=== PATIENT | female | born 1945 | race Hispanic/Latino ===

== ENCOUNTER 2017-06-04 13:49 | Emergency (ER) | payer MEDICARE, BC ==
[2017-06-04 13:49] VITALS: BMI 38.9
[2017-06-04 14:00] VITALS: BP 121/75; PULSE 81; RESP 16; TEMP 98.3; O2SAT 97
--- NOTE | 2017-06-04 14:38 | ED PDOC ---
Arrival/HPI - General Chief Complaint: Weakness/Neurological Deficit Time Seen by Provider: 06/04/17 14:20 Historian: Patient - History of Present Illness Narrative History of Present Illness (Text): 06/04/17 14:33 A 71 year old female, whose past medical history includes, mitral valve replacement, HTN, HLD, and CAD, presents to the emergency department with a complaint of several week duration weakness. She states that she has been experiencing "shakes and not feeling herself". The patient states that she takes Zanax twice a day, but states that her symptoms are not associated with her anxiety. The patient also notes that she has been feeling lightheaded. She denies fevers, chills, headache, chest pain, shortness of breath, dyspnea on exertion, cough, abdominal pain, nausea, vomiting, diarrhea, back pain, neck pain, urinary/bowel changes, or any other complaint. PMD: Dr. Lopez Time/Duration: Other (Several Weeks) Symptom Onset: Sudden Symptom Course: Unchanged Activities at Onset: Rest Context: Home Past Medical History - Provider Review Nursing Documentation Reviewed: Yes - Infectious Disease Hx of Infectious Diseases: None - Tetanus Immunization Tetanus Immunization: Unknown - Cardiac Hx Hypertension: Yes - Pulmonary Hx Respiratory Disorders: No (DENIES) - Neurological Hx Neurological Disorder: No - HEENT Hx HEENT Disorder: No - Renal Hx Renal Disorder: No - Endocrine/Metabolic Hx Endocrine Disorders: No - Hematological/Oncological Hx Anemia: Yes Hx Blood Transfusions: Yes - Integumentary Hx Dermatological Disorder: No - Musculoskeletal/Rheumatological Hx Arthritis: Yes (knee replacement) - Gastrointestinal Hx Gastrointestinal Disorders: Yes (reflux) Hx Gastroesophageal Reflux: Yes - Genitourinary/Gynecological Hx Reproductive Disorders: Yes (hx hyst/l oopherectomy) - Psychiatric Hx Anxiety: Yes Hx Depression: Yes Hx Substance Use: No - Surgical History Hx Cholecystectomy: Yes Hx Hysterectomy: Yes Hx Orthopedic Surgery: Yes (L KNEE, R KNEE) Hx Valve Replacement: Yes - Anesthesia Hx Anesthesia: Yes - Suicidal Assessment Feels Threatened In Home Enviroment: No Family/Social History - Physician Review Nursing Documentation Reviewed: Yes Family/Social History: No Known Family HX Smoking Status: Never Smoked Hx Alcohol Use: No Hx Substance Use: No Hx Substance Use Treatment: No Allergies/Home Meds Allergies/Adverse Reactions: Allergies furosemide Allergy (Mild, Verified 06/04/17 13:50) ITCHING morphine Allergy (Verified 06/04/17 13:50) DIARRHEA ciprofloxacin [From Cipro] Adverse Reaction (Mild, Verified 06/04/17 13:50) ITCHING ciprofloxacin HCl [From Cipro] Adverse Reaction (Mild, Verified 06/04/17 13:50) ITCHING Home Medications: Home Meds Medication Instructions Recorded Confirmed Alprazolam [Xanax] 1 mg PO BID 10/29/12 06/04/17 Fludrocortisone [Florinef] 0.1 mg PO DAILY 10/29/12 06/04/17 Metoprolol Succinate [Toprol XL] 50 mg PO DAILY 10/29/12 06/04/17 Escitalopram [Lexapro] 10 mg PO DAILY 06/13/16 06/04/17 Rosuvastatin Calcium [Crestor] 10 mg PO HS 06/13/16 06/04/17 Vitamin B Complex 1 tab PO DAILY 06/13/16 06/04/17 Vitamin C 500 mg PO DAILY 06/13/16 06/04/17 Cholecalciferol [Vitamin D 1000 IU] 1,000 unit PO BID 06/16/16 06/04/17 Pantoprazole [Protonix EC Tab] 40 mg PO DAILY 06/04/17 06/04/17 Warfarin [Coumadin] 3 mg PO 1800 06/04/17 06/04/17 Review of Systems - Physician Review All systems were reviewed & negative as marked: Yes - Review of Systems Constitutional: absent: Fevers, Night Sweats Respiratory: absent: SOB Cardiovascular: absent: Chest Pain, MEDINA Gastrointestinal: absent: Abdominal Pain, Stool Changes, Vomiting Genitourinary Female: absent: Urine Output Changes Musculoskeletal: absent: Back Pain, Neck Pain Neurological: absent: Headache Physical Exam Vital Signs Reviewed: Yes Vital Signs Temp Pulse Resp BP Pulse Ox 06/04/17 13:54 98.3 F 81 16 121/75 97 Temperature: Afebrile Blood Pressure: Normal Pulse: Regular Respiratory Rate: Normal Appearance: Positive for: Well-Appearing, Non-Toxic, Comfortable Pain Distress: None Mental Status: Positive for: Alert and Oriented X 3 Finger Stick Blood Glucose: 114 - Systems Exam Head: Present: Atraumatic, Normocephalic Pupils: Present: PERRL Extroacular Muscles: Present: EOMI Conjunctiva: Present: Normal Mouth: Present: Moist Mucous Membranes Neck: Present: Normal Range of Motion Respiratory/Chest: Present: Clear to Auscultation, Good Air Exchange. No: Respiratory Distress, Accessory Muscle Use Cardiovascular: Present: Regular Rate and Rhythm, Normal S1, S2. No: Murmurs Abdomen: Present: Normal Bowel Sounds. No: Tenderness, Distention, Peritoneal Signs Back: Present: Normal Inspection Upper Extremity: Present: Normal Inspection. No: Cyanosis, Edema Lower Extremity: Present: Normal Inspection. No: Edema (No peripheral edema.) Neurological: Present: GCS=15, CN II-XII Intact, Speech Normal Skin: Present: Warm, Dry, Normal Color. No: Rashes Psychiatric: Present: Alert, Oriented x 3, Normal Insight, Normal Concentration. No: Normal Affect (Flat Affect) Medical Decision Making ED Course and Treatment: 06/04/17 14:44 Impression: A 71 year old female presents to the emergency department for several week duration weakness and shakes. The patient states that she has not been feeling herself. Plan: -- EKG -- Labs -- Urinalysis -- Reassess and disposition Prior Visits: Notes and results from previous visits were reviewed. Patient was last seen in the emergency department on 06/17/16. The patient was seen in the emergency department with a complaint of left hand pain, forehead injury, and left knee pain. The patient was hospitalized. Progress Notes: EKG: Ordered, reviewed, and independently interpreted the EKG. Rate : 68 BPM Rhythm : Atrial- Fibrillation Interpretation : No acute ischemic changes. - Lab Interpretations Lab Results: 06/04/17 14:19 06/04/17 14:19 Lab Results 06/04/17 14:45: Urine Color Yellow, Urine Appearance Slight-cloudy, Urine pH 6.0 , Ur Specific [place] 1.020, Urine Protein Negative, Urine Glucose (UA) Negative , Urine Ketones Trace H, Urine Blood Trace-intact H, Urine Nitrate Positive H, Urine Bilirubin Negative, Urine Urobilinogen 0.2, Ur Leukocyte Esterase Trace H , Urine RBC 1 - 3, Urine WBC 10 - 15, Ur Epithelial Cells 1 - 3, Urine Bacteria Many 06/04/17 14:19: TSH 3rd Generation 1.92 06/04/17 14:19: Sodium 139, Potassium 4.1, Chloride 104, Carbon Dioxide 30, Anion Gap 9 L, BUN 15, Creatinine 0.9, Est GFR ( Amer) > 60, Est GFR (Non -Af Amer) > 60, Random Glucose 107, Calcium 10.3, Total Bilirubin 0.7, AST 39 H , ALT 47, Alkaline Phosphatase 52, Total Protein 7.2, Albumin 4.1, Globulin 3.1 , Albumin/Globulin Ratio 1.3 06/04/17 14:19: PT 31.4 H, INR 2.82 H 06/04/17 14:19: WBC 10.0 D, RBC 5.05, Hgb 14.2, Hct 42.9, MCV 85.0, MCH 28.1, MCHC 33.1, RDW 14.4, Plt Count 194, MPV 10.2, Gran % 80.3 H, Lymph % (Auto) 12.1 L, Kin[place] % (Auto) 7.0 H, Eos % (Auto) 0.3 L, Baso % (Auto) 0.3, Gran # 8.04 H, Lymph # 1.2, Kinney # 0.7 H, Eos # 0.0, Baso # 0.03 I have reviewed the lab results: Yes - EKG Interpretation Interpreted by ED Physician: Yes Type: 12 lead EKG - Medication Orders Current Medication Orders: Nitrofurantoin Macrocrystals (Macrobid) 100 mg PO Q12 KATIE Last Admin: 06/04/17 16:05 Dose: Discontinued Medications Nitrofurantoin Macrocrystals (Macrobid) 100 mg PO STAT STA Stop: 06/04/17 15:55 Last Admin: 06/04/17 16:05 Dose: 100 mg - Scribe Statement The provider has reviewed the documentation as recorded by the Shea Zamudio Provider Justiceibe Attestation: All medical record entries made by the Shea were at my direction and personally dictated by me. I have reviewed the chart and agree that the record accurately reflects my personal performance of the history, physical exam, medical decision making, and the department course for this patient. I have also personally directed, reviewed, and agree with the discharge instructions and disposition. Disposition/Present on Arrival - Present on Arrival Any Indicators Present on Arrival: No History of DVT/PE: No History of Uncontrolled Diabetes: No Urinary Catheter: No History of Decub. Ulcer: No History Surgical Site Infection Following: None - Disposition Have Diagnosis and Disposition been Completed?: Yes Diagnosis: UTI (urinary tract infection) Disposition: HOME/ ROUTINE Disposition Time: 16:05 Patient Problems: Current Active Problems Problem Status Onset UTI (urinary tract infection) Acute Condition: STABLE Discharge Instructions (ExitCare): Urinary Tract Infection in Women (ED) Additional Instructions: Plenty of fluids [Arin Carlisle], thank you for letting us take care of you today. Your provider was [Dr Brown]. You were treated for [uti]. The emergency medical care you received today was directed at your acute symptoms. If you were prescribed any medication, please fill it and take as directed. It may take several days for your symptoms to resolve. Return to the Emergency Department if your symptoms worsen, do not improve, or if you have any other problems. Please contact your doctor or call one of the physicians/clinics you have been referred to that are listed on the Patient Visit Information form that is included in your discharge packet. Bring any paperwork you were given at discharge with you along with any medications you are taking to your follow up visit. Our treatment cannot replace ongoing medical care by a primary care provider (PCP) outside of the emergency department. Thank you for allowing the [facility] team to be part of your care today. If you had an X-Ray or CT scan: A Radiologist will review the ED reading if any change in treatment is needed we will contact you. If you had a blood, urine, or wound culture: It will take several days for the results, if any change in treatment is needed we will contact you. If you had an STI test: It will take 48 hours for the results. Please call after 1 week if you have not heard back. Prescriptions: Nitrofurantoin Macrocrystals [Macrobid] 100 mg PO BID #14 cap Referrals: Mike Lopez MD [Primary Care Provider] - Follow up with primary Forms: [employer] (Dominican)
[2017-06-04 14:45] LABS: BASO # 0.03 K/mm3 (0.0-2.0); BASO % 0.3 % (0.0-3.0); EOS % 0.3 % (1.5-5.0); GRAN # 8.04 (1.4-6.5); GRAN % 80.3 % (50.0-68.0); HEMATOCRIT 42.9 % (36.0-48.0); LYMPH # 1.2 (1.2-3.4); LYMPH % 12.1 % (22.0-35.0); MEAN CORPUSCULAR HEMOGLOBIN 28.1 pg (25.0-35.0); MEAN CORPUSCULAR HGB CONC 33.1 g/dl (31.0-37.0); MEAN PLATELET VOLUME 10.2 fl (7.0-11.0); MONO # 0.7 (0.1-0.6); RED CELL DISTRIBUTION WIDTH 14.4 % (11.5-14.5)
[2017-06-04 14:50] LABS: INR 2.82 (0.93-1.08)
[2017-06-04 14:51] LABS: ALB/GLOB RATIO 1.3 (1.1-1.8); ALKALINE PHOSPHATASE 52 U/L (38-126); ALT/SGPT 47 U/L (7-56); AST/SGOT 39 U/L (14-36); BILIRUBIN,TOTAL 0.7 mg/dL (0.2-1.3); BLOOD UREA NITROGEN 15 mg/dL (7-21); CALCIUM 10.3 mg/dL (8.4-10.5); CARBON DIOXIDE 30 mmol/L (21-33); CHLORIDE 104 mmol/L (98-107); GFR AFRICAN-AMERICAN > 60; GLUCOSE,RANDOM 107 mg/dL (70-110); POTASSIUM 4.1 mmol/L (3.6-5.0); SODIUM 139 mmol/L (132-148); TOTAL PROTEIN 7.2 g/dL (5.8-8.3)
[2017-06-04 14:53] LABS: URINE BILIRUBIN NEGATIVE (NEGATIVE); URINE BLOOD TRACE-INTACT (NEGATIVE); URINE GLUCOSE (UA) NEGATIVE (NEGATIVE); URINE KETONE TRACE mg/dL (NEGATIVE); URINE LEUKOCYTE ESTERASE TRACE Leu/uL (NEGATIVE); URINE PROTEIN NEGATIVE mg/dL (<30 mg/dL); URINE UROBILINOGEN 0.2 E.U./dL (<1 E.U./dL)
[2017-06-04 14:54] LABS: URINE APPEARANCE SLIGHT-CLOUDY (CLEAR); URINE COLOR YELLOW (YELLOW)
[2017-06-04 14:59] LABS: URINE BACTERIA MANY (NEG)
--- NOTE | 2017-06-06 09:32 | CARD ---
APPROVED REPORT EKG Measurement Heart [id number] P98 [id number] <Conclusion> RSR Small inferior Q waves NSSTW changes Baseline artifact Probably no change
== END 2017-06-04 16:10 | disposition home or self-care (01) ==
LOC: ED 13:49
DX: N39.0 Urinary tract infection, site not specified (principal); I10 Essential (primary) hypertension; I25.10 Atherosclerotic heart disease of native coronary artery without angina pectoris; E78.5 Hyperlipidemia, unspecified

== ENCOUNTER 2017-06-29 14:22 | Inpatient (IN) | payer MEDICARE, BC ==
[2017-06-29] MEDS ORDERED: Sodium Chloride 0.9% 500 ML IV STA (15:05)
[2017-06-29] MEDS ORDERED: Vancomycin 1gm in NS 250ml 1 GM/250 ML BAG IVPB STA (15:15)
[2017-06-29 15:24] LABS: VENOUS BLOOD GAS BASE EXCESS 4.3 mmol/L (0.0-2.0); VENOUS BLOOD PH 7.35 (7.32-7.43)
--- NOTE | 2017-06-29 15:26 | ED PDOC ---
Arrival/HPI - General Chief Complaint: Weakness/Neurological Deficit Time Seen by Provider: 06/29/17 14:24 Historian: Patient - History of Present Illness Narrative History of Present Illness (Text): 06/29/17 15:23 71 year old female, whose history includes mitral valve replacement, presents to the Emergency department complaining of generalized fatigue and myalgias. Patient was evaluated at PMD's office today; PMD found patient febrile and advised her to seek Emergency department evaluation for concern of endocarditis. Patient reports she is compliant with her medications. Patient denies any chest pain, shortness of breath, nausea, vomiting, diarrhea, urinary symptoms, back pain, neck pain, headache, dizziness, or any other complaints. PMD: Dr. Gandhi Time/Duration: 24 hours Symptom Onset: Gradual Symptom Course: Unchanged Context: Home Past Medical History - Provider Review Nursing Documentation Reviewed: Yes - Infectious Disease Hx of Infectious Diseases: None - Tetanus Immunization Tetanus Immunization: Unknown - Reproductive Menopause: Yes - Cardiac Hx Hypertension: Yes - Pulmonary Hx Respiratory Disorders: No (DENIES) - Neurological Hx Neurological Disorder: No - HEENT Hx HEENT Disorder: No - Renal Hx Renal Disorder: No - Endocrine/Metabolic Hx Endocrine Disorders: No - Hematological/Oncological Hx Anemia: Yes Hx Blood Transfusions: Yes - Integumentary Hx Dermatological Disorder: No - Musculoskeletal/Rheumatological Hx Arthritis: Yes (knee replacement) - Gastrointestinal Hx Gastrointestinal Disorders: Yes (reflux) Hx Gastroesophageal Reflux: Yes - Genitourinary/Gynecological Hx Reproductive Disorders: Yes (hx hyst/l oopherectomy) - Psychiatric Hx Anxiety: Yes Hx Depression: Yes Hx Substance Use: No - Surgical History Hx Cholecystectomy: Yes Hx Hysterectomy: Yes Hx Orthopedic Surgery: Yes (L KNEE, R KNEE) Hx Valve Replacement: Yes - Anesthesia Hx Anesthesia: Yes - Suicidal Assessment Feels Threatened In Home Enviroment: No Family/Social History - Physician Review Nursing Documentation Reviewed: Yes Family/Social History: Unknown Family HX Smoking Status: Never Smoked Hx Alcohol Use: No Hx Substance Use: No Hx Substance Use Treatment: No Allergies/Home Meds Allergies/Adverse Reactions: Allergies furosemide Allergy (Mild, Verified 06/29/17 14:37) ITCHING morphine Allergy (Verified 06/29/17 14:37) DIARRHEA ciprofloxacin [From Cipro] Adverse Reaction (Mild, Verified 06/29/17 14:37) ITCHING ciprofloxacin HCl [From Cipro] Adverse Reaction (Mild, Verified 06/29/17 14:37) ITCHING Home Medications: Home Meds Medication Instructions Recorded Confirmed Alprazolam [Xanax] 1 mg PO BID 10/29/12 06/29/17 Fludrocortisone [Florinef] 0.1 mg PO DAILY 10/29/12 06/29/17 Metoprolol Succinate [Toprol XL] 50 mg PO DAILY 10/29/12 06/29/17 Escitalopram [Lexapro] 10 mg PO DAILY 06/13/16 06/29/17 Rosuvastatin Calcium [Crestor] 10 mg PO HS 06/13/16 06/29/17 Vitamin B Complex 1 tab PO DAILY 06/13/16 06/29/17 Cholecalciferol [Vitamin D 1000 IU] 1,000 unit PO BID 06/16/16 06/29/17 Pantoprazole [Protonix EC Tab] 40 mg PO DAILY 06/04/17 06/29/17 Warfarin [Coumadin] 3 mg PO 1800 06/04/17 06/29/17 Ibandronate Sodium [Boniva] 150 mg PO 06/29/17 Warfarin [Coumadin] 2 mg PO 06/29/17 Review of Systems - Physician Review All systems were reviewed & negative as marked: Yes - Review of Systems Constitutional: Fatigue Respiratory: absent: SOB Cardiovascular: absent: Chest Pain Gastrointestinal: absent: Diarrhea, Nausea, Vomiting Genitourinary Female: absent: Dysuria, Frequency, Hematuria Musculoskeletal: Myalgias. absent: Back Pain, Neck Pain Neurological: absent: Headache, Dizziness Physical Exam Vital Signs Reviewed: Yes Vital Signs Temp Pulse Resp BP Pulse Ox 06/29/17 17:30 98.5 F 80 18 144/97 H 95 06/29/17 14:54 97.6 F 70 12 161/89 H 98 06/29/17 14:30 98 F 72 16 128/79 98 Temperature: Afebrile Blood Pressure: Normal Pulse: Regular Respiratory Rate: Normal Appearance: Positive for: Well-Appearing, Non-Toxic, Comfortable Pain Distress: None Mental Status: Positive for: Alert and Oriented X 3 - Systems Exam Head: Present: Atraumatic, Normocephalic Pupils: Present: PERRL Extroacular Muscles: Present: EOMI Conjunctiva: Present: Normal Mouth: Present: Moist Mucous Membranes Neck: Present: Normal Range of Motion Respiratory/Chest: Present: Clear to Auscultation, Good Air Exchange. No: Respiratory Distress, Accessory Muscle Use Cardiovascular: Present: Normal S1, S2, Other (Midsystolic click). No: Murmurs Abdomen: Present: Normal Bowel Sounds. No: Tenderness, Distention, Peritoneal Signs Back: Present: Normal Inspection Upper Extremity: Present: Normal Inspection. No: Cyanosis, Edema Lower Extremity: Present: Normal Inspection, Normal ROM. No: Edema, CALF TENDERNESS Neurological: Present: GCS=15, CN II-XII Intact, Speech Normal Skin: Present: Warm, Dry, Normal Color. No: Rashes Psychiatric: Present: Alert, Oriented x 3, Normal Insight, Normal Concentration Medical Decision Making ED Course and Treatment: 06/29/17 15:29 Impression: 71 year old female with a history of mitral valve replacement presents to the Emergency department complaining of generalized fatigue and myalgias. Plan: -- EKG -- Chest xray -- Labs -- Blood and urine cultures -- Urinalysis -- Influenza A B test -- Vancomycin -- IV Fluids -- Reassess and disposition Prior Visits: Notes and results from previous visits were reviewed. Patient was last seen in the emergency department on 06/04/17 for generalized weakness for weeks. Patient was diagnosed with UTI and discharged home. Progress Notes: 06/29/17 15:57 EKG shows NSR at 73bpm with no ST changes from prior on 06/13/2016 Procedure: Chest xray Report Date : 06/29/2017 15:59:55 Dictator : Xenia Crews MD IMPRESSION: Median sternotomy wires. Cardiomegaly. 06/29/17 18:07 Labs reviewed. Blood cx sent. UA positive. Ucx sent. Dr. Gandhi to admit with cardiac evaluation. - Lab Interpretations I have reviewed the lab results: Yes - RAD Interpretation Radiology Orders: 06/29/17 14:49 CHEST PORTABLE [RAD] Stat - Medication Orders Current Medication Orders: Discontinued Medications Sodium Chloride (Sodium Chloride 0.9%) 500 mls @ 999 mls/hr IV .Q31M STA Stop: 06/29/17 15:35 Last Admin: 06/29/17 15:34 Dose: 999 mls/hr eMAR Start Stop Document 06/29/17 15:34 RG (Rec: 06/29/17 15:34 RG [id number]) Intravenous Solution Start Date 06/29/17 Start Time 15:34 Vancomycin HCl (Vancomycin 1gm) 1 gm in 250 mls @ 167 mls/hr IVPB STAT STA PRN Reason: Protocol Stop: 06/29/17 16:44 Last Admin: 06/29/17 15:34 Dose: 167 mls/hr eMAR Start Stop Document 06/29/17 15:34 RG (Rec: 06/29/17 15:35 RG [id number]) Intravenous Solution Start Date 06/29/17 Start Time 15:35 End Date 06/29/17 - Scribe Statement The provider has reviewed the documentation as recorded by the Justiceibburak Agosto All medical record entries made by the Justiceibburak were at my direction and personally dictated by me. I have reviewed the chart and agree that the record accurately reflects my personal performance of the history, physical exam, medical decision making, and the department course for this patient. I have also personally directed, reviewed, and agree with the discharge instructions and disposition. Disposition/Present on Arrival - Present on Arrival Any Indicators Present on Arrival: No History of DVT/PE: No History of Uncontrolled Diabetes: No Urinary Catheter: No History of Decub. Ulcer: No History Surgical Site Infection Following: None - Disposition Have Diagnosis and Disposition been Completed?: Yes Diagnosis: Fever, Mitral valve replaced, UTI (urinary tract infection) Disposition: HOSPITALIZED Disposition Time: 15:48 Patient Plan: Admission Patient Problems: Current Active Problems Problem Status Onset Fever Acute Mitral valve replaced Acute UTI (urinary tract infection) Acute Condition: FAIR
[2017-06-29 15:33] LABS: BASO # 0.02 K/mm3 (0.0-2.0); BASO % 0.2 % (0.0-3.0); EOS % 0.4 % (1.5-5.0); GRAN # 7.66 (1.4-6.5); GRAN % 81.1 % (50.0-68.0); HEMATOCRIT 42.6 % (36.0-48.0); LYMPH # 1.1 (1.2-3.4); LYMPH % 11.9 % (22.0-35.0); MEAN CELL VOLUME 84.9 fl (80.0-105.0); MEAN CORPUSCULAR HEMOGLOBIN 27.9 pg (25.0-35.0); MEAN CORPUSCULAR HGB CONC 32.9 g/dl (31.0-37.0); MEAN PLATELET VOLUME 9.7 fl (7.0-11.0); MONO # 0.6 (0.1-0.6); MONO % 6.4 % (1.0-6.0); RED CELL DISTRIBUTION WIDTH 14.2 % (11.5-14.5); WHITE BLOOD COUNT 9.4 10^3/ul (4.5-11.0)
[2017-06-29 15:52] LABS: TROPONIN I < 0.01 ng/mL
[2017-06-29 15:58] LABS: PARTIAL THROMBOPLASTIN TIME 40.5 Seconds (25.1-36.5)
[2017-06-29 16:01] LABS: ALB/GLOB RATIO 1.3 (1.1-1.8); ALKALINE PHOSPHATASE 58 U/L (38-126); ALT/SGPT 37 U/L (7-56); AST/SGOT 35 U/L (14-36); BILIRUBIN,TOTAL 0.5 mg/dL (0.2-1.3); BLOOD UREA NITROGEN 16 mg/dL (7-21); CALCIUM 10.4 mg/dL (8.4-10.5); CARBON DIOXIDE 31 mmol/L (21-33); CHLORIDE 105 mmol/L (98-107); GFR AFRICAN-AMERICAN > 60; GLUCOSE,RANDOM 106 mg/dL (70-110); MAGNESIUM 1.8 mg/dL (1.7-2.2); PHOSPHOROUS 3.2 mg/dL (2.5-4.5); POTASSIUM 4.3 mmol/L (3.6-5.0); SODIUM 142 mmol/L (132-148); TOTAL PROTEIN 7.2 g/dL (5.8-8.3)
--- NOTE | 2017-06-29 16:02 | RAD ---
HISTORY: fever, cough COMPARISON: Chest x-ray performed 06/12/16 TECHNIQUE: Chest, one view. FINDINGS: Examination limited by habitus. LUNGS: No focal consolidation. Please note that chest x-ray has limited sensitivity for the detection of pulmonary masses. PLEURA: No significant pleural effusion identified. No definite pneumothorax . CARDIOVASCULAR: Median sternotomy wires. Cardiomegaly. Atherosclerotic calcifications. OSSEOUS STRUCTURES: No acute osseous abnormality identified. VISUALIZED UPPER ABDOMEN: Unremarkable. OTHER FINDINGS: None. IMPRESSION: Median sternotomy wires. Cardiomegaly.
[2017-06-29 17:12] LABS: URINE BILIRUBIN NEGATIVE (NEGATIVE); URINE BLOOD TRACE-LYSED (NEGATIVE); URINE GLUCOSE (UA) NEGATIVE (NEGATIVE); URINE KETONE NEGATIVE (NEGATIVE); URINE LEUKOCYTE ESTERASE SMALL Leu/uL (NEGATIVE); URINE PROTEIN NEGATIVE mg/dL (<30 mg/dL); URINE UROBILINOGEN 0.2 E.U./dL (<1 E.U./dL)
[2017-06-29 17:19] LABS: URINE APPEARANCE SL CLOUDY (CLEAR); URINE COLOR YELLOW (YELLOW)
[2017-06-29 17:22] LABS: URINE RBC 0 - 2 /hpf (0-2)
[2017-06-29 17:23] LABS: URINE BACTERIA MANY (NEG)
[2017-06-29 19:52] VITALS: O2SAT 97
--- NOTE | 2017-06-29 22:17 | CP.PCM.HP ---
History of Present Illness - History of Present Illness History of Present Illness: Renettagokul Ivonne TERRELL PGY1 - Internal Medicine H&P CC: Fatigue HPI: Patient is a 70Y F with PMH of mitral valve replacement (on coumadin) (for severe MVP 2/2 rheumatic heart disease), HTN, HLD, and CAD who presents from her PMD's office complaining of fatigue. At the office, she was reportedly noted to be febrile, and was sent to the ER to rule out endocarditis. She reports that she has been fatigued for 4-5 weeks, without any specific focal weakness or numbness. She denies chest pain, SOB, cough, fever, nausea, vomiting , diarrhea, constipation, abdominal pain, dysuria, hematuria, urgency, frequency , recent weight gain, increased appetite. She does report sleeping more than usual, and a 10 lbs weight loss over the past 2 months. She also reports occasional "shakes" when prompted about chills. She was recently seen in the ER approximately weeks ago for the same complaints, and was noted to have a UTI, and was treated with macrobid, which she completed. Remainder of 12 point ROS was negative. PMH: As above PSH: bilateral knee replacement, open heart surgery for mitral valve replacement , cholecystectomy, hysterectomy (endometrosis), oopherectomy (ovarian cyst) All: Furosemide, Ciprofloxacin, Morphine SHx: Denies tobacco, alcohol, or illicits; lives with PMD: Dr. Gandhi Present on Admission - Present on Admission Any Indicators Present on Admission: No Past Patient History - Infectious Disease Hx of Infectious Diseases: None - Tetanus Immunizations Tetanus Immunization: Unknown - Past Social History Smoking Status: Never Smoked - CARDIAC Hx Hypertension: Yes - PULMONARY Hx Respiratory Disorders: No (DENIES) - NEUROLOGICAL Hx Neurological Disorder: No - HEENT Hx HEENT Problems: No - RENAL Hx Chronic Kidney Disease: No - ENDOCRINE/METABOLIC Hx Endocrine Disorders: No - HEMATOLOGICAL/ONCOLOGICAL Hx Anemia: Yes Hx Blood Transfusions: Yes - INTEGUMENTARY Hx Dermatological Problems: No - MUSCULOSKELETAL/RHEUMATOLOGICAL Hx Arthritis: Yes (knee replacement) - GASTROINTESTINAL Hx Gastrointestinal Disorders: Yes (reflux) Hx Gastroesophageal Reflux: Yes - GENITOURINARY/GYNECOLOGICAL Hx Reproductive Disorders: Yes (hx hyst/l oopherectomy) - PSYCHIATRIC Hx Anxiety: Yes Hx Depression: Yes Hx Substance Use: No - SURGICAL HISTORY Hx Cholecystectomy: Yes Hx Hysterectomy: Yes Hx Orthopedic Surgery: Yes (L KNEE, R KNEE) Hx Valve Replacement: Yes - ANESTHESIA Hx Anesthesia: Yes Meds Allergies/Adverse Reactions: Allergies Allergy/AdvReac Type Severity Reaction Status Date / Time furosemide Allergy Mild ITCHING Verified 06/29/17 14:37 morphine Allergy DIARRHEA Verified 06/29/17 14:37 ciprofloxacin [From Cipro] AdvReac Mild ITCHING Verified 06/29/17 14:37 ciprofloxacin HCl AdvReac Mild ITCHING Verified 06/29/17 14:37 [From Cipro] Physical Exam - Constitutional Appears: Non-toxic, No Acute Distress - Head Exam Head Exam: ATRAUMATIC, NORMOCEPHALIC - Eye Exam Eye Exam: EOMI, Normal appearance, PERRL - ENT Exam ENT Exam: Mucous Membranes Moist - Neck Exam Neck exam: Positive for: Normal Inspection - Respiratory Exam Respiratory Exam: Clear to Auscultation Bilateral, NORMAL BREATHING PATTERN - Cardiovascular Exam Cardiovascular Exam: REGULAR RHYTHM, +S1, +S2 Additional comments: Click of prosthetic mitral valve audible from approximately 2 feet away without stethescope; synchronous with pulse Normal capillary refill. No splinter hemorrhages, osler nodes, or Janeway lesions - GI/Abdominal Exam GI & Abdominal Exam: Normal Bowel Sounds, Soft. absent: Tenderness - Extremities Exam Extremities exam: Positive for: normal inspection. Negative for: calf tenderness, pedal edema - Neurological Exam Neurological exam: Alert, CN II-XII Intact, Oriented x3 - Psychiatric Exam Psychiatric exam: Normal Affect, Normal Mood - Skin Skin Exam: Dry, Intact, Normal Color Results - Vital Signs Recent Vital Signs: Last Vital Signs Temp 98.5 F 06/29/17 17:30 Pulse 80 06/29/17 19:00 Resp 12 06/29/17 19:00 BP 162/75 H 06/29/17 19:00 Pulse Ox 97 06/29/17 19:00 - Labs Result Diagrams: 06/29/17 15:10 06/29/17 15:10 Labs: Laboratory Results - last 24 hr 06/29/17 06/29/17 06/29/17 15:10 15:10 15:10 WBC 9.4 RBC 5.02 Hgb 14.0 Hct 42.6 MCV 84.9 MCH 27.9 MCHC 32.9 RDW 14.2 Plt Count 182 MPV 9.7 Gran % 81.1 H Lymph % (Auto) 11.9 L [place] % (Auto) 6.4 H Eos % (Auto) 0.4 L Baso % (Auto) 0.2 Gran # 7.66 H Lymph # 1.1 L [place] # 0.6 Eos # 0.0 Baso # 0.02 PT 33.4 H INR 3.00 H APTT 40.5 H pO2 VBG pH VBG pCO2 VBG HCO3 VBG Total CO2 VBG O2 Sat (Calc) VBG Base Excess VBG Potassium Sodium 142 Chloride 105 Glucose Lactate FiO2 Potassium 4.3 Carbon Dioxide 31 Anion Gap 10 BUN 16 Creatinine 0.9 Est GFR ( Amer) > 60 Est GFR (Non-Af Amer) > 60 Random Glucose 106 Calcium 10.4 Phosphorus 3.2 Magnesium 1.8 Total Bilirubin 0.5 AST 35 ALT 37 Alkaline Phosphatase 58 Total Creatine Kinase 88 Troponin I < 0.01 NT-Pro-B Natriuret Pep 282 Total Protein 7.2 Albumin 4.1 Globulin 3.1 Albumin/Globulin Ratio 1.3 Venous Blood Potassium Urine Color Urine Appearance Urine pH Ur Specific [place] Urine Protein Urine Glucose (UA) Urine Ketones Urine Blood Urine Nitrate Urine Bilirubin Urine Urobilinogen Ur Leukocyte Esterase Urine RBC Urine WBC Ur Epithelial Cells Urine Bacteria Influenza Typ A,B (EIA) 06/29/17 06/29/17 06/29/17 15:10 16:53 16:53 WBC RBC Hgb Hct MCV MCH MCHC RDW Plt Count MPV Gran % Lymph % (Auto) [place] % (Auto) Eos % (Auto) Baso % (Auto) Gran # Lymph # [place] # Eos # Baso # PT INR APTT pO2 34 VBG pH 7.35 VBG pCO2 57.0 VBG HCO3 31.5 H VBG Total CO2 33.2 H VBG O2 Sat (Calc) 74.6 H VBG Base Excess 4.3 H VBG Potassium 4.2 Sodium 140.0 Chloride 105.0 Glucose 110 H Lactate 1.0 FiO2 21.0 Potassium Carbon Dioxide Anion Gap BUN Creatinine Est GFR ( Amer) Est GFR (Non-Af Amer) Random Glucose Calcium Phosphorus Magnesium Total Bilirubin AST ALT Alkaline Phosphatase Total Creatine Kinase Troponin I NT-Pro-B Natriuret Pep Total Protein Albumin Globulin Albumin/Globulin Ratio Venous Blood Potassium 4.2 Urine Color Yellow Urine Appearance Sl cloudy Urine pH 6.0 Ur Specific [place] 1.015 Urine Protein Negative Urine Glucose (UA) Negative Urine Ketones Negative Urine Blood Trace-lysed H Urine Nitrate Positive H Urine Bilirubin Negative Urine Urobilinogen 0.2 Ur Leukocyte Esterase Small H Urine RBC 0 - 2 Urine WBC 10 - 15 Ur Epithelial Cells 1 - 3 Urine Bacteria Many Influenza Typ A,B (EIA) Negative for flu a/b Assessment & Plan - Assessment and Plan (Free Text) Assessment: 71 yo F with PMH of HTN, HLD, CAD, MVP 2/2 rheumatic heart disease s/p prosthetic mitral valve placement presents from PMD's office complaining of several weeks of fatigue and fever noted on exam in the office. Plan Fatigue and fever - Patient has history of MV replacement, must rule out endocarditis - Afebrile since admission; no leukocytosis - Blood cultures drawn; pending - UA significant for nitrites, small LE, bacteriuria, and 10-15 WBC; denies any symptoms besides fatigue, though did recently complete a course of macrobid - Urine culture ordered; pending - Received vancomycin in ER; continue Vancomycin - Start Rocephin - TSH normal on 06/04/17; CMP unremarkable; Flu screen negative - Ordered procal, heterophile antibody screen - Ordered echo to r/o vegetations - PT/OT eval and treatment requested - Cardiac consult requested; appreciate recs - Infectious disease consult requested; appreciate recs h/o Mitral Valve Replacement - Patient on coumadin with INR target 2.5-3.5; currently therapeutic at INR 3.0 - Continue coumadin 2mg daily; check INR daily and adjust as needed - Echo and blood cultures ordered, as above h/o Anxiety - Continue home lexapro and xanax h/o CAD, HTN - Continue home Toprol XL, Statin h/o Orthostatic hypotension - Patient mildly hypertensive on admission - Continue home fludricortisone GI/DVT Ppx - Protonix and Coumadin + SCDs Patient discussed and reviewed with Dr. Gandhi
[2017-06-29 22:49] VITALS: BMI 37.9
[2017-06-29] MEDS ORDERED: Pneumococcal 23-Valent Vaccine IM ONE (22:49)
[2017-06-29] MEDS ORDERED: Influenza Vaccine 60 mcg/0.5 mL SYR (4YR UP) IM ONE (22:49)
[2017-06-30] MEDS: Vancomycin 1gm in NS 250ml 1 GM/250 ML BAG IVPB SCH ×2 (05:51→18:31)
[2017-06-30] MEDS: Pantoprazole 40 mg EC Tab PO SCH (05:51)
[2017-06-30 06:16] LABS: BASO # 0.02 K/mm3 (0.0-2.0); BASO % 0.3 % (0.0-3.0); EOS # 0.1 (0.0-0.7); EOS % 1.6 % (1.5-5.0); GRAN # 4.44 (1.4-6.5); GRAN % 65.1 % (50.0-68.0); HEMATOCRIT 41.1 % (36.0-48.0); LYMPH # 1.6 (1.2-3.4); LYMPH % 23.8 % (22.0-35.0); MEAN CELL VOLUME 84.7 fl (80.0-105.0); MEAN CORPUSCULAR HEMOGLOBIN 27.2 pg (25.0-35.0); MEAN CORPUSCULAR HGB CONC 32.1 g/dl (31.0-37.0); MONO # 0.6 (0.1-0.6); MONO % 9.2 % (1.0-6.0); RED CELL DISTRIBUTION WIDTH 14.3 % (11.5-14.5); WHITE BLOOD COUNT 6.8 10^3/ul (4.5-11.0)
[2017-06-30 06:34] LABS: INR 2.59 (0.93-1.08)
[2017-06-30 06:55] LABS: ALB/GLOB RATIO 1.2 (1.1-1.8); ALKALINE PHOSPHATASE 48 U/L (38-126); ALT/SGPT 28 U/L (7-56); AST/SGOT 33 U/L (14-36); BILIRUBIN,TOTAL 0.5 mg/dL (0.2-1.3); BLOOD UREA NITROGEN 11 mg/dL (7-21); CALCIUM 9.7 mg/dL (8.4-10.5); CARBON DIOXIDE 27 mmol/L (21-33); CHLORIDE 107 mmol/L (98-107); GFR AFRICAN-AMERICAN > 60; GLUCOSE,RANDOM 85 mg/dL (70-110); MAGNESIUM 1.8 mg/dL (1.7-2.2); PHOSPHOROUS 3.4 mg/dL (2.5-4.5); POTASSIUM 3.8 mmol/L (3.6-5.0); SODIUM 142 mmol/L (132-148); TOTAL PROTEIN 6.3 g/dL (5.8-8.3)
[2017-06-30] MEDS ORDERED: cefTRIAXone 1 gm 1 GM/100 ML BAG IVPB SCH (10:00)
[2017-06-30] MEDS: cefTRIAXone 1 gm 1 GM/100 ML BAG IVPB SCH (10:14)
[2017-06-30] MEDS: Cholecalciferol 1,000 INTLU TAB PO SCH ×2 (10:18→18:21)
[2017-06-30] MEDS: Metoprolol Succinate 50 mg XL Tab PO SCH (10:18)
[2017-06-30] MEDS: Multivitamin With Minerals Tab PO SCH (10:18)
[2017-06-30] MEDS: Magnesium Oxide 400 mg Tab UD PO SCH (10:18)
--- NOTE | 2017-06-30 10:25 | CP.PCM.PN ---
Subjective - Date & Time of Evaluation Date of Evaluation: 06/30/17 Time of Evaluation: 09:00 - Subjective Subjective: Patient was seen and examined at bedside. She states that she has been feeling fatigued for about a month, and has not felt better since being told she has a bladder infection in May. She stated that she completed her prescribed course of antibiotics. She denies burning on urination, frequency, blood in urine/stools, fevers, cough, chest pain, shortness of breath, abdominal pain, changes in bowel habits, muscle aches, or headaches. She does complain of some chills at home, however, they have resolved since time of admission. She does state that she has had pneumonias in the past, however, denies any respiratory symptoms, sick contacts, or recent travel. The patient is anxious given her hx of rheumatic heart disease and MVR. Regarding her Coumadin, the patient states that she takes 2mg daily and 3mg on if her INR is subtherapeutic, with her goal of 2.5-3.5. Objective - Vital Signs/Intake and Output Vital Signs (last 24 hours): Temp Pulse Resp BP Pulse Ox 97.5 F L 57 L 18 150/66 97 06/30/17 06:00 06/30/17 06:00 06/30/17 06:00 06/30/17 06:00 06/30/17 06:00 Intake and Output: 06/30/17 06/30/17 06:59 18:59 Intake Total 240 Output Total 0 Balance 240 - Medications Medications: Current Medications Acetaminophen (Tylenol 325mg Tab) 650 mg PO Q6H PRN PRN Reason: Fever >100.4 F Alprazolam (Xanax) 1 mg PO AMHS KATIE PRN Reason: Protocol Stop: 07/06/17 22:01 Last Admin: 06/29/17 23:02 Dose: 1 mg Atorvastatin Calcium (Lipitor) 40 mg PO HS KATIE Cholecalciferol (Vitamin D) 1,000 intlu PO BID KATIE Escitalopram Oxalate (Lexapro) 10 mg PO DAILY KATIE Fludrocortisone Acetate (Florinef) 0.1 mg PO DAILY KATIE Vancomycin HCl (Vancomycin 1gm) 1 gm in 250 mls @ 167 mls/hr IVPB Q12H KATIE PRN Reason: Protocol Last Admin: 06/30/17 05:51 Dose: 167 mls/hr Ceftriaxone Sodium (Rocephin 1 Gram Ivpb (D5w)) 1 gm in 100 mls @ 100 mls/hr IVPB DAILY [facility] PRN Reason: Protocol Magnesium Oxide (Mag-Ox) 400 mg PO DAILY [facility] Metoprolol Succinate (Toprol Xl) 50 mg PO DAILY [facility] Multivitamins/Minerals (Therapeutic-M Tab) 1 tab PO DAILY [facility] Pantoprazole Sodium (Protonix Ec Tab) 40 mg PO 0600 [facility] Last Admin: 06/30/17 05:51 Dose: 40 mg Warfarin Sodium (Coumadin) 2 mg PO 1800 [facility] PRN Reason: Protocol - Labs Labs: 06/30/17 05:00 06/30/17 05:55 PT 29.1 SECONDS (9.4-12.5) H 06/30/17 05:55 INR 2.59 (0.93-1.08) H 06/30/17 05:55 APTT 40.5 Seconds (25.1-36.5) H 06/29/17 15:10 - Constitutional Appears: Well, Non-toxic, No Acute Distress - Head Exam Head Exam: ATRAUMATIC, NORMAL INSPECTION, NORMOCEPHALIC - Eye Exam Eye Exam: EOMI, Normal appearance, PERRL - ENT Exam ENT Exam: Mucous Membranes Moist, Normal Exam - Neck Exam Neck Exam: Normal Inspection - Respiratory Exam Respiratory Exam: Rales (mild R lower lobe), NORMAL BREATHING PATTERN. absent: Rhonchi, Wheezes - Cardiovascular Exam Cardiovascular Exam: RRR, +S1, +S2. absent: JVD Additional comments: heart sound consistent with prosthetic valve noted left-sternal border - GI/Abdominal Exam GI & Abdominal Exam: Soft, Normal Bowel Sounds. absent: Distended, Tenderness - Extremities Exam Extremities Exam: Full ROM, Pedal Edema (2+). absent: Calf Tenderness, Tenderness - Back Exam Back Exam: NORMAL INSPECTION. 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 Patient is found to have a UTI and is being treated empirically. Echo will be done to r/o endocarditis, which is unlikely but must be ruled out given hx of prosthetic valve. Chest CT is also being done to r/o pneumonia as a source of possible infection given physical exam findings. Patient remains afebrile and with no leukocytosis. Patient negative for flu, and symptomatic anemia is unlikely cause given stable H/H. Patient's other medical problems are also being managed. Plan: 1. Fatigue likely 2/2 UTI vs pneumonia vs endocarditis - Cont Vancomycin and Rocephin d2 - Tylenol PRN - Chest CT showed no evidence of pneumonia. Present are cardiomegaly and mild pulmonary vascular congestion, trace right pleural effusion, mildly-to- moderately enlarged main pulmonary artery suggestive of pulmonary hypertension and a small hiatus hernia. - Echo done, pending official read - HIV ordered - procal ordered - Blood and urine cultures ordered - UA +nitrates, small LE, with many bacteria and few epithelial cells - Urine culture from 06/04/17 showed multiple species, likely 2/2 contamination and was inconclusive - ID consulted, recs appreciated 2. MVP s/p MVR with prosthetic valve 2/2 rhuematic heart disease - Cont Coumadin 2mg daily - Daily INR checks; currently therapeutic - f/u Echo to r/o vegetations or new valvular abnormalities 3. CAD - Cont. Metoprolol 4. HTN - Cont. Metoprolol - will monitor vitals 5. HLD - Cont. Lipitor 6. Depression/Anxiety - Cont. Xanax and Lexapro 7. GI/DVT ppx - Cont. PTX/Coumadin Patient was seen, examined and discussed with attending, Dr. John Rausch PGY1 Pager # [phone]
--- NOTE | 2017-06-30 11:36 | CARD ---
APPROVED REPORT EKG Measurement Heart [id number] <Conclusion> Normal sinus rhythm Cannot rule out Inferior infarct, old ST & T wave abnormality, consider anterolateral ischemia Probably no change
--- NOTE | 2017-06-30 12:44 | CT ---
PROCEDURE: CT Chest without contrast HISTORY: r/o pneumonia COMPARISON: None. TECHNIQUE: Contiguous axial images were obtained through the chest without intravenous contrast enhancement. Sagittal and coronal reconstructions were performed. Radiation dose (DLP): 442.68 mGy-cm. This CT exam was performed using one or more of the following dose reduction techniques: Automated exposure control, adjustment of the mA and/or kV according to patient size, and/or use of iterative reconstruction technique. FINDINGS: LUNGS: No evidence of focal infiltrate or consolidation in the lungs to suggest pneumonia. MEDIASTINUM: Unremarkable thoracic aorta. No aneurysm. The heart is moderately enlarged. The patient is likely status post prior mitral valve repair the main pulmonary artery is mildly enlarged suggestive of underlying pulmonary hypertension. Diffuse coronary artery calcification are noted. . No lymphadenopathy. PLEURA: Trace right-sided pleural effusion is noted. BONES: No fracture. No destructive lesion. UPPER ABDOMEN: There are low-attenuation nodules at both adrenal glands which have not significantly change comparing to the previous CT of the abdomen dated 09/19/2014 and likely represent benign adenoma. The largest nodule is seen at the right adrenal gland measures 1.7 centimeter in the transverse diameter. There is a small hiatus hernia noted. OTHER FINDINGS: None. IMPRESSION: No CT evidence of pneumonia. Cardiomegaly and mild pulmonary vascular congestion. Trace right pleural effusion. [id number] enlarged main pulmonary artery suggestive of pulmonary hypertension. Small hiatus hernia.
--- NOTE | 2017-06-30 22:03 | CON ---
DATE: 06/30/2017 The patient seen in room 275, bed 2. CHIEF COMPLAINT: Weakness from several days. HISTORY OF PRESENT ILLNESS: This is a 71-year-old female with history of mitral valve replacement who was admitted through emergency room with diagnoses of generalized fatigue, mitral valve replacement. The patient had rheumatic heart disease, hypertension, hyperlipidemia, coronary artery disease, was admitted to have fatigue and weakness. She is complaining of chills. She described as shaking chills, low grade fevers and she denies any dysuria although she does have frequency. PAST MEDICAL HISTORY: Significant for rheumatic heart disease and hypertension and hyperlipidemia, coronary artery disease, osteoarthritis, anxiety, depression, anemia. PAST SURGICAL HISTORY: Significant for bilateral knee surgery and mitral valve replacement, cholecystectomy, hysterectomy, oophorectomy. ALLERGIES: THE PATIENT IS ALLERGIC TO LASIX, MORPHINE AND CIPRO, TYPE OF ALLERGY IS NOT ENTIRELY CLEAR. MEDICATIONS AT HOME: Reveals the patient to be on Coumadin, rosuvastatin, Protonix, metoprolol, magnesium, Xanax. PHYSICAL EXAMINATION: VITAL SIGNS: The patient's temperature is 98, blood pressure is 150/60, respiratory rate of 18, pulse of 70. HEENT: Unremarkable. NECK: Supple. LUNGS: Decreased breath sounds. HEART: Normal S1, S2. ABDOMEN: Soft, nontender, no rebound or guarding. No masses. LABORATORY EXAMINATION: Reveals a white count of 9.4, hemoglobin of 14, platelets of 182. Coagulation is noted and chemistries reveals a BUN of 16, creatinine of 0.9. Urinalysis is noted to have 10-15 WBCs, many bacteria. Microbiology is pending. Review of microbiology in the past multiple species in the urine. The patient also had a chest x-ray, which showed no focal consolidation. History and physical exam with Dr. Naeem Wiley is appreciated. ASSESSMENT AND PLAN: A 71-year-old female with a history of rheumatic heart disease, hypertension, hyperlipidemia, coronary artery disease, osteoarthritis, anxiety, depression, anemia, history of mitral valve replacement, presenting with chills, weakness, fatigue, and frequency with a positive urinalysis and one is urinary tract infection, must rule out bacteremia from the mitral valve. Currently, the patient started on ceftriaxone and vancomycin by Dr. Wiley who will continue the present vancomycin and ceftriaxone chosen by Dr. Wiley for possible bacteremia from the valve and possible urinary tract infection from urine as a source. Pending blood cultures and urine cultures, procalcitonin as ordered by Dr. Wiley. We will follow closely with you. Kyle Martinez MD
--- NOTE | 2017-06-30 22:55 | CON ---
DATE: 06/30/2017 HISTORY OF PRESENT ILLNESS: The patient is a 71-year-old woman, who presents with fatigue. PAST MEDICAL HISTORY: Notable for mitral valve replacement secondary to rheumatic mitral valve disease. She has been treated with Coumadin. Recent workup in 12/2016 revealed a stress test that is unremarkable. An echocardiogram that was unremarkable. She denies chest pain. She denies shortness of breath. SOCIAL HISTORY: The patient does not smoke. REVIEW OF SYSTEMS: A 14 point review of systems was reviewed in detail. There are no cardiac symptomatology is noted. No fever, no shaking chills. PHYSICAL EXAMINATION VITAL SIGNS: Blood pressure is 150/68, heart rate in the 70s, normal sinus rhythm, the patient is afebrile. NECK: Negative JVD. LUNGS: Without rales. HEART: S1, S2. EXTREMITIES: Without edema. LABORATORY DATA: White count is 6.8, hemoglobin is 13.2. TSH was unremarkable. Troponins are negative x1. BUN and creatinine unremarkable. The INR is 2.59. IMPRESSION: 1. Marked fatigue. 2. History of mitral valve replacement. 3. Hypertension. 4. Abnormal EKG. 5. History of urinary tract infection. Given these findings, there is no cardiac cause of her fatigue that can be identified. Repeat echocardiogram was done today to rule out valvular involvement in her fatigue. Currently the patient is comfortable. Blayne Bocangera MD
[2017-07-01 05:55] LABS: BASO # 0.03 K/mm3 (0.0-2.0); BASO % 0.4 % (0.0-3.0); EOS # 0.1 (0.0-0.7); EOS % 1.4 % (1.5-5.0); GRAN # 4.96 (1.4-6.5); HEMATOCRIT 40.5 % (36.0-48.0); LYMPH # 1.5 (1.2-3.4); LYMPH % 20.3 % (22.0-35.0); MEAN CELL VOLUME 84.4 fl (80.0-105.0); MEAN CORPUSCULAR HEMOGLOBIN 27.3 pg (25.0-35.0); MEAN CORPUSCULAR HGB CONC 32.3 g/dl (31.0-37.0); MEAN PLATELET VOLUME 9.8 fl (7.0-11.0); MONO # 0.6 (0.1-0.6); MONO % 8.9 % (1.0-6.0); RED CELL DISTRIBUTION WIDTH 14.4 % (11.5-14.5); WHITE BLOOD COUNT 7.2 10^3/ul (4.5-11.0)
[2017-07-01 06:12] LABS: INR 2.07 (0.93-1.08)
[2017-07-01] MEDS: Pantoprazole 40 mg EC Tab PO SCH (06:22)
[2017-07-01] MEDS: Vancomycin 1gm in NS 250ml 1 GM/250 ML BAG IVPB SCH (06:23)
[2017-07-01 06:56] LABS: ALB/GLOB RATIO 1.2 (1.1-1.8); ALKALINE PHOSPHATASE 45 U/L (38-126); ALT/SGPT 37 U/L (7-56); AST/SGOT 36 U/L (14-36); BILIRUBIN,TOTAL 0.5 mg/dL (0.2-1.3); BLOOD UREA NITROGEN 11 mg/dL (7-21); CALCIUM 9.7 mg/dL (8.4-10.5); CARBON DIOXIDE 27 mmol/L (21-33); CHLORIDE 107 mmol/L (98-107); GFR AFRICAN-AMERICAN > 60; GLUCOSE,RANDOM 89 mg/dL (70-110); POTASSIUM 3.8 mmol/L (3.6-5.0); SODIUM 141 mmol/L (132-148); TOTAL PROTEIN 6.3 g/dL (5.8-8.3)
--- NOTE | 2017-07-01 08:00 | CON ---
PULMONARY CONSULTATION DATE: 07/01/2017 REASON FOR CONSULTATION: Pulmonary hypertension. REFERRING PHYSICIAN: Dr. Mike Lopez HISTORY OF PRESENT ILLNESS: The patient is a 71-year-old female, with past medical history significant for mitral valve replacement (secondary to rheumatic heart disease), hypertension, hyperlipidemia, coronary artery disease, who presents to [facility] with main complaint of worsening fatigue for the past few weeks. In addition, while at her private medical doctor's office, she was found to be febrile. She was then sent to the Emergency Room for additional evaluation. In the Emergency Room, the patient was diagnosed with urosepsis and subsequently admitted. The patient denies shortness of breath at rest, dyspnea on exertion, cough, and/or sputum production. The patient also denies chest pain, coughing up of blood, or chest pain - made worse with deep respirations. The patient did present with a history of fevers. No history of chills or infectious exposure. No history of night sweats, weight loss or appetite change prior to the above events. No history of leg or calf pains. No history of syncope or diaphoresis. No history of recent travel or trauma. REVIEW OF SYSTEMS: The patient does state to urinary frequency at home. She denies dysuria. There is no history of nausea, vomiting or diarrhea. No new musculoskeletal complaints. Rest of the review of systems is negative. ALLERGIES: LASIX, MORPHINE, AND CIPROFLOXACIN. SOCIAL HISTORY: Negative for tobacco and negative for alcohol. FAMILY HISTORY: No inheritable diseases. HOME MEDICATIONS: Include Coumadin, Crestor, Protonix, Toprol, Boniva, Florinef, Lexapro, and Xanax. PHYSICAL EXAMINATION GENERAL: The patient appears comfortable at rest. She is not short of breath. VITAL SIGNS: Temperature is 97.7, pulse 66, respirations 18/20, blood pressure 151/76. Oxygen saturation on room air is 97%. HEENT: Normocephalic, atraumatic. No JVD. CARDIOVASCULAR: Systolic ejection murmur at the lower left sternal border. No S3 gallop. LUNGS: Clear bilaterally. EXTREMITIES: Mild edema. No cyanosis, no clubbing. Calves are nontender to palpation. GI: Abdomen is soft, nontender and nondistended. Bowel sounds are positive. SKIN: No acute rash. NEUROLOGIC: Limited at the present time. PERTINENT LABORATORY DATA: CAT scan of the chest was done on 06/30/2017 and reviewed. There is no evidence of focal infiltrate or consolidation. There is no lymphadenopathy. There is a mild to moderately enlarged main pulmonary artery - possibly suggestive of pulmonary hypertension. There is also very mild pulmonary vascular congestion. CBC: White count 7.2, hemoglobin 13.1, hematocrit 40.5, platelets of 169 thousand. INR 2.07. Complete metabolic profile is completely within normal limits. Urine culture did grow gram-negative rods. IMPRESSION: 1. Urosepsis. 2. Worsening fatigue. 3. Rule out pulmonary hypertension. 4. Coronary artery disease. 5. Status post mitral valve surgery. PLAN: The patient presents to [facility] with main complaint of worsening fatigue over the past few weeks. In addition, as above, the patient also complains of urinary frequency. While at her private medical doctor's office, the patient was noted to be febrile. She was then sent to the Emergency Room for additional evaluation and treatment. I did review the CAT scan of the chest. The CAT scan shows no acute consolidation. There is also no lymphadenopathy. However, there is a suggestion of pulmonary hypertension. Echocardiogram has been done. We are awaiting those results. I will discuss the results with Dr. Bocanegra (Cardiology). At this point in time, the patient offers no significant pulmonary symptoms. Her lungs are clear on physical exam. Oxygen saturation on room air is 97%. I would continue with the antibiotic coverage as per Infectious Disease. Input by Dr. Martinez is noted. The patient does feel better and is clinically improved. Additional pulmonary intervention will be based on the above results, as well as the clinical status of the patient. I will discuss the above with Dr. Lopez later today. Thank you very much for this pulmonary consultation. Jose Salinas MD [facility]
--- NOTE | 2017-07-01 09:18 | CP.PCM.PN ---
Subjective - Date & Time of Evaluation Date of Evaluation: 07/01/17 Time of Evaluation: 07:10 - Subjective Subjective: Patient was seen and examined at bedside. She offers no complaints and no acute events overnight. She is feeling well and is wanting to walk around more. The patient is told that PT will evaluate her and assist as needed. The patient's condition was explained to her regarding her CT Chest findings and that we are waiting for echo results. It's also relayed to the patient that her INR is subtherapeutic today and that she will be given her 3mg Coumadin today rather than when she normally checks it. The patient understands and is agreeable. She does state that her legs have been swollen for a while but that it's not new. she denies chest pain, sob, fevers/chills, cough, headaches, abdominal pain, n/v/d, constipation and any urinary/bowel changes. Objective - Vital Signs/Intake and Output Vital Signs (last 24 hours): Temp Pulse Resp BP Pulse Ox 97.7 F 66 20 151/76 H 97 07/01/17 06:00 07/01/17 06:00 07/01/17 06:00 07/01/17 06:00 06/30/17 06:00 Intake and Output: 07/01/17 07/01/17 06:59 18:59 Intake Total 660 Output Total 0 Balance 660 - Medications Medications: Current Medications Acetaminophen (Tylenol 325mg Tab) 650 mg PO Q6H PRN PRN Reason: Fever >100.4 F Alprazolam (Xanax) 1 mg PO [facility] PRN Reason: Protocol Stop: 07/06/17 22:01 Last Admin: 06/30/17 22:12 Dose: 1 mg Atorvastatin Calcium (Lipitor) 40 mg PO HS [facility] Last Admin: 06/30/17 22:12 Dose: 40 mg Cholecalciferol (Vitamin D) 1,000 intlu PO BID [facility] Last Admin: 06/30/17 18:21 Dose: 1,000 intlu Escitalopram Oxalate (Lexapro) 10 mg PO DAILY [facility] Last Admin: 06/30/17 10:18 Dose: 10 mg Fludrocortisone Acetate (Florinef) 0.1 mg PO DAILY [facility] Last Admin: 06/30/17 10:18 Dose: 0.1 mg Vancomycin HCl (Vancomycin 1gm) 1 gm in 250 mls @ 167 mls/hr IVPB Q12H [facility] PRN Reason: Protocol Last Admin: 07/01/17 06:23 Dose: 167 mls/hr Ceftriaxone Sodium (Rocephin 1 Gram Ivpb (D5w)) 1 gm in 100 mls @ 100 mls/hr IVPB DAILY [facility] PRN Reason: Protocol Last Admin: 06/30/17 10:14 Dose: 100 mls/hr Magnesium Oxide (Mag-Ox) 400 mg PO DAILY [facility] Last Admin: 06/30/17 10:18 Dose: 400 mg Metoprolol Succinate (Toprol Xl) 50 mg PO DAILY [facility] Last Admin: 06/30/17 10:18 Dose: 50 mg Multivitamins/Minerals (Therapeutic-M Tab) 1 tab PO DAILY [facility] Last Admin: 06/30/17 10:18 Dose: 1 tab Pantoprazole Sodium (Protonix Ec Tab) 40 mg PO 0600 [facility] Last Admin: 07/01/17 06:22 Dose: 40 mg Warfarin Sodium (Coumadin) 3 mg PO 1800 [facility] PRN Reason: Protocol - Labs Labs: 07/01/17 05:45 07/01/17 05:45 PT 23.1 SECONDS (9.4-12.5) H 07/01/17 05:45 INR 2.07 (0.93-1.08) H 07/01/17 05:45 APTT 40.5 Seconds (25.1-36.5) H 06/29/17 15:10 - Additional Findings Additional findings: - Constitutional Appears: Well, Non-toxic, No Acute Distress - Head Exam Head Exam: ATRAUMATIC, NORMAL INSPECTION, NORMOCEPHALIC - Eye Exam Eye Exam: EOMI, Normal appearance, PERRL - ENT Exam ENT Exam: Mucous Membranes Moist, Normal Exam - Neck Exam Neck Exam: Normal Inspection - Respiratory Exam Respiratory Exam: Rales (mild, R lower lobe), NORMAL BREATHING PATTERN. absent : Rhonchi, Wheezes - Cardiovascular Exam Cardiovascular Exam: RRR, +S1, +S2. absent: JVD Additional comments: heart sound consistent with prosthetic valve noted left-sternal border - GI/Abdominal Exam GI & Abdominal Exam: Soft, Normal Bowel Sounds. absent: Distended, Tenderness - Extremities Exam Extremities Exam: Full ROM, Pedal Edema (2+). absent: Calf Tenderness, Tenderness - Back Exam Back Exam: NORMAL INSPECTION. 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 Patient is found to have a UTI and is being treated empirically. Echo will be done to r/o endocarditis, which is unlikely but must be ruled out given hx of prosthetic valve. Chest CT is also being done to r/o pneumonia as a source of possible infection given physical exam findings. Patient remains afebrile and with no leukocytosis. Patient negative for flu, and symptomatic anemia is unlikely cause given stable H/H. Patient's other medical problems are also being managed. Plan: 1. Fatigue likely 2/2 UTI vs endocarditis - Blood cultures are negative x24hrs - Urine cultures growing E.coli sensitive to Rocephin - awaiting ID recs regarding cont Vancomycin and Rocephin, will likely await echo results before d/c abx to r/o endocarditis - Chest CT showed no evidence of pneumonia. Present are cardiomegaly and mild pulmonary vascular congestion, trace right pleural effusion, mildly-to- moderately enlarged main pulmonary artery suggestive of pulmonary hypertension and a small hiatus hernia. - Pulm consulted regarding the pulm htn, recs appreciated - Echo done, pending official read - Tylenol PRN - HIV ordered - procal low - ID consulted, recs appreciated 2. MVP s/p MVR with prosthetic valve 2/2 rhuematic heart disease - INR subtherapeutic today - will give Coumadin 3mg today and measure INR tomorrow - f/u Echo to r/o vegetations or new valvular abnormalities 3. CAD - Cont. Metoprolol 4. HTN - Cont. Metoprolol - will monitor vitals 5. HLD - Cont. Lipitor 6. Depression/Anxiety - Cont. Xanax and Lexapro 7. GI/DVT ppx - Cont. PTX/Coumadin Patient was seen, examined and discussed with attending, Dr. Hiram Rausch PGY1 Pager # [phone]
[2017-07-01] MEDS: Metoprolol Succinate 50 mg XL Tab PO SCH (10:07)
[2017-07-01] MEDS: Magnesium Oxide 400 mg Tab UD PO SCH (10:09)
[2017-07-01] MEDS: Cholecalciferol 1,000 INTLU TAB PO SCH (10:10)
[2017-07-01] MEDS: Multivitamin With Minerals Tab PO SCH (10:10)
[2017-07-01] MEDS: cefTRIAXone 1 gm 1 GM/100 ML BAG IVPB SCH (10:55)
[2017-07-01 11:29] VITALS: BP 171/85; PULSE 77; RESP 18; TEMP 97.8
--- NOTE | 2017-07-01 12:08 | PN ---
DATE: 07/01/2017 CARDIOLOGY FOLLOWUP SUBJECTIVE: The patient is comfortable in bed. OBJECTIVE: VITAL SIGNS: Blood pressure is 151/72. The patient is afebrile. NECK: Negative JVD. LUNGS: Without rales. HEART: S1, S2. Extremities: Without edema. LABORATORIES: White count is 7.2. Chemistries, BUN and creatinine unremarkable. The procalcitonin is 0.05. Preliminary echocardiogram shows a prosthetic mitral valve, no vegetations noted. IMPRESSION 1. Urinary tract infection. 2. History of mitral valve replacement. 3. Fatigue. 4. Abnormal echocardiogram. 5. Hypertension. Given these findings, we will discontinue telemetry today. No further cardiac workup is indicated at this time. Blayne Bocanegra MD
--- NOTE | 2017-07-01 12:12 | CARD ---
APPROVED REPORT EXAM: Two-dimensional and M-mode echocardiogram with Doppler and color Doppler. INDICATION Infection:Rule out subacute bacterial endocarditis 2D DIMENSIONS Left Atrium (2D)4.5 (1.6-4.0cm)IVSd1.2 (0.7-1.1cm) LVDd4.9 (3.9-5.9cm)PWd1.3 (0.7-1.1cm) LVDs3.7 (2.5-4.0cm)FS (%) 25.6 % LVEF (%)50.4 (>50%) M-Mode DIMENSIONS Aortic Root3.10 (2.2-3.7cm)Aortic Cusp Exc.1.70 (1.5-2.0cm) Aortic Valve AoV Peak Cwiaavct036.0cm/Corazon Peak GR.11mmHg Mitral Valve E/A ratio0.0 TDI E/Lateral E'0.0E/Medial E'0.0 Tricuspid Valve TR Peak [id number] Peak Gr.8mmHg [id number] LEFT VENTRICLE The left ventricle is normal size. There is mild concentric left ventricular hypertrophy. The left ventricular function is normal. The left ventricular ejection fraction is within the normal range. There is normal LV segmental wall motion. RIGHT VENTRICLE The right ventricle is normal size. The right ventricular systolic function is normal. ATRIA The left atrium is moderately dilated. The right atrium size is normal. The interatrial septum is intact with no evidence for an atrial septal defect. AORTIC VALVE The aortic valve is normal in structure. There is trace aortic regurgitation. There is no aortic valvular stenosis. There is no aortic valvular vegetation seen. MITRAL VALVE Mitral prosthetic leaflets not well visualized, cannot exclude a vegetation. Prosthetic mitral valve appears to open well. There are normal prosthetic mitral valve gradients. TRICUSPID VALVE The tricuspid valve is normal in structure. There is mild tricuspid regurgitation. PULMONIC VALVE The pulmonary valve is normal in structure. GREAT VESSELS The aortic root is normal in size. The IVC is normal in size and collapses >50% with inspiration. PERICARDIAL EFFUSION There is no pleural effusion. There is no pericardial effusion. <Conclusion> Dilated LA. Normal LV size and systolic function. Mild concentric LVH. Mitral bioprothesis present. Cannot exclude vegetation. Mild TR. Suggest MARIAN imaging to better assess prosthetic valve leaflets if endocarditis is suspected.
--- NOTE | 2017-07-01 16:00 | CP.PCM.DIS ---
Provider - Provider Date of Admission: 06/29/17 15:05 Attending physician: Mike Lopez MD Primary care physician: Cesar Gandhi MD Time Spent in preparation of Discharge (in minutes): 45 Hospital Course - Lab Results Lab Results: Micro Results 06/29/17 15:10 Blood Blood Culture - Preliminary NO GROWTH AFTER 48 HOURS 06/29/17 16:53 Urine Urine Culture - Final Escherichia Coli 06/29/17 16:40 Blood Blood Culture - Preliminary NO GROWTH AFTER 24 HOURS Most Recent Lab Values WBC 7.2 10^3/ul (4.5-11.0) 07/01/17 05:45 RBC 4.80 10^6/uL (3.5-6.1) 07/01/17 05:45 Hgb 13.1 g/dL (12.0-16.0) 07/01/17 05:45 Hct 40.5 % (36.0-48.0) 07/01/17 05:45 MCV 84.4 fl (80.0-105.0) 07/01/17 05:45 MCH 27.3 pg (25.0-35.0) 07/01/17 05:45 MCHC 32.3 g/dl (31.0-37.0) 07/01/17 05:45 RDW 14.4 % (11.5-14.5) 07/01/17 05:45 Plt Count 169 10^3/uL (120.0-450.0) 07/01/17 05:45 MPV 9.8 fl (7.0-11.0) 07/01/17 05:45 Gran % 69.0 % (50.0-68.0) H 07/01/17 05:45 Lymph % (Auto) 20.3 % (22.0-35.0) L 07/01/17 05:45 [place] % (Auto) 8.9 % (1.0-6.0) H 07/01/17 05:45 Eos % (Auto) 1.4 % (1.5-5.0) L 07/01/17 05:45 Baso % (Auto) 0.4 % (0.0-3.0) 07/01/17 05:45 Gran # 4.96 (1.4-6.5) 07/01/17 05:45 Lymph # 1.5 (1.2-3.4) 07/01/17 05:45 [place] # 0.6 (0.1-0.6) 07/01/17 05:45 Eos # 0.1 (0.0-0.7) 07/01/17 05:45 Baso # 0.03 K/mm3 (0.0-2.0) 07/01/17 05:45 PT 23.1 SECONDS (9.4-12.5) H 07/01/17 05:45 INR 2.07 (0.93-1.08) H 07/01/17 05:45 APTT 40.5 Seconds (25.1-36.5) H 06/29/17 15:10 pO2 34 mm/Hg (30-55) 06/29/17 15:10 VBG pH 7.35 (7.32-7.43) 06/29/17 15:10 VBG pCO2 57.0 (40-60) 06/29/17 15:10 VBG HCO3 31.5 mmol/l (21-28) H 06/29/17 15:10 VBG Total CO2 33.2 mmol.L (22-28) H 06/29/17 15:10 VBG O2 Sat (Calc) 74.6 % (40-65) H 06/29/17 15:10 VBG Base Excess 4.3 mmol/L (0.0-2.0) H 06/29/17 15:10 VBG Potassium 4.2 mmol/L (3.6-5.2) 06/29/17 15:10 Sodium 140.0 mmol/L (132-148) 06/29/17 15:10 Chloride 105.0 mmol/L (98-107) 06/29/17 15:10 Glucose 110 mg/dl (65-105) H 06/29/17 15:10 Lactate 1.0 mmol/L (0.7-2.1) 06/29/17 15:10 FiO2 21.0 % 06/29/17 15:10 Sodium 141 mmol/L (132-148) 07/01/17 05:45 Potassium 3.8 mmol/L (3.6-5.0) 07/01/17 05:45 Chloride 107 mmol/L (98-107) 07/01/17 05:45 Carbon Dioxide 27 mmol/L (21-33) 07/01/17 05:45 Anion Gap 10 (10-20) 07/01/17 05:45 BUN 11 mg/dL (7-21) 07/01/17 05:45 Creatinine 0.7 mg/dl (0.7-1.2) 07/01/17 05:45 Est GFR ( Amer) > 60 07/01/17 05:45 Est GFR (Non-Af Amer) > 60 07/01/17 05:45 Random Glucose 89 mg/dL (70-110) 07/01/17 05:45 Calcium 9.7 mg/dL (8.4-10.5) 07/01/17 05:45 Phosphorus 3.4 mg/dL (2.5-4.5) 06/30/17 05:55 Magnesium 1.8 mg/dL (1.7-2.2) 06/30/17 05:55 Total Bilirubin 0.5 mg/dL (0.2-1.3) 07/01/17 05:45 AST 36 U/L (14-36) 07/01/17 05:45 ALT 37 U/L (7-56) 07/01/17 05:45 Alkaline Phosphatase 45 U/L (38-126) 07/01/17 05:45 Total Creatine Kinase 88 U/L (35-230) 06/29/17 15:10 Troponin I < 0.01 ng/mL 06/29/17 15:10 NT-Pro-B Natriuret Pep 282 pg/mL (0-450) 06/29/17 15:10 Total Protein 6.3 g/dL (5.8-8.3) 07/01/17 05:45 Albumin 3.5 g/dL (3.0-4.8) 07/01/17 05:45 Globulin 2.8 gm/dL 07/01/17 05:45 Albumin/Globulin Ratio 1.2 (1.1-1.8) 07/01/17 05:45 Procalcitonin < 0.05 NG/ML (0.19-0.49) L 06/30/17 05:55 Venous Blood Potassium 4.2 mmol/L (3.6-5.2) 06/29/17 15:10 Urine Color Yellow (YELLOW) 06/29/17 16:53 Urine Appearance Sl cloudy (CLEAR) 06/29/17 16:53 Urine pH 6.0 (4.7-8.0) 06/29/17 16:53 Ur Specific [place] 1.015 (1.005-1.035) 06/29/17 16:53 Urine Protein Negative mg/dL (<30 mg/dL) 06/29/17 16:53 Urine Glucose (UA) Negative mg/dL (NEGATIVE) 06/29/17 16:53 Urine Ketones Negative mg/dL (NEGATIVE) 06/29/17 16:53 Urine Blood Trace-lysed (NEGATIVE) H 06/29/17 16:53 Urine Nitrate Positive (NEGATIVE) H 06/29/17 16:53 Urine Bilirubin Negative (NEGATIVE) 06/29/17 16:53 Urine Urobilinogen 0.2 E.U./dL (<1 E.U./dL) 06/29/17 16:53 Ur Leukocyte Esterase [place]/uL (NEGATIVE) H 06/29/17 16:53 Urine RBC 0 - 2 /hpf (0-2) 06/29/17 16:53 Urine WBC 10 - 15 /hpf (0-6) 06/29/17 16:53 Ur Epithelial Cells 1 - 3 /hpf (0-5) 06/29/17 16:53 Urine Bacteria Many (NEG) 06/29/17 16:53 Monoscreen Negative (Negative) 06/30/17 05:55 Influenza Typ A,B (EIA) Negative for flu a/b (NEGATIVE) 06/29/17 16:53 - Hospital Course Hospital Course: Ms. Orestes Duarte is a 70 yo F with PMH of severe MVP 2/2 rheumatic heart disease (as a child) s/p prosthetic mitral valve replacement in 1993 (on Coumadin), CAD, HTN, and HLD. Pt has been feeling fatigued for about a month, and has not felt better even after she completed her prescribed course of macrobid for a UTI in 05/2017. She denied burning on urination, frequency, blood in urine/stools, fevers, cough, chest pain, shortness of breath, abdominal pain, changes in bowel habits, muscle aches, or headaches. She did complain of some chills at home, however, they have resolved since time of admission. In ED, EKG was NSR with no changes, CXR revealed only sternotomy wires and cardiomegaly. Patient was afebrile and with no leukocytosis. Patient was transferred to telemetry for monitoring. Cardiology and ID were consulted. Patient was started on Vancomycin and Rocephin to empirically treat UTI. All other medical conditions were managed. Chest CT showed no pneumonia, but was positive for mild pulm vascular congestion, mild pleural effusion and mild-mod enlarged pulm artery suggestive of pulmonary HTN. Pulmonology was consulted. Echo was done and showed EF 50%, mild concentric LVH, mitral biopresthesis and mild TR. Cardiology cleared patient for discharge. Blood cultures had no growth, however, urine culture grew E.coli. Patient is being discharged on Bactrim ds BID x5 days. Meds were sent to her preferred pharmacy. Pt's INR was subtherapeutic, and plan is to give her 3mg Coumadin on day of discharge prior to discharge and to continue her normal regimen of 2mg daily. PT evaluated patient and she is cleared for discharge with a walker. Pt will follow up with Dr. Gandhi within one week. Information was all explained in depth to patient and she displayed understanding and agreed to plan. Patient cleared for discharge. - Date & Time of H&P Date of H&P: 06/29/17 Time of H&P: 21:53 Discharge Exam - Additional Findings Additional findings: - Constitutional Appears: Well, Non-toxic, No Acute Distress - Head Exam Head Exam: ATRAUMATIC, NORMAL INSPECTION, NORMOCEPHALIC - Eye Exam Eye Exam: EOMI, Normal appearance, PERRL - ENT Exam ENT Exam: Mucous Membranes Moist, Normal Exam - Neck Exam Neck Exam: Normal Inspection - Respiratory Exam Respiratory Exam: NORMAL BREATHING PATTERN. absent: Rhonchi, Wheezes, Rales - Cardiovascular Exam Cardiovascular Exam: RRR, +S1, +S2. absent: JVD Additional comments: heart sound consistent with prosthetic valve noted left-sternal border - GI/Abdominal Exam GI & Abdominal Exam: Soft, Normal Bowel Sounds. absent: Distended, Tenderness - Extremities Exam Extremities Exam: Full ROM, Pedal Edema (1+). absent: Calf Tenderness, Tenderness - Back Exam Back Exam: NORMAL INSPECTION. absent: CVA tenderness (L), CVA tenderness (R) - Neurological Exam Neurological Exam: Alert, Awake, Oriented x3 - Psychiatric Exam Psychiatric exam: Anxious - Skin Skin Exam: Normal Color, Warm Discharge Plan - Discharge Medications Prescriptions: Sulfamethoxazole/Trimethoprim [Bactrim DS 800 mg-160 mg] 1 tab PO BID #10 tab - Follow Up Plan Condition: FAIR Disposition: HOME/ ROUTINE Instructions: Urinary Tract Infection in Women (DC), Syncope (DC) Additional Instructions: - Please take the prescribed antibiotic Bactrim TWICE DAILY for FIVE (5) days - You will take 3mg Coumadin today (Thursday). Tomorrow, please continue taking your 2mg Coumadin and go back on your regular regimen - Please continue your home medications - Please follow up with Dr. Gandhi within 1 week - If you experience any worsening of your fatigue, fevers/chills, changes in urinary habits, please return to ER for evaluation Referrals: Cesar Gandhi MD [Primary Care Provider] -
--- NOTE | 2017-07-01 23:05 | PN ---
DATE: 07/01/2017 SUBJECTIVE: The patient is in bed, in no acute distress, was seen early this morning. Ms. Carlisle is in room number 275, bed 2, doing well. No nausea. PHYSICAL EXAMINATION: VITAL SIGNS: Temperature is 98, blood pressure is 170/80, respiratory rate is 18, and heart rate of 74. HEENT: Unremarkable. NECK: Supple. LUNGS: Have decreased breath sounds. HEART: Normal S1 and S2. ABDOMEN: Soft and nontender. LABORATORY DATA: Reveals white count of 9.4, hemoglobin of 14, and platelets of 182, 81% granulocytosis and chemistries are noted. Procalcitonin is less than 0.05. Urinalysis is noted, many bacteria, 10 to 15 WBC's. [place] screen is negative. HIV is negative. Influenza is negative. Microbiology reveals E. coli in the urine. Blood cultures are negative. The E. coli in the urine is lucas-sensitive. ASSESSMENT AND PLAN: A 71-year-old female seen early today in 275, bed 2 with history of rheumatic heart disease, hypertension, hyperlipidemia, coronary artery disease, osteoarthritis, anxiety, depression, anemia, and history of mitral valve replacement, presented with chills, weakness, fatigue, frequency, nausea, urinalysis, and E. coli urinary tract infection. Blood cultures are negative. We are going to switch to p.o. antibiotics upon discharge. Of note, the patient's procalcitonin is less than 0.05. Kyle Martinez MD
== END 2017-07-01 17:38 | disposition home health service (06) | DRG 690 ==
LOC: ED 14:22 → ERH 15:05 → 2RSO 20:09
PROVIDERS: ADMIT Internal Medicine; ATTEND Internal Medicine
DX: N39.0 Urinary tract infection, site not specified (principal); I27.20 Pulmonary hypertension, unspecified; B96.20 Unspecified Escherichia coli [E. coli] as the cause of diseases classified elsewhere; E78.5 Hyperlipidemia, unspecified; I05.9 Rheumatic mitral valve disease, unspecified; I09.9 Rheumatic heart disease, unspecified; I10 Essential (primary) hypertension; I25.10 Atherosclerotic heart disease of native coronary artery without angina pectoris; K21.9 Gastro-esophageal reflux disease without esophagitis; Z79.01 Long term (current) use of anticoagulants; Z79.899 Other long term (current) drug therapy; Z87.440 Personal history of urinary (tract) infections; Z90.49 Acquired absence of other specified parts of digestive tract; Z90.710 Acquired absence of both cervix and uterus; Z95.2 Presence of prosthetic heart valve; Z96.653 Presence of artificial knee joint, bilateral; D64.9 Anemia, unspecified; M19.90 Unspecified osteoarthritis, unspecified site; Z88.1 Allergy status to other antibiotic agents; Z88.5 Allergy status to narcotic agent; Z88.8 Allergy status to other drugs, medicaments and biological substances; R40.2412 Glasgow coma scale score 13-15, at arrival to emergency department

== ENCOUNTER 2017-07-03 12:27 | Inpatient (IN) | payer MEDICARE, BC ==
[2017-07-03 12:34] VITALS: BMI 37.4
[2017-07-03] MEDS ORDERED: cefTRIAXone 1 gm 1 GM/100 ML BAG IVPB STA (13:15)
--- NOTE | 2017-07-03 13:39 | ED PDOC ---
Arrival/HPI - General Chief Complaint: Weakness/Neurological Deficit Time Seen by Provider: 07/03/17 12:35 Historian: Patient, Family - History of Present Illness Narrative History of Present Illness (Text): 07/03/17 13:33 Patient is a 71 yo female with past medical history of recent admission for weakness and UTI, presents to the Emergency Department stating that she began feeling ill again yesterday and has had "shakes" similar to when she was feeling during hospitalization. She states that she has "been feeling weak since Thanksgi". Denies headache, denies visual symptoms, denies cough or chest pain or sob. Denies hematuria or dysuria or frequency. Denies numbness or weakness. Past Medical History - Infectious Disease Hx of Infectious Diseases: None - Tetanus Immunization Tetanus Immunization: Unknown - Cardiac Hx Cardiac Disorders: Yes - Pulmonary Hx Respiratory Disorders: No (DENIES) - Neurological Hx Neurological Disorder: No - HEENT Hx HEENT Disorder: No - Renal Hx Renal Disorder: No - Endocrine/Metabolic Hx Endocrine Disorders: No - Hematological/Oncological Hx Anemia: Yes Hx Blood Transfusions: Yes - Integumentary Hx Dermatological Disorder: No - Musculoskeletal/Rheumatological Hx Arthritis: Yes (knee replacement) - Gastrointestinal Hx Gastrointestinal Disorders: Yes (reflux) Hx Gastroesophageal Reflux: Yes - Genitourinary/Gynecological Hx Reproductive Disorders: Yes (hx hyst/l oopherectomy) - Psychiatric Hx Anxiety: Yes Hx Depression: Yes Hx Substance Use: No - Surgical History Hx Cholecystectomy: Yes Hx Hysterectomy: Yes Hx Orthopedic Surgery: Yes (L KNEE, R KNEE) Hx Valve Replacement: Yes - Anesthesia Hx Anesthesia: Yes Hx Anesthesia Reactions: No - Suicidal Assessment Feels Threatened In Home Enviroment: No Family/Social History Family/Social History: Unknown Family HX Smoking Status: Never Smoked Hx Alcohol Use: No Hx Substance Use: No Hx Substance Use Treatment: No Allergies/Home Meds Allergies/Adverse Reactions: Allergies furosemide Allergy (Mild, Verified 07/03/17 12:46) ITCHING morphine Allergy (Verified 07/03/17 12:46) DIARRHEA ciprofloxacin [From Cipro] Adverse Reaction (Mild, Verified 07/03/17 12:46) ITCHING ciprofloxacin HCl [From Cipro] Adverse Reaction (Mild, Verified 07/03/17 12:46) ITCHING Home Medications: Home Meds Medication Instructions Recorded Confirmed Alprazolam [Xanax] 1 mg PO BID 04/19/13 12/22/17 Fludrocortisone [Florinef] 0.1 mg PO DAILY 10/29/12 07/03/17 Metoprolol Succinate [Toprol XL] 50 mg PO DAILY 10/29/12 07/03/17 Escitalopram [Lexapro] 10 mg PO DAILY 06/13/16 07/03/17 Rosuvastatin Calcium [Crestor] 10 mg PO HS 06/13/16 07/03/17 Vitamin B Complex 1 tab PO DAILY 06/13/16 07/03/17 Cholecalciferol [Vitamin D 1000 IU] 1,000 unit PO BID 06/16/16 07/03/17 Pantoprazole [Protonix EC Tab] 40 mg PO DAILY 06/04/17 07/03/17 Ibandronate Sodium [Boniva] 150 mg PO Q30D 06/29/17 07/03/17 Warfarin [Coumadin] 2 mg PO DAILY 06/29/17 07/03/17 Cholecalciferol [Vitamin D 1000 IU] 1 tab PO BID 07/03/17 07/03/17 Sulfamethoxazole/Trimethoprim 1 tab PO BID 07/03/17 07/03/17 [Bactrim Ds Tablet] Review of Systems - Review of Systems Constitutional: absent: Fevers Respiratory: absent: SOB, Cough Cardiovascular: absent: Chest Pain, Palpitations Gastrointestinal: absent: Abdominal Pain, Nausea Genitourinary Female: absent: Dysuria, Frequency Musculoskeletal: absent: Back Pain Skin: absent: Rash Neurological: Dizziness, Other (tremors). absent: Headache, Focal Weakness Hemo/Lymphatic: absent: Easy Bleeding Physical Exam Vital Signs Reviewed: Yes Vital Signs Temp Pulse Resp BP Pulse Ox 07/03/17 14:00 64 18 145/58 L 98 07/03/17 12:40 97.6 F 68 18 148/48 L 98 Temperature: Afebrile Appearance: Positive for: Non-Toxic Pain Distress: Mild Mental Status: Positive for: Alert and Oriented X 3 Finger Stick Blood Glucose: 96 - Systems Exam Head: Present: Atraumatic Pupils: Present: PERRL Extroacular Muscles: Present: EOMI Mouth: Present: Moist Mucous Membranes Pharnyx: No: ERYTHEMA Nose (Internal): Present: Normal Inspection Neck: Present: Normal Range of Motion. No: Meningeal Signs Respiratory/Chest: Present: Clear to Auscultation. No: Respiratory Distress Cardiovascular: Present: Regular Rate and Rhythm, Murmurs Abdomen: No: Tenderness, Distention Back: No: CVA Tenderness, Midline Tenderness Upper Extremity: No: Cyanosis, Edema Lower Extremity: Present: NORMAL PULSES Skin: Present: Warm Psychiatric: Present: Alert, Normal Insight, Normal Concentration Medical Decision Making ED Course and Treatment: 07/03/17 13:30 Patient's prior visits and history reviewed. She states that when she was discharged she felt better until she developed tremulousness again. On exam, she is not febrile, not tachycardic or hypotensive. Initial lactate unremarkable. Current exam not consistent with sepsis. Patient however does have history of positive urine culture on outpatient antibiotics. Patient has no neurologic findings at this point. Denies acute chest apin or sob. Given persistent symptoms despite outpatient treatment, patient will be admitted for ID evaluation, monitoring. Chest X-ray reviewed by radiologist, shows: Findings: Lungs: No active pulmonary disease. Pleura: No significant pleural effusion identified, no pneumothorax apparent. Cardiovascular: Prior sternotomy with sternal wires and surgical clips redemonstrated. Atherosclerotic aortic calcifications. Cardiomedistinal silhouette stably enlarged. Osseous Structures: Unchanged. Visualized upper abdomen: Right upper quadrant surgical clips redemonstrated. Other Findings: none. Case d/w Dr. Gandhi and resident for admission. - Lab Interpretations Lab Results: 07/03/17 13:25 07/03/17 13:25 Lab Results 07/03/17 13:58: Urine Color Yellow, Urine Appearance Clear, Urine pH 6.5, Ur Specific [place] <= 1.005, Urine Protein Negative, Urine Glucose (UA) Negative, Urine Ketones Negative, Urine Blood Trace-lysed H, Urine Nitrate Negative, Urine Bilirubin Negative, Urine Urobilinogen 0.2, Ur Leukocyte Esterase Negative , Urine RBC 0 - 2, Urine WBC 1 - 3, Ur Epithelial Cells 4 - 5, Urine Bacteria Few 07/03/17 13:25: Sodium 141, Chloride 105, Potassium 4.0, Carbon Dioxide 26, Anion Gap 13, BUN 14, Creatinine 1.0, Est GFR ( Amer) > 60, Est GFR (Non- Af Amer) 55, Random Glucose 95, Calcium 10.1, Total Bilirubin 0.4, AST 37 H, ALT 37, Alkaline Phosphatase 49, Lactate Dehydrogenase 670, Total Creatine Kinase 90, Troponin I 0.01, Total Protein 7.1, Albumin 3.9, Globulin 3.2, Albumin/Globulin Ratio 1.2 07/03/17 13:25: PT 25.0 H, INR 2.24 H, APTT 35.2 07/03/17 13:25: Influenza Typ A,B (EIA) Negative for flu a/b 07/03/17 13:25: WBC 8.3, RBC 4.90, Hgb 13.7, Hct 41.2, MCV 84.1, MCH 28.0, MCHC 33.3, RDW 14.3, Plt Count 185, MPV 10.2, Gran % 77.3 H, Lymph % (Auto) 14.2 L, [place] % (Auto) 6.8 H, Eos % (Auto) 1.5, Baso % (Auto) 0.2, Gran # 6.39, Lymph # 1.2, [place] # 0.6, Eos # 0.1, Baso # 0.02 07/03/17 13:25: pO2 44, VBG pH 7.36, VBG pCO2 52.0, VBG HCO3 29.4 H, VBG Total CO2 31.0 H, VBG O2 Sat (Calc) 81.5 H, VBG Base Excess 2.8 H, VBG Potassium 3.9, Sodium 140.0, Chloride 106.0, Glucose 97, Lactate 1.0, FiO2 21.0, Venous Blood Potassium 3.9 - RAD Interpretation Radiology Orders: 07/03/17 13:14 CHEST PORTABLE [RAD] Stat Events Associate: Radiologist - EKG Interpretation EKG Interpretation (Text): EKG at 13:[address] and t wave abnormality in anterolateral leads, noted on prior EKG. Interpreted by ED Physician: Yes Type: 12 lead EKG - Medication Orders Current Medication Orders: Discontinued Medications Ceftriaxone Sodium (Rocephin 1 Gram Ivpb) 1 gm in 100 mls @ 200 mls/hr IVPB ONCE STA PRN Reason: Protocol Stop: 07/03/17 13:44 Last Admin: 07/03/17 14:18 Dose: 200 mls/hr eMAR Start Stop Document 07/03/17 14:18 SS (Rec: 07/03/17 14:19 SS [facility] [id number]) Intravenous Solution Start Date 07/03/17 Start Time 14:19 End Date 07/03/17 End time 14:49 Total Infusion Time 30 Disposition/Present on Arrival - Present on Arrival Any Indicators Present on Arrival: No History of DVT/PE: No History of Uncontrolled Diabetes: No Urinary Catheter: No History of Decub. Ulcer: No History Surgical Site Infection Following: None - Disposition Have Diagnosis and Disposition been Completed?: Yes Diagnosis: UTI (urinary tract infection), Chills Disposition: HOSPITALIZED Disposition Time: 14:00 Patient Plan: Admission Patient Problems: Current Active Problems Problem Status Onset Chills Acute UTI (urinary tract infection) Acute Condition: FAIR Referrals: Mike Lopez MD [Primary Care Provider] - Follow up with primary Forms: [employer] (Yoruba)
[2017-07-03 13:42] LABS: VENOUS BLOOD GAS BASE EXCESS 2.8 mmol/L (0.0-2.0); VENOUS BLOOD GAS PO2 44 mm/Hg (30-55); VENOUS BLOOD PH 7.36 (7.32-7.43)
[2017-07-03 13:45] LABS: BASO # 0.02 K/mm3 (0.0-2.0); BASO % 0.2 % (0.0-3.0); EOS # 0.1 (0.0-0.7); EOS % 1.5 % (1.5-5.0); GRAN # 6.39 (1.4-6.5); GRAN % 77.3 % (50.0-68.0); HEMOGLOBIN 13.7 g/dL (12.0-16.0); LYMPH # 1.2 (1.2-3.4); LYMPH % 14.2 % (22.0-35.0); MEAN CELL VOLUME 84.1 fl (80.0-105.0); MEAN CORPUSCULAR HGB CONC 33.3 g/dl (31.0-37.0); MEAN PLATELET VOLUME 10.2 fl (7.0-11.0); MONO # 0.6 (0.1-0.6); MONO % 6.8 % (1.0-6.0); RBC 4.9 10^6/uL (3.5-6.1); RED CELL DISTRIBUTION WIDTH 14.3 % (11.5-14.5); WHITE BLOOD COUNT 8.3 10^3/ul (4.5-11.0)
--- NOTE | 2017-07-03 13:45 | RAD ---
HISTORY: shaking chills COMPARISON: Chest radiograph dated 06/29/2017 FINDINGS: LUNGS: No active pulmonary disease. PLEURA: No significant pleural effusion identified, no pneumothorax apparent. CARDIOVASCULAR: Prior sternotomy with sternal wires and surgical clips redemonstrated. Atherosclerotic aortic calcifications. Cardiomediastinal silhouette stably enlarged. OSSEOUS STRUCTURES: Unchanged. VISUALIZED UPPER ABDOMEN: Right upper quadrant surgical clips redemonstrated. OTHER FINDINGS: None. IMPRESSION: No active disease.
[2017-07-03 13:53] LABS: INR 2.24 (0.93-1.08); PARTIAL THROMBOPLASTIN TIME 35.2 Seconds (25.1-36.5)
[2017-07-03 13:57] LABS: ALB/GLOB RATIO 1.2 (1.1-1.8); ALBUMIN 3.9 g/dL (3.0-4.8); ALT/SGPT 37 U/L (7-56); AST/SGOT 37 U/L (14-36); BLOOD UREA NITROGEN 14 mg/dL (7-21); CALCIUM 10.1 mg/dL (8.4-10.5); GFR AFRICAN-AMERICAN > 60; GFR NON-AFRICAN AMERICAN 55
[2017-07-03 14:03] LABS: TROPONIN I 0.01 ng/mL
[2017-07-03 14:18] LABS: PH,URINE 6.5 (4.7-8.0); URINE BILIRUBIN NEGATIVE (NEGATIVE); URINE BLOOD TRACE-LYSED (NEGATIVE); URINE GLUCOSE (UA) NEGATIVE (NEGATIVE); URINE LEUKOCYTE ESTERASE NEGATIVE Leu/uL (NEGATIVE); URINE NITRATE NEGATIVE (NEGATIVE); URINE PROTEIN NEGATIVE mg/dL (<30 mg/dL); URINE UROBILINOGEN 0.2 E.U./dL (<1 E.U./dL)
[2017-07-03 14:27] LABS: URINE APPEARANCE CLEAR (CLEAR); URINE COLOR YELLOW (YELLOW)
[2017-07-03 14:30] LABS: URINE BACTERIA FEW (NEG); URINE RBC 0 - 2 /hpf (0-2)
--- NOTE | 2017-07-03 18:58 | CP.PCM.HP ---
<Tho Rausch - Last Filed: 07/04/17 04:29> History of Present Illness - History of Present Illness History of Present Illness: Tho Rausch PGY1 IM H&P Note for Dr. Lopez/Dr. Gandhi CC: "I keep getting shakes" Ms. 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 The patient was recently discharged from the hospital and was treated for a UTI. She had complained of "shakes" at that presentation as well, however, they were attributed to chills 2/2 UTI and the patient improved on IV antibiotics in the hospital and did not experience any chills. The patient states that she was taking her prescribed antibiotics, however, she still experiences these shakes, mainly UE b/l, which occurs throughout the day. The patient cannot explicitly answer if it occurs while completely at rest or just when she reaches for something to do with her hands. She denies any fevers and chills (she is aware of chills, and denies that it is chills), chest pain, sob, changes in vision/ hearing, weakness, urinary frequency, dysuria, abdominal pain, n/v/d. 12-pt ROS was reviewed and is otherwise unremarkable. PMH: as above PSH: bilateral knee replacement, open heart surgery for mitral valve replacement , cholecystectomy, hysterectomy (endometrosis), oopherectomy (ovarian cyst) All: Furosemide, Ciprofloxacin, Morphine SHx: Denies tobacco, alcohol, or substance use; lives with PMD: Dr. Gandhi Present on Admission - Present on Admission Any Indicators Present on Admission: No History of DVT/PE: No Review of Systems - Review of Systems All systems: reviewed and no additional remarkable complaints except (as per HPI ) Past Patient History - Infectious Disease Hx of Infectious Diseases: None - Tetanus Immunizations Tetanus Immunization: Unknown - Past Medical History & Family History Past Medical History?: Yes - Past Social History Smoking Status: Never Smoked Alcohol: None Drugs: Denies Home Situation {Lives}: With Family - CARDIAC Hx Cardiac Disorders: Yes Hx Angina: Yes Hx Hypercholesterolemia: Yes Hx Hypertension: Yes Hx Mitral Valve Prolapse: Yes (2/2 RHD; s/p MVR) - PULMONARY Hx Respiratory Disorders: No (DENIES) - NEUROLOGICAL Hx Neurological Disorder: No - HEENT Hx HEENT Problems: No - RENAL Hx Chronic Kidney Disease: No - ENDOCRINE/METABOLIC Hx Endocrine Disorders: No - HEMATOLOGICAL/ONCOLOGICAL Hx Anemia: Yes Hx Blood Transfusions: Yes - INTEGUMENTARY Hx Dermatological Problems: No - MUSCULOSKELETAL/RHEUMATOLOGICAL Hx Arthritis: Yes (knee replacement) - GASTROINTESTINAL Hx Gastrointestinal Disorders: Yes (reflux) Hx Gastroesophageal Reflux: Yes - GENITOURINARY/GYNECOLOGICAL Hx Reproductive Disorders: Yes (hx hyst/l oopherectomy) - PSYCHIATRIC Hx Anxiety: Yes Hx Depression: Yes Hx Substance Use: No - SURGICAL HISTORY Hx Cholecystectomy: Yes Hx Hysterectomy: Yes Hx Orthopedic Surgery: Yes (L KNEE, R KNEE) Hx Valve Replacement: Yes - ANESTHESIA Hx Anesthesia: Yes Hx Anesthesia Reactions: No Meds Allergies/Adverse Reactions: Allergies Allergy/AdvReac Type Severity Reaction Status Date / Time furosemide Allergy Mild ITCHING Verified 07/07/17 14:43 morphine Allergy DIARRHEA Verified 07/07/17 14:43 ciprofloxacin [From Cipro] AdvReac Mild ITCHING Verified 07/07/17 14:43 ciprofloxacin HCl AdvReac Mild ITCHING Verified 07/07/17 14:43 [From Cipro] Physical Exam - Constitutional Appears: Well, Non-toxic, No Acute Distress - Head Exam Head Exam: ATRAUMATIC, NORMAL INSPECTION, NORMOCEPHALIC - Eye Exam Eye Exam: EOMI, Normal appearance, PERRL - ENT Exam ENT Exam: Mucous Membranes Moist, Normal Exam - Neck Exam Neck exam: Positive for: Normal Inspection - Respiratory Exam Respiratory Exam: NORMAL BREATHING PATTERN. absent: Rhonchi, Wheezes - Cardiovascular Exam Cardiovascular Exam: RRR, +S1, +S2. absent: JVD Additional comments: valve audible - GI/Abdominal Exam GI & Abdominal Exam: Normal Bowel Sounds, Soft. absent: Distended, Tenderness - Extremities Exam Extremities exam: Positive for: normal inspection. Negative for: joint swelling , tenderness - Back Exam Back exam: NORMAL INSPECTION - Neurological Exam Neurological exam: Alert, CN II-XII Intact, Oriented x3 - Expanded Neurological Exam Expanded Neurological exam: Tremor (b/l UE; at rest with outstretched hands, decreases with intention) Cranial nerves: EOM's Intact: Normal, Facial [place] w/Forehead Movement: Normal , Facial [place] w/o Forehead Movement: Normal, Facial Sensation: Normal, Gag Reflex: Normal Cerebellar Function: Finger to Nose: Normal, Heel to Combs: Normal Sensory exam: Lower Extremity Light Touch: Normal, Upper Extremity Light Touch: Normal Neuro motor strength exam: Left Upper Extremity: 5, Right Upper Extremity: 5, Left Lower Extremity: 5, Right Lower Extremity: 5 - Psychiatric Exam Psychiatric exam: Normal Affect, Normal Mood - Skin Skin Exam: Normal Color, Warm Results - Vital Signs Recent Vital Signs: Last Vital Signs Temp 97.6 F 07/03/17 12:40 Pulse 62 07/03/17 16:54 Resp 18 07/03/17 16:54 BP 143/59 L 07/03/17 16:54 Pulse Ox 98 07/03/17 16:54 - Labs Result Diagrams: 07/03/17 13:25 07/03/17 13:25 Assessment & Plan - Assessment and Plan (Free Text) Assessment: 71 yo F with PMH of 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 Patient was recently admitted for UTI and UA today shows few bacteria. Patient remains afebrile, with no WBC elevation or any electrolyte abnormalities and thyroid studies were normal from last admission. INR is subtherapeutic. Other medical conditions will be managed. Plan: 1. shaking likely due to postural tremor vs chills 2/2 infection - blood and urine cultures ordered - Rocephin was given in ED - CXR was unremarkable - PT/OT eval 2. MVR with subtherapeutic INR - will give coumadin 3mg today (pt states if INR is below 2.5, she usually takes 3mg then back to 2mg) - Cont Coumadin 2mg daily after - Daily INR checks - will consider MARIAN to r/o endocarditis, however, unlikely given presentation and lack of signs or symptoms 3. CAD - Cont. Metoprolol 4. HTN - Cont. Metoprolol - will monitor vitals 5. HLD - Cont. Lipitor 6. Depression/Anxiety - Cont. Xanax and Lexapro 7. GI/DVT ppx - Cont. PTX/Coumadin Tho Rausch PGY1 Pager # [phone] - Date & Time Date: 07/03/17 Time: 18:00 <José Miguel Alexander - Last Filed: 07/07/17 09:55> Results - Vital Signs Recent Vital Signs: Last Vital Signs Temp 98.0 F 07/07/17 07:30 Pulse 64 07/07/17 07:30 Resp 18 07/07/17 07:30 BP 164/69 H 07/07/17 07:30 Pulse Ox 98 07/07/17 07:30 - Labs Result Diagrams: 07/07/17 06:40 07/07/17 06:40 Labs: Laboratory Results - last 24 hr 07/06/17 07/06/17 07/07/17 11:47 15:05 06:40 WBC 6.2 RBC 4.84 Hgb 13.2 Hct 41.2 MCV 85.1 MCH 27.3 MCHC 32.0 RDW 14.4 Plt Count 171 MPV 10.1 PT INR Sodium Potassium Chloride Carbon Dioxide Anion Gap BUN Creatinine Est GFR ( Amer) Est GFR (Non-Af Amer) Random Glucose Calcium Total Bilirubin AST ALT Alkaline Phosphatase Total Protein Albumin Globulin Albumin/Globulin Ratio TSH 3rd Generation 2.53 Urine Color Yellow Urine Appearance Clear Urine pH 6.0 Ur Specific [place] 1.015 Urine Protein Negative Urine Glucose (UA) Negative Urine Ketones Negative Urine Blood Trace-intact H Urine Nitrate Negative Urine Bilirubin Negative Urine Urobilinogen 0.2 Ur Leukocyte Esterase Negative Urine RBC 1 - 3 Urine WBC 2 - 5 Ur Epithelial Cells 3 - 4 Urine Bacteria Few 07/07/17 07/07/17 06:40 06:40 WBC RBC Hgb Hct MCV MCH MCHC RDW Plt Count MPV PT 24.7 H INR 2.17 H Sodium 139 Potassium 3.9 Chloride 106 Carbon Dioxide 28 Anion Gap 9 L BUN 16 Creatinine 0.8 Est GFR ( Amer) > 60 Est GFR (Non-Af Amer) > 60 Random Glucose 99 Calcium 9.7 Total Bilirubin 0.5 AST 44 H D ALT 46 Alkaline Phosphatase 54 Total Protein 6.6 Albumin 3.8 Globulin 2.9 Albumin/Globulin Ratio 1.3 TSH 3rd Generation Urine Color Urine Appearance Urine pH Ur Specific [place] Urine Protein Urine Glucose (UA) Urine Ketones Urine Blood Urine Nitrate Urine Bilirubin Urine Urobilinogen Ur Leukocyte Esterase Urine RBC Urine WBC Ur Epithelial Cells Urine Bacteria Assessment & Plan - Assessment and Plan (Free Text) Assessment: discussed w/ resident at length went over meds orders labs xrays tests plans consults reviewed <HiramCesar - Last Filed: 07/10/17 17:22> Results - Vital Signs Recent Vital Signs: Last Vital Signs Temp 98.0 F 07/07/17 07:30 Pulse 64 07/07/17 07:30 Resp 18 07/07/17 07:30 BP 164/69 H 07/07/17 07:30 Pulse Ox 98 07/07/17 07:30 - Labs Result Diagrams: 07/07/17 06:40 07/07/17 06:40 Attending/Attestation - Attestation I have personally seen and examined this patient.: Yes I have fully participated in the care of the patient.: Yes I have reviewed all pertinent clinical information: Yes Notes (Text): 07/10/17 17:22 Medical record note made by the resident after discussion with my direction and input after the patient was personally seen and examined by me. I have reviewed the chart and agree that the record accurately reflects by personal performance of the history, physical exam, data review, and medical decision-making, in the course for the patient. I have also personally directed the plan of care.
[2017-07-03] MEDS: Cholecalciferol 1,000 INTLU TAB PO SCH (19:04)
[2017-07-03] MEDS ORDERED: Influenza Vaccine 60 mcg/0.5 mL SYR (4YR UP) IM ONE (19:59)
[2017-07-04 07:24] LABS: HEMOGLOBIN 12.9 g/dL (12.0-16.0); MEAN CELL VOLUME 84.6 fl (80.0-105.0); MEAN CORPUSCULAR HEMOGLOBIN 27.2 pg (25.0-35.0); MEAN CORPUSCULAR HGB CONC 32.1 g/dl (31.0-37.0); MEAN PLATELET VOLUME 9.7 fl (7.0-11.0); RBC 4.75 10^6/uL (3.5-6.1); RED CELL DISTRIBUTION WIDTH 14.5 % (11.5-14.5); WHITE BLOOD COUNT 6.5 10^3/ul (4.5-11.0)
[2017-07-04 07:32] LABS: INR 2.07 (0.93-1.08); PROTHROMBIN TIME 23.1 SECONDS (9.4-12.5)
[2017-07-04 08:31] LABS: ALB/GLOB RATIO 1.3 (1.1-1.8); ALBUMIN 3.6 g/dL (3.0-4.8); ALT/SGPT 39 U/L (7-56); AST/SGOT 31 U/L (14-36); BLOOD UREA NITROGEN 15 mg/dL (7-21); CALCIUM 9.8 mg/dL (8.4-10.5); GFR AFRICAN-AMERICAN > 60; GFR NON-AFRICAN AMERICAN > 60
--- NOTE | 2017-07-04 09:20 | CARD ---
APPROVED REPORT EKG Measurement Heart [id number] <Conclusion> Normal sinus rhythm Possible Inferior infarct, age undetermined ST & T wave abnormality, consider anterolateral ischemia No change
--- NOTE | 2017-07-04 09:35 | CP.PCM.PN ---
<[place] - Last Filed: 07/04/17 13:07> Subjective - Date & Time of Evaluation Date of Evaluation: 07/04/17 Time of Evaluation: 09:32 - Subjective Subjective: PGY-[address] Devries service Patient seen and examined at bedside, no acute distress. Patient states that she had difficult sleeping at night due to the noise but has no other complaints. She states that her tremor has improved this morning. She denies any headache, dizziness, chest pain, sob, n/v, fever, chills. Objective - Vital Signs/Intake and Output Vital Signs (last 24 hours): Temp Pulse Resp BP Pulse Ox 97.6 F 56 L 18 124/62 99 07/04/17 07:30 07/04/17 07:30 07/04/17 07:30 07/04/17 07:30 07/04/17 07:30 Intake and Output: 07/04/17 07/04/17 06:59 18:59 Intake Total 0 Output Total 0 Balance 0 - Medications Medications: Current Medications Acetaminophen (Tylenol 325mg Tab) 650 mg PO Q4 PRN PRN Reason: Fever >100.4 F Last Admin: 07/04/17 00:50 Dose: 650 mg Alprazolam (Xanax) 1 mg PO BID [facility] PRN Reason: Protocol Stop: 07/10/17 18:01 Last Admin: 07/03/17 19:03 Dose: 1 mg Atorvastatin Calcium (Lipitor) 40 mg PO DIN [facility] Last Admin: 07/03/17 19:04 Dose: 40 mg Cholecalciferol (Vitamin D) 1,000 intlu PO BID [facility] Last Admin: 07/03/17 19:04 Dose: 1,000 intlu Escitalopram Oxalate (Lexapro) 10 mg PO DAILY [facility] Fludrocortisone Acetate (Florinef) 0.1 mg PO DAILY [facility] Magnesium Oxide (Mag-Ox) 400 mg PO DAILY [facility] Metoprolol Succinate (Toprol Xl) 50 mg PO DAILY [facility] Non-Formulary Medication (Ibandronate Sodium [Boniva]) 150 mg PO Q30D [facility] Pantoprazole Sodium (Protonix Ec Tab) 40 mg PO DAILY [facility] Vitamin B Complex/Vit C/Folic Acid (Nephro-Naif) 1 tab PO DAILY [facility] Warfarin Sodium (Coumadin) 3 mg PO 1800 [facility] PRN Reason: Protocol Stop: 07/04/17 18:01 Warfarin Sodium (Coumadin) 2 mg PO 1800 [facility] PRN Reason: Protocol - Labs Labs: 07/04/17 06:45 07/04/17 07:45 PT 23.1 SECONDS (9.4-12.5) H 07/04/17 06:45 INR 2.07 (0.93-1.08) H 07/04/17 06:45 APTT 35.2 Seconds (25.1-36.5) 07/03/17 13:25 - Constitutional Appears: Well, No Acute Distress - Head Exam Head Exam: ATRAUMATIC, NORMAL INSPECTION, NORMOCEPHALIC - Eye Exam Eye Exam: EOMI, Normal appearance - ENT Exam ENT Exam: Mucous Membranes Moist - Respiratory Exam Respiratory Exam: Clear to Ausculation Bilateral, NORMAL BREATHING PATTERN. absent: Rhonchi, Wheezes, Respiratory Distress, Stridor - Cardiovascular Exam Cardiovascular Exam: REGULAR RHYTHM, +S1, +S2. absent: Tachycardia, Murmur - GI/Abdominal Exam GI & Abdominal Exam: Soft, Normal Bowel Sounds. absent: Distended, Firm, Guarding, Tenderness - Extremities Exam Extremities Exam: Normal Inspection. 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 Patient was recently admitted for UTI and UA today shows few bacteria. Patient remains afebrile, with no WBC elevation or any electrolyte abnormalities and thyroid studies were normal from last admission. Plan: 1. shaking - likely due to postural tremor vs chills 2/2 infection - blood cultures pending - urine culture negative - Rocephin was given in ED - CXR was unremarkable - PT/OT eval 2. MVR with subtherapeutic INR - INR 2, pt states if INR is below 2.5, she usually takes 3mg then back to 2mg, will give 3mg today - Cont Coumadin 2mg daily starting tomorrow - Daily INR checks - will consider MARIAN to r/o endocarditis, however, unlikely given presentation and lack of signs or symptoms 3. CAD - Cont. Metoprolol 4. HTN - Cont. Metoprolol - will monitor vitals 5. HLD - Cont. Lipitor 6. Depression/Anxiety - Cont. Xanax and Lexapro 7. GI/DVT ppx - Cont. PTX/Coumadin case reviewed and discussed with Dr. Devries <Cesar Gandhi - Last Filed: 07/10/17 17:23> Objective - Vital Signs/Intake and Output Vital Signs (last 24 hours): Temp Pulse Resp BP Pulse Ox 98.0 F 64 18 164/69 H 98 07/07/17 07:30 07/07/17 07:30 07/07/17 07:30 07/07/17 07:30 07/07/17 07:30 - Labs Labs: 07/07/17 06:40 07/07/17 06:40 PT 24.7 SECONDS (9.4-12.5) H 07/07/17 06:40 INR 2.17 (0.93-1.08) H 07/07/17 06:40 APTT 35.2 Seconds (25.1-36.5) 07/03/17 13:25 Attending/Attestation - Attestation I have personally seen and examined this patient.: Yes I have fully participated in the care of the patient.: Yes I have reviewed all pertinent clinical information, including history, physical exam and plan: Yes Notes (Text): 07/10/17 17:23 Medical record note made by the resident after discussion with my direction and input after the patient was personally seen and examined by me. I have reviewed the chart and agree that the record accurately reflects by personal performance of the history, physical exam, data review, and medical decision-making, in the course for the patient. I have also personally directed the plan of care.
[2017-07-04] MEDS: Multivitamin Vitamin B Complex (Nephro-Vite) Tab PO SCH (11:56)
[2017-07-04] MEDS: Metoprolol Succinate 50 mg XL Tab PO SCH (11:56)
[2017-07-04] MEDS: Pantoprazole 40 mg EC Tab PO SCH (11:57)
[2017-07-04] MEDS: Magnesium Oxide 400 mg Tab UD PO SCH (11:58)
[2017-07-04] MEDS: Cholecalciferol 1,000 INTLU TAB PO SCH ×2 (11:58→18:09)
[2017-07-05 07:16] LABS: HEMOGLOBIN 13.3 g/dL (12.0-16.0); MEAN CELL VOLUME 84.6 fl (80.0-105.0); MEAN CORPUSCULAR HEMOGLOBIN 27.3 pg (25.0-35.0); MEAN CORPUSCULAR HGB CONC 32.3 g/dl (31.0-37.0); MEAN PLATELET VOLUME 9.7 fl (7.0-11.0); RBC 4.87 10^6/uL (3.5-6.1); RED CELL DISTRIBUTION WIDTH 14.6 % (11.5-14.5); WHITE BLOOD COUNT 6.7 10^3/ul (4.5-11.0)
[2017-07-05 07:20] LABS: INR 1.83 (0.93-1.08); PROTHROMBIN TIME 20.4 SECONDS (9.4-12.5)
[2017-07-05 07:48] LABS: ALB/GLOB RATIO 1.2 (1.1-1.8); ALBUMIN 3.7 g/dL (3.0-4.8); ALT/SGPT 40 U/L (7-56); AST/SGOT 31 U/L (14-36); BLOOD UREA NITROGEN 15 mg/dL (7-21); CALCIUM 9.9 mg/dL (8.4-10.5); GFR AFRICAN-AMERICAN > 60; GFR NON-AFRICAN AMERICAN > 60
[2017-07-05] MEDS: Magnesium Oxide 400 mg Tab UD PO SCH (09:04)
[2017-07-05] MEDS: Multivitamin Vitamin B Complex (Nephro-Vite) Tab PO SCH (09:04)
[2017-07-05] MEDS: Pantoprazole 40 mg EC Tab PO SCH (09:04)
[2017-07-05] MEDS: Metoprolol Succinate 50 mg XL Tab PO SCH (09:04)
[2017-07-05] MEDS: Cholecalciferol 1,000 INTLU TAB PO SCH ×2 (09:04→17:02)
--- NOTE | 2017-07-05 10:41 | CP.PCM.PN ---
<[place] - Last Filed: 07/05/17 10:45> Subjective - Date & Time of Evaluation Date of Evaluation: 07/05/17 Time of Evaluation: 10:00 - Subjective Subjective: PGY-2 Medicine Progress note Patient seen and examined at bedside. No acute distress, no events overnight. Patient is resting comfortably, eating breakfast. She reports general weakness that is improving. She denies and chest pain, sob, dysuria, abd pain, n/v. she is tolerating her diet. She states that her shaking has improved. Objective - Vital Signs/Intake and Output Vital Signs (last 24 hours): Temp Pulse Resp BP Pulse Ox 98.5 F 59 L 18 157/67 H 95 07/05/17 07:30 07/05/17 07:30 07/05/17 07:30 07/05/17 07:30 07/05/17 07:30 Intake and Output: 07/05/17 07/05/17 06:59 18:59 Intake Total 480 Balance 480 - Medications Medications: Current Medications Acetaminophen (Tylenol 325mg Tab) 650 mg PO Q4 PRN PRN Reason: Fever >100.4 F Last Admin: 07/04/17 00:50 Dose: 650 mg Alprazolam (Xanax) 1 mg PO BID [facility] PRN Reason: Protocol Stop: 07/10/17 18:01 Last Admin: 07/05/17 09:03 Dose: 1 mg Atorvastatin Calcium (Lipitor) 40 mg PO DIN [facility] Last Admin: 07/04/17 18:08 Dose: 40 mg Cholecalciferol (Vitamin D) 1,000 intlu PO BID [facility] Last Admin: 07/05/17 09:04 Dose: 1,000 intlu Escitalopram Oxalate (Lexapro) 10 mg PO DAILY [facility] Last Admin: 07/05/17 09:04 Dose: 10 mg Fludrocortisone Acetate (Florinef) 0.1 mg PO DAILY [facility] Last Admin: 07/05/17 09:04 Dose: 0.1 mg Magnesium Oxide (Mag-Ox) 400 mg PO DAILY [facility] Last Admin: 07/05/17 09:04 Dose: 400 mg Metoprolol Succinate (Toprol Xl) 50 mg PO DAILY [facility] Last Admin: 07/05/17 09:04 Dose: 50 mg Non-Formulary Medication (Ibandronate Sodium [Boniva]) 150 mg PO Q30D [facility] Pantoprazole Sodium (Protonix Ec Tab) 40 mg PO DAILY [facility] Last Admin: 07/05/17 09:04 Dose: 40 mg Sodium Chloride ([place] Nasal [place]) 0 ml NS Q6 [facility] Vitamin B Complex/Vit C/Folic Acid (Nephro-Naif) 1 tab PO DAILY [facility] Last Admin: 07/05/17 09:04 Dose: 1 tab Warfarin Sodium (Coumadin) 2 mg PO 1800 [facility] PRN Reason: Protocol Warfarin Sodium (Coumadin) 3 mg PO 1800 [facility] PRN Reason: Protocol Stop: 07/05/17 18:01 - Labs Labs: 07/05/17 06:30 07/05/17 06:30 PT 20.4 SECONDS (9.4-12.5) H 07/05/17 06:30 INR 1.83 (0.93-1.08) H 07/05/17 06:30 APTT 35.2 Seconds (25.1-36.5) 07/03/17 13:25 - Constitutional Appears: Well, No Acute Distress - Head Exam Head Exam: ATRAUMATIC, NORMAL INSPECTION, NORMOCEPHALIC - Eye Exam Eye Exam: EOMI, Normal appearance - ENT Exam ENT Exam: Mucous Membranes Moist - Respiratory Exam Respiratory Exam: Clear to Ausculation Bilateral, NORMAL BREATHING PATTERN. absent: Decreased Breath Sounds, Rales, Rhonchi, Wheezes, Respiratory Distress - Cardiovascular Exam Cardiovascular Exam: REGULAR RHYTHM, +S1, +S2. absent: Tachycardia, Diastolic murmur, Murmur - GI/Abdominal Exam GI & Abdominal Exam: Soft, Normal Bowel Sounds. absent: Distended, Firm, Guarding, Tenderness - Extremities Exam Extremities Exam: Normal Inspection. absent: Pedal Edema Additional comments: mild tremor - Neurological Exam Neurological Exam: Alert, Awake, Oriented x3 - Skin Skin Exam: Dry, Intact, Normal Color, Warm Assessment and Plan - Assessment and Plan (Free Text) Assessment: 71 yo F with PMH of 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 Patient was recently admitted for UTI and UA today shows few bacteria. Patient remains afebrile, with no WBC elevation or any electrolyte abnormalities and thyroid studies were normal from last admission. Blood and urine cultures negative Patient continues to have unsteady gait and will need TCU per PT. Plan: 1. shaking - likely due to postural tremor vs chills due to infection vs deconditioning - blood cultures negative - urine culture negative - Rocephin was given in ED - CXR was unremarkable - PT/OT eval, recommend tcu 2. MVR with subtherapeutic INR - INR subtheraptutic - pt states if INR is below 2.5, she usually takes 3mg then back to 2mg - 3mg given yesterday, will give 3mg today as well - Cont Coumadin 2mg daily starting tomorrow - Daily INR checks - will consider MARIAN to r/o endocarditis, however, unlikely given presentation and lack of signs or symptoms 3. CAD - Cont. Metoprolol 4. HTN - controlled - Cont. Metoprolol - will monitor vitals 5. HLD - Cont. Lipitor 6. Depression/Anxiety - Cont. Xanax and Lexapro 7. GI/DVT ppx - Cont. PTX/Coumadin case reviewed and discussed with attending <José Miguel Alexander - Last Filed: 07/07/17 11:14> Objective - Vital Signs/Intake and Output Vital Signs (last 24 hours): Temp Pulse Resp BP Pulse Ox 98.0 F 64 18 164/69 H 98 07/07/17 07:30 07/07/17 07:30 07/07/17 07:30 07/07/17 07:30 07/07/17 07:30 Intake and Output: 07/07/17 07/07/17 06:59 18:59 Intake Total 800 Balance 800 - Medications Medications: Current Medications Acetaminophen (Tylenol 325mg Tab) 650 mg PO Q4 PRN PRN Reason: Fever >100.4 F Last Admin: 07/06/17 16:22 Dose: 650 mg Alprazolam (Xanax) 1 mg PO BID [facility] PRN Reason: Protocol Stop: 07/10/17 18:01 Last Admin: 07/07/17 10:39 Dose: 1 mg Atorvastatin Calcium (Lipitor) 40 mg PO DIN [facility] Last Admin: 07/06/17 17:47 Dose: 40 mg Cholecalciferol (Vitamin D) 1,000 intlu PO BID [facility] Last Admin: 07/07/17 10:38 Dose: 1,000 intlu Escitalopram Oxalate (Lexapro) 10 mg PO DAILY [facility] Last Admin: 07/07/17 10:38 Dose: 10 mg Fludrocortisone Acetate (Florinef) 0.1 mg PO DAILY [facility] Last Admin: 07/07/17 10:38 Dose: 0.1 mg Magnesium Oxide (Mag-Ox) 400 mg PO DAILY [facility] Last Admin: 07/07/17 10:38 Dose: 400 mg Metoprolol Succinate (Toprol Xl) 50 mg PO DAILY [facility] Last Admin: 07/07/17 10:38 Dose: 50 mg Non-Formulary Medication (Ibandronate Sodium [Boniva]) 150 mg PO Q30D [facility] Pantoprazole Sodium (Protonix Ec Tab) 40 mg PO DAILY [facility] Last Admin: 07/07/17 10:38 Dose: 40 mg Sodium Chloride ([place] Nasal [place]) 0 ml NS Q6 [facility] Last Admin: 07/06/17 23:32 Dose: Not Given Vitamin B Complex/Vit C/Folic Acid (Nephro-Naif) 1 tab PO DAILY [facility] Last Admin: 07/07/17 10:38 Dose: 1 tab Warfarin Sodium (Coumadin) 2 mg PO 1800 [facility] PRN Reason: Protocol Last Admin: 07/06/17 17:43 Dose: 2 mg - Labs Labs: 07/07/17 06:40 07/07/17 06:40 PT 24.7 SECONDS (9.4-12.5) H 07/07/17 06:40 INR 2.17 (0.93-1.08) H 07/07/17 06:40 APTT 35.2 Seconds (25.1-36.5) 07/03/17 13:25 Assessment and Plan - Assessment and Plan (Free Text) Assessment: discussed w/ resident at length went over meds labs orders tests xrays consults reviewed
[2017-07-06 07:29] LABS: HEMOGLOBIN 13.3 g/dL (12.0-16.0); MEAN CELL VOLUME 84.9 fl (80.0-105.0); MEAN CORPUSCULAR HEMOGLOBIN 27.6 pg (25.0-35.0); MEAN CORPUSCULAR HGB CONC 32.5 g/dl (31.0-37.0); RBC 4.82 10^6/uL (3.5-6.1); RED CELL DISTRIBUTION WIDTH 14.6 % (11.5-14.5); WHITE BLOOD COUNT 6.9 10^3/ul (4.5-11.0)
[2017-07-06 07:41] LABS: ALB/GLOB RATIO 1.2 (1.1-1.8); ALBUMIN 3.6 g/dL (3.0-4.8); ALT/SGPT 37 U/L (7-56); AST/SGOT 30 U/L (14-36); BLOOD UREA NITROGEN 17 mg/dL (7-21); CALCIUM 9.8 mg/dL (8.4-10.5); GFR AFRICAN-AMERICAN > 60; GFR NON-AFRICAN AMERICAN > 60
[2017-07-06 07:50] LABS: INR 1.98 (0.93-1.08); PROTHROMBIN TIME 22.1 SECONDS (9.4-12.5)
[2017-07-06] MEDS: Multivitamin Vitamin B Complex (Nephro-Vite) Tab PO SCH (09:19)
[2017-07-06] MEDS: Cholecalciferol 1,000 INTLU TAB PO SCH ×2 (09:19→17:44)
[2017-07-06] MEDS: Magnesium Oxide 400 mg Tab UD PO SCH (09:20)
[2017-07-06] MEDS: Pantoprazole 40 mg EC Tab PO SCH (09:21)
[2017-07-06] MEDS: Metoprolol Succinate 50 mg XL Tab PO SCH (09:21)
--- NOTE | 2017-07-06 11:56 | CP.PCM.PN ---
<Edmundo Poole - Last Filed: 07/06/17 11:49> Subjective - Date & Time of Evaluation Date of Evaluation: 07/06/17 Time of Evaluation: 11:50 - Subjective Subjective: Medicine progress note - [place] [facility] PGY2 Patient seen and examined at bedside this morning. No acute overnight events or new complaints reported. Patient frustrated that she continues to have tremors without a definitive diagnosis. However, she admits her tremors have improved since admission. Otherwise, denies chest pain, palpitations, SOB. Feels improved since admission. Complains of urinary frequency, will repeat urinalysis and culture. Objective - Vital Signs/Intake and Output Vital Signs (last 24 hours): Temp Pulse Resp BP Pulse Ox 98.4 F 60 20 142/70 94 L 07/06/17 08:00 07/06/17 09:21 07/06/17 08:00 07/06/17 09:21 07/06/17 08:00 Intake and Output: 07/06/17 07/06/17 06:59 18:59 Intake Total 120 Balance 120 - Medications Medications: Current Medications Acetaminophen (Tylenol 325mg Tab) 650 mg PO Q4 PRN PRN Reason: Fever >100.4 F Last Admin: 07/04/17 00:50 Dose: 650 mg Alprazolam (Xanax) 1 mg PO BID [facility] PRN Reason: Protocol Stop: 07/10/17 18:01 Last Admin: 07/06/17 09:20 Dose: 1 mg Atorvastatin Calcium (Lipitor) 40 mg PO DIN [facility] Last Admin: 07/05/17 17:02 Dose: 40 mg Cholecalciferol (Vitamin D) 1,000 intlu PO BID [facility] Last Admin: 07/06/17 09:19 Dose: 1,000 intlu Escitalopram Oxalate (Lexapro) 10 mg PO DAILY [facility] Last Admin: 07/06/17 09:20 Dose: 10 mg Fludrocortisone Acetate (Florinef) 0.1 mg PO DAILY [facility] Last Admin: 07/06/17 09:19 Dose: 0.1 mg Magnesium Oxide (Mag-Ox) 400 mg PO DAILY [facility] Last Admin: 07/06/17 09:20 Dose: 400 mg Metoprolol Succinate (Toprol Xl) 50 mg PO DAILY [facility] Last Admin: 07/06/17 09:21 Dose: 50 mg Non-Formulary Medication (Ibandronate Sodium [Boniva]) 150 mg PO Q30D [facility] Pantoprazole Sodium (Protonix Ec Tab) 40 mg PO DAILY [facility] Last Admin: 07/06/17 09:21 Dose: 40 mg Sodium Chloride ([place] Nasal [place]) 0 ml NS Q6 [facility] Last Admin: 07/06/17 05:16 Dose: Not Given Vitamin B Complex/Vit C/Folic Acid (Nephro-Naif) 1 tab PO DAILY [facility] Last Admin: 07/06/17 09:19 Dose: 1 tab Warfarin Sodium (Coumadin) 2 mg PO 1800 [facility] PRN Reason: Protocol - Labs Labs: 07/06/17 07:00 07/06/17 07:00 PT 22.1 SECONDS (9.4-12.5) H 07/06/17 07:00 INR 1.98 (0.93-1.08) H 07/06/17 07:00 APTT 35.2 Seconds (25.1-36.5) 07/03/17 13:25 - Constitutional Appears: Non-toxic, No Acute Distress - Head Exam Head Exam: ATRAUMATIC, NORMAL INSPECTION, NORMOCEPHALIC - Eye Exam Eye Exam: EOMI, PERRL - ENT Exam ENT Exam: Mucous Membranes Moist - Neck Exam Neck Exam: Normal Inspection. absent: Lymphadenopathy, Tenderness, Thyromegaly - Respiratory Exam Respiratory Exam: Clear to Ausculation Bilateral. absent: Rales, Rhonchi, Wheezes - Cardiovascular Exam Cardiovascular Exam: RRR, +S1, +S2. absent: Gallop, Rubs - GI/Abdominal Exam GI & Abdominal Exam: Soft. absent: Distended, Firm, Guarding, Rigid, Tenderness , Rebound - Extremities Exam Extremities Exam: Normal Inspection. absent: Pedal Edema - Neurological Exam Neurological Exam: Alert, Awake, CN II-XII Intact, Oriented x3 - Psychiatric Exam Psychiatric exam: Normal Affect, Normal Mood - Skin Skin Exam: Dry, Intact, Normal Color, Warm Assessment and Plan - Assessment and Plan (Free Text) Plan: 71 yo F with PMH of 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 Patient was recently admitted for UTI and UA today shows few bacteria. Patient remains afebrile, with no WBC elevation or any electrolyte abnormalities and thyroid studies were normal from last admission. Blood and urine cultures negative Patient continues to have unsteady gait and will need TCU per PT. 1. Tremors - likely due to postural tremor vs infection vs electrolyte imbalance vs medication induced - Blood and urine culture has been negative however will repeat urine culture due to patient complaint of urinary frequency - Electrolytes within normal limits, will obtain TSH - neurology consulted - Dr. Hall - Rocephin was given in ED - CXR was unremarkable - PT/OT eval, recommend tcu 2. MVR with subtherapeutic INR - pt states if INR is below 2.5, she usually takes 3mg then back to 2mg - INR subtherapeutic today; received 3mg of coumadin over prior 2 days, will give 2mg today and repeat INR tomorrow - Repeat INR tomorrow 3. CAD - Continue Metoprolol 4. HTN - controlled - Cont. Metoprolol 5. HLD - Cont. Lipitor 6. Depression/Anxiety - Cont. Xanax and Lexapro 7. GI/DVT ppx - Cont. PTX/Coumadin Patient seen and case discussed/reviewed with attending, Dr. Alexander <José Miguel Alexander - Last Filed: 07/07/17 07:52> Objective - Vital Signs/Intake and Output Vital Signs (last 24 hours): Temp Pulse Resp BP Pulse Ox 97.8 F 66 20 123/62 97 07/06/17 16:00 07/06/17 16:00 07/06/17 16:00 07/06/17 16:00 07/06/17 16:00 Intake and Output: 07/07/17 07/07/17 06:59 18:59 Intake Total 800 Balance 800 - Medications Medications: Current Medications Acetaminophen (Tylenol 325mg Tab) 650 mg PO Q4 PRN PRN Reason: Fever >100.4 F Last Admin: 07/06/17 16:22 Dose: 650 mg Alprazolam (Xanax) 1 mg PO BID [facility] PRN Reason: Protocol Stop: 07/10/17 18:01 Last Admin: 07/06/17 17:43 Dose: 1 mg Atorvastatin Calcium (Lipitor) 40 mg PO DIN [facility] Last Admin: 07/06/17 17:47 Dose: 40 mg Cholecalciferol (Vitamin D) 1,000 intlu PO BID [facility] Last Admin: 07/06/17 17:44 Dose: 1,000 intlu Escitalopram Oxalate (Lexapro) 10 mg PO DAILY [facility] Last Admin: 07/06/17 09:20 Dose: 10 mg Fludrocortisone Acetate (Florinef) 0.1 mg PO DAILY [facility] Last Admin: 07/06/17 09:19 Dose: 0.1 mg Magnesium Oxide (Mag-Ox) 400 mg PO DAILY [facility] Last Admin: 07/06/17 09:20 Dose: 400 mg Metoprolol Succinate (Toprol Xl) 50 mg PO DAILY [facility] Last Admin: 07/06/17 09:21 Dose: 50 mg Non-Formulary Medication (Ibandronate Sodium [Boniva]) 150 mg PO Q30D [facility] Pantoprazole Sodium (Protonix Ec Tab) 40 mg PO DAILY [facility] Last Admin: 07/06/17 09:21 Dose: 40 mg Sodium Chloride ([place] Nasal [place]) 0 ml NS Q6 [facility] Last Admin: 07/06/17 23:32 Dose: Not Given Vitamin B Complex/Vit C/Folic Acid (Nephro-Naif) 1 tab PO DAILY [facility] Last Admin: 07/06/17 09:19 Dose: 1 tab Warfarin Sodium (Coumadin) 2 mg PO 1800 [facility] PRN Reason: Protocol Last Admin: 07/06/17 17:43 Dose: 2 mg - Labs Labs: 07/07/17 06:40 07/07/17 06:40 PT 24.7 SECONDS (9.4-12.5) H 07/07/17 06:40 INR 2.17 (0.93-1.08) H 07/07/17 06:40 APTT 35.2 Seconds (25.1-36.5) 07/03/17 13:25 Assessment and Plan - Assessment and Plan (Free Text) Plan: discussed w/ resident at length went over meds labs xrays orders plans consults reviewed
[2017-07-06 15:37] LABS: URINE BILIRUBIN NEGATIVE (NEGATIVE); URINE BLOOD TRACE-INTACT (NEGATIVE); URINE GLUCOSE (UA) NEGATIVE (NEGATIVE); URINE LEUKOCYTE ESTERASE NEGATIVE Leu/uL (NEGATIVE); URINE NITRATE NEGATIVE (NEGATIVE); URINE PROTEIN NEGATIVE mg/dL (<30 mg/dL); URINE UROBILINOGEN 0.2 E.U./dL (<1 E.U./dL)
[2017-07-06 15:42] LABS: URINE APPEARANCE CLEAR (CLEAR); URINE COLOR YELLOW (YELLOW)
[2017-07-06 15:52] LABS: URINE BACTERIA FEW (NEG)
[2017-07-07 07:10] LABS: HEMOGLOBIN 13.2 g/dL (12.0-16.0); MEAN CELL VOLUME 85.1 fl (80.0-105.0); MEAN CORPUSCULAR HEMOGLOBIN 27.3 pg (25.0-35.0); MEAN PLATELET VOLUME 10.1 fl (7.0-11.0); RBC 4.84 10^6/uL (3.5-6.1); RED CELL DISTRIBUTION WIDTH 14.4 % (11.5-14.5); WHITE BLOOD COUNT 6.2 10^3/ul (4.5-11.0)
[2017-07-07 07:18] LABS: INR 2.17 (0.93-1.08); PROTHROMBIN TIME 24.7 SECONDS (9.4-12.5)
[2017-07-07 07:30] LABS: ALB/GLOB RATIO 1.3 (1.1-1.8); ALBUMIN 3.8 g/dL (3.0-4.8); ALT/SGPT 46 U/L (7-56); AST/SGOT 44 U/L (14-36); BLOOD UREA NITROGEN 16 mg/dL (7-21); CALCIUM 9.7 mg/dL (8.4-10.5); GFR AFRICAN-AMERICAN > 60; GFR NON-AFRICAN AMERICAN > 60
[2017-07-07 08:10] VITALS: BP 164/69; PULSE 64; RESP 18; TEMP 98; O2SAT 98
--- NOTE | 2017-07-07 10:12 | CP.PCM.PN ---
<Tho Rausch - Last Filed: 07/07/17 11:22> Subjective - Date & Time of Evaluation Date of Evaluation: 07/07/17 Time of Evaluation: 07:21 - Subjective Subjective: Tho Rausch PGY1 IM Progress Note for Dr. Gandhi Patient was seen and examined at bedside. She is anxious about her diagnosis but is reassured that her urine and blood cultures have been negative so far, and that her UTI from prior admissions was appropriately treated. The patient requests to see Dr. Lowe to evaluate any urinary issues that she may have, and she states that she has been urinating more often despite not getting a large amount of IV fluids or drinking a lot of water. The patient denies dysuria, fevers/chills, chest pain, sob, n/v/d, numbness/tingling. It is explained to her that she may have a tremor, and that it could be signs of early parkinson's disease. the patient states that it is something that she has been worried about , and that her tremor sometimes not only affects her hands but also her head. regarding her xanax, she states that she has only been taking 3mg daily which she cut down to 2mg daily, and doesn't correlate it with any psychomotor agitation. Objective - Vital Signs/Intake and Output Vital Signs (last 24 hours): Temp Pulse Resp BP Pulse Ox 98.0 F 64 18 164/69 H 98 07/07/17 07:30 07/07/17 07:30 07/07/17 07:30 07/07/17 07:30 07/07/17 07:30 Intake and Output: 07/07/17 07/07/17 06:59 18:59 Intake Total 800 Balance 800 - Medications Medications: Current Medications Acetaminophen (Tylenol 325mg Tab) 650 mg PO Q4 PRN PRN Reason: Fever >100.4 F Last Admin: 07/06/17 16:22 Dose: 650 mg Alprazolam (Xanax) 1 mg PO BID [facility] PRN Reason: Protocol Stop: 07/10/17 18:01 Last Admin: 07/06/17 17:43 Dose: 1 mg Atorvastatin Calcium (Lipitor) 40 mg PO DIN [facility] Last Admin: 07/06/17 17:47 Dose: 40 mg Cholecalciferol (Vitamin D) 1,000 intlu PO BID [facility] Last Admin: 12/25/17 17:44 Dose: 1,000 intlu Escitalopram Oxalate (Lexapro) 10 mg PO DAILY [facility] Last Admin: 07/06/17 09:20 Dose: 10 mg Fludrocortisone Acetate (Florinef) 0.1 mg PO DAILY [facility] Last Admin: 07/06/17 09:19 Dose: 0.1 mg Magnesium Oxide (Mag-Ox) 400 mg PO DAILY [facility] Last Admin: 07/06/17 09:20 Dose: 400 mg Metoprolol Succinate (Toprol Xl) 50 mg PO DAILY [facility] Last Admin: 07/06/17 09:21 Dose: 50 mg Non-Formulary Medication (Ibandronate Sodium [Boniva]) 150 mg PO Q30D [facility] Pantoprazole Sodium (Protonix Ec Tab) 40 mg PO DAILY [facility] Last Admin: 07/06/17 09:21 Dose: 40 mg Sodium Chloride ([place] Nasal [place]) 0 ml NS Q6 [facility] Last Admin: 07/06/17 23:32 Dose: Not Given Vitamin B Complex/Vit C/Folic Acid (Nephro-Naif) 1 tab PO DAILY [facility] Last Admin: 07/06/17 09:19 Dose: 1 tab Warfarin Sodium (Coumadin) 2 mg PO 1800 [facility] PRN Reason: Protocol Last Admin: 07/06/17 17:43 Dose: 2 mg - Labs Labs: 07/07/17 06:40 07/07/17 06:40 PT 24.7 SECONDS (9.4-12.5) H 07/07/17 06:40 INR 2.17 (0.93-1.08) H 07/07/17 06:40 APTT 35.2 Seconds (25.1-36.5) 07/03/17 13:25 - Constitutional Appears: Well, Non-toxic, No Acute Distress - Head Exam Head Exam: ATRAUMATIC, NORMAL INSPECTION, NORMOCEPHALIC - Eye Exam Eye Exam: EOMI, Normal appearance, PERRL Pupil Exam: NORMAL ACCOMODATION - ENT Exam ENT Exam: Mucous Membranes Moist, Normal Exam - Neck Exam Neck Exam: Normal Inspection - Respiratory Exam Respiratory Exam: Clear to Ausculation Bilateral, NORMAL BREATHING PATTERN. absent: Rales, Rhonchi, Wheezes - Cardiovascular Exam Cardiovascular Exam: RRR, +S1, +S2. absent: JVD - GI/Abdominal Exam GI & Abdominal Exam: Soft, Normal Bowel Sounds. absent: Distended, Tenderness - Extremities Exam Extremities Exam: Normal Inspection. 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 Patient was recently treated for UTI, however, blood and urine cultures are negative. Patient remains afebrile, with no WBC elevation or any electrolyte abnormalities and thyroid studies were normal from last admission. Patient continues to have tremor and unsteady gait and will need TCU per PT, likely for early presentation of Parkinson's disease vs essential tremor. Plan: 1. Tremors likely 2/2 essential tremor vs parkinson's disease - Blood and urine culture has been negative however will repeat urine culture due to patient complaint of urinary frequency - Electrolytes and TSH within normal limits - will switch metoprolol to propranolol 40mg BID for essential tremor - urology consulted (at request of patient), recs appreciated - neurology consulted, recs appreciated - PT/OT eval, recommend TCU, pt is medically cleared and TCU eval in place 2. MVR with subtherapeutic INR - pt states if INR is below 2.5, she usually takes 3mg then back to 2mg the next day - INR subtherapeutic today, will give 3mg today - will continue to monior INR 3. CAD - Continue BB 4. HTN - controlled - cont BB 5. HLD - Cont. Lipitor 6. Depression/Anxiety - Cont. Xanax and Lexapro 7. GI/DVT ppx - Cont. PTX/Coumadin Patient was seen, examined and discussed with attending, Dr. Hiram Rausch PGY1 Pager # [phone] <Cesar Gandhi - Last Filed: 07/10/17 17:25> Objective - Vital Signs/Intake and Output Vital Signs (last 24 hours): Temp Pulse Resp BP Pulse Ox 98.0 F 64 18 164/69 H 98 07/07/17 07:30 07/07/17 07:30 07/07/17 07:30 07/07/17 07:30 07/07/17 07:30 - Labs Labs: 07/07/17 06:40 07/07/17 06:40 PT 24.7 SECONDS (9.4-12.5) H 07/07/17 06:40 INR 2.17 (0.93-1.08) H 07/07/17 06:40 APTT 35.2 Seconds (25.1-36.5) 07/03/17 13:25 Attending/Attestation - Attestation I have personally seen and examined this patient.: Yes I have fully participated in the care of the patient.: Yes I have reviewed all pertinent clinical information, including history, physical exam and plan: Yes Notes (Text): 07/10/17 17:25 Medical record note made by the resident after discussion with my direction and input after the patient was personally seen and examined by me. I have reviewed the chart and agree that the record accurately reflects by personal performance of the history, physical exam, data review, and medical decision-making, in the course for the patient. I have also personally directed the plan of care.
[2017-07-07] MEDS: Pantoprazole 40 mg EC Tab PO SCH (10:38)
[2017-07-07] MEDS: Metoprolol Succinate 50 mg XL Tab PO SCH (10:38)
[2017-07-07] MEDS: Cholecalciferol 1,000 INTLU TAB PO SCH (10:38)
[2017-07-07] MEDS: Multivitamin Vitamin B Complex (Nephro-Vite) Tab PO SCH (10:38)
[2017-07-07] MEDS: Magnesium Oxide 400 mg Tab UD PO SCH (10:38)
--- NOTE | 2017-07-07 11:28 | CT ---
PROCEDURE: CT Abdomen and Pelvis without intravenous contrast HISTORY: Urinary tract infection, chills. Stone/calculus disease suspected. COMPARISON: None. TECHNIQUE: Unenhanced study. Neither oral nor intravenous contrast administered. Radiation dose: Total exam DLP = 1045.07 mGy-cm. This CT exam was performed using one or more of the following dose reduction techniques: Automated exposure control, adjustment of the mA and/or kV according to patient size, and/or use of iterative reconstruction technique. FINDINGS: LOWER THORAX: Unremarkable. LIVER: Unremarkable. No gross lesion or ductal dilatation. GALLBLADDER AND BILE DUCTS: Status post cholecystectomy. No abnormality is seen in the gallbladder fossa. PANCREAS: Unremarkable. No gross lesion or ductal dilatation. SPLEEN: Unremarkable. Incidental finding(s): Calcified splenic artery aneurysm, and incidental finding ADRENALS: Enlarged right adrenal gland well-circumscribed likely adrenal adenoma measuring 1.8 x 2.3 cm. Smaller similar finding identified in the left adrenal gland KIDNEYS AND URETERS: Unremarkable. No hydronephrosis. No solid mass. VASCULATURE: Unremarkable. No aortic aneurysm. BOWEL: Fecal impaction, constipation APPENDIX: Unremarkable. Normal appendix. PERITONEUM: 10 x 15 mm. Unremarkable. No free fluid. No free air. LYMPH NODES: Unremarkable. No enlarged lymph nodes. BLADDER: Unremarkable. REPRODUCTIVE: Prior hysterectomy. BONES: Digitally acute rotator caps send OTHER FINDINGS: None. IMPRESSION: No significant or acute findings to account for/ related to the clinical presentation. Additional benign and/or incidental findings described above.
--- NOTE | 2017-07-07 11:44 | CON ---
DATE: 07/07/2017 CHIEF COMPLAINT: Urinary frequency. HISTORY OF PRESENT ILLNESS: The patient is a 71-year-old female who has been in the hospital since the . She has frequency. She says, voiding every 15 minutes. She said, she has been treated in the past for urinary tract infections. She previously prior to this admission complained of chills, was treated with IV antibiotics. A urine culture that was done on 07/03/2017 was no growth. She currently has no dysuria. No flank pain. No fever or chills. Normal white count. She does, however, complain of voiding every 15 minutes. PAST MEDICAL HISTORY: Significant for bilateral knee replacement. She has had mitral valve replacement. She is on Coumadin. She has had a cholecystectomy, hysterectomy, and oophorectomy. ALLERGIES: SHE IS ALLERGIC TO LASIX, QUINOLONES, AND MORPHINE. SOCIAL HISTORY: She does not smoke or drink. FAMILY HISTORY: Noncontributory. REVIEW OF SYMPTOMS: No symptoms referable to the head, eyes, ears, nose, and throat: No current cardiac or respiratory symptoms. No GI symptoms. No dermatologic or a musculoskeletal symptoms. PHYSICAL EXAMINATION: VITAL SIGNS: Shows her to be afebrile. Blood pressure 164/69, respirations 18, pulse 64, normocephalic. HEENT: Sclerae clear. Conjunctivae non-injected. ABDOMEN: She has no CVA pain. No hepatosplenomegaly, rebound, or guarding. Questionable suprapubic fullness. No edema or purpura. NEUROLOGIC: Well oriented x3. LABORATORY DATA: Her white count is 6200 with a hemoglobin of 13.2. Her BUN and creatinine are normal with a creatinine of 0.8 and BUN of 16. Her urine shows 1-3 red cells, 2-5 white cells, nitrite negative. A urine culture from the was no growth. IMPRESSION: Doubt urinary tract infection. I want to order a noncontrast CT scan and also I told the nurses to do a bladder ultrasound on her to see whatever residual is. If it is more than 300 mL, they will place a Woods catheter indwelling. She was also told to follow up in the office in 1-2 weeks after discharge for further evaluation. Arcadio Hutchinson MD [facility] # [id number]
--- NOTE | 2017-07-07 13:38 | CT ---
PROCEDURE: CT HEAD WITHOUT CONTRAST. HISTORY: Tremors chills, urinary tract infection. COMPARISON: 06/12/2016. TECHNIQUE: Axial computed tomography images were obtained through the head/brain without intravenous contrast. Coronal and sagittal reconstructed images. Radiation dose: Total exam DLP = 832.33 mGy-cm. This CT exam was performed using one or more of the following dose reduction techniques: Automated exposure control, adjustment of the mA and/or kV according to patient size, and/or use of iterative reconstruction technique. FINDINGS: HEMORRHAGE: No intracranial hemorrhage. BRAIN: No mass effect or edema. No atrophy or chronic microvascular ischemic changes. VENTRICLES: Unremarkable. No hydrocephalus. CALVARIUM: Unremarkable. PARANASAL SINUSES: Unremarkable as visualized. No significant inflammatory changes. MASTOID AIR CELLS: Unremarkable as visualized. No inflammatory changes. OTHER FINDINGS: None. IMPRESSION: No acute intracranial abnormalities. No significant findings to account for the clinical presentation. No significant interval change compared to the prior examination(s).
--- NOTE | 2017-07-07 14:44 | CP.PCM.DIS ---
<Tho Rausch - Last Filed: 07/07/17 14:44> Provider - Provider Date of Admission: 07/03/17 15:45 Attending physician: Mike Lopez MD Primary care physician: Mike Lopez MD Time Spent in preparation of Discharge (in minutes): 45 Diagnosis - Discharge Diagnosis (1) Tremor Status: Acute (2) Mitral valve replaced Status: Chronic (3) CAD (coronary artery disease) Status: Chronic (4) HTN (hypertension) Status: Chronic (5) HLD (hyperlipidemia) Status: Chronic Hospital Course - Lab Results Lab Results: Micro Results 07/03/17 17:13 Blood Blood Culture - Preliminary NO GROWTH AFTER 3 DAYS Most Recent Lab Values WBC 6.2 10^3/ul (4.5-11.0) 07/07/17 06:40 RBC 4.84 10^6/uL (3.5-6.1) 07/07/17 06:40 Hgb 13.2 g/dL (12.0-16.0) 07/07/17 06:40 Hct 41.2 % (36.0-48.0) 07/07/17 06:40 MCV 85.1 fl (80.0-105.0) 07/07/17 06:40 MCH 27.3 pg (25.0-35.0) 07/07/17 06:40 MCHC 32.0 g/dl (31.0-37.0) 07/07/17 06:40 RDW 14.4 % (11.5-14.5) 07/07/17 06:40 Plt Count 171 10^3/uL (120.0-450.0) 07/07/17 06:40 MPV 10.1 fl (7.0-11.0) 07/07/17 06:40 Gran % 77.3 % (50.0-68.0) H 07/03/17 13:25 Lymph % (Auto) 14.2 % (22.0-35.0) L 07/03/17 13:25 Hunt % (Auto) 6.8 % (1.0-6.0) H 07/03/17 13:25 Eos % (Auto) 1.5 % (1.5-5.0) 07/03/17 13:25 Baso % (Auto) 0.2 % (0.0-3.0) 07/03/17 13:25 Gran # 6.39 (1.4-6.5) 07/03/17 13:25 Lymph # 1.2 (1.2-3.4) 07/03/17 13:25 Hunt # 0.6 (0.1-0.6) 07/03/17 13:25 Eos # 0.1 (0.0-0.7) 07/03/17 13:25 Baso # 0.02 K/mm3 (0.0-2.0) 07/03/17 13:25 PT 24.7 SECONDS (9.4-12.5) H 07/07/17 06:40 INR 2.17 (0.93-1.08) H 07/07/17 06:40 APTT 35.2 Seconds (25.1-36.5) 07/03/17 13:25 pO2 44 mm/Hg (30-55) 07/03/17 13:25 VBG pH 7.36 (7.32-7.43) 07/03/17 13:25 VBG pCO2 52.0 (40-60) 07/03/17 13:25 VBG HCO3 29.4 mmol/l (21-28) H 07/03/17 13:25 VBG Total CO2 31.0 mmol.L (22-28) H 07/03/17 13:25 VBG O2 Sat (Calc) 81.5 % (40-65) H 07/03/17 13:25 VBG Base Excess 2.8 mmol/L (0.0-2.0) H 07/03/17 13:25 VBG Potassium 3.9 mmol/L (3.6-5.2) 07/03/17 13:25 Sodium 140.0 mmol/L (132-148) 07/03/17 13:25 Chloride 106.0 mmol/L (98-107) 07/03/17 13:25 Glucose 97 mg/dl (65-105) 07/03/17 13:25 Lactate 1.0 mmol/L (0.7-2.1) 07/03/17 13:25 FiO2 21.0 % 07/03/17 13:25 Sodium 139 mmol/L (132-148) 07/07/17 06:40 Potassium 3.9 mmol/L (3.6-5.0) 07/07/17 06:40 Chloride 106 mmol/L (98-107) 07/07/17 06:40 Carbon Dioxide 28 mmol/L (21-33) 07/07/17 06:40 Anion Gap 9 (10-20) L 07/07/17 06:40 BUN 16 mg/dL (7-21) 07/07/17 06:40 Creatinine 0.8 mg/dl (0.7-1.2) 07/07/17 06:40 Est GFR ( Amer) > 60 07/07/17 06:40 Est GFR (Non-Af Amer) > 60 07/07/17 06:40 POC Glucose (mg/dL) 96 mg/dL (65-110) 07/03/17 13:24 Random Glucose 99 mg/dL (70-110) 07/07/17 06:40 Calcium 9.7 mg/dL (8.4-10.5) 07/07/17 06:40 Total Bilirubin 0.5 mg/dL (0.2-1.3) 07/07/17 06:40 AST 44 U/L (14-36) H D 07/07/17 06:40 ALT 46 U/L (7-56) 07/07/17 06:40 Alkaline Phosphatase 54 U/L (38-126) 07/07/17 06:40 Lactate Dehydrogenase 670 U/L (333-699) 07/03/17 13:25 Total Creatine Kinase 90 U/L (35-230) 07/03/17 13:25 Troponin I 0.01 ng/mL 07/03/17 13:25 Total Protein 6.6 g/dL (5.8-8.3) 07/07/17 06:40 Albumin 3.8 g/dL (3.0-4.8) 07/07/17 06:40 Globulin 2.9 gm/dL 07/07/17 06:40 Albumin/Globulin Ratio 1.3 (1.1-1.8) 07/07/17 06:40 TSH 3rd Generation 2.53 mIU/mL (0.46-4.68) 07/06/17 11:47 Venous Blood Potassium 3.9 mmol/L (3.6-5.2) 07/03/17 13:25 Urine Color Yellow (YELLOW) 07/06/17 15:05 Urine Appearance Clear (CLEAR) 07/06/17 15:05 Urine pH 6.0 (4.7-8.0) 07/06/17 15:05 Ur Specific [place] 1.015 (1.005-1.035) 07/06/17 15:05 Urine Protein Negative mg/dL (<30 mg/dL) 07/06/17 15:05 Urine Glucose (UA) Negative mg/dL (NEGATIVE) 07/06/17 15:05 Urine Ketones Negative mg/dL (NEGATIVE) 07/06/17 15:05 Urine Blood Trace-intact (NEGATIVE) H 07/06/17 15:05 Urine Nitrate Negative (NEGATIVE) 07/06/17 15:05 Urine Bilirubin Negative (NEGATIVE) 07/06/17 15:05 Urine Urobilinogen 0.2 E.U./dL (<1 E.U./dL) 07/06/17 15:05 Ur Leukocyte Esterase Negative Karin/uL (NEGATIVE) 07/06/17 15:05 Urine RBC 1 - 3 /hpf (0-2) 07/06/17 15:05 Urine WBC 2 - 5 /hpf (0-6) 07/06/17 15:05 Ur Epithelial Cells 3 - 4 /hpf (0-5) 07/06/17 15:05 Urine Bacteria Few (NEG) 07/06/17 15:05 Influenza Typ A,B (EIA) Negative for flu a/b (NEGATIVE) 07/03/17 13:25 - Hospital Course Hospital Course: Tho Rausch PGY1 Discharge Summary for Dr. Gandhi/Dr. Lopez Ms. 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 The patient was recently discharged from the hospital and was treated for a UTI. Rocpehin was given in ED. Patient was transferred to medicine floors. Urine and blood cultures this visit were negative. The patient remained afebrile with no WBC elevation or electrolyte abnormalities. TSH is within normal limits. When examined, the "shakes" resemble a postural tremor. It was discussed with the patient that this could be an early manifestation of parkinson's disease or an essential tremor. Neurology was requested for workup and treatment. Patient was complaining of urinary frequency, and requested for us to consult urology who stated that UTI is unlikely and CT abd/pelvis was ordered; recommended that if > 300cc post-void residual, then place humphrey, and patient will follow up in office in 1-2 weeks after discharge. Neuro consults have not given their recommendations yet. INR is sub-therapeutic. Patient will be discharged to TCU for continuing rehab and strengthening. Propranolol will be given to evaluate essential tremor and neurology will continue following. CT Head and abd/pelvis were unremarkable for any acute changes. The patient is anxious regarding her diagnosis, however, she is medically stable and requires further rehab for strengthening and conditioning. - Date & Time of H&P Date of H&P: 07/03/17 Time of H&P: 18:58 Discharge Exam - Additional Findings Additional findings: - Constitutional Appears: Well, Non-toxic, No Acute Distress - Head Exam Head Exam: ATRAUMATIC, NORMAL INSPECTION, NORMOCEPHALIC - Eye Exam Eye Exam: EOMI, Normal appearance, PERRL Pupil Exam: NORMAL ACCOMODATION - ENT Exam ENT Exam: Mucous Membranes Moist, Normal Exam - Neck Exam Neck Exam: Normal Inspection - Respiratory Exam Respiratory Exam: Clear to Ausculation Bilateral, NORMAL BREATHING PATTERN. absent: Rales, Rhonchi, Wheezes - Cardiovascular Exam Cardiovascular Exam: RRR, +S1, +S2. absent: JVD - GI/Abdominal Exam GI & Abdominal Exam: Soft, Normal Bowel Sounds. absent: Distended, Tenderness - Extremities Exam Extremities Exam: Normal Inspection. absent: Pedal Edema, Tenderness Additional comments: mild postural tremor improved with intention - Back Exam Back Exam: NORMAL INSPECTION - Neurological Exam Neurological Exam: Alert, Awake, Oriented x3 Neuro motor strength exam: Left Upper Extremity: 5, Right Upper Extremity: 5, Left Lower Extremity: 5, Right Lower Extremity: 5 - Psychiatric Exam Psychiatric exam: Anxious, Normal Affect - Skin Skin Exam: Normal Color, Warm Discharge Plan - Follow Up Plan Condition: FAIR Disposition: TRANSF TO SNF Instructions: Pneumococcal Vaccine for Adults (DC), Urinary Tract Infection in Women (DC), Influenza Vaccine (GEN), Tremors (GEN) Additional Instructions: Patient discharged to TCU. Referrals: Dedousis,Mike, MD [Primary Care Provider] - <Cesar Gandhi - Last Filed: 07/10/17 17:26> Provider - Provider Date of Admission: 07/03/17 15:45 Attending physician: Mike Lopez MD Primary care physician: Mike Lopez MD Hospital Course - Lab Results Lab Results: Micro Results 07/03/17 17:13 Blood Blood Culture - Final NO GROWTH AFTER 5 DAYS 07/03/17 17:13 Blood Gram Stain - Final TEST NOT PERFORMED 07/06/17 15:05 Urine,Clean Catch Urine Culture - Final No Growth (<1,000 CFU/ML) Most Recent Lab Values WBC 6.2 10^3/ul (4.5-11.0) 07/07/17 06:40 RBC 4.84 10^6/uL (3.5-6.1) 07/07/17 06:40 Hgb 13.2 g/dL (12.0-16.0) 07/07/17 06:40 Hct 41.2 % (36.0-48.0) 07/07/17 06:40 MCV 85.1 fl (80.0-105.0) 07/07/17 06:40 MCH 27.3 pg (25.0-35.0) 07/07/17 06:40 MCHC 32.0 g/dl (31.0-37.0) 07/07/17 06:40 RDW 14.4 % (11.5-14.5) 07/07/17 06:40 Plt Count 171 10^3/uL (120.0-450.0) 07/07/17 06:40 MPV 10.1 fl (7.0-11.0) 07/07/17 06:40 Gran % 77.3 % (50.0-68.0) H 07/03/17 13:25 Lymph % (Auto) 14.2 % (22.0-35.0) L 07/03/17 13:25 Hunt % (Auto) 6.8 % (1.0-6.0) H 07/03/17 13:25 Eos % (Auto) 1.5 % (1.5-5.0) 07/03/17 13:25 Baso % (Auto) 0.2 % (0.0-3.0) 07/03/17 13:25 Gran # 6.39 (1.4-6.5) 07/03/17 13:25 Lymph # 1.2 (1.2-3.4) 07/03/17 13:25 Hunt # 0.6 (0.1-0.6) 07/03/17 13:25 Eos # 0.1 (0.0-0.7) 07/03/17 13:25 Baso # 0.02 K/mm3 (0.0-2.0) 07/03/17 13:25 PT 24.7 SECONDS (9.4-12.5) H 07/07/17 06:40 INR 2.17 (0.93-1.08) H 07/07/17 06:40 APTT 35.2 Seconds (25.1-36.5) 07/03/17 13:25 pO2 44 mm/Hg (30-55) 07/03/17 13:25 VBG pH 7.36 (7.32-7.43) 07/03/17 13:25 VBG pCO2 52.0 (40-60) 07/03/17 13:25 VBG HCO3 29.4 mmol/l (21-28) H 07/03/17 13:25 VBG Total CO2 31.0 mmol.L (22-28) H 07/03/17 13:25 VBG O2 Sat (Calc) 81.5 % (40-65) H 07/03/17 13:25 VBG Base Excess 2.8 mmol/L (0.0-2.0) H 07/03/17 13:25 VBG Potassium 3.9 mmol/L (3.6-5.2) 07/03/17 13:25 Sodium 140.0 mmol/L (132-148) 07/03/17 13:25 Chloride 106.0 mmol/L (98-107) 07/03/17 13:25 Glucose 97 mg/dl (65-105) 07/03/17 13:25 Lactate 1.0 mmol/L (0.7-2.1) 07/03/17 13:25 FiO2 21.0 % 07/03/17 13:25 Sodium 139 mmol/L (132-148) 07/07/17 06:40 Potassium 3.9 mmol/L (3.6-5.0) 07/07/17 06:40 Chloride 106 mmol/L (98-107) 07/07/17 06:40 Carbon Dioxide 28 mmol/L (21-33) 07/07/17 06:40 Anion Gap 9 (10-20) L 07/07/17 06:40 BUN 16 mg/dL (7-21) 07/07/17 06:40 Creatinine 0.8 mg/dl (0.7-1.2) 07/07/17 06:40 Est GFR ( Amer) > 60 07/07/17 06:40 Est GFR (Non-Af Amer) > 60 07/07/17 06:40 POC Glucose (mg/dL) 96 mg/dL (65-110) 07/03/17 13:24 Random Glucose 99 mg/dL (70-110) 07/07/17 06:40 Calcium 9.7 mg/dL (8.4-10.5) 07/07/17 06:40 Total Bilirubin 0.5 mg/dL (0.2-1.3) 07/07/17 06:40 AST 44 U/L (14-36) H D 07/07/17 06:40 ALT 46 U/L (7-56) 07/07/17 06:40 Alkaline Phosphatase 54 U/L (38-126) 07/07/17 06:40 Lactate Dehydrogenase 670 U/L (333-699) 07/03/17 13:25 Total Creatine Kinase 90 U/L (35-230) 07/03/17 13:25 Troponin I 0.01 ng/mL 07/03/17 13:25 Total Protein 6.6 g/dL (5.8-8.3) 07/07/17 06:40 Albumin 3.8 g/dL (3.0-4.8) 07/07/17 06:40 Globulin 2.9 gm/dL 07/07/17 06:40 Albumin/Globulin Ratio 1.3 (1.1-1.8) 07/07/17 06:40 TSH 3rd Generation 2.53 mIU/mL (0.46-4.68) 07/06/17 11:47 Venous Blood Potassium 3.9 mmol/L (3.6-5.2) 07/03/17 13:25 Urine Color Yellow (YELLOW) 07/06/17 15:05 Urine Appearance Clear (CLEAR) 07/06/17 15:05 Urine pH 6.0 (4.7-8.0) 07/06/17 15:05 Ur Specific [place] 1.015 (1.005-1.035) 07/06/17 15:05 Urine Protein Negative mg/dL (<30 mg/dL) 07/06/17 15:05 Urine Glucose (UA) Negative mg/dL (NEGATIVE) 07/06/17 15:05 Urine Ketones Negative mg/dL (NEGATIVE) 07/06/17 15:05 Urine Blood Trace-intact (NEGATIVE) H 07/06/17 15:05 Urine Nitrate Negative (NEGATIVE) 07/06/17 15:05 Urine Bilirubin Negative (NEGATIVE) 07/06/17 15:05 Urine Urobilinogen 0.2 E.U./dL (<1 E.U./dL) 07/06/17 15:05 Ur Leukocyte Esterase Negative Karin/uL (NEGATIVE) 07/06/17 15:05 Urine RBC 1 - 3 /hpf (0-2) 07/06/17 15:05 Urine WBC 2 - 5 /hpf (0-6) 07/06/17 15:05 Ur Epithelial Cells 3 - 4 /hpf (0-5) 07/06/17 15:05 Urine Bacteria Few (NEG) 07/06/17 15:05 Influenza Typ A,B (EIA) Negative for flu a/b (NEGATIVE) 07/03/17 13:25 Attending/Attestation - Attestation I have personally seen and examined this patient.: Yes I have fully participated in the care of the patient.: Yes I have reviewed all pertinent clinical information, including history, physical exam and plan: Yes Notes (Text): 07/10/17 17:26 Medical record note made by the resident after discussion with my direction and input after the patient was personally seen and examined by me. I have reviewed the chart and agree that the record accurately reflects by personal performance of the history, physical exam, data review, and medical decision-making, in the course for the patient. I have also personally directed the plan of care.
--- NOTE | 2017-07-08 08:53 | CON ---
DATE: 07/07/2017 HISTORY OF PRESENT ILLNESS: This is a 71-year-old female with past medical history of coronary artery disease and the patient had recent admission for weakness and UTI. Denies any headache. No visual problem. No chest pain. On examination, the patient has a history of anemia, GERD, anxiety, depression, also had cholecystectomy. ALLERGIES: ALLERGIC TO FUROSEMIDE, MORPHINE, AND CIPROFLOXACIN. HOME MEDICATIONS: Xanax, Florinef, Toprol, Lexapro, Crestor, and Coumadin. PHYSICAL EXAMINATION HEENT: Normocephalic and atraumatic. NECK: Supple. NEUROLOGIC: Alert, awake and oriented to self and place. The patient was asked to see for tremors, possibly essential tremor. On examination, cranial nerves II through XII are tested. Pupils reactive. EOM intact. Visual shaw full. No facial asymmetry. Tongue midline. Motor examination: Moves all the extremities equally. Tone normal. Deep tendon reflexes 1+. Both plantars are downgoing. Sensory appears intact. Cerebellar, gait deferred. IMPRESSION: Possible essential tremor. We will give her Mysoline half tablet p.o. daily. We will do a CAT scan of the head. Further management after . Cl Hall MD
[2017-08-02] MEDS ORDERED: IBANDRONATE SODIUM 150 MG PO SCH (10:00)
== END 2017-07-07 13:39 | DRG 93 ==
LOC: ED 12:27 → ERH 15:45 → OBSVTOIN 15:45 → ERH 16:32 → UNDOADMOB 16:32 → ERH 17:18 → 5RNO 18:00
PROVIDERS: ADMIT Internal Medicine; ATTEND Internal Medicine
DX: G25.0 Essential tremor (principal); E78.00 Pure hypercholesterolemia, unspecified; E78.5 Hyperlipidemia, unspecified; I10 Essential (primary) hypertension; I25.10 Atherosclerotic heart disease of native coronary artery without angina pectoris; K21.9 Gastro-esophageal reflux disease without esophagitis; F32.9 Major depressive disorder, single episode, unspecified; F41.9 Anxiety disorder, unspecified; R53.1 Weakness; Z79.01 Long term (current) use of anticoagulants; Z95.2 Presence of prosthetic heart valve; Z96.653 Presence of artificial knee joint, bilateral; Z90.710 Acquired absence of both cervix and uterus; Z90.49 Acquired absence of other specified parts of digestive tract

== ENCOUNTER 2017-07-07 13:48 | Inpatient (IN) | payer OTHER, BC ==
[2017-07-07 14:43] VITALS: BMI 37.0
[2017-07-07] MEDS: Cholecalciferol 1,000 INTLU TAB PO SCH (17:46)
[2017-07-08 06:40] LABS: BASO # 0.02 K/mm3 (0.0-2.0); BASO % 0.3 % (0.0-3.0); EOS # 0.2 (0.0-0.7); EOS % 2.1 % (1.5-5.0); GRAN # 4.89 (1.4-6.5); GRAN % 67.2 % (50.0-68.0); HEMOGLOBIN 12.6 g/dL (12.0-16.0); LYMPH # 1.6 (1.2-3.4); LYMPH % 21.3 % (22.0-35.0); MEAN CELL VOLUME 85.3 fl (80.0-105.0); MEAN CORPUSCULAR HEMOGLOBIN 27.2 pg (25.0-35.0); MEAN CORPUSCULAR HGB CONC 31.8 g/dl (31.0-37.0); MONO # 0.7 (0.1-0.6); MONO % 9.1 % (1.0-6.0); RBC 4.64 10^6/uL (3.5-6.1); RED CELL DISTRIBUTION WIDTH 14.6 % (11.5-14.5); WHITE BLOOD COUNT 7.3 10^3/ul (4.5-11.0)
[2017-07-08 07:14] LABS: INR 2.51 (0.93-1.08); PROTHROMBIN TIME 28.1 SECONDS (9.4-12.5)
[2017-07-08 07:59] LABS: ALB/GLOB RATIO 1.2 (1.1-1.8); ALBUMIN 3.5 g/dL (3.0-4.8); ALT/SGPT 43 U/L (7-56); AST/SGOT 40 U/L (14-36); BLOOD UREA NITROGEN 13 mg/dL (7-21); CALCIUM 9.6 mg/dL (8.4-10.5); GFR AFRICAN-AMERICAN > 60; GFR NON-AFRICAN AMERICAN > 60
--- NOTE | 2017-07-08 08:36 | CP.PCM.HP ---
<Tho Rausch - Last Filed: 07/08/17 10:39> History of Present Illness - History of Present Illness History of Present Illness: Tho Shalom PGY1 IM H&P Note for Dr. Gandhi/Dr. Lopez Ms. 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 The patient was recently discharged from the hospital and was treated for a UTI. Rocephin was given in ED. Patient was transferred to medicine floors. Urine and blood cultures this visit were negative. The patient remained afebrile with no WBC elevation or electrolyte abnormalities. TSH is within normal limits. When examined, the "shakes" resemble a postural tremor. It was discussed with the patient that this could be an early manifestation of parkinson's disease or an essential tremor. Neurology was requested for workup and treatment. Patient was complaining of urinary frequency, and requested for us to consult urology who stated that UTI is unlikely and CT abd/pelvis was ordered; recommended that if > 300cc post-void residual, then place humphrey however it was not, and patient will follow up in office in 1-2 weeks after discharge. Neuro consults have not given their recommendations yet but ordered CT Head which was unremarkable. INR was sub-therapeutic. Patient was discharged to TCU for continuing rehab and strengthening. Propranolol will be given to evaluate essential tremor and neurology will continue following. CT Head and abd/pelvis were unremarkable for any acute changes. The patient is anxious regarding her diagnosis, however, she is medically stable and requires further rehab for strengthening and conditioning. The patient denies any chest pain, sob, fevers/chills, coughs, n/v/d/ constipation, changes in vision/hearing, dizziness, weakness, abdominal pain, changes in urinary/bowel habits. 12-pt ROS was reviewed and is otherwise unremarkable. PMH: as above PSH: bilateral knee replacement, open heart surgery for mitral valve replacement , cholecystectomy, hysterectomy (endometrosis), oopherectomy (ovarian cyst) All: Furosemide, Ciprofloxacin, Morphine SHx: Denies tobacco, alcohol, or substance use; lives with PMD: Dr. Gandhi Present on Admission - Present on Admission Any Indicators Present on Admission: No Review of Systems - Review of Systems All systems: reviewed and no additional remarkable complaints except (as per HPI ) Past Patient History - Infectious Disease Hx of Infectious Diseases: None - Tetanus Immunizations Tetanus Immunization: Unknown - Past Medical History & Family History Past Medical History?: Yes - Past Social History Smoking Status: Never Smoked Alcohol: None Drugs: Denies Home Situation {Lives}: With Family - CARDIAC Hx Cardiac Disorders: Yes (CAD) Hx Angina: Yes Hx Hypercholesterolemia: Yes Hx Hypertension: Yes Hx Mitral Valve Prolapse: Yes (2/2 RHD; s/p MVR) - PULMONARY Hx Respiratory Disorders: No - NEUROLOGICAL Hx Neurological Disorder: No Hx Dizziness: No Hx Seizures: No - HEENT Hx HEENT Problems: No - RENAL Hx Chronic Kidney Disease: No - ENDOCRINE/METABOLIC Hx Endocrine Disorders: No - HEMATOLOGICAL/ONCOLOGICAL Hx Anemia: Yes Hx Blood Transfusions: Yes - INTEGUMENTARY Hx Dermatological Problems: No - MUSCULOSKELETAL/RHEUMATOLOGICAL Hx Falls: Yes - GASTROINTESTINAL Hx Gastrointestinal Disorders: Yes Hx Gastroesophageal Reflux: Yes - GENITOURINARY/GYNECOLOGICAL Hx Genitourinary Disorders: No Hx Reproductive Disorders: No - PSYCHIATRIC Hx Anxiety: Yes Hx Depression: Yes Hx Substance Use: No - SURGICAL HISTORY Hx Cholecystectomy: Yes Hx Hysterectomy: Yes Hx Orthopedic Surgery: Yes (L KNEE, R KNEE) Hx Valve Replacement: Yes (MVR 2/2 MVP 2/2 RHD) - ANESTHESIA Hx Anesthesia: Yes Hx Anesthesia Reactions: No Meds Allergies/Adverse Reactions: Allergies Allergy/AdvReac Type Severity Reaction Status Date / Time furosemide Allergy Mild ITCHING Verified 07/07/17 14:43 morphine Allergy DIARRHEA Verified 07/07/17 14:43 ciprofloxacin [From Cipro] AdvReac Mild ITCHING Verified 07/07/17 14:43 ciprofloxacin HCl AdvReac Mild ITCHING Verified 07/07/17 14:43 [From Cipro] Physical Exam - Additional Findings Additional findings: - Constitutional Appears: Well, Non-toxic, No Acute Distress - Head Exam Head Exam: ATRAUMATIC, NORMAL INSPECTION, NORMOCEPHALIC - Eye Exam Eye Exam: EOMI, Normal appearance, PERRL Pupil Exam: NORMAL ACCOMODATION - ENT Exam ENT Exam: Mucous Membranes Moist, Normal Exam - Neck Exam Neck Exam: Normal Inspection - Respiratory Exam Respiratory Exam: Clear to Ausculation Bilateral, NORMAL BREATHING PATTERN. absent: Rales, Rhonchi, Wheezes - Cardiovascular Exam Cardiovascular Exam: RRR, +S1, +S2. absent: JVD - GI/Abdominal Exam GI & Abdominal Exam: Soft, Normal Bowel Sounds. absent: Distended, Tenderness - Extremities Exam Extremities Exam: Normal Inspection. absent: Pedal Edema, Tenderness Additional comments: mild postural tremor improved with intention - Back Exam Back Exam: NORMAL INSPECTION - Neurological Exam Neurological Exam: Alert, Awake, Oriented x3 Neuro motor strength exam: Left Upper Extremity: 5, Right Upper Extremity: 5, Left Lower Extremity: 5, Right Lower Extremity: 5 - Psychiatric Exam Psychiatric exam: Anxious, Normal Affect - Skin Skin Exam: Normal Color, Warm Results - Vital Signs Recent Vital Signs: Last Vital Signs Temp 97.9 F 07/07/17 16:13 Pulse 64 07/07/17 17:45 Resp 15 07/07/17 16:13 BP 138/66 07/07/17 17:45 Pulse Ox 95 07/07/17 16:13 - Labs Result Diagrams: 07/08/17 06:00 07/08/17 06:00 Labs: Laboratory Results - last 24 hr 07/08/17 07/08/17 07/08/17 06:00 06:00 06:00 WBC 7.3 RBC 4.64 Hgb 12.6 Hct 39.6 MCV 85.3 MCH 27.2 MCHC 31.8 RDW 14.6 H Plt Count 172 MPV 10.0 Gran % 67.2 Lymph % (Auto) 21.3 L [place] % (Auto) 9.1 H Eos % (Auto) 2.1 Baso % (Auto) 0.3 Gran # 4.89 Lymph # 1.6 [place] # 0.7 H Eos # 0.2 Baso # 0.02 PT 28.1 H INR 2.51 H Sodium 139 Potassium 3.9 Chloride 104 Carbon Dioxide 26 Anion Gap 12 BUN 13 Creatinine 0.8 Est GFR ( Amer) > 60 Est GFR (Non-Af Amer) > 60 Random Glucose 84 Calcium 9.6 Total Bilirubin 0.5 AST 40 H ALT 43 Alkaline Phosphatase 48 Total Protein 6.3 Albumin 3.5 Globulin 2.8 Albumin/Globulin Ratio 1.2 Assessment & Plan - Assessment and Plan (Free Text) Assessment: 71 yo F with PMH of 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 Patient was recently treated for UTI and blood/urine cultures are negative. Patient remains afebrile, with no WBC elevation or any electrolyte abnormalities and thyroid studies were normal. Patient continues to have tremor and unsteady gait. Currently in TCU for continued strengthening, conditioning and workup for Parkinson's disease vs essential tremor. Plan: 1. Deconditioning 2/2 Tremors likely 2/2 essential tremor vs parkinson's disease - continued rehab for strengthening and conditioning in TCU - metoprolol switched to propranolol 40mg BID for essential tremor - Blood and urine culture negative - Electrolytes and TSH within normal limits - CT Head unremarkable - neurology consulted, recs appreciated 2. MVR with therapeutic INR - pt states if INR is below 2.5, she usually takes Coumadin 3mg then back to 2mg the next day - INR therapeutic today, will continue 2mg daily Coumadin - will continue to monior INR daily 3. CAD - Continue BB 4. HTN - controlled - cont BB 5. HLD - Cont. Lipitor 6. Depression/Anxiety - Cont. Xanax and Lexapro 7. GI/DVT ppx - Cont. PTX/Coumadin Patient was seen, examined and discussed with attending, Dr. Hiram Rausch PGY1 Pager # [phone] <Cesar Gandhi - Last Filed: 07/10/17 17:27> Results - Vital Signs Recent Vital Signs: Last Vital Signs Temp 97.6 F 07/10/17 16:36 Pulse 62 07/10/17 16:36 Resp 18 07/10/17 16:36 BP 130/53 L 07/10/17 16:36 Pulse Ox 96 07/10/17 16:36 - Labs Result Diagrams: 07/10/17 08:00 07/10/17 08:00 Labs: Laboratory Results - last 24 hr 07/10/17 07/10/17 07/10/17 08:00 08:00 09:10 WBC 7.0 RBC 4.72 Hgb 13.2 Hct 40.3 MCV 85.4 MCH 28.0 MCHC 32.8 RDW 14.3 Plt Count 162 MPV 9.4 PT 28.6 H INR 2.55 H Sodium 141 Potassium 3.9 Chloride 104 Carbon Dioxide 29 Anion Gap 12 BUN 15 Creatinine 0.8 Est GFR ( Amer) > 60 Est GFR (Non-Af Amer) > 60 Random Glucose 100 Calcium 9.8 Total Bilirubin 0.6 AST 34 ALT 50 Alkaline Phosphatase 54 Total Protein 6.8 Albumin 3.8 Globulin 3.0 Albumin/Globulin Ratio 1.3 Attending/Attestation - Attestation I have personally seen and examined this patient.: Yes I have fully participated in the care of the patient.: Yes I have reviewed all pertinent clinical information: Yes Notes (Text): 07/10/17 17:27 Medical record note made by the resident after discussion with my direction and input after the patient was personally seen and examined by me. I have reviewed the chart and agree that the record accurately reflects by personal performance of the history, physical exam, data review, and medical decision-making, in the course for the patient. I have also personally directed the plan of care.
[2017-07-08] MEDS ORDERED: Metoprolol Succinate 50 mg XL Tab PO SCH (10:00)
[2017-07-08] MEDS ORDERED: Pantoprazole 40 mg EC Tab PO SCH (10:00)
[2017-07-08] MEDS: Magnesium Oxide 400 mg Tab UD PO SCH (10:26)
[2017-07-08] MEDS: Cholecalciferol 1,000 INTLU TAB PO SCH ×2 (10:27→17:52)
[2017-07-08 11:18] LABS: HEMOGLOBIN 13.1 g/dL (12.0-16.0); MEAN CELL VOLUME 85.8 fl (80.0-105.0); MEAN CORPUSCULAR HEMOGLOBIN 27.7 pg (25.0-35.0); MEAN CORPUSCULAR HGB CONC 32.3 g/dl (31.0-37.0); MEAN PLATELET VOLUME 9.9 fl (7.0-11.0); RBC 4.73 10^6/uL (3.5-6.1); RED CELL DISTRIBUTION WIDTH 14.7 % (11.5-14.5); WHITE BLOOD COUNT 8.9 10^3/ul (4.5-11.0)
--- NOTE | 2017-07-08 17:46 | CON ---
DATE: 07/08/2017 NEUROLOGY CONSULTATION CHIEF COMPLAINT: Tremor. HISTORY OF PRESENT ILLNESS: This is a 71-year-old woman with history of severe mitral valve prolapse secondary to rheumatic heart disease as a child, status post prosthetic mitral valve replaced in 1993 on Coumadin, coronary artery disease, hypertension, dyslipidemia, who came in with postural tremor exacerbated with activity. The patient was recently treated for UTI and her blood and urine cultures are negative. The patient remains afebrile and is on TCU for deconditioning. Tremors are somewhat better since she has been placed on propranolol 40 mg p.o. b.i.d. No acute events overnight. Her tremors are much better today. PAST MEDICAL HISTORY: History of severe mitral valve prolapse secondary to rheumatic heart disease, status post prosthetic valve replacement in 1993 on Coumadin, coronary artery disease, hypertension, and hyperlipidemia. MEDICATIONS: Reviewed via nurse's reconciliation sheet. ALLERGIES: ALLERGIC TO FUROSEMIDE, MORPHINE, AND CIPROFLOXACIN. FAMILY HISTORY: Noncontributory. SOCIAL HISTORY: No history of illicit drug use, smoking, or EtOH abuse. REVIEW OF SYSTEMS: A 14-point review of systems is negative except as per the HPI. PHYSICAL EXAMINATION: GENERAL: The patient sitting up in bed, in no acute distress. VITAL SIGNS: Temperature 97.3, pulse rate 64, blood pressure 137/74, respiratory rate 18, and oxygen saturation 95% via room air. HEENT: Head is atraumatic and normocephalic. PERRLA. Extraocular muscles are intact. NECK: Supple. No JVD. No adenopathy noted. LUNGS: Clear to auscultation. No adventitious sounds. HEART: S1 and S2. Normal rate and rhythm. No murmurs, rubs, or gallops. ABDOMEN: Soft, nontender, and nondistended. Bowel sounds are present. EXTREMITIES: No clubbing. No cyanosis. Peripheral pulses are 2+ felt bilaterally. NEUROLOGIC: The patient is alert and oriented to time, person, place, month and year. Speech is fluent without any errors. Cranial nerves II through XII are intact. Motor exam: Moves all extremities equally. Toes are downgoing bilaterally. Sensory exam: Light touch, pinprick, proprioception, vibration intact. DTRs are 2+ throughout and 1 at both knees and ankles. Coordination of [id number] intact and with hand outstretched mild tremors upon actions, although improved with [id number]. LABORATORY DATA: Sodium is 139, potassium 3.9, chloride 104, carbon dioxide 26, BUN 13, creatinine 0.9, and random glucose of 84. ASSESSMENT AND PLAN: This is a 71-year-old woman with history of severe mitral valve prolapse secondary to rheumatic heart disease as a child, status post prosthetic mitral valve replacement in 1993 on Coumadin, coronary artery disease, hypertension, hyperlipidemia, presented with tremor exacerbated with activity and is on TCU for deconditioned state. Her tremor is most likely essential type. We would recommend: 1. To be on propranolol 40 mg p.o. b.i.d. for essential tremor. 2. Monitor electrolytes and correct accordingly. 3. Continue on PT and OT for her deconditioned state. 4. Given that she with therapeutic INR continue with underlying Coumadin. 5. Continue to keep her blood pressure between the 120-130 mmHg. 6. Continue with Xanax and Lexapro for her underlying depression and anxiety. 7. Continue with current present medical management. No further neurological workup needed at this time. Sotero Hall MD
[2017-07-08] MEDS: VITAMIN B COMPLEX PO SCH (17:52)
[2017-07-09] MEDS: Pantoprazole 40 mg EC Tab PO SCH (05:21)
[2017-07-09 06:19] LABS: BASO # 0.02 K/mm3 (0.0-2.0); BASO % 0.3 % (0.0-3.0); EOS # 0.1 (0.0-0.7); EOS % 1.9 % (1.5-5.0); GRAN # 4.75 (1.4-6.5); GRAN % 65.4 % (50.0-68.0); HEMOGLOBIN 13.1 g/dL (12.0-16.0); LYMPH # 1.7 (1.2-3.4); LYMPH % 23.3 % (22.0-35.0); MEAN CELL VOLUME 85.5 fl (80.0-105.0); MEAN CORPUSCULAR HEMOGLOBIN 28.9 pg (25.0-35.0); MEAN CORPUSCULAR HGB CONC 33.8 g/dl (31.0-37.0); MONO # 0.7 (0.1-0.6); MONO % 9.1 % (1.0-6.0); RBC 4.54 10^6/uL (3.5-6.1); RED CELL DISTRIBUTION WIDTH 14.7 % (11.5-14.5); WHITE BLOOD COUNT 7.3 10^3/ul (4.5-11.0)
[2017-07-09 06:40] LABS: INR 2.46 (0.93-1.08); PROTHROMBIN TIME 27.6 SECONDS (9.4-12.5)
--- NOTE | 2017-07-09 08:01 | CP.PCM.PN ---
Subjective - Date & Time of Evaluation Date of Evaluation: 07/09/17 Time of Evaluation: 07:15 - Subjective Subjective: Tho Rausch IM Progress Note for Dr. Lopez Patient was seen and examined at bedside in TCU. she states that she has tolerated PT yesterday and that she has been feeling better and that her tremors are decreased. She states she was seen by Dr. Hall yesterday. She is educated about the use of propranolol instead of her metoprolol and that Dr. Hall is on board with the idea. she denies cp, sob, cough, fevers/chills, n/v/ d, abdominal pain, headache, dizziness. she is also advised to get out of bed; she states she ambulates with a walker now in TCU. Objective - Vital Signs/Intake and Output Vital Signs (last 24 hours): Temp Pulse Resp BP Pulse Ox 97.3 F L 57 L 18 116/67 95 07/08/17 10:00 07/08/17 17:51 07/08/17 10:00 07/08/17 17:51 07/08/17 10:00 - Medications Medications: Current Medications Acetaminophen (Tylenol 325mg Tab) 650 mg PO Q4 PRN; Protocol PRN Reason: Fever >100.4 F Alprazolam (Xanax) 1 mg PO BID KATIE PRN Reason: Protocol Stop: 07/14/17 18:01 Last Admin: 07/08/17 10:32 Dose: 1 mg Atorvastatin Calcium (Lipitor) 40 mg PO DIN KATIE PRN Reason: Protocol Last Admin: 07/08/17 17:51 Dose: 40 mg Cholecalciferol (Vitamin D) 1,000 intlu PO BID KATIE Last Admin: 07/08/17 17:52 Dose: 1,000 intlu Escitalopram Oxalate (Lexapro) 10 mg PO DAILY KATIE PRN Reason: Protocol Last Admin: 07/08/17 10:26 Dose: 10 mg Fludrocortisone Acetate (Florinef) 0.1 mg PO DAILY KATIE PRN Reason: Protocol Last Admin: 07/08/17 10:25 Dose: 0.1 mg Magnesium Oxide (Mag-Ox) 400 mg PO DAILY KATIE PRN Reason: Protocol Last Admin: 07/08/17 10:26 Dose: 400 mg Non-Formulary Medication (Ibandronate Sodium [Boniva]) 150 mg PO Q30D [facility] Non-Formulary Medication (Vitamin B Complex [Vitamin B Complex]) 1 tab PO DAILY [facility] Last Admin: 07/08/17 17:52 Dose: Not Given Pantoprazole Sodium (Protonix Ec Tab) 40 mg PO 0600 [facility] PRN Reason: Protocol Last Admin: 07/09/17 05:21 Dose: 40 mg Propranolol HCl (Inderal) 40 mg PO BID [facility] Last Admin: 07/08/17 17:51 Dose: 40 mg Sodium Chloride ([place] Nasal [place]) 0 ml NS Q6H KATIE PRN Reason: Protocol Last Admin: 07/08/17 21:32 Dose: Not Given Warfarin Sodium (Coumadin) 2 mg PO 1800 [facility] PRN Reason: Protocol Last Admin: 07/08/17 17:51 Dose: 2 mg - Labs Labs: 07/09/17 05:30 07/08/17 06:00 PT 27.6 SECONDS (9.4-12.5) H 07/09/17 05:30 INR 2.46 (0.93-1.08) H 07/09/17 05:30 - Additional Findings Additional findings: - Constitutional Appears: Well, Non-toxic, No Acute Distress - Head Exam Head Exam: ATRAUMATIC, NORMAL INSPECTION, NORMOCEPHALIC - Eye Exam Eye Exam: EOMI, Normal appearance, PERRL Pupil Exam: NORMAL ACCOMODATION - ENT Exam ENT Exam: Mucous Membranes Moist, Normal Exam - Neck Exam Neck Exam: Normal Inspection - Respiratory Exam Respiratory Exam: Clear to Ausculation Bilateral, NORMAL BREATHING PATTERN. absent: Rales, Rhonchi, Wheezes - Cardiovascular Exam Cardiovascular Exam: RRR, +S1, +S2. absent: JVD - GI/Abdominal Exam GI & Abdominal Exam: Soft, Normal Bowel Sounds. absent: Distended, Tenderness - Extremities Exam Extremities Exam: Normal Inspection. absent: Pedal Edema, Tenderness Additional comments: mild postural tremor improved with intention vertical incision scars over b/l knees - Back Exam Back Exam: NORMAL INSPECTION - Neurological Exam Neurological Exam: Alert, Awake, Oriented x3 Neuro motor strength exam: Left Upper Extremity: 5, Right Upper Extremity: 5, Left Lower Extremity: 5, Right Lower Extremity: 5 - Psychiatric Exam Psychiatric exam: Anxious, Normal Affect - Skin Skin Exam: Normal Color, Warm Assessment and Plan - Assessment and Plan (Free Text) Assessment: 71 yo F with PMH of 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 Patient was recently treated for UTI and blood/urine cultures are negative. Patient remains afebrile, with no WBC elevation or any electrolyte abnormalities and thyroid studies were normal. Patient continues to have tremor and unsteady gait. Currently in TCU for continued strengthening, conditioning and workup for Parkinson's disease vs essential tremor. Plan: 1. Deconditioning 2/2 Tremors likely 2/2 essential tremor - continued rehab for strengthening and conditioning in TCU - metoprolol switched to propranolol 40mg BID for essential tremor - Blood and urine culture negative - Electrolytes and TSH within normal limits - CT Head unremarkable - neurology consulted, recs appreciated 2. MVR with therapeutic INR - pt states if INR is below 2.5, she usually takes Coumadin 3mg then back to 2mg the next day - INR subtherapeutic today, will continue 2mg daily Coumadin - will continue to monior INR daily 3. CAD - Continue BB 4. HTN - controlled - cont BB 5. HLD - Cont. Lipitor 6. Depression/Anxiety - Cont. Xanax and Lexapro 7. GI/DVT ppx - Cont. PTX/Coumadin Patient was seen, examined and discussed with attending, Dr. John Rausch PGY1 Pager # [phone]
[2017-07-09] MEDS: Magnesium Oxide 400 mg Tab UD PO SCH (10:28)
[2017-07-09] MEDS: Cholecalciferol 1,000 INTLU TAB PO SCH ×2 (10:29→17:34)
[2017-07-09] MEDS: VITAMIN B COMPLEX PO SCH (17:30)
[2017-07-10] MEDS: Pantoprazole 40 mg EC Tab PO SCH (05:35)
[2017-07-10 08:08] LABS: HEMOGLOBIN 13.2 g/dL (12.0-16.0); MEAN CELL VOLUME 85.4 fl (80.0-105.0); MEAN CORPUSCULAR HGB CONC 32.8 g/dl (31.0-37.0); MEAN PLATELET VOLUME 9.4 fl (7.0-11.0); RBC 4.72 10^6/uL (3.5-6.1); RED CELL DISTRIBUTION WIDTH 14.3 % (11.5-14.5)
[2017-07-10 08:19] LABS: ALB/GLOB RATIO 1.3 (1.1-1.8); ALBUMIN 3.8 g/dL (3.0-4.8); ALT/SGPT 50 U/L (7-56); AST/SGOT 34 U/L (14-36); BLOOD UREA NITROGEN 15 mg/dL (7-21); CALCIUM 9.8 mg/dL (8.4-10.5); GFR AFRICAN-AMERICAN > 60; GFR NON-AFRICAN AMERICAN > 60
[2017-07-10 09:31] LABS: INR 2.55 (0.93-1.08); PROTHROMBIN TIME 28.6 SECONDS (9.4-12.5)
[2017-07-10] MEDS: Cholecalciferol 1,000 INTLU TAB PO SCH ×2 (10:48→18:04)
[2017-07-10] MEDS: Magnesium Oxide 400 mg Tab UD PO SCH (10:49)
[2017-07-10] MEDS: VITAMIN B COMPLEX PO SCH (10:50)
--- NOTE | 2017-07-10 12:19 | CP.PCM.CON ---
History of Present Illness - History of Present Illness History of Present Illness: Podiatry Consult Note- Dr. Blayne Quintana 71 y.o female with PMH of mitral valve replacement, HTN, HLD, and CAD seen at bedside for elongated, bothersome toenails x10. Patient reports that she is known to Dr. Quintana and sees him every 3 months in the office for routine care. Patient reports that she is admitted for UTI, finished her abx, and is now in TCU with physical therapy. She is seen resting comfortably out of bed in a chair , AA0x3, and in NAD. She reports that is still feels weak, but is getting stronger. She denies n/v/sob/cp/chills or f. She has no other pedal complaints at this time. Past Patient History - Infectious Disease Hx of Infectious Diseases: None - Tetanus Immunizations Tetanus Immunization: Unknown - Past Medical History & Family History Past Medical History?: Yes - Past Social History Smoking Status: Never Smoked Alcohol: None Drugs: Denies Home Situation {Lives}: With Family - CARDIAC Hx Cardiac Disorders: Yes Hx Hypercholesterolemia: Yes Hx Hypertension: Yes - PULMONARY Hx Respiratory Disorders: No - NEUROLOGICAL Hx Neurological Disorder: No Hx Dizziness: No Hx Seizures: No - HEENT Hx HEENT Problems: No - RENAL Hx Chronic Kidney Disease: No - ENDOCRINE/METABOLIC Hx Endocrine Disorders: No - HEMATOLOGICAL/ONCOLOGICAL Hx Anemia: Yes Hx Blood Transfusions: Yes - INTEGUMENTARY Hx Dermatological Problems: No - MUSCULOSKELETAL/RHEUMATOLOGICAL Hx Falls: Yes - GASTROINTESTINAL Hx Gastrointestinal Disorders: Yes Hx Gastroesophageal Reflux: Yes - GENITOURINARY/GYNECOLOGICAL Hx Genitourinary Disorders: No Hx Reproductive Disorders: No - PSYCHIATRIC Hx Anxiety: Yes Hx Depression: Yes Hx Substance Use: No - SURGICAL HISTORY Hx Cholecystectomy: Yes Hx Hysterectomy: Yes Hx Orthopedic Surgery: Yes (L KNEE, R KNEE) Hx Valve Replacement: Yes (MVR 2/2 MVP 2/2 RHD) - ANESTHESIA Hx Anesthesia: Yes Hx Anesthesia Reactions: No Meds Allergies/Adverse Reactions: Allergies Allergy/AdvReac Type Severity Reaction Status Date / Time furosemide Allergy Mild ITCHING Verified 07/07/17 14:43 morphine Allergy DIARRHEA Verified 07/07/17 14:43 ciprofloxacin [From Cipro] AdvReac Mild ITCHING Verified 07/07/17 14:43 ciprofloxacin HCl AdvReac Mild ITCHING Verified 07/07/17 14:43 [From Cipro] - Medications Medications: Current Medications Acetaminophen (Tylenol 325mg Tab) 650 mg PO Q4 PRN; Protocol PRN Reason: Fever >100.4 F Alprazolam (Xanax) 1 mg PO BID KATIE PRN Reason: Protocol Stop: 07/14/17 18:01 Last Admin: 07/10/17 10:53 Dose: 1 mg Atorvastatin Calcium (Lipitor) 40 mg PO DIN KATIE PRN Reason: Protocol Last Admin: 07/09/17 17:33 Dose: 40 mg Cholecalciferol (Vitamin D) 1,000 intlu PO BID [facility] Last Admin: 07/10/17 10:48 Dose: 1,000 intlu Escitalopram Oxalate (Lexapro) 10 mg PO DAILY [facility] PRN Reason: Protocol Last Admin: 07/10/17 10:49 Dose: 10 mg Fludrocortisone Acetate (Florinef) 0.1 mg PO DAILY [facility] PRN Reason: Protocol Last Admin: 07/10/17 10:48 Dose: 0.1 mg Magnesium Oxide (Mag-Ox) 400 mg PO DAILY [facility] PRN Reason: Protocol Last Admin: 07/10/17 10:49 Dose: 400 mg Non-Formulary Medication (Ibandronate Sodium [Boniva]) 150 mg PO Q30D [facility] Non-Formulary Medication (Vitamin B Complex [Vitamin B Complex]) 1 tab PO DAILY [facility] Last Admin: 07/10/17 10:50 Dose: Not Given Pantoprazole Sodium (Protonix Ec Tab) 40 mg PO 0600 [facility] PRN Reason: Protocol Last Admin: 07/10/17 05:35 Dose: 40 mg Propranolol HCl (Inderal) 40 mg PO BID [facility] Last Admin: 07/10/17 10:48 Dose: 40 mg Sodium Chloride ([place] Nasal [place]) 0 ml NS Q6H [facility]ATIE PRN Reason: Protocol Last Admin: 07/10/17 08:53 Dose: 2 spr Warfarin Sodium (Coumadin) 2 mg PO 1800 [facility]IE PRN Reason: Protocol Last Admin: 07/09/17 17:33 Dose: 2 mg Physical Exam - Constitutional Appears: Well, Non-toxic, No Acute Distress - Extremities Exam Additional comments: Vasc: DP and PT 2/4 bilaterally, [employer] < 3 seconds x10, temperature gradient cool to cool, generalized mild edema noted to LE Ortho: no pain with palpation to the LE, MM is 4/5 in all four compartments: dorsiflexion, plantarflexion, inversion and eversion, LE ROM limited Neuro: gross sensation intact, protective sensation intact Derm: elongated nails x10 with yellow discoloration and subungual debris - Neurological Exam Neurological exam: Alert, Oriented x3 - Psychiatric Exam Psychiatric exam: Normal Affect, Normal Mood Results - Vital Signs Recent Vital Signs: Last Vital Signs Temp 97.6 F 07/10/17 11:23 Pulse 67 07/10/17 11:23 Resp 18 07/10/17 11:23 BP 118/66 07/10/17 11:23 Pulse Ox 97 07/10/17 11:23 - Labs Result Diagrams: 07/10/17 08:00 07/10/17 08:00 Labs: Laboratory Results - last 24 hr 07/10/17 07/10/17 07/10/17 08:00 08:00 09:10 WBC 7.0 RBC 4.72 Hgb 13.2 Hct 40.3 MCV 85.4 MCH 28.0 MCHC 32.8 RDW 14.3 Plt Count 162 MPV 9.4 PT 28.6 H INR 2.55 H Sodium 141 Potassium 3.9 Chloride 104 Carbon Dioxide 29 Anion Gap 12 BUN 15 Creatinine 0.8 Est GFR ( Amer) > 60 Est GFR (Non-Af Amer) > 60 Random Glucose 100 Calcium 9.8 Total Bilirubin 0.6 AST 34 ALT 50 Alkaline Phosphatase 54 Total Protein 6.8 Albumin 3.8 Globulin 3.0 Albumin/Globulin Ratio 1.3 Assessment & Plan - Assessment and Plan (Free Text) Assessment: 71 y.o female with bothersome, elongated nails x10. Plan: Patient seen and evaluated. Discussed plan in detail with attending Dr. Blayne Quintana Labs, charts, vitals reviewed Elongated, bothersome nails x10 were sharply debrided to normal length and thickness using a nail nipper without incident. Patient tolerated the procedure well Patient is stable per podiatry standpoint Podiatry will sign off Thank you for the consult. Please reconsult as needed
--- NOTE | 2017-07-10 13:35 | CP.PCM.PN ---
<Tho Rausch - Last Filed: 07/10/17 13:25> Subjective - Date & Time of Evaluation Date of Evaluation: 07/10/17 Time of Evaluation: 07:15 - Subjective Subjective: patient was seen and examined in TCU. she is feeling better and is getting stronger with the rehab she is receiving. she is still suffering from the tremors but that they have improved. she also states that she was seen by podiatry for her regular care. Objective - Vital Signs/Intake and Output Vital Signs (last 24 hours): Temp Pulse Resp BP Pulse Ox 97.6 F 67 18 118/66 97 07/10/17 11:23 07/10/17 11:23 07/10/17 11:23 07/10/17 11:23 07/10/17 11:23 - Medications Medications: Current Medications Acetaminophen (Tylenol 325mg Tab) 650 mg PO Q4 PRN; Protocol PRN Reason: Fever >100.4 F Alprazolam (Xanax) 1 mg PO BID KATIE PRN Reason: Protocol Stop: 07/14/17 18:01 Last Admin: 07/10/17 10:53 Dose: 1 mg Atorvastatin Calcium (Lipitor) 40 mg PO DIN KATIE PRN Reason: Protocol Last Admin: 07/09/17 17:33 Dose: 40 mg Cholecalciferol (Vitamin D) 1,000 intlu PO BID [facility] Last Admin: 07/10/17 10:48 Dose: 1,000 intlu Escitalopram Oxalate (Lexapro) 10 mg PO DAILY [facility] PRN Reason: Protocol Last Admin: 07/10/17 10:49 Dose: 10 mg Fludrocortisone Acetate (Florinef) 0.1 mg PO DAILY [facility]IE PRN Reason: Protocol Last Admin: 07/10/17 10:48 Dose: 0.1 mg Magnesium Oxide (Mag-Ox) 400 mg PO DAILY [facility]ATIE PRN Reason: Protocol Last Admin: 07/10/17 10:49 Dose: 400 mg Non-Formulary Medication (Ibandronate Sodium [Boniva]) 150 mg PO Q30D [facility] Non-Formulary Medication (Vitamin B Complex [Vitamin B Complex]) 1 tab PO DAILY [facility] Last Admin: 07/10/17 10:50 Dose: Not Given Pantoprazole Sodium (Protonix Ec Tab) 40 mg PO 0600 [facility] PRN Reason: Protocol Last Admin: 07/10/17 05:35 Dose: 40 mg Propranolol HCl (Inderal) 40 mg PO BID [facility] Last Admin: 07/10/17 10:48 Dose: 40 mg Sodium Chloride ([place] Nasal [place]) 0 ml NS Q6H [facility]ATIE PRN Reason: Protocol Last Admin: 07/10/17 08:53 Dose: 2 spr Warfarin Sodium (Coumadin) 2 mg PO 1800 [facility]IE PRN Reason: Protocol Last Admin: 07/09/17 17:33 Dose: 2 mg - Labs Labs: 07/10/17 08:00 07/10/17 08:00 PT 28.6 SECONDS (9.4-12.5) H 07/10/17 09:10 INR 2.55 (0.93-1.08) H 07/10/17 09:10 - Additional Findings Additional findings: - Constitutional Appears: Well, Non-toxic, No Acute Distress - Head Exam Head Exam: ATRAUMATIC, NORMAL INSPECTION, NORMOCEPHALIC - Eye Exam Eye Exam: EOMI, Normal appearance, PERRL Pupil Exam: NORMAL ACCOMODATION - ENT Exam ENT Exam: Mucous Membranes Moist, Normal Exam - Neck Exam Neck Exam: Normal Inspection - Respiratory Exam Respiratory Exam: Clear to Ausculation Bilateral, NORMAL BREATHING PATTERN. absent: Rales, Rhonchi, Wheezes - Cardiovascular Exam Cardiovascular Exam: RRR, +S1, +S2. absent: JVD - GI/Abdominal Exam GI & Abdominal Exam: Soft, Normal Bowel Sounds. absent: Distended, Tenderness - Extremities Exam Extremities Exam: Normal Inspection. absent: Pedal Edema, Tenderness Additional comments: tremor with outstretched hands improved vertical incision scars over b/l knees - Back Exam Back Exam: NORMAL INSPECTION - Neurological Exam Neurological Exam: Alert, Awake, Oriented x3 Neuro motor strength exam: Left Upper Extremity: 5, Right Upper Extremity: 5, Left Lower Extremity: 5, Right Lower Extremity: 5 - Psychiatric Exam Psychiatric exam: Anxious, Normal Affect - Skin Skin Exam: Normal Color, Warm Assessment and Plan - Assessment and Plan (Free Text) Assessment: 71 yo F with PMH of 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 Patient was recently treated for UTI and blood/urine cultures are negative. Patient remains afebrile, with no WBC elevation or any electrolyte abnormalities and thyroid studies were normal. Patient continues to have tremor and unsteady gait. Currently in TCU for continued strengthening, conditioning and workup for Parkinson's disease vs essential tremor. Plan: 1. Deconditioning 2/2 Tremors likely 2/2 essential tremor (improved) - continued rehab for strengthening and conditioning in TCU - cont propranolol 40mg BID for essential tremor - Blood and urine culture negative - Electrolytes and TSH within normal limits - CT Head unremarkable - neurology consulted, recs appreciated 2. MVR with therapeutic INR - pt states if INR is below 2.5, she usually takes Coumadin 3mg then back to 2mg the next day - INR therapeutic today, will continue 2mg daily Coumadin - will continue to monior INR daily 3. CAD - Continue BB 4. HTN - controlled - cont BB 5. HLD - Cont. Lipitor 6. Depression/Anxiety - Cont. Xanax and Lexapro 7. GI/DVT ppx - Cont. PTX/Coumadin Patient was seen, examined and discussed with attending, Dr. Hiram Rausch PGY1 Pager # [phone] <Cesar Gandhi - Last Filed: 07/10/17 17:29> Objective - Vital Signs/Intake and Output Vital Signs (last 24 hours): Temp Pulse Resp BP Pulse Ox 97.6 F 62 18 130/53 L 96 07/10/17 16:36 07/10/17 16:36 07/10/17 16:36 07/10/17 16:36 07/10/17 16:36 - Medications Medications: Current Medications Acetaminophen (Tylenol 325mg Tab) 650 mg PO Q4 PRN; Protocol PRN Reason: Fever >100.4 F Alprazolam (Xanax) 1 mg PO BID KATIE PRN Reason: Protocol Stop: 07/14/17 18:01 Last Admin: 07/10/17 10:53 Dose: 1 mg Atorvastatin Calcium (Lipitor) 40 mg PO DIN [facility]IE PRN Reason: Protocol Last Admin: 07/09/17 17:33 Dose: 40 mg Cholecalciferol (Vitamin D) 1,000 intlu PO BID [facility] Last Admin: 07/10/17 10:48 Dose: 1,000 intlu Escitalopram Oxalate (Lexapro) 10 mg PO DAILY [facility] PRN Reason: Protocol Last Admin: 07/10/17 10:49 Dose: 10 mg Fludrocortisone Acetate (Florinef) 0.1 mg PO DAILY [facility] PRN Reason: Protocol Last Admin: 07/10/17 10:48 Dose: 0.1 mg Magnesium Oxide (Mag-Ox) 400 mg PO DAILY [facility] PRN Reason: Protocol Last Admin: 07/10/17 10:49 Dose: 400 mg Non-Formulary Medication (Ibandronate Sodium [Boniva]) 150 mg PO Q30D [facility] Non-Formulary Medication (Vitamin B Complex [Vitamin B Complex]) 1 tab PO DAILY [facility] Last Admin: 07/10/17 10:50 Dose: Not Given Pantoprazole Sodium (Protonix Ec Tab) 40 mg PO 0600 [facility] PRN Reason: Protocol Last Admin: 07/10/17 05:35 Dose: 40 mg Propranolol HCl (Inderal) 40 mg PO BID [facility] Last Admin: 07/10/17 10:48 Dose: 40 mg Sodium Chloride ([place] Nasal [place]) 0 ml NS Q6H [facility] PRN Reason: Protocol Last Admin: 07/10/17 08:53 Dose: 2 spr Warfarin Sodium (Coumadin) 2 mg PO 1800 [facility]IE PRN Reason: Protocol Last Admin: 07/09/17 17:33 Dose: 2 mg - Labs Labs: 07/10/17 08:00 07/10/17 08:00 PT 28.6 SECONDS (9.4-12.5) H 07/10/17 09:10 INR 2.55 (0.93-1.08) H 07/10/17 09:10 Attending/Attestation - Attestation I have personally seen and examined this patient.: Yes I have fully participated in the care of the patient.: Yes I have reviewed all pertinent clinical information, including history, physical exam and plan: Yes Notes (Text): 07/10/17 17:29 Medical record note made by the resident after discussion with my direction and input after the patient was personally seen and examined by me. I have reviewed the chart and agree that the record accurately reflects by personal performance of the history, physical exam, data review, and medical decision-making, in the course for the patient. I have also personally directed the plan of care.
[2017-07-11] MEDS: Pantoprazole 40 mg EC Tab PO SCH (06:01)
[2017-07-11 08:13] LABS: INR 2.5 (0.93-1.08)
[2017-07-11] MEDS: Magnesium Oxide 400 mg Tab UD PO SCH (09:16)
[2017-07-11] MEDS: Cholecalciferol 1,000 INTLU TAB PO SCH ×2 (09:16→17:38)
[2017-07-11] MEDS: VITAMIN B COMPLEX PO SCH (11:31)
--- NOTE | 2017-07-11 11:51 | CP.PCM.PN ---
<Tho Rausch - Last Filed: 07/11/17 13:13> Subjective - Date & Time of Evaluation Date of Evaluation: 07/11/17 Time of Evaluation: 09:30 - Subjective Subjective: Tho Rausch PGY1 IM Progress Note for Dr. Alexander for Dr. Lopez/Dr. Gandhi Service Patient was seen and examined in TCU. Patient offers no complaints and states that that she is participating in the PT strengthening exercises and that she feels herself improving. she denies any cp, sob, fevers/chills, abdominal pain, dizziness, urinary or bowel changes. Patient was educated about rising from bed to avoid orthostatic hypotension. Objective - Vital Signs/Intake and Output Vital Signs (last 24 hours): Temp Pulse Resp BP Pulse Ox 97.3 F L 61 20 139/69 98 07/11/17 10:00 07/11/17 10:00 07/11/17 10:00 07/11/17 10:00 07/11/17 10:00 - Medications Medications: Current Medications Acetaminophen (Tylenol 325mg Tab) 650 mg PO Q4 PRN; Protocol PRN Reason: Fever >100.4 F Alprazolam (Xanax) 1 mg PO BID KATIE PRN Reason: Protocol Stop: 07/14/17 18:01 Last Admin: 07/11/17 09:21 Dose: 1 mg Atorvastatin Calcium (Lipitor) 40 mg PO DIN KATIE PRN Reason: Protocol Last Admin: 07/10/17 18:03 Dose: 40 mg Cholecalciferol (Vitamin D) 1,000 intlu PO BID KATIE Last Admin: 07/11/17 09:16 Dose: 1,000 intlu Escitalopram Oxalate (Lexapro) 10 mg PO DAILY [facility]ATIE PRN Reason: Protocol Last Admin: 07/11/17 09:16 Dose: 10 mg Fludrocortisone Acetate (Florinef) 0.1 mg PO DAILY K[facility]IE PRN Reason: Protocol Last Admin: 07/11/17 09:19 Dose: 0.1 mg Magnesium Oxide (Mag-Ox) 400 mg PO DAILY KATIE PRN Reason: Protocol Last Admin: 07/11/17 09:16 Dose: 400 mg Non-Formulary Medication (Ibandronate Sodium [Boniva]) 150 mg PO Q30D [facility] Non-Formulary Medication (Vitamin B Complex [Vitamin B Complex]) 1 tab PO DAILY KATIE Last Admin: 07/11/17 11:31 Dose: Not Given Pantoprazole Sodium (Protonix Ec Tab) 40 mg PO 0600 [facility] PRN Reason: Protocol Last Admin: 07/11/17 06:01 Dose: 40 mg Propranolol HCl (Inderal) 40 mg PO BID [facility] Last Admin: 07/11/17 09:16 Dose: 40 mg Sodium Chloride ([place] Nasal [place]) 0 ml NS Q6H [facility]ATIE PRN Reason: Protocol Last Admin: 07/11/17 09:19 Dose: Not Given Warfarin Sodium (Coumadin) 2 mg PO 1800 [facility] PRN Reason: Protocol Last Admin: 07/10/17 18:02 Dose: 2 mg - Labs Labs: 07/10/17 08:00 07/10/17 08:00 PT 28.0 SECONDS (9.4-12.5) H 07/11/17 07:00 INR 2.50 (0.93-1.08) H 07/11/17 07:00 - Additional Findings Additional findings: - Constitutional Appears: Well, Non-toxic, No Acute Distress - Head Exam Head Exam: ATRAUMATIC, NORMAL INSPECTION, NORMOCEPHALIC - Eye Exam Eye Exam: EOMI, Normal appearance, PERRL Pupil Exam: NORMAL ACCOMODATION - ENT Exam ENT Exam: Mucous Membranes Moist, Normal Exam - Neck Exam Neck Exam: Normal Inspection - Respiratory Exam Respiratory Exam: Clear to Ausculation Bilateral, NORMAL BREATHING PATTERN. absent: Rales, Rhonchi, Wheezes - Cardiovascular Exam Cardiovascular Exam: RRR, +S1, +S2. absent: JVD - GI/Abdominal Exam GI & Abdominal Exam: Soft, Normal Bowel Sounds. absent: Distended, Tenderness - Extremities Exam Extremities Exam: Normal Inspection. absent: Pedal Edema, Tenderness Additional comments: tremor with outstretched hands vertical incision scars over b/l knees - Back Exam Back Exam: NORMAL INSPECTION - Neurological Exam Neurological Exam: Alert, Awake, Oriented x3 Neuro motor strength exam: Left Upper Extremity: 5, Right Upper Extremity: 5, Left Lower Extremity: 5, Right Lower Extremity: 5 - Psychiatric Exam Psychiatric exam: Anxious, Normal Affect - Skin Skin Exam: Normal Color, Warm Assessment and Plan - Assessment and Plan (Free Text) Assessment: 71 yo F with PMH of 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 Patient was recently treated for UTI and blood/urine cultures are negative. Patient remains afebrile, with no WBC elevation or any electrolyte abnormalities and thyroid studies were normal. Patient continues to have tremor and unsteady gait. Currently in TCU for continued strengthening, conditioning and workup for essential tremor and deconditioning. Plan: 1. Deconditioning 2/2 Tremors likely 2/2 essential tremor - continued rehab for strengthening and conditioning in TCU - cont propranolol 40mg BID for essential tremor - Blood and urine culture negative - Electrolytes and TSH within normal limits - CT Head unremarkable - neurology consulted, recs appreciated 2. MVR with therapeutic INR - pt states if INR is below 2.5, she usually takes Coumadin 3mg then back to 2mg the next day - INR therapeutic today, will continue 2mg daily Coumadin - will continue to monior INR daily 3. CAD - Continue BB 4. HTN - controlled - cont BB 5. HLD - Cont. Lipitor 6. Depression/Anxiety - Cont. Xanax and Lexapro 7. GI/DVT ppx - Cont. PTX/Coumadin Patient was seen, examined and discussed with attending, Dr. Catherine Rausch PGY1 Pager # [phone] <José Miguel Alexander - Last Filed: 07/14/17 06:50> Objective - Vital Signs/Intake and Output Vital Signs (last 24 hours): Temp Pulse Resp BP Pulse Ox 98.4 F 61 20 132/67 99 07/13/17 17:52 07/13/17 17:52 07/13/17 17:52 07/13/17 17:52 07/13/17 14:00 - Medications Medications: Current Medications Acetaminophen (Tylenol 325mg Tab) 650 mg PO Q4 PRN; Protocol PRN Reason: Fever >100.4 F Last Admin: 07/11/17 17:36 Dose: 650 mg Alprazolam (Xanax) 1 mg PO BID KATIE PRN Reason: Protocol Stop: 07/14/17 18:01 Last Admin: 07/13/17 17:46 Dose: 1 mg Atorvastatin Calcium (Lipitor) 40 mg PO DIN KATIE PRN Reason: Protocol Last Admin: 07/13/17 17:45 Dose: 40 mg Cholecalciferol (Vitamin D) 1,000 intlu PO BID [facility] Last Admin: 07/13/17 17:46 Dose: 1,000 intlu Escitalopram Oxalate (Lexapro) 10 mg PO DAILY [facility] PRN Reason: Protocol Last Admin: 07/13/17 09:40 Dose: 10 mg Fludrocortisone Acetate (Florinef) 0.1 mg PO DAILY [facility] PRN Reason: Protocol Last Admin: 07/13/17 09:40 Dose: 0.1 mg Magnesium Oxide (Mag-Ox) 400 mg PO DAILY [facility] PRN Reason: Protocol Last Admin: 07/13/17 09:39 Dose: 400 mg Non-Formulary Medication (Ibandronate Sodium [Boniva]) 150 mg PO Q30D [facility] Non-Formulary Medication (Vitamin B Complex [Vitamin B Complex]) 1 tab PO DAILY [facility] Last Admin: 07/13/17 09:40 Dose: Not Given Pantoprazole Sodium (Protonix Ec Tab) 40 mg PO 0600 [facility] PRN Reason: Protocol Last Admin: 07/14/17 06:02 Dose: 40 mg Propranolol HCl (Inderal) 60 mg PO BID [facility] Last Admin: 07/13/17 17:44 Dose: 60 mg Sodium Chloride ([place] Nasal [place]) 0 ml NS Q6H [facility] PRN Reason: Protocol Last Admin: 07/13/17 21:01 Dose: Not Given Warfarin Sodium (Coumadin) 2 mg PO 1800 [facility] PRN Reason: Protocol Last Admin: 07/12/17 17:38 Dose: 2 mg - Labs Labs: 07/12/17 06:30 07/12/17 08:00 PT 24.9 SECONDS (9.4-12.5) H 07/13/17 06:30 INR 2.23 (0.93-1.08) H 07/13/17 06:30 Assessment and Plan - Assessment and Plan (Free Text) Assessment: r discussed at length w/ the resident went over meds labs consults xrays plans orders reviewed
[2017-07-12] MEDS: Pantoprazole 40 mg EC Tab PO SCH (05:47)
[2017-07-12 08:21] LABS: INR 2.54 (0.93-1.08); PROTHROMBIN TIME 28.5 SECONDS (9.4-12.5)
--- NOTE | 2017-07-12 08:31 | CP.PCM.PN ---
Subjective - Date & Time of Evaluation Date of Evaluation: 07/12/17 Time of Evaluation: 07:30 - Subjective Subjective: Tho Rausch PGY1 IM Progress Note for Dr. Lopez/Dr. Gandhi Service Patient was seen and examined at bedside in TCU. she states that she is continuing to have tremors that have increased but that her overall strength and conditioning have improved during her TCU stay. The patient is asked regarding her wishes for discharge and she states that she would like to remain till the allotted time (till Thursday) to be receive as much therapy as she can. The patient states that she is able to ambulate using her walker to the bathroom without any trouble. At home, states that prior to admission, the patient was at home with only her who works a majority of days and doesn 't have help around the house during that time when he works. The patient is requesting services at home. medically, she denies any cp, sob, fevers/chills, n /v/d, abdominal pain, weakness, increased LE swelling or other complaints. Objective - Vital Signs/Intake and Output Vital Signs (last 24 hours): Temp Pulse Resp BP Pulse Ox 97.3 F L 64 20 152/70 H 98 07/11/17 10:00 07/11/17 17:44 07/11/17 10:00 07/11/17 17:44 07/11/17 10:00 - Medications Medications: Current Medications Acetaminophen (Tylenol 325mg Tab) 650 mg PO Q4 PRN; Protocol PRN Reason: Fever >100.4 F Last Admin: 07/11/17 17:36 Dose: 650 mg Alprazolam (Xanax) 1 mg PO BID KATIE PRN Reason: Protocol Stop: 07/14/17 18:01 Last Admin: 07/11/17 17:35 Dose: 1 mg Atorvastatin Calcium (Lipitor) 40 mg PO DIN KATIE PRN Reason: Protocol Last Admin: 07/11/17 17:37 Dose: 40 mg Cholecalciferol (Vitamin D) 1,000 intlu PO BID [facility] Last Admin: 07/11/17 17:38 Dose: 1,000 intlu Escitalopram Oxalate (Lexapro) 10 mg PO DAILY KATIE PRN Reason: Protocol Last Admin: 07/11/17 09:16 Dose: 10 mg Fludrocortisone Acetate (Florinef) 0.1 mg PO DAILY [facility] PRN Reason: Protocol Last Admin: 07/11/17 09:19 Dose: 0.1 mg Magnesium Oxide (Mag-Ox) 400 mg PO DAILY [facility] PRN Reason: Protocol Last Admin: 07/11/17 09:16 Dose: 400 mg Non-Formulary Medication (Ibandronate Sodium [Boniva]) 150 mg PO Q30D [facility] Non-Formulary Medication (Vitamin B Complex [Vitamin B Complex]) 1 tab PO DAILY [facility] Last Admin: 07/11/17 11:31 Dose: Not Given Pantoprazole Sodium (Protonix Ec Tab) 40 mg PO 0600 [facility] PRN Reason: Protocol Last Admin: 07/12/17 05:47 Dose: 40 mg Propranolol HCl (Inderal) 40 mg PO BID [facility] Last Admin: 07/11/17 17:44 Dose: 40 mg Sodium Chloride ([place] Nasal [place]) 0 ml NS Q6H [facility] PRN Reason: Protocol Last Admin: 07/12/17 03:00 Dose: Not Given Warfarin Sodium (Coumadin) 2 mg PO 1800 [facility] PRN Reason: Protocol Last Admin: 07/11/17 17:37 Dose: 2 mg - Labs Labs: 07/10/17 08:00 07/10/17 08:00 PT 28.5 SECONDS (9.4-12.5) H 07/12/17 06:30 INR 2.54 (0.93-1.08) H 07/12/17 06:30 - Additional Findings Additional findings: - Constitutional Appears: Well, Non-toxic, No Acute Distress - Head Exam Head Exam: ATRAUMATIC, NORMAL INSPECTION, NORMOCEPHALIC - Eye Exam Eye Exam: EOMI, Normal appearance, PERRL Pupil Exam: NORMAL ACCOMODATION - ENT Exam ENT Exam: Mucous Membranes Moist, Normal Exam - Neck Exam Neck Exam: Normal Inspection - Respiratory Exam Respiratory Exam: Clear to Ausculation Bilateral, NORMAL BREATHING PATTERN. absent: Rales, Rhonchi, Wheezes - Cardiovascular Exam Cardiovascular Exam: RRR, +S1, +S2. absent: JVD - GI/Abdominal Exam GI & Abdominal Exam: Soft, Normal Bowel Sounds. absent: Distended, Tenderness - Extremities Exam Extremities Exam: Normal Inspection, Pedal Edema (1+). 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 Patient was recently treated for UTI and blood/urine cultures are negative. Patient remains afebrile, with no WBC elevation or any electrolyte abnormalities and thyroid studies were normal. Patient continues to have tremor and improving unsteady gait. Currently in TCU for continued strengthening, conditioning and workup for essential tremor and deconditioning. Plan: 1. Deconditioning 2/2 Tremors likely 2/2 essential tremor - continued rehab for strengthening and conditioning in TCU - increased propranolol to 60mg BID for essential tremor - Blood and urine culture negative - Electrolytes and TSH within normal limits - CT Head unremarkable - neurology consulted, recs appreciated 2. MVR with therapeutic INR - pt states if INR is below 2.5, she usually takes Coumadin 3mg then back to 2mg the next day - INR therapeutic today, will continue 2mg daily Coumadin - will continue to monior INR daily 3. CAD - Continue BB 4. HTN - controlled - cont BB 5. HLD - Cont. Lipitor 6. Depression/Anxiety - Cont. Xanax and Lexapro 7. GI/DVT ppx - Cont. PTX/Coumadin Disposition: discharge home likely thursday; SW working on services to assist patient Patient was seen, examined and discussed with attending, Dr. Hiram Rausch PGY1 Pager # [phone]
[2017-07-12 08:39] LABS: ALB/GLOB RATIO 1.3 (1.1-1.8); ALBUMIN 3.4 g/dL (3.0-4.8); ALT/SGPT 40 U/L (7-56); AST/SGOT 25 U/L (14-36); BLOOD UREA NITROGEN 18 mg/dL (7-21); CALCIUM 9.8 mg/dL (8.4-10.5); GFR AFRICAN-AMERICAN > 60; GFR NON-AFRICAN AMERICAN > 60
[2017-07-12] MEDS: Cholecalciferol 1,000 INTLU TAB PO SCH ×2 (10:34→17:38)
[2017-07-12] MEDS: Magnesium Oxide 400 mg Tab UD PO SCH (10:35)
[2017-07-12] MEDS: VITAMIN B COMPLEX PO SCH (10:47)
[2017-07-12 15:03] LABS: HEMOGLOBIN 12.8 g/dL (12.0-16.0); MEAN CELL VOLUME 86.8 fl (80.0-105.0); MEAN CORPUSCULAR HEMOGLOBIN 27.8 pg (25.0-35.0); MEAN PLATELET VOLUME 10.4 fl (7.0-11.0); RBC 4.61 10^6/uL (3.5-6.1); RED CELL DISTRIBUTION WIDTH 14.7 % (11.5-14.5); WHITE BLOOD COUNT 6.1 10^3/ul (4.5-11.0)
[2017-07-13] MEDS: Pantoprazole 40 mg EC Tab PO SCH (07:13)
[2017-07-13 07:57] LABS: INR 2.23 (0.93-1.08); PROTHROMBIN TIME 24.9 SECONDS (9.4-12.5)
--- NOTE | 2017-07-13 08:56 | CP.PCM.PN ---
Subjective - Date & Time of Evaluation Date of Evaluation: 07/13/17 Time of Evaluation: 08:05 - Subjective Subjective: Tho Rausch PGY1 IM Progress Note for Dr. Gandhi/Dr. Lopez Service Patient was seen and examined at bedside in TCU. states that the tremor is still present but that she is motivated to continue her therapy and improve. she states that she is feeling stronger. denies cp, sob, fevers/chill, n/v/d, abdominal pain. Objective - Vital Signs/Intake and Output Vital Signs (last 24 hours): Temp Pulse Resp BP Pulse Ox 97.3 F L 65 20 109/59 L 98 07/11/17 10:00 07/12/17 17:39 07/11/17 10:00 07/12/17 17:39 07/11/17 10:00 - Medications Medications: Current Medications Acetaminophen (Tylenol 325mg Tab) 650 mg PO Q4 PRN; Protocol PRN Reason: Fever >100.4 F Last Admin: 07/11/17 17:36 Dose: 650 mg Alprazolam (Xanax) 1 mg PO BID KATIE PRN Reason: Protocol Stop: 07/14/17 18:01 Last Admin: 07/12/17 17:37 Dose: 1 mg Atorvastatin Calcium (Lipitor) 40 mg PO DIN [facility]IE PRN Reason: Protocol Last Admin: 07/12/17 17:40 Dose: 40 mg Cholecalciferol (Vitamin D) 1,000 intlu PO BID [facility] Last Admin: 07/12/17 17:38 Dose: 1,000 intlu Escitalopram Oxalate (Lexapro) 10 mg PO DAILY [facility] PRN Reason: Protocol Last Admin: 07/12/17 10:34 Dose: 10 mg Fludrocortisone Acetate (Florinef) 0.1 mg PO DAILY [facility] PRN Reason: Protocol Last Admin: 07/12/17 10:33 Dose: 0.1 mg Magnesium Oxide (Mag-Ox) 400 mg PO DAILY [facility] PRN Reason: Protocol Last Admin: 07/12/17 10:35 Dose: 400 mg Non-Formulary Medication (Ibandronate Sodium [Boniva]) 150 mg PO Q30D [facility] Non-Formulary Medication (Vitamin B Complex [Vitamin B Complex]) 1 tab PO DAILY [facility] Last Admin: 07/12/17 10:47 Dose: Not Given Pantoprazole Sodium (Protonix Ec Tab) 40 mg PO 0600 [facility] PRN Reason: Protocol Last Admin: 07/13/17 07:13 Dose: 40 mg Propranolol HCl (Inderal) 60 mg PO BID [facility] Last Admin: 07/12/17 17:39 Dose: 60 mg Sodium Chloride ([place] Nasal [place]) 0 ml NS Q6H [facility] PRN Reason: Protocol Last Admin: 07/12/17 21:25 Dose: Not Given Warfarin Sodium (Coumadin) 2 mg PO 1800 [facility] PRN Reason: Protocol Last Admin: 07/12/17 17:38 Dose: 2 mg Warfarin Sodium (Coumadin) 3 mg PO 1800 [facility] PRN Reason: Protocol Stop: 07/13/17 08:54 - Labs Labs: 07/12/17 06:30 07/12/17 08:00 PT 24.9 SECONDS (9.4-12.5) H 07/13/17 06:30 INR 2.23 (0.93-1.08) H 07/13/17 06:30 - Additional Findings Additional findings: - Constitutional Appears: Well, Non-toxic, No Acute Distress - Head Exam Head Exam: ATRAUMATIC, NORMAL INSPECTION, NORMOCEPHALIC - Eye Exam Eye Exam: EOMI, Normal appearance, PERRL Pupil Exam: NORMAL ACCOMODATION - ENT Exam ENT Exam: Mucous Membranes Moist, Normal Exam - Neck Exam Neck Exam: Normal Inspection - Respiratory Exam Respiratory Exam: Clear to Ausculation Bilateral, NORMAL BREATHING PATTERN. absent: Rales, Rhonchi, Wheezes - Cardiovascular Exam Cardiovascular Exam: RRR, +S1, +S2. absent: JVD - GI/Abdominal Exam GI & Abdominal Exam: Soft, Normal Bowel Sounds. absent: Distended, Tenderness - Extremities Exam Extremities Exam: Normal Inspection, Pedal Edema (1+). 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 Patient was recently treated for UTI and blood/urine cultures are negative. Patient remains afebrile, with no WBC elevation or any electrolyte abnormalities and thyroid studies were normal. Patient continues to have tremor and improving unsteady gait. Currently in TCU for continued strengthening, conditioning and workup for essential tremor and deconditioning. Plan: 1. Deconditioning 2/2 Tremors likely 2/2 essential tremor - continued rehab for strengthening and conditioning in TCU - cont propranolol to 60mg BID for essential tremor - Blood and urine culture negative - Electrolytes and TSH within normal limits - CT Head unremarkable - neurology consulted, recs appreciated 2. MVR with therapeutic INR - pt states if INR is below 2.5, she usually takes Coumadin 3mg then back to 2mg the next day - INR subtherapeutic today, will give 3mg today then continue 2mg daily Coumadin - will continue to monior INR daily 3. CAD - Continue BB 4. HTN - controlled - cont BB 5. HLD - Cont. Lipitor 6. Depression/Anxiety - Cont. Xanax and Lexapro 7. GI/DVT ppx - Cont. PTX/Coumadin Disposition: discharge home likely thursday; SW working on services to assist patient at home due to poor support at home Patient was seen, examined and discussed with attending, Dr. Hiram Rausch PGY1 Pager # [phone]
[2017-07-13] MEDS: Magnesium Oxide 400 mg Tab UD PO SCH (09:39)
[2017-07-13] MEDS: Cholecalciferol 1,000 INTLU TAB PO SCH ×2 (09:39→17:46)
[2017-07-13] MEDS: VITAMIN B COMPLEX PO SCH (09:40)
[2017-07-14] MEDS: Pantoprazole 40 mg EC Tab PO SCH (06:02)
--- NOTE | 2017-07-14 07:38 | CP.PCM.PN ---
Subjective - Date & Time of Evaluation Date of Evaluation: 07/14/17 Time of Evaluation: 07:32 - Subjective Subjective: Tho Rausch PGY1 IM Progress Note for Dr. Lopez/Dr. Gandhi Service Patient was seen and examined bedside in TCU. Patient still complaining of tremors, and is complaining of fatigue. Patient is encouraged about continuing therapy and strengthening to prepare for discharge tomorrow. pt denies cough, fevers/chills, muscle aches, chest pain, sob, n/v/d. Objective - Vital Signs/Intake and Output Vital Signs (last 24 hours): Temp Pulse Resp BP Pulse Ox 98.4 F 61 20 132/67 99 07/13/17 17:52 07/13/17 17:52 07/13/17 17:52 07/13/17 17:52 07/13/17 14:00 - Medications Medications: Current Medications Acetaminophen (Tylenol 325mg Tab) 650 mg PO Q4 PRN; Protocol PRN Reason: Fever >100.4 F Last Admin: 07/11/17 17:36 Dose: 650 mg Alprazolam (Xanax) 1 mg PO BID [facility] PRN Reason: Protocol Stop: 07/14/17 18:01 Last Admin: 07/13/17 17:46 Dose: 1 mg Atorvastatin Calcium (Lipitor) 40 mg PO DIN [facility] PRN Reason: Protocol Last Admin: 07/13/17 17:45 Dose: 40 mg Cholecalciferol (Vitamin D) 1,000 intlu PO BID [facility] Last Admin: 07/13/17 17:46 Dose: 1,000 intlu Escitalopram Oxalate (Lexapro) 10 mg PO DAILY [facility] PRN Reason: Protocol Last Admin: 07/13/17 09:40 Dose: 10 mg Fludrocortisone Acetate (Florinef) 0.1 mg PO DAILY [facility] PRN Reason: Protocol Last Admin: 07/13/17 09:40 Dose: 0.1 mg Magnesium Oxide (Mag-Ox) 400 mg PO DAILY [facility] PRN Reason: Protocol Last Admin: 07/13/17 09:39 Dose: 400 mg Non-Formulary Medication (Ibandronate Sodium [Boniva]) 150 mg PO Q30D [facility] Non-Formulary Medication (Vitamin B Complex [Vitamin B Complex]) 1 tab PO DAILY [facility] Last Admin: 07/13/17 09:40 Dose: Not Given Pantoprazole Sodium (Protonix Ec Tab) 40 mg PO 0600 [facility] PRN Reason: Protocol Last Admin: 07/14/17 06:02 Dose: 40 mg Propranolol HCl (Inderal) 60 mg PO BID [facility] Last Admin: 07/13/17 17:44 Dose: 60 mg Sodium Chloride ([place] Nasal [place]) 0 ml NS Q6H [facility] PRN Reason: Protocol Last Admin: 07/13/17 21:01 Dose: Not Given Warfarin Sodium (Coumadin) 2 mg PO 1800 [facility] PRN Reason: Protocol Last Admin: 07/12/17 17:38 Dose: 2 mg - Labs Labs: 07/12/17 06:30 07/12/17 08:00 PT 24.9 SECONDS (9.4-12.5) H 07/13/17 06:30 INR 2.23 (0.93-1.08) H 07/13/17 06:30 - Additional Findings Additional findings: - Constitutional Appears: Well, Non-toxic, No Acute Distress - Head Exam Head Exam: ATRAUMATIC, NORMAL INSPECTION, NORMOCEPHALIC - Eye Exam Eye Exam: EOMI, Normal appearance, PERRL Pupil Exam: NORMAL ACCOMODATION - ENT Exam ENT Exam: Mucous Membranes Moist, Normal Exam - Neck Exam Neck Exam: Normal Inspection - Respiratory Exam Respiratory Exam: Clear to Ausculation Bilateral, NORMAL BREATHING PATTERN. absent: Rales, Rhonchi, Wheezes - Cardiovascular Exam Cardiovascular Exam: RRR, +S1, +S2. absent: JVD - GI/Abdominal Exam GI & Abdominal Exam: Soft, Normal Bowel Sounds. absent: Distended, Tenderness - Extremities Exam Extremities Exam: Normal Inspection, Pedal Edema (1+). 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 Patient was recently treated for UTI and blood/urine cultures are negative. Patient remains afebrile, with no WBC elevation or any electrolyte abnormalities and thyroid studies were normal. Patient continues to have tremor and improving unsteady gait. Currently in TCU for continued strengthening, conditioning and workup for essential tremor and deconditioning. Plan: 1. Deconditioning 2/2 Tremors likely 2/2 essential tremor - continued rehab for strengthening and conditioning in TCU - cont propranolol to 60mg BID for essential tremor - Blood and urine culture negative - Electrolytes and TSH within normal limits - CT Head unremarkable - neurology consulted, recs appreciated 2. MVR with therapeutic INR - pt states if INR is below 2.5, she usually takes Coumadin 3mg then back to 2mg the next day - INR therapeutic today, will continue 2mg daily Coumadin - will continue to monior INR daily 3. CAD - Continue BB 4. HTN - controlled - cont BB 5. HLD - Cont. Lipitor 6. Depression/Anxiety - Cont. Xanax and Lexapro 7. GI/DVT ppx - Cont. PTX/Coumadin Disposition: discharge home likely tomorrow; SW working on services to assist patient at home due to poor support at home Patient was seen, examined and discussed with attending, Dr. John Rausch PGY1 Pager # [phone]
[2017-07-14 07:57] LABS: HEMOGLOBIN 13.2 g/dL (12.0-16.0); MEAN CORPUSCULAR HEMOGLOBIN 27.8 pg (25.0-35.0); MEAN CORPUSCULAR HGB CONC 32.8 g/dl (31.0-37.0); MEAN PLATELET VOLUME 9.8 fl (7.0-11.0); RBC 4.74 10^6/uL (3.5-6.1); RED CELL DISTRIBUTION WIDTH 14.2 % (11.5-14.5); WHITE BLOOD COUNT 6.5 10^3/ul (4.5-11.0)
[2017-07-14 08:07] LABS: INR 2.94 (0.93-1.08); PROTHROMBIN TIME 33.1 SECONDS (9.4-12.5)
[2017-07-14] MEDS: Cholecalciferol 1,000 INTLU TAB PO SCH ×2 (09:34→18:29)
[2017-07-14] MEDS: Magnesium Oxide 400 mg Tab UD PO SCH (09:35)
[2017-07-14] MEDS: VITAMIN B COMPLEX PO SCH (09:36)
[2017-07-14 10:03] LABS: ALB/GLOB RATIO 1.4 (1.1-1.8); ALBUMIN 3.5 g/dL (3.0-4.8); ALT/SGPT 43 U/L (7-56); AST/SGOT 33 U/L (14-36); BLOOD UREA NITROGEN 16 mg/dL (7-21); CALCIUM 9.9 mg/dL (8.4-10.5); GFR AFRICAN-AMERICAN > 60; GFR NON-AFRICAN AMERICAN > 60
[2017-07-14 12:00] VITALS: RESP 16
[2017-07-14 17:04] VITALS: TEMP 97.5; O2SAT 98
[2017-07-15] MEDS: Pantoprazole 40 mg EC Tab PO SCH (05:42)
--- NOTE | 2017-07-15 07:45 | CP.PCM.DIS ---
Provider - Provider Date of Admission: 07/07/17 13:48 Attending physician: Mike Lopez MD Primary care physician: Mike Lopez MD Time Spent in preparation of Discharge (in minutes): 40 Diagnosis - Discharge Diagnosis (1) Essential tremor Status: Acute (2) Physical deconditioning Status: Acute (3) CAD (coronary artery disease) Status: Chronic (4) HLD (hyperlipidemia) Status: Chronic (5) HTN (hypertension) Status: Chronic (6) Mitral valve replaced Status: Chronic Hospital Course - Lab Results Lab Results: Most Recent Lab Values WBC 6.5 10^3/ul (4.5-11.0) 07/14/17 07:30 RBC 4.74 10^6/uL (3.5-6.1) 07/14/17 07:30 Hgb 13.2 g/dL (12.0-16.0) 07/14/17 07:30 Hct 40.3 % (36.0-48.0) 07/14/17 07:30 MCV 85.0 fl (80.0-105.0) 07/14/17 07:30 MCH 27.8 pg (25.0-35.0) 07/14/17 07:30 MCHC 32.8 g/dl (31.0-37.0) 07/14/17 07:30 RDW 14.2 % (11.5-14.5) 07/14/17 07:30 Plt Count 158 10^3/uL (120.0-450.0) 07/14/17 07:30 MPV 9.8 fl (7.0-11.0) 07/14/17 07:30 Gran % 65.4 % (50.0-68.0) 07/09/17 05:30 Lymph % (Auto) 23.3 % (22.0-35.0) 07/09/17 05:30 [place] % (Auto) 9.1 % (1.0-6.0) H 07/09/17 05:30 Eos % (Auto) 1.9 % (1.5-5.0) 07/09/17 05:30 Baso % (Auto) 0.3 % (0.0-3.0) 07/09/17 05:30 Gran # 4.75 (1.4-6.5) 07/09/17 05:30 Lymph # 1.7 (1.2-3.4) 07/09/17 05:30 [place] # 0.7 (0.1-0.6) H 07/09/17 05:30 Eos # 0.1 (0.0-0.7) 07/09/17 05:30 Baso # 0.02 K/mm3 (0.0-2.0) 07/09/17 05:30 PT 33.1 SECONDS (9.4-12.5) H 07/14/17 07:30 INR 2.94 (0.93-1.08) H 07/14/17 07:30 Sodium 142 mmol/L (132-148) 07/14/17 09:30 Potassium 4.1 mmol/L (3.6-5.0) 07/14/17 09:30 Chloride 106 mmol/L (98-107) 07/14/17 09:30 Carbon Dioxide 28 mmol/L (21-33) 07/14/17 09:30 Anion Gap 12 (10-20) 07/14/17 09:30 BUN 16 mg/dL (7-21) 07/14/17 09:30 Creatinine 0.7 mg/dl (0.7-1.2) 07/14/17 09:30 Est GFR ( Amer) > 60 07/14/17 09:30 Est GFR (Non-Af Amer) > 60 07/14/17 09:30 Random Glucose 82 mg/dL (70-110) 07/14/17 09:30 Calcium 9.9 mg/dL (8.4-10.5) 07/14/17 09:30 Total Bilirubin 0.7 mg/dL (0.2-1.3) 07/14/17 09:30 AST 33 U/L (14-36) 07/14/17 09:30 ALT 43 U/L (7-56) 07/14/17 09:30 Alkaline Phosphatase 58 U/L (38-126) 07/14/17 09:30 Total Protein 6.1 g/dL (5.8-8.3) 07/14/17 09:30 Albumin 3.5 g/dL (3.0-4.8) 07/14/17 09:30 Globulin 2.6 gm/dL 07/14/17 09:30 Albumin/Globulin Ratio 1.4 (1.1-1.8) 07/14/17 09:30 - Hospital Course Hospital Course: Ms. Orestes Duarte is a 71 yo F with PMH of severe MVP 2/2 rheumatic heart disease (as a child) s/p prosthetic mitral valve replacement in 1993 (on Coumadin), CAD, HTN, and HLD who presents with episodes of "shaking" that she describes occur when she is trying to drink from a bottle or open a bottle. The patient was recently discharged from the hospital and was treated for a UTI. Urine and blood cultures this visit were negative. The patient remained afebrile with no WBC elevation or electrolyte abnormalities. TSH is within normal limits. When examined, the "shakes" resemble a postural tremor. Neurology was consulted. Patient was in TCU for continuing rehab and strengthening. Propranolol was started and increased to 60mg BID. Tremor was stable and patient gained strength and improved her conditioning during her TCU stay. INR was managed by increasing Coumadin to 3mg if subtherapeutic but 2mg were given daily otherwise. Other medications were continued. Patient will follow up with PMD within 1 week and continue on propranolol instead of metoprolol. Home meds were continued. Patient will also receive certain home services per . Patient medically stable for discharge. Discharge Exam - Additional Findings Additional findings: - Constitutional Appears: Well, Non-toxic, No Acute Distress - Head Exam Head Exam: ATRAUMATIC, NORMAL INSPECTION, NORMOCEPHALIC - Eye Exam Eye Exam: EOMI, Normal appearance, PERRL Pupil Exam: NORMAL ACCOMODATION - ENT Exam ENT Exam: Mucous Membranes Moist, Normal Exam - Neck Exam Neck Exam: Normal Inspection - Respiratory Exam Respiratory Exam: Clear to Ausculation Bilateral, NORMAL BREATHING PATTERN. absent: Rales, Rhonchi, Wheezes - Cardiovascular Exam Cardiovascular Exam: RRR, +S1, +S2. absent: JVD - GI/Abdominal Exam GI & Abdominal Exam: Soft, Normal Bowel Sounds. absent: Distended, Tenderness - Extremities Exam Extremities Exam: Normal Inspection, Pedal Edema (1+). absent: Tenderness Additional comments: tremor with outstretched hands vertical incision scars over b/l knees - Back Exam Back Exam: NORMAL INSPECTION - Neurological Exam Neurological Exam: Alert, Awake, Oriented x3 Neuro motor strength exam: Left Upper Extremity: 5, Right Upper Extremity: 5, Left Lower Extremity: 5, Right Lower Extremity: 5 - Psychiatric Exam Psychiatric exam: Anxious, Normal Affect - Skin Skin Exam: Normal Color, Warm Discharge Plan - Discharge Medications Prescriptions: Propranolol [Inderal] 60 mg PO BID #60 tab Rosuvastatin Calcium [Crestor] 10 mg PO HS #30 tab Warfarin [Coumadin] 2 mg PO DAILY #30 tab - Follow Up Plan Condition: GOOD Disposition: HOME/ ROUTINE Instructions: Tremors (DC) Additional Instructions: - please follow up with Dr. Lopez within 1 week of discharge - please continue your home medications other than metoprolol - please start taking the propranolol 60mg BID which you have been on at the hospital - [facility] - if you experience any worsening of tremors, headaches, weakness or any other issues, please return to ER for evaluation Referrals: Mike Lopez MD [Primary Care Provider] -
[2017-07-15] MEDS: Magnesium Oxide 400 mg Tab UD PO SCH (10:18)
[2017-07-15] MEDS: Cholecalciferol 1,000 INTLU TAB PO SCH (10:19)
[2017-07-15] MEDS: VITAMIN B COMPLEX PO SCH (10:19)
[2017-07-15 10:22] VITALS: BP 126/75; PULSE 69
[2017-08-06] MEDS ORDERED: IBANDRONATE SODIUM 150 MG PO SCH (10:00)
== END 2017-07-15 14:00 | disposition home or self-care (01) | DRG 93 ==
LOC: TRCU 13:48
PROVIDERS: ADMIT Internal Medicine; ATTEND Internal Medicine
PROC: F07Z9ZZ Gait Training/Functional Ambulation Treatment (ICD-10-PCS; principal; 2017-07-08)
PROC: F08Z4ZZ Home Management Treatment (ICD-10-PCS; 2017-07-09)
PROC: 0HBRXZZ Excision of Toe Nail, External Approach (ICD-10-PCS; 2017-07-10)
PROC: 0HBRXZZ Excision of Toe Nail, External Approach (ICD-10-PCS; 2017-07-10)
PROC: 0HBRXZZ Excision of Toe Nail, External Approach (ICD-10-PCS; 2017-07-10)
PROC: 0HBRXZZ Excision of Toe Nail, External Approach (ICD-10-PCS; 2017-07-10)
PROC: 0HBRXZZ Excision of Toe Nail, External Approach (ICD-10-PCS; 2017-07-10)
PROC: 0HBRXZZ Excision of Toe Nail, External Approach (ICD-10-PCS; 2017-07-10)
PROC: 0HBRXZZ Excision of Toe Nail, External Approach (ICD-10-PCS; 2017-07-10)
PROC: 0HBRXZZ Excision of Toe Nail, External Approach (ICD-10-PCS; 2017-07-10)
PROC: 0HBRXZZ Excision of Toe Nail, External Approach (ICD-10-PCS; 2017-07-10)
PROC: 0HBRXZZ Excision of Toe Nail, External Approach (ICD-10-PCS; 2017-07-10)
DX: R26.81 Unsteadiness on feet (principal); E78.00 Pure hypercholesterolemia, unspecified; G25.0 Essential tremor; I10 Essential (primary) hypertension; I25.10 Atherosclerotic heart disease of native coronary artery without angina pectoris; F41.9 Anxiety disorder, unspecified; F32.9 Major depressive disorder, single episode, unspecified; K21.9 Gastro-esophageal reflux disease without esophagitis; Z90.49 Acquired absence of other specified parts of digestive tract; Z90.710 Acquired absence of both cervix and uterus; Z95.2 Presence of prosthetic heart valve; Z96.653 Presence of artificial knee joint, bilateral

== ENCOUNTER 2017-10-13 11:10 | Inpatient (IN) | payer MEDICARE, BC ==
[2017-10-13 11:27] VITALS: BMI 39.1
--- NOTE | 2017-10-13 11:33 | ED PDOC ---
Arrival/HPI - General Chief Complaint: Syncope Time Seen by Provider: 10/13/17 11:14 Historian: Patient, Spouse, Family ([id number]) - History of Present Illness Time/Duration: Other (This morning) Symptom Onset: Gradual Symptom Course: Unchanged Severity Level: Mild Activities at Onset: Rest Associated Symptoms (Text): 10/13/17 11:31 Patient complains that she got up this morning and felt dizzy and lightheaded. She felt both spinning and as if she were going to faint. She had a headache which has since resolved. No cough congestion or URI. No chest pain palpitations or dyspnea. She states that she feels as if her abdomen has been growling for the last 2 or 3 months. No nausea vomiting or diarrhea. She did eat this morning. She does have some urinary frequency, but no dysuria or hematuria. No fever but some chills. There is generalized, but no focal weakness. No injury or trauma. Chronic low back pain no different from usual. Past Medical History - Infectious Disease Hx of Infectious Diseases: None - Tetanus Immunization Tetanus Immunization: Unknown - Cardiac Hx Cardiac Disorders: Yes Hx Hypertension: Yes - Pulmonary Hx Respiratory Disorders: No - Neurological Hx Neurological Disorder: No Hx Dizziness: No Hx Seizures: No - HEENT Hx HEENT Disorder: No - Renal Hx Renal Disorder: No - Endocrine/Metabolic Hx Endocrine Disorders: No - Hematological/Oncological Hx Anemia: Yes Hx Blood Transfusions: Yes - Integumentary Hx Dermatological Disorder: No - Musculoskeletal/Rheumatological Hx Falls: Yes - Gastrointestinal Hx Gastrointestinal Disorders: Yes Hx Gastroesophageal Reflux: Yes - Genitourinary/Gynecological Hx Genitourinary Disorders: No Hx Reproductive Disorders: No - Psychiatric Hx Anxiety: Yes Hx Depression: Yes Hx Substance Use: No - Surgical History Hx Cholecystectomy: Yes Hx Hysterectomy: Yes Hx Orthopedic Surgery: Yes (L KNEE, R KNEE) Hx Valve Replacement: Yes (MVR 2/2 MVP 2/2 RHD) - Anesthesia Hx Anesthesia: Yes Hx Anesthesia Reactions: No - Suicidal Assessment Feels Threatened In Home Enviroment: No Family/Social History - Physician Review Nursing Documentation Reviewed: Yes Family/Social History: Unknown Family HX Smoking Status: Never Smoked Hx Alcohol Use: No Hx Substance Use: No Hx Substance Use Treatment: No Allergies/Home Meds Allergies/Adverse Reactions: Allergies furosemide Allergy (Mild, Verified 07/07/17 14:43) ITCHING morphine Allergy (Verified 07/07/17 14:43) DIARRHEA ciprofloxacin [From Cipro] Adverse Reaction (Mild, Verified 07/07/17 14:43) ITCHING ciprofloxacin HCl [From Cipro] Adverse Reaction (Mild, Verified 07/07/17 14:43) ITCHING Home Medications: Home Meds Medication Instructions Recorded Confirmed Alprazolam [Xanax] 1 mg PO BID 10/29/12 07/11/17 Fludrocortisone [Florinef] 0.1 mg PO DAILY 10/29/12 07/11/17 Escitalopram [Lexapro] 10 mg PO DAILY 06/13/16 07/11/17 Vitamin B Complex 1 tab PO DAILY 06/13/16 07/11/17 Pantoprazole [Protonix EC Tab] 40 mg PO DAILY 06/04/17 07/11/17 Ibandronate Sodium [Boniva] 150 mg PO Q30D 06/29/17 07/11/17 Cholecalciferol [Vitamin D 1000 IU] 1 tab PO BID 07/03/17 07/11/17 Review of Systems - Physician Review All systems were reviewed & negative as marked: Yes - Review of Systems Constitutional: Fatigue, Other (Chills). absent: Fevers Respiratory: absent: SOB, Cough, Wheezing Cardiovascular: absent: Chest Pain, Palpitations, Syncope Gastrointestinal: Abdominal Pain. absent: Constipation, Diarrhea, Nausea, Vomiting, Anorexia Genitourinary Female: Frequency. absent: Dysuria, Hematuria Neurological: Headache, Dizziness. absent: Focal Weakness, Gait Changes, Speech Changes, Facial Droop, Disequilibrium, Seizure Physical Exam Vital Signs Temp Pulse Resp BP Pulse Ox 10/13/17 11:40 97.7 F 64 16 155/73 H 97 Temperature: Afebrile Blood Pressure: Normal Pulse: Regular Respiratory Rate: Normal Appearance: Positive for: Well-Appearing, Non-Toxic, Comfortable Pain Distress: None Mental Status: Positive for: Alert and Oriented X 3 - Systems Exam Head: Present: Atraumatic, Normocephalic Pupils: Present: PERRL Extroacular Muscles: Present: EOMI Conjunctiva: Present: Normal Ears: Present: NORMAL TM, Normal Canal. No: Erythema Mouth: Present: Moist Mucous Membranes Pharnyx: No: ERYTHEMA, EXUDATE, TONSILS ENLARGED Neck: Present: Normal Range of Motion Respiratory/Chest: Present: Clear to Auscultation, Good Air Exchange, Decreased Breath Sounds. No: Respiratory Distress, Accessory Muscle Use Cardiovascular: Present: Regular Rate and Rhythm, Normal S1, S2. No: Murmurs Abdomen: No: Tenderness, Distention, Peritoneal Signs, Rebound, Guarding Back: Present: Normal Inspection Upper Extremity: Present: Normal Inspection. No: Cyanosis, Edema Lower Extremity: Present: Normal Inspection. No: Edema Neurological: Present: GCS=15, CN II-XII Intact, Speech Normal, Motor Func Grossly Intact, Normal Cerebellar Funct Skin: Present: Warm, Dry, Normal Color. No: Rashes Psychiatric: Present: Alert, Oriented x 3, Normal Insight, Normal Concentration Medical Decision Making ED Course and Treatment: 10/13/17 12:13 EKG shows normal sinus rhythm rate approximately 65 with PVCs and inverted T waves with no acute ST or T-wave changes 10/13/17 12:22 Chest X-ray Creator : Arsenio Isabel MD IMPRESSION: No active disease. - Lab Interpretations Lab Results: 10/13/17 12:26 10/13/17 12:26 Lab Results 10/13/17 12:26: Ammonia < 9 L 10/13/17 12:26: Alcohol, Quantitative < 10 10/13/17 12:26: Sodium 141, Potassium 3.8, Chloride 105, Carbon Dioxide 33, Anion Gap 7 L, BUN 11, Creatinine 0.8, Est GFR ( Amer) > 60, Est GFR (Non -Af Amer) > 60, Random Glucose 99, Calcium 10.0, Phosphorus 3.1, Magnesium 2.0, Total Bilirubin 0.6, AST 42 H D, ALT 45, Alkaline Phosphatase 44, Lactate Dehydrogenase 658, Total Creatine Kinase 70, Troponin I < 0.01, Total Protein 6.7, Albumin 3.7, Globulin 2.9, Albumin/Globulin Ratio 1.3, Lipase 101 10/13/17 12:26: Urine Color Yellow, Urine Appearance Sl cloudy, Urine pH 7.0, Ur Specific [place] 1.010, Urine Protein Negative, Urine Glucose (UA) Negative, Urine Ketones Negative, Urine Blood Trace-lysed H, Urine Nitrate Positive H, Urine Bilirubin Negative, Urine Urobilinogen 0.2, Ur Leukocyte Esterase Moderate H, Urine RBC 2 - 5, Urine WBC 25 - 30, Ur Epithelial Cells 6 - 8, Urine Bacteria Many 10/13/17 12:26: PT 26.3 H, INR 2.25 H, APTT 34.9 10/13/17 12:26: WBC 7.6, RBC 4.99, Hgb 13.9, Hct 41.3, MCV 82.8, MCH 27.9, MCHC 33.7, RDW 14.0, Plt Count 161, MPV 10.0, Gran % 76.2 H, Lymph % (Auto) 14.6 L, [place] % (Auto) 8.2 H, Eos % (Auto) 0.9 L, Baso % (Auto) 0.1, Gran # 5.79, Lymph # (Auto) 1.1 L, [place] # (Auto) 0.6, Eos # (Auto) 0.1, Baso # (Auto) 0.01 10/13/17 11:50: POC Glucose (mg/dL) 96 - RAD Interpretation Radiology Orders: 10/13/17 11:27 HEAD W/O CONTRAST [CT] Stat 10/13/17 11:28 CHEST PORTABLE [RAD] Stat CT scan of the head as read by the radiologist shows no acute findings. Chest x-ray shows no infiltrate effusion or cardiomegaly. Paint Factory Worker: Radiologist - Medication Orders Current Medication Orders: Discontinued Medications Acetaminophen (Tylenol 325mg Tab) 650 mg PO STAT STA Stop: 10/13/17 13:21 Ceftriaxone Sodium (Rocephin 1 Gram Ivpb) 1 gm in 100 mls @ 200 mls/hr IVPB STAT STA PRN Reason: Protocol Stop: 10/13/17 13:18 Last Admin: 10/13/17 12:59 Dose: 200 mls/hr eMAR Start Stop Document 10/13/17 12:59 SANDI (Rec: 10/13/17 13:00 SANDI [id number]) Intravenous Solution Start Date 10/13/17 Start Time 13:00 End Date 10/13/17 End time 13:30 Total Infusion Time 30 Disposition/Present on Arrival - Present on Arrival Any Indicators Present on Arrival: No History of DVT/PE: No History of Uncontrolled Diabetes: No Urinary Catheter: No History of Decub. Ulcer: No History Surgical Site Infection Following: None - Disposition Have Diagnosis and Disposition been Completed?: Yes Diagnosis: Chills, Essential tremor, UTI (urinary tract infection), Altered mental status Disposition: HOSPITALIZED Disposition Time: 13:23 Patient Plan: Observation Condition: GOOD Forms: [facility] (Thai)
--- NOTE | 2017-10-13 12:20 | RAD ---
HISTORY: ams COMPARISON: 07/03/2017 FINDINGS: LUNGS: No active pulmonary disease. PLEURA: No significant pleural effusion identified, no pneumothorax apparent. CARDIOVASCULAR: Moderate cardiomegaly OSSEOUS STRUCTURES: Sternal wires VISUALIZED UPPER ABDOMEN: Normal. OTHER FINDINGS: None. IMPRESSION: No active disease.
[2017-10-13 12:32] LABS: BASO # 0.01 K/mm3 (0.0-2.0); BASO % 0.1 % (0.0-3.0); EOS # 0.1 (0.0-0.7); EOS % 0.9 % (1.5-5.0); GRAN # 5.79 (1.4-6.5); GRAN % 76.2 % (50.0-68.0); HEMOGLOBIN 13.9 g/dL (12.0-16.0); LYMPH # 1.1 (1.2-3.4); LYMPH % 14.6 % (22.0-35.0); MEAN CELL VOLUME 82.8 fl (80.0-105.0); MEAN CORPUSCULAR HEMOGLOBIN 27.9 pg (25.0-35.0); MEAN CORPUSCULAR HGB CONC 33.7 g/dl (31.0-37.0); MONO # 0.6 (0.1-0.6); MONO % 8.2 % (1.0-6.0); RBC 4.99 10^6/uL (3.5-6.1); URINE BILIRUBIN NEGATIVE (NEGATIVE); URINE BLOOD TRACE-LYSED (NEGATIVE); URINE GLUCOSE (UA) NEGATIVE (NEGATIVE); URINE LEUKOCYTE ESTERASE MODERATE Leu/uL (NEGATIVE); URINE PROTEIN NEGATIVE mg/dL (<30 mg/dL); URINE UROBILINOGEN 0.2 E.U./dL (<1 E.U./dL); WHITE BLOOD COUNT 7.6 10^3/ul (4.5-11.0)
[2017-10-13 12:33] LABS: URINE APPEARANCE SL CLOUDY (CLEAR); URINE COLOR YELLOW (YELLOW)
[2017-10-13 12:40] LABS: PROTHROMBIN TIME 26.3 SECONDS (9.4-12.5)
[2017-10-13 12:41] LABS: ALB/GLOB RATIO 1.3 (1.1-1.8); ALBUMIN 3.7 g/dL (3.0-4.8); ALT/SGPT 45 U/L (7-56); AST/SGOT 42 U/L (14-36); BLOOD UREA NITROGEN 11 mg/dL (7-21); GFR AFRICAN-AMERICAN > 60; GFR NON-AFRICAN AMERICAN > 60; INR 2.25 (0.93-1.08); LIPASE 101 U/L (23-300); PARTIAL THROMBOPLASTIN TIME 34.9 Seconds (25.1-36.5)
[2017-10-13 12:46] LABS: URINE BACTERIA MANY (NEG)
[2017-10-13 12:47] LABS: URINE WBC 25 - 30 /hpf (0-6)
[2017-10-13] MEDS ORDERED: cefTRIAXone 1 gm 1 GM/100 ML BAG IVPB STA (12:49)
[2017-10-13 12:52] LABS: TROPONIN I < 0.01 ng/mL
--- NOTE | 2017-10-13 12:55 | CT ---
PROCEDURE: CT HEAD WITHOUT CONTRAST. HISTORY: ams COMPARISON: 07/07/2017 TECHNIQUE: Axial computed tomography images were obtained through the head/brain without intravenous contrast. Radiation dose: Total exam DLP = 861 mGy-cm. This CT exam was performed using one or more of the following dose reduction techniques: Automated exposure control, adjustment of the mA and/or kV according to patient size, and/or use of iterative reconstruction technique. FINDINGS: HEMORRHAGE: No intracranial hemorrhage. BRAIN: No mass effect or edema. No atrophy or chronic microvascular ischemic changes. VENTRICLES: Unremarkable. No hydrocephalus. CALVARIUM: Unremarkable. PARANASAL SINUSES: Unremarkable as visualized. No significant inflammatory changes. MASTOID AIR CELLS: Unremarkable as visualized. No inflammatory changes. OTHER FINDINGS: None. IMPRESSION: Negative study
--- NOTE | 2017-10-13 15:33 | CP.PCM.HP ---
<Jodie Coronado - Last Filed: 10/13/17 15:59> History of Present Illness - History of Present Illness History of Present Illness: Jodie Coronado DO PGY1 - IM H&P for Dr. Hammond Ms. 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 Patient also reports that for the past two months, she has been urinating more frequently and urine has been "brown." She denies fever, nausea, vomiting, dysuria, syncope, falls, confusion. She does report episode of diarrhea last week, and is now constipated. is at bedside, and reports that patient has had some generalized fatigue, but no acute confusion or alteration in mental status. 12-pt ROS was reviewed and is otherwise unremarkable. 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 Lopez Present on Admission - Present on Admission Any Indicators Present on Admission: No Past Patient History - Infectious Disease Hx of Infectious Diseases: None - Tetanus Immunizations Tetanus Immunization: Unknown - Past Medical History & Family History Past Medical History?: Yes - Past Social History Smoking Status: Never Smoked - CARDIAC Hx Cardiac Disorders: Yes Hx Hypertension: Yes - PULMONARY Hx Respiratory Disorders: No - NEUROLOGICAL Hx Neurological Disorder: No Hx Dizziness: No Hx Seizures: No - HEENT Hx HEENT Problems: No - RENAL Hx Chronic Kidney Disease: No - ENDOCRINE/METABOLIC Hx Endocrine Disorders: No - HEMATOLOGICAL/ONCOLOGICAL Hx Anemia: Yes Hx Blood Transfusions: Yes - INTEGUMENTARY Hx Dermatological Problems: No - MUSCULOSKELETAL/RHEUMATOLOGICAL Hx Falls: Yes - GASTROINTESTINAL Hx Gastrointestinal Disorders: Yes Hx Gastroesophageal Reflux: Yes - GENITOURINARY/GYNECOLOGICAL Hx Genitourinary Disorders: No Hx Reproductive Disorders: No - PSYCHIATRIC Hx Anxiety: Yes Hx Depression: Yes Hx Substance Use: No - SURGICAL HISTORY Hx Cholecystectomy: Yes Hx Hysterectomy: Yes Hx Orthopedic Surgery: Yes (L KNEE, R KNEE) Hx Valve Replacement: Yes (MVR 2/2 MVP 2/2 RHD) - ANESTHESIA Hx Anesthesia: Yes Hx Anesthesia Reactions: No Meds Allergies/Adverse Reactions: Allergies Allergy/AdvReac Type Severity Reaction Status Date / Time furosemide Allergy Mild ITCHING Verified 07/07/17 14:43 morphine Allergy DIARRHEA Verified 07/07/17 14:43 ciprofloxacin [From Cipro] AdvReac Mild ITCHING Verified 07/07/17 14:43 ciprofloxacin HCl AdvReac Mild ITCHING Verified 07/07/17 14:43 [From Cipro] Physical Exam - Constitutional Appears: Non-toxic, No Acute Distress - Head Exam Head Exam: ATRAUMATIC, NORMOCEPHALIC - Eye Exam Eye Exam: EOMI, Normal appearance, PERRL Pupil Exam: NORMAL ACCOMODATION - ENT Exam ENT Exam: Mucous Membranes Moist - Neck Exam Neck exam: Positive for: Normal Inspection - Respiratory Exam Respiratory Exam: Clear to Auscultation Bilateral, NORMAL BREATHING PATTERN - Cardiovascular Exam Cardiovascular Exam: RRR, +S1, +S2. absent: Tachycardia - GI/Abdominal Exam GI & Abdominal Exam: Normal Bowel Sounds, Soft. absent: Distended, Firm, Guarding, Rebound, Rigid, Tenderness - Extremities Exam Extremities exam: Positive for: normal inspection. Negative for: calf tenderness, pedal edema - Back Exam Back exam: absent: CVA tenderness (L), CVA tenderness (R) - Neurological Exam Neurological exam: Alert, CN II-XII Intact, Oriented x3 - Psychiatric Exam Psychiatric exam: Normal Affect, Normal Mood - Skin Skin Exam: Dry, Intact, Normal Color Results - Vital Signs Recent Vital Signs: Last Vital Signs Temp 98.8 F 10/13/17 12:40 Pulse 66 10/13/17 12:40 Resp 18 10/13/17 12:40 BP 150/76 10/13/17 12:40 Pulse Ox 98 10/13/17 12:40 - Labs Result Diagrams: 10/13/17 12:26 10/13/17 12:26 Assessment & Plan - Assessment and Plan (Free Text) Assessment: Ms. 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 UTI noted on UA Fatigue and lightheadedness 2/2 UTI - UA showed likely UTI; patient had multiple admission for UTI in the past, though cultures frequently negative - Afebrile, no leukocytosis - Patient received one dose of ceftriaxone in the ER; continue ceftriaxone 1gm daily - Obtain urine culture, blood culture - Fall precautions - Ordered orthostatic vital signs - PT eval/treat Prosthetic mitral valve with therapeutic INR - Continue warfarin 2mg daily - Recheck INR in AM h/o Nonobstructive CAD - Continue BB HTN - Mildly hypertensive in ER - Cont BB h/o Orthostatic hypotension - Continue Florinef 0.1mg daily HLD - Cont. Lipitor Depression/Anxiety - Cont. Xanax and Lexapro Constipation - Continue home MagOx - PRN Miralax GI/DVT ppx - Cont. PTX/Coumadin Patient discussed and reviewed with attending, Dr. Hammond <Olegario Hammond - Last Filed: 10/14/17 12:36> Results - Vital Signs Recent Vital Signs: Last Vital Signs Temp 98.1 F 10/14/17 07:53 Pulse 52 L 10/14/17 07:53 Resp 20 10/14/17 07:53 BP 174/79 H 10/14/17 07:53 Pulse Ox 97 10/14/17 07:53 - Labs Result Diagrams: 10/14/17 06:45 10/14/17 06:45 Labs: Laboratory Results - last 24 hr 10/14/17 10/14/17 10/14/17 06:45 06:45 06:45 WBC 6.4 RBC 4.87 Hgb 13.3 Hct 40.1 MCV 82.3 MCH 27.3 MCHC 33.2 RDW 14.2 Plt Count 154 MPV 10.2 Gran % 66.0 Lymph % (Auto) 23.2 [place] % (Auto) 9.2 H Eos % (Auto) 1.1 L Baso % (Auto) 0.5 Gran # 4.23 Lymph # (Auto) 1.5 [place] # (Auto) 0.6 Eos # (Auto) 0.1 Baso # (Auto) 0.03 PT 27.6 H INR 2.36 H Sodium 143 Potassium 3.6 Chloride 106 Carbon Dioxide 32 Anion Gap 9 L BUN 12 Creatinine 0.7 Est GFR ( Amer) > 60 Est GFR (Non-Af Amer) > 60 Random Glucose 88 Calcium 10.0 Phosphorus 3.9 Magnesium 2.1 Total Bilirubin 0.6 AST 34 ALT 38 Alkaline Phosphatase 47 Total Protein 6.4 Albumin 3.6 Globulin 2.8 Albumin/Globulin Ratio 1.3 Attending/Attestation - Attestation I have personally seen and examined this patient.: Yes I have fully participated in the care of the patient.: Yes I have reviewed all pertinent clinical information: Yes Notes (Text): 10/14/17 12:33 Medical record note made by the resident after discussion with my direction and input after the patient was personally seen and examined by me. I have reviewed the chart and agree that the record accurately reflects by personal performance of the history, physical exam, data review, and medical decision-making, in the course for the patient. I have also personally directed the plan of care. 71 yrs old female with PMH of rheumatic heart disease (as a child) s/p prosthetic mitral valve replacement in 1993 on anticoagulation with warfarin, nonobstructive CAD, HTN, .Orthostatic hypotension and Hyperlipidemia is admitted with weakness due to UTI. Agreed with IV antibiotics ceftriaxone for UTI, we will follow up cultures.Patient mental status is at base line.There is no focal deficit. We will also get physical therapy. Management plan was discussed in detail with patient. Education was provided.
[2017-10-13] MEDS: Cholecalciferol 1,000 INTLU TAB PO SCH (17:55)
[2017-10-13] MEDS: POLYETHYLENE GLYCOL 3350 17 GM/Dose PACKET PO PRN (17:55)
--- NOTE | 2017-10-13 19:17 | CARD ---
APPROVED REPORT EKG Measurement Heart [id number] <Conclusion> Sinus rhythm with occasional premature ventricular complexes T wave abnormality, consider anterolateral ischemia Abnormal ECG
[2017-10-13] MEDS ORDERED: Pneumococcal 23-Valent Vaccine IM ONE (21:54)
[2017-10-13] MEDS ORDERED: Non Formulary Medication (Rosuvastatin Calcium [Crestor] 10 MG) PO SCH (22:00)
[2017-10-14 07:13] LABS: BASO # 0.03 K/mm3 (0.0-2.0); BASO % 0.5 % (0.0-3.0); EOS # 0.1 (0.0-0.7); EOS % 1.1 % (1.5-5.0); GRAN # 4.23 (1.4-6.5); HEMOGLOBIN 13.3 g/dL (12.0-16.0); LYMPH # 1.5 (1.2-3.4); LYMPH % 23.2 % (22.0-35.0); MEAN CELL VOLUME 82.3 fl (80.0-105.0); MEAN CORPUSCULAR HEMOGLOBIN 27.3 pg (25.0-35.0); MEAN CORPUSCULAR HGB CONC 33.2 g/dl (31.0-37.0); MEAN PLATELET VOLUME 10.2 fl (7.0-11.0); MONO # 0.6 (0.1-0.6); MONO % 9.2 % (1.0-6.0); RBC 4.87 10^6/uL (3.5-6.1); RED CELL DISTRIBUTION WIDTH 14.2 % (11.5-14.5); WHITE BLOOD COUNT 6.4 10^3/ul (4.5-11.0)
[2017-10-14 07:17] LABS: INR 2.36 (0.93-1.08); PROTHROMBIN TIME 27.6 SECONDS (9.4-12.5)
[2017-10-14 07:19] LABS: ALB/GLOB RATIO 1.3 (1.1-1.8); ALBUMIN 3.6 g/dL (3.0-4.8); ALT/SGPT 38 U/L (7-56); AST/SGOT 34 U/L (14-36); BLOOD UREA NITROGEN 12 mg/dL (7-21); GFR AFRICAN-AMERICAN > 60; GFR NON-AFRICAN AMERICAN > 60
[2017-10-14] MEDS: cefTRIAXone 1 gm 1 GM/100 ML BAG IVPB SCH (09:42)
[2017-10-14] MEDS: Cholecalciferol 1,000 INTLU TAB PO SCH ×2 (09:43→18:26)
[2017-10-14] MEDS: Pantoprazole 40 mg EC Tab PO SCH (09:43)
[2017-10-14] MEDS: Magnesium Oxide 400 mg Tab UD PO SCH (09:43)
[2017-10-14] MEDS: Multivitamin Vitamin B Complex (Nephro-Vite) Tab PO SCH (09:43)
--- NOTE | 2017-10-14 10:56 | CP.PCM.PN ---
<Jodie Coronado - Last Filed: 10/14/17 11:46> Subjective - Date & Time of Evaluation Date of Evaluation: 10/14/17 Time of Evaluation: 07:30 - Subjective Subjective: Jodie Coronado DO PGY1 - IM Progress Note Patient seen and examined at bedside. Per nursing staff, no acute events overnight. Patient reports slight improvement overall. Denies any episodes of lightheadedness or weakness. Denies abdominal/suprapubic pain. Does report some abdominal discomfort, associated with "gurgling sounds" and constipation. Denies dysuria, hematuria, fever, chills, nausea, vomiting, diarrhea. Objective - Vital Signs/Intake and Output Vital Signs (last 24 hours): Temp Pulse Resp BP Pulse Ox 98.1 F 52 L 20 174/79 H 97 10/14/17 07:53 10/14/17 07:53 10/14/17 07:53 10/14/17 07:53 10/14/17 07:53 Intake and Output: 10/14/17 10/14/17 06:59 18:59 Intake Total 480 Output Total 400 Balance 80 - Medications Medications: Current Medications Alprazolam (Xanax) 1 mg PO BID PRN; Protocol PRN Reason: Anxiety Stop: 10/20/17 14:52 Last Admin: 10/14/17 09:49 Dose: 1 mg Atorvastatin Calcium (Lipitor) 40 mg PO HS [facility] Last Admin: 10/13/17 22:00 Dose: 40 mg Cholecalciferol (Vitamin D) 1,000 intlu PO BID [facility] Last Admin: 10/14/17 09:43 Dose: 1,000 intlu Escitalopram Oxalate (Lexapro) 10 mg PO DAILY [facility] Last Admin: 10/14/17 09:43 Dose: 10 mg Fludrocortisone Acetate (Florinef) 0.1 mg PO DAILY [facility] Last Admin: 10/14/17 09:43 Dose: 0.1 mg Ceftriaxone Sodium (Rocephin 1 Gram Ivpb) 1 gm in 100 mls @ 100 mls/hr IVPB DAILY [facility] PRN Reason: Protocol Last Admin: 10/14/17 09:42 Dose: 100 mls/hr Magnesium Oxide (Mag-Ox) 400 mg PO DAILY [facility] Last Admin: 10/14/17 09:43 Dose: 400 mg Pantoprazole Sodium (Protonix Ec Tab) 40 mg PO DAILY [facility] Last Admin: 10/14/17 09:43 Dose: 40 mg Polyethylene Glycol (Miralax) 17 gm PO BID PRN PRN Reason: Constipation Last Admin: 10/13/17 17:55 Dose: 17 gm Propranolol HCl (Inderal) 60 mg PO BID [facility] Last Admin: 10/14/17 09:43 Dose: 60 mg Vitamin B Complex/Vit C/Folic Acid (Nephro-Naif) 1 tab PO DAILY [facility] Last Admin: 10/14/17 09:43 Dose: 1 tab Warfarin Sodium (Coumadin) 2 mg PO 1800 [facility] PRN Reason: Protocol Last Admin: 10/13/17 17:55 Dose: 2 mg - Labs Labs: 10/14/17 06:45 10/14/17 06:45 PT 27.6 SECONDS (9.4-12.5) H 10/14/17 06:45 INR 2.36 (0.93-1.08) H 10/14/17 06:45 APTT 34.9 Seconds (25.1-36.5) 10/13/17 12:26 - Constitutional Appears: Non-toxic, No Acute Distress - Head Exam Head Exam: ATRAUMATIC, NORMOCEPHALIC - Eye Exam Eye Exam: EOMI, Normal appearance, PERRL - ENT Exam ENT Exam: Mucous Membranes Moist - Neck Exam Neck Exam: Normal Inspection - Respiratory Exam Respiratory Exam: Clear to Ausculation Bilateral, NORMAL BREATHING PATTERN - Cardiovascular Exam Cardiovascular Exam: Clicks, RRR - GI/Abdominal Exam GI & Abdominal Exam: Distended, Soft, Normal Bowel Sounds. absent: Firm, Guarding, Rigid, Tenderness, Rebound - Extremities Exam Extremities Exam: Normal Inspection. absent: Calf Tenderness, Pedal Edema - Neurological Exam Neurological Exam: Alert, Awake, CN II-XII Intact, Oriented x3 - Psychiatric Exam Psychiatric exam: Normal Affect, Normal Mood - Skin Skin Exam: Dry, Intact, Normal Color Assessment and Plan - Assessment and Plan (Free Text) Assessment: Ms. 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 UTI noted on UA Fatigue and lightheadedness 2/2 UTI - UA showed likely UTI; Urine culture pending - Afebrile, no leukocytosis - Continue ceftriaxone 1gm daily - Low risk fall precautions - Orthostatic vital signs equivocal, patient did not cooperate with exam - PT eval/treat Prosthetic mitral valve with therapeutic INR - Continue warfarin 2mg daily; INR again therapeutic - Recheck INR in AM h/o Nonobstructive CAD - Continue BB HTN - Elevated BP reading this morning; discontinued IVF, will continue to monitor - Cont BB h/o Orthostatic hypotension - Continue Florinef 0.1mg daily HLD - Cont. Lipitor Depression/Anxiety - Cont. Xanax and Lexapro Constipation - Continue home MagOx - PRN Miralax GI/DVT ppx - Cont. PTX/Coumadin Patient discussed and reviewed with attending, Dr. Hammond <Olegario Hammond - Last Filed: 10/14/17 12:37> Objective - Vital Signs/Intake and Output Vital Signs (last 24 hours): Temp Pulse Resp BP Pulse Ox 98.1 F 52 L 20 174/79 H 97 10/14/17 07:53 10/14/17 07:53 10/14/17 07:53 10/14/17 07:53 10/14/17 07:53 Intake and Output: 10/14/17 10/14/17 06:59 18:59 Intake Total 480 Output Total 400 Balance 80 - Medications Medications: Current Medications Alprazolam (Xanax) 1 mg PO BID PRN; Protocol PRN Reason: Anxiety Stop: 10/20/17 14:52 Last Admin: 10/14/17 09:49 Dose: 1 mg Atorvastatin Calcium (Lipitor) 40 mg PO HS [facility] Last Admin: 10/13/17 22:00 Dose: 40 mg Cholecalciferol (Vitamin D) 1,000 intlu PO BID [facility] Last Admin: 10/14/17 09:43 Dose: 1,000 intlu Escitalopram Oxalate (Lexapro) 10 mg PO DAILY [facility] Last Admin: 10/14/17 09:43 Dose: 10 mg Fludrocortisone Acetate (Florinef) 0.1 mg PO DAILY [facility] Last Admin: 10/14/17 09:43 Dose: 0.1 mg Ceftriaxone Sodium (Rocephin 1 Gram Ivpb) 1 gm in 100 mls @ 100 mls/hr IVPB DAILY [facility] PRN Reason: Protocol Last Admin: 10/14/17 09:42 Dose: 100 mls/hr Magnesium Oxide (Mag-Ox) 400 mg PO DAILY [facility] Last Admin: 10/14/17 09:43 Dose: 400 mg Pantoprazole Sodium (Protonix Ec Tab) 40 mg PO DAILY [facility] Last Admin: 10/14/17 09:43 Dose: 40 mg Polyethylene Glycol (Miralax) 17 gm PO BID PRN PRN Reason: Constipation Last Admin: 10/13/17 17:55 Dose: 17 gm Propranolol HCl (Inderal) 60 mg PO BID [facility] Last Admin: 10/14/17 09:43 Dose: 60 mg Vitamin B Complex/Vit C/Folic Acid (Nephro-Naif) 1 tab PO DAILY [facility] Last Admin: 10/14/17 09:43 Dose: 1 tab Warfarin Sodium (Coumadin) 2 mg PO 1800 [facility] PRN Reason: Protocol Last Admin: 10/13/17 17:55 Dose: 2 mg - Labs Labs: 10/14/17 06:45 10/14/17 06:45 PT 27.6 SECONDS (9.4-12.5) H 10/14/17 06:45 INR 2.36 (0.93-1.08) H 10/14/17 06:45 APTT 34.9 Seconds (25.1-36.5) 10/13/17 12:26 Attending/Attestation - Attestation I have personally seen and examined this patient.: Yes I have fully participated in the care of the patient.: Yes I have reviewed all pertinent clinical information, including history, physical exam and plan: Yes Notes (Text): 10/14/17 12:37 Medical record note made by the resident after discussion with my direction and input after the patient was personally seen and examined by me. I have reviewed the chart and agree that the record accurately reflects by personal performance of the history, physical exam, data review, and medical decision-making, in the course for the patient. I have also personally directed the plan of care.
[2017-10-15 07:10] LABS: BASO # 0.03 K/mm3 (0.0-2.0); BASO % 0.4 % (0.0-3.0); EOS # 0.1 (0.0-0.7); EOS % 1.2 % (1.5-5.0); GRAN # 4.93 (1.4-6.5); HEMOGLOBIN 13.2 g/dL (12.0-16.0); LYMPH # 1.7 (1.2-3.4); LYMPH % 23.7 % (22.0-35.0); MEAN CELL VOLUME 82.6 fl (80.0-105.0); MEAN CORPUSCULAR HGB CONC 32.7 g/dl (31.0-37.0); MEAN PLATELET VOLUME 9.8 fl (7.0-11.0); MONO # 0.5 (0.1-0.6); MONO % 6.7 % (1.0-6.0); RBC 4.89 10^6/uL (3.5-6.1); RED CELL DISTRIBUTION WIDTH 14.3 % (11.5-14.5); WHITE BLOOD COUNT 7.3 10^3/ul (4.5-11.0)
[2017-10-15 07:26] LABS: ALB/GLOB RATIO 1.2 (1.1-1.8); ALBUMIN 3.6 g/dL (3.0-4.8); ALT/SGPT 43 U/L (7-56); AST/SGOT 32 U/L (14-36); BLOOD UREA NITROGEN 17 mg/dL (7-21); GFR AFRICAN-AMERICAN > 60; GFR NON-AFRICAN AMERICAN > 60
[2017-10-15] MEDS: cefTRIAXone 1 gm 1 GM/100 ML BAG IVPB SCH (09:48)
[2017-10-15] MEDS: Pantoprazole 40 mg EC Tab PO SCH (09:49)
[2017-10-15] MEDS: Multivitamin Vitamin B Complex (Nephro-Vite) Tab PO SCH (09:49)
[2017-10-15] MEDS: Magnesium Oxide 400 mg Tab UD PO SCH (09:49)
[2017-10-15] MEDS: Cholecalciferol 1,000 INTLU TAB PO SCH ×2 (09:50→18:55)
--- NOTE | 2017-10-15 14:03 | CP.PCM.PN ---
Addendum entered and electronically signed by Jodie Coronado DO 10/15/17 14:04 : Addendum to A/P Abdominal discomfort - Likely 2/2 constipation vs antibiotic use; abdominal exam benign - Continue bowel regimen and PPI - Start probiotic Original Note: <Jodie Coronado - Last Filed: 10/15/17 13:55> Subjective - Date & Time of Evaluation Date of Evaluation: 10/15/17 Time of Evaluation: 07:30 - Subjective Subjective: Jodie Coronado DO PGY1 - IM Progress Note Patient seen and examined at bedside. Per nursing staff, no acute events overnight. Reports not feeling well overall. Denies any episodes of lightheadedness or weakness. Continues to have abdominal discomfort, associated with "gurgling sounds" and constipation. Denies dysuria, hematuria, fever, chills, nausea, vomiting, diarrhea. Is urinating in the commode, but is occasionally having difficulty making it before soiling herself. Is urinating very frequently today. Objective - Vital Signs/Intake and Output Vital Signs (last 24 hours): Temp Pulse Resp BP Pulse Ox 97.6 F 62 18 149/59 L 95 10/15/17 06:00 10/15/17 06:00 10/15/17 06:00 10/15/17 06:00 10/15/17 06:00 Intake and Output: 10/15/17 10/15/17 06:59 18:59 Intake Total 120 Balance 120 - Medications Medications: Current Medications Alprazolam (Xanax) 1 mg PO BID PRN; Protocol PRN Reason: Anxiety Stop: 10/20/17 14:52 Last Admin: 10/15/17 09:49 Dose: 1 mg Atorvastatin Calcium (Lipitor) 40 mg PO HS [facility] Last Admin: 10/14/17 21:46 Dose: 40 mg Cholecalciferol (Vitamin D) 1,000 intlu PO BID [facility] Last Admin: 10/15/17 09:50 Dose: 1,000 intlu Escitalopram Oxalate (Lexapro) 10 mg PO DAILY [facility] Last Admin: 10/15/17 09:49 Dose: 10 mg Fludrocortisone Acetate (Florinef) 0.1 mg PO DAILY [facility] Last Admin: 10/15/17 09:49 Dose: 0.1 mg Ceftriaxone Sodium (Rocephin 1 Gram Ivpb) 1 gm in 100 mls @ 100 mls/hr IVPB DAILY [facility] PRN Reason: Protocol Last Admin: 10/15/17 09:48 Dose: 100 mls/hr Magnesium Oxide (Mag-Ox) 400 mg PO DAILY [facility] Last Admin: 10/15/17 09:49 Dose: 400 mg Pantoprazole Sodium (Protonix Ec Tab) 40 mg PO DAILY [facility] Last Admin: 10/15/17 09:49 Dose: 40 mg Polyethylene Glycol (Miralax) 17 gm PO BID PRN PRN Reason: Constipation Last Admin: 10/13/17 17:55 Dose: 17 gm Propranolol HCl (Inderal) 60 mg PO BID [facility] Last Admin: 10/15/17 09:49 Dose: 60 mg Vitamin B Complex/Vit C/Folic Acid (Nephro-Naif) 1 tab PO DAILY [facility] Last Admin: 10/15/17 09:49 Dose: 1 tab Warfarin Sodium (Coumadin) 2 mg PO 1800 [facility] PRN Reason: Protocol Last Admin: 10/14/17 18:26 Dose: 2 mg - Labs Labs: 10/15/17 07:00 10/15/17 07:00 PT 27.6 SECONDS (9.4-12.5) H 10/14/17 06:45 INR 2.36 (0.93-1.08) H 10/14/17 06:45 APTT 34.9 Seconds (25.1-36.5) 10/13/17 12:26 - Additional Findings Additional findings: - Constitutional Appears: Non-toxic, No Acute Distress - Head Exam Head Exam: ATRAUMATIC, NORMOCEPHALIC - Eye Exam Eye Exam: EOMI, Normal appearance, PERRL - ENT Exam ENT Exam: Mucous Membranes Moist - Neck Exam Neck Exam: Normal Inspection - Respiratory Exam Respiratory Exam: Clear to Ausculation Bilateral, NORMAL BREATHING PATTERN - Cardiovascular Exam Cardiovascular Exam: Clicks, RRR - GI/Abdominal Exam GI & Abdominal Exam: Distended, Soft, Normal Bowel Sounds. absent: Firm, Guarding, Rigid, Tenderness, Rebound - Extremities Exam Extremities Exam: Normal Inspection. absent: Calf Tenderness, Pedal Edema - Neurological Exam Neurological Exam: Alert, Awake, CN II-XII Intact, Oriented x3 - Psychiatric Exam Psychiatric exam: Normal Affect, Normal Mood - Skin Skin Exam: Dry, Intact, Normal Color Assessment and Plan - Assessment and Plan (Free Text) Assessment: Ms. 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 UTI noted on UA, pending urine culture and sensitivity. Fatigue and lightheadedness 2/2 UTI - UA showed likely UTI; Urine culture shows gram negative rods; patient reports increased urinary frequency - Afebrile, no leukocytosis - Continue ceftriaxone 1gm daily - Low risk fall precautions - PT eval/treat; recommended TCU; TCU eval ordered Prosthetic mitral valve with therapeutic INR - Continue warfarin 2mg daily; INR again therapeutic - Recheck INR in AM h/o Nonobstructive CAD - Continue BB HTN - BP labile, intermittently elevated, and sometimes borderline hypotensive; will continue to monitor - Cont BB h/o Orthostatic hypotension - Continue Florinef 0.1mg daily HLD - Cont. Lipitor Depression/Anxiety - Cont. Xanax and Lexapro Constipation - Continue home MagOx - PRN Miralax - Patient did have BM today GI/DVT ppx - Cont. PTX/Coumadin Patient discussed and reviewed with attending, Dr. Hammond <Olegario Hammond - Last Filed: 10/15/17 15:36> Objective - Vital Signs/Intake and Output Vital Signs (last 24 hours): Temp Pulse Resp BP Pulse Ox 97.6 F 62 18 149/59 L 95 10/15/17 06:00 10/15/17 06:00 10/15/17 06:00 10/15/17 06:00 10/15/17 06:00 Intake and Output: 10/15/17 10/15/17 06:59 18:59 Intake Total 120 980 Balance 120 980 - Medications Medications: Current Medications Alprazolam (Xanax) 1 mg PO BID PRN; Protocol PRN Reason: Anxiety Stop: 10/20/17 14:52 Last Admin: 10/15/17 09:49 Dose: 1 mg Atorvastatin Calcium (Lipitor) 40 mg PO HS [facility] Last Admin: 10/14/17 21:46 Dose: 40 mg Cholecalciferol (Vitamin D) 1,000 intlu PO BID [facility] Last Admin: 10/15/17 09:50 Dose: 1,000 intlu Escitalopram Oxalate (Lexapro) 10 mg PO DAILY [facility] Last Admin: 10/15/17 09:49 Dose: 10 mg Fludrocortisone Acetate (Florinef) 0.1 mg PO DAILY [facility] Last Admin: 10/15/17 09:49 Dose: 0.1 mg Ceftriaxone Sodium (Rocephin 1 Gram Ivpb) 1 gm in 100 mls @ 100 mls/hr IVPB DAILY [facility] PRN Reason: Protocol Last Admin: 10/15/17 09:48 Dose: 100 mls/hr Lactobacillus Acidophilus (Bacid Acidophilus) 1 cap PO BID [facility] Magnesium Oxide (Mag-Ox) 400 mg PO DAILY [facility] Last Admin: 10/15/17 09:49 Dose: 400 mg Pantoprazole Sodium (Protonix Ec Tab) 40 mg PO DAILY [facility] Last Admin: 10/15/17 09:49 Dose: 40 mg Polyethylene Glycol (Miralax) 17 gm PO BID PRN PRN Reason: Constipation Last Admin: 10/13/17 17:55 Dose: 17 gm Propranolol HCl (Inderal) 60 mg PO BID [facility] Last Admin: 10/15/17 09:49 Dose: 60 mg Vitamin B Complex/Vit C/Folic Acid (Nephro-Naif) 1 tab PO DAILY [facility] Last Admin: 10/15/17 09:49 Dose: 1 tab Warfarin Sodium (Coumadin) 2 mg PO 1800 [facility] PRN Reason: Protocol Last Admin: 10/14/17 18:26 Dose: 2 mg - Labs Labs: 10/15/17 07:00 10/15/17 07:00 PT 27.6 SECONDS (9.4-12.5) H 10/14/17 06:45 INR 2.36 (0.93-1.08) H 10/14/17 06:45 APTT 34.9 Seconds (25.1-36.5) 10/13/17 12:26 Attending/Attestation - Attestation I have personally seen and examined this patient.: Yes I have fully participated in the care of the patient.: Yes I have reviewed all pertinent clinical information, including history, physical exam and plan: Yes Notes (Text): 10/15/17 15:34 Medical record note made by the resident after discussion with my direction and input after the patient was personally seen and examined by me. I have reviewed the chart and agree that the record accurately reflects by personal performance of the history, physical exam, data review, and medical decision-making, in the course for the patient. I have also personally directed the plan of care. 71 yrs old female with PMH of rheumatic heart disease (as a child) s/p prosthetic mitral valve replacement in 1993 on anticoagulation with warfarin, nonobstructive CAD, HTN, .Orthostatic hypotension and Hyperlipidemia is admitted with weakness due to UTI. Continue IV ceftriaxone for UTI, Urine cultures are growing gram negative heather.Blood cultures are negative for any growth. Physical therapy has recommended TCU.She is awaiting for bed placement at TCU. Management plan was discussed in detail with patient. Education was provided.
[2017-10-15] MEDS: Lactobacillus Acidophilus 500 MU Cap PO SCH (18:55)
[2017-10-16 07:23] LABS: BASO # 0.01 K/mm3 (0.0-2.0); BASO % 0.1 % (0.0-3.0); EOS # 0.1 (0.0-0.7); EOS % 1.5 % (1.5-5.0); GRAN # 4.7 (1.4-6.5); GRAN % 69.4 % (50.0-68.0); HEMOGLOBIN 13.3 g/dL (12.0-16.0); LYMPH # 1.4 (1.2-3.4); MEAN CELL VOLUME 82.8 fl (80.0-105.0); MEAN CORPUSCULAR HEMOGLOBIN 27.2 pg (25.0-35.0); MEAN CORPUSCULAR HGB CONC 32.8 g/dl (31.0-37.0); MEAN PLATELET VOLUME 10.1 fl (7.0-11.0); MONO # 0.5 (0.1-0.6); RBC 4.89 10^6/uL (3.5-6.1); RED CELL DISTRIBUTION WIDTH 14.3 % (11.5-14.5); WHITE BLOOD COUNT 6.8 10^3/ul (4.5-11.0)
[2017-10-16 07:49] LABS: ALB/GLOB RATIO 1.2 (1.1-1.8); ALBUMIN 3.5 g/dL (3.0-4.8); ALT/SGPT 40 U/L (7-56); AST/SGOT 35 U/L (14-36); BLOOD UREA NITROGEN 15 mg/dL (7-21); CALCIUM 10.1 mg/dL (8.4-10.5); GFR AFRICAN-AMERICAN > 60; GFR NON-AFRICAN AMERICAN > 60
[2017-10-16 07:51] LABS: INR 1.83 (0.93-1.08); PROTHROMBIN TIME 21.3 SECONDS (9.4-12.5)
[2017-10-16] MEDS ORDERED: Cefpodoxime (Vantin) 200 mg Tab PO SCH (10:00)
[2017-10-16] MEDS: Lactobacillus Acidophilus 500 MU Cap PO SCH ×4 (11:13→19:38)
[2017-10-16] MEDS: Multivitamin Vitamin B Complex (Nephro-Vite) Tab PO SCH (11:13)
[2017-10-16] MEDS: Pantoprazole 40 mg EC Tab PO SCH (11:13)
[2017-10-16] MEDS: POLYETHYLENE GLYCOL 3350 17 GM/Dose PACKET PO PRN (11:13)
[2017-10-16] MEDS: Magnesium Oxide 400 mg Tab UD PO SCH (11:14)
[2017-10-16] MEDS: Cholecalciferol 1,000 INTLU TAB PO SCH ×3 (11:14→19:39)
--- NOTE | 2017-10-16 13:08 | CP.PCM.PN ---
<IvonneJodie - Last Filed: 10/16/17 12:52> Subjective - Date & Time of Evaluation Date of Evaluation: 10/16/17 Time of Evaluation: 07:30 - Subjective Subjective: Jodie Coronado DO PGY1 - IM Progress Note Patient seen and examined at bedside. Per nursing staff, no acute events overnight. Patient feels slightly improved overall today. Complaining of abdominal discomfort, unchanged since yesterday. Denies any episodes of lightheadedness or weakness. Denies dysuria, hematuria, fever, chills, nausea, vomiting, diarrhea. Is urinating in the commode, but is occasionally having difficulty making it before soiling herself. Is urinating very frequently today. Objective - Vital Signs/Intake and Output Vital Signs (last 24 hours): Temp Pulse Resp BP Pulse Ox 98.4 F 59 L 18 167/69 H 95 10/16/17 06:00 10/16/17 06:00 10/16/17 06:00 10/16/17 06:00 10/16/17 06:00 Intake and Output: 10/16/17 10/16/17 06:59 18:59 Intake Total 840 Balance 840 - Medications Medications: Current Medications Alprazolam (Xanax) 1 mg PO BID PRN; Protocol PRN Reason: Anxiety Stop: 10/20/17 14:52 Last Admin: 10/15/17 21:11 Dose: 1 mg Atorvastatin Calcium (Lipitor) 40 mg PO HS [facility] Last Admin: 10/15/17 21:10 Dose: 40 mg Cefpodoxime Proxetil (Vantin) 200 mg PO Q12 [facility] Last Admin: 10/16/17 11:13 Dose: 200 mg Cholecalciferol (Vitamin D) 1,000 intlu PO BID [facility] Last Admin: 10/16/17 11:14 Dose: 1,000 intlu Escitalopram Oxalate (Lexapro) 10 mg PO DAILY [facility] Last Admin: 10/16/17 11:13 Dose: 10 mg Fludrocortisone Acetate (Florinef) 0.1 mg PO DAILY [facility] Last Admin: 10/15/17 09:49 Dose: 0.1 mg Lactobacillus Acidophilus (Bacid Acidophilus) 1 cap PO BID [facility] Last Admin: 10/16/17 11:13 Dose: 1 cap Magnesium Oxide (Mag-Ox) 400 mg PO DAILY [facility] Last Admin: 10/16/17 11:14 Dose: 400 mg Pantoprazole Sodium (Protonix Ec Tab) 40 mg PO DAILY [facility] Last Admin: 10/16/17 11:13 Dose: 40 mg Polyethylene Glycol (Miralax) 17 gm PO BID PRN PRN Reason: Constipation Last Admin: 10/16/17 11:13 Dose: 17 gm Propranolol HCl (Inderal) 60 mg PO BID [facility] Last Admin: 10/16/17 11:13 Dose: 60 mg Vitamin B Complex/Vit C/Folic Acid (Nephro-Naif) 1 tab PO DAILY [facility] Last Admin: 10/16/17 11:13 Dose: 1 tab Warfarin Sodium (Coumadin) 2.5 mg PO 1800 [facility] PRN Reason: Protocol - Labs Labs: 10/16/17 06:30 10/16/17 06:30 PT 21.3 SECONDS (9.4-12.5) H 10/16/17 06:30 INR 1.83 (0.93-1.08) H 10/16/17 06:30 APTT 34.9 Seconds (25.1-36.5) 10/13/17 12:26 - Additional Findings Additional findings: - Constitutional Appears: Non-toxic, No Acute Distress - Head Exam Head Exam: ATRAUMATIC, NORMOCEPHALIC - Eye Exam Eye Exam: EOMI, Normal appearance, PERRL - ENT Exam ENT Exam: Mucous Membranes Moist - Neck Exam Neck Exam: Normal Inspection - Respiratory Exam Respiratory Exam: Clear to Ausculation Bilateral, NORMAL BREATHING PATTERN - Cardiovascular Exam Cardiovascular Exam: Clicks, RRR - GI/Abdominal Exam GI & Abdominal Exam: Distended, Soft, Normal Bowel Sounds. absent: Firm, Guarding, Rigid, Tenderness, Rebound - Extremities Exam Extremities Exam: Normal Inspection. absent: Calf Tenderness, Pedal Edema - Neurological Exam Neurological Exam: Alert, Awake, CN II-XII Intact, Oriented x3 - Psychiatric Exam Psychiatric exam: Normal Affect, Normal Mood - Skin Skin Exam: Dry, Intact, Normal Color Assessment and Plan - Assessment and Plan (Free Text) Assessment: Ms. 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 UTI noted on UA, culture shows E coli. Fatigue and lightheadedness 2/2 UTI - UA showed likely UTI; Urine culture shows sensitive E coli; patient reports increased urinary frequency - Afebrile, no leukocytosis - Considering prior history of recurrent UTI, will continue IV antibiotics - Continue ceftriaxone 1gm daily - Low risk fall precautions - PT eval/treat; recommended TCU; TCU eval ordered Prosthetic mitral valve with therapeutic INR - INR subtherapeutic today - Will give Coumadin 2.5mg today and recheck in AM - Recheck INR in AM h/o Nonobstructive CAD - Continue BB HTN - BP labile, intermittently elevated, and sometimes borderline hypotensive; will continue to monitor - Cont BB h/o Orthostatic hypotension - Continue Florinef 0.1mg daily HLD - Cont. Lipitor Depression/Anxiety - Cont. Xanax and Lexapro Constipation - Continue home MagOx - PRN Miralax - Patient did have BM today Abdominal discomfort - Likely 2/2 constipation vs antibiotic use; abdominal exam benign - Continue bowel regimen and PPI - Continue probiotic GI/DVT ppx - Cont. PTX/Coumadin Patient discussed and reviewed with attending, Dr. Hammond <Olegario Hammond - Last Filed: 10/17/17 14:59> Objective - Vital Signs/Intake and Output Vital Signs (last 24 hours): Temp Pulse Resp BP Pulse Ox 98 F 70 20 147/68 96 10/17/17 08:15 10/17/17 13:05 10/17/17 08:15 10/17/17 13:05 10/17/17 08:15 Intake and Output: 10/17/17 10/17/17 06:59 18:59 Intake Total 240 Output Total 620 Balance -380 - Labs Labs: 10/17/17 07:00 10/17/17 07:00 PT 22.4 SECONDS (9.4-12.5) H 10/17/17 07:00 INR 1.92 (0.93-1.08) H 10/17/17 07:00 APTT 34.9 Seconds (25.1-36.5) 10/13/17 12:26 Attending/Attestation - Attestation I have personally seen and examined this patient.: Yes I have fully participated in the care of the patient.: Yes I have reviewed all pertinent clinical information, including history, physical exam and plan: Yes Notes (Text): 10/17/17 14:56 Medical record note made by the resident after discussion with my direction and input after the patient was personally seen and examined by me. I have reviewed the chart and agree that the record accurately reflects by personal performance of the history, physical exam, data review, and medical decision-making, in the course for the patient. I have also personally directed the plan of care. . 71 yrs old female with PMH of rheumatic heart disease, s/p prosthetic mitral valve replacement in 1993 on anticoagulation with warfarin, nonobstructive CAD, HTN, .Orthostatic hypotension and Hyperlipidemia is admitted with weakness due to UTI. Patient is afebrile.Urine cultures are growing gram negative heather. Patient has been evaluated by physical therapy, TCU has been recommended. Management plan was discussed in detail with patient. Education was provided.
[2017-10-16] MEDS: cefTRIAXone 1 gm 1 GM/100 ML BAG IVPB SCH (16:40)
[2017-10-17 07:23] LABS: BASO # 0.02 K/mm3 (0.0-2.0); BASO % 0.2 % (0.0-3.0); EOS # 0.1 (0.0-0.7); EOS % 1.3 % (1.5-5.0); GRAN # 6.88 (1.4-6.5); GRAN % 78.4 % (50.0-68.0); HEMOGLOBIN 13.6 g/dL (12.0-16.0); LYMPH % 11.1 % (22.0-35.0); MEAN CELL VOLUME 82.7 fl (80.0-105.0); MEAN CORPUSCULAR HEMOGLOBIN 27.8 pg (25.0-35.0); MEAN CORPUSCULAR HGB CONC 33.6 g/dl (31.0-37.0); MEAN PLATELET VOLUME 10.3 fl (7.0-11.0); MONO # 0.8 (0.1-0.6); RBC 4.9 10^6/uL (3.5-6.1); RED CELL DISTRIBUTION WIDTH 14.3 % (11.5-14.5); WHITE BLOOD COUNT 8.8 10^3/ul (4.5-11.0)
[2017-10-17 07:40] LABS: ALB/GLOB RATIO 1.2 (1.1-1.8); ALBUMIN 3.5 g/dL (3.0-4.8); ALT/SGPT 34 U/L (7-56); AST/SGOT 28 U/L (14-36); BLOOD UREA NITROGEN 14 mg/dL (7-21); CALCIUM 10.2 mg/dL (8.4-10.5); GFR AFRICAN-AMERICAN > 60; GFR NON-AFRICAN AMERICAN > 60; INR 1.92 (0.93-1.08); PROTHROMBIN TIME 22.4 SECONDS (9.4-12.5)
[2017-10-17 08:17] VITALS: RESP 20; TEMP 98; O2SAT 96
[2017-10-17] MEDS: Lactobacillus Acidophilus 500 MU Cap PO SCH (09:25)
[2017-10-17] MEDS: Multivitamin Vitamin B Complex (Nephro-Vite) Tab PO SCH (09:25)
[2017-10-17] MEDS: Cholecalciferol 1,000 INTLU TAB PO SCH (09:26)
[2017-10-17] MEDS: Pantoprazole 40 mg EC Tab PO SCH (09:26)
[2017-10-17] MEDS: cefTRIAXone 1 gm 1 GM/100 ML BAG IVPB SCH (09:26)
[2017-10-17] MEDS: Magnesium Oxide 400 mg Tab UD PO SCH (09:26)
[2017-10-17 13:05] VITALS: BP 147/68; PULSE 70
--- NOTE | 2017-10-17 15:51 | CP.PCM.DIS ---
<Tom Villalpando - Last Filed: 10/17/17 15:48> Provider - Provider Date of Admission: 10/14/17 15:44 Attending physician: Olegario Hammond MD Time Spent in preparation of Discharge (in minutes): 35 Diagnosis - Discharge Diagnosis (1) UTI (urinary tract infection) Status: Acute Priority: High (2) Altered mental status Status: Acute Priority: Medium Hospital Course - Lab Results Lab Results: Most Recent Lab Values WBC 8.8 10^3/ul (4.5-11.0) D 10/17/17 07:00 RBC 4.90 10^6/uL (3.5-6.1) 10/17/17 07:00 Hgb 13.6 g/dL (12.0-16.0) 10/17/17 07:00 Hct 40.5 % (36.0-48.0) 10/17/17 07:00 MCV 82.7 fl (80.0-105.0) 10/17/17 07:00 MCH 27.8 pg (25.0-35.0) 10/17/17 07:00 MCHC 33.6 g/dl (31.0-37.0) 10/17/17 07:00 RDW 14.3 % (11.5-14.5) 10/17/17 07:00 Plt Count 174 10^3/uL (120.0-450.0) 10/17/17 07:00 MPV 10.3 fl (7.0-11.0) 10/17/17 07:00 Gran % 78.4 % (50.0-68.0) H 10/17/17 07:00 Lymph % (Auto) 11.1 % (22.0-35.0) L 10/17/17 07:00 [place] % (Auto) 9.0 % (1.0-6.0) H 10/17/17 07:00 Eos % (Auto) 1.3 % (1.5-5.0) L 10/17/17 07:00 Baso % (Auto) 0.2 % (0.0-3.0) 10/17/17 07:00 Gran # 6.88 (1.4-6.5) H 10/17/17 07:00 Lymph # (Auto) 1.0 (1.2-3.4) L 10/17/17 07:00 [place] # (Auto) 0.8 (0.1-0.6) H 10/17/17 07:00 Eos # (Auto) 0.1 (0.0-0.7) 10/17/17 07:00 Baso # (Auto) 0.02 K/mm3 (0.0-2.0) 10/17/17 07:00 PT 22.4 SECONDS (9.4-12.5) H 10/17/17 07:00 INR 1.92 (0.93-1.08) H 10/17/17 07:00 APTT 34.9 Seconds (25.1-36.5) 10/13/17 12:26 Sodium 144 mmol/L (132-148) 10/17/17 07:00 Potassium 3.5 mmol/L (3.6-5.0) L 10/17/17 07:00 Chloride 105 mmol/L (98-107) 10/17/17 07:00 Carbon Dioxide 28 mmol/L (21-33) 10/17/17 07:00 Anion Gap 15 (10-20) 10/17/17 07:00 BUN 14 mg/dL (7-21) 10/17/17 07:00 Creatinine 0.8 mg/dl (0.7-1.2) 10/17/17 07:00 Est GFR ( Amer) > 60 10/17/17 07:00 Est GFR (Non-Af Amer) > 60 10/17/17 07:00 POC Glucose (mg/dL) 96 mg/dL (65-110) 10/13/17 11:50 Random Glucose 91 mg/dL (70-110) 10/17/17 07:00 Calcium 10.2 mg/dL (8.4-10.5) 10/17/17 07:00 Phosphorus 3.9 mg/dL (2.5-4.5) 10/14/17 06:45 Magnesium 2.1 mg/dL (1.7-2.2) 10/14/17 06:45 Total Bilirubin 0.4 mg/dL (0.2-1.3) 10/17/17 07:00 AST 28 U/L (14-36) 10/17/17 07:00 ALT 34 U/L (7-56) 10/17/17 07:00 Alkaline Phosphatase 50 U/L (38-126) 10/17/17 07:00 Ammonia < 9 umol/L (9-33) L 10/13/17 12:26 Lactate Dehydrogenase 658 U/L (333-699) 10/13/17 12:26 Total Creatine Kinase 70 U/L (35-230) 10/13/17 12:26 Troponin I < 0.01 ng/mL 10/13/17 12:26 Total Protein 6.4 g/dL (5.8-8.3) 10/17/17 07:00 Albumin 3.5 g/dL (3.0-4.8) 10/17/17 07:00 Globulin 2.9 gm/dL 10/17/17 07:00 Albumin/Globulin Ratio 1.2 (1.1-1.8) 10/17/17 07:00 Lipase 101 U/L (23-300) 10/13/17 12:26 Urine Color Yellow (YELLOW) 10/13/17 12:26 Urine Appearance Sl cloudy (CLEAR) 10/13/17 12:26 Urine pH 7.0 (4.7-8.0) 10/13/17 12:26 Ur Specific [place] 1.010 (1.005-1.035) 10/13/17 12:26 Urine Protein Negative mg/dL (<30 mg/dL) 10/13/17 12:26 Urine Glucose (UA) Negative mg/dL (NEGATIVE) 10/13/17 12:26 Urine Ketones Negative mg/dL (NEGATIVE) 10/13/17 12:26 Urine Blood Trace-lysed (NEGATIVE) H 10/13/17 12:26 Urine Nitrate Positive (NEGATIVE) H 10/13/17 12:26 Urine Bilirubin Negative (NEGATIVE) 10/13/17 12:26 Urine Urobilinogen 0.2 E.U./dL (<1 E.U./dL) 10/13/17 12:26 Ur Leukocyte Esterase Moderate Karin/uL (NEGATIVE) H 10/13/17 12:26 Urine RBC 2 - 5 /hpf (0-2) 10/13/17 12:26 Urine WBC 25 - 30 /hpf (0-6) 10/13/17 12:26 Ur Epithelial Cells 6 - 8 /hpf (0-5) 10/13/17 12:26 Urine Bacteria Many (NEG) 10/13/17 12:26 Alcohol, Quantitative < 10 mg/dL (0-10) 10/13/17 12:26 - Hospital Course Hospital Course: Ms. 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 Patient also reports that for the past two months, she has been urinating more frequently and urine has been "brown." Vitals were stable and there was no alteration in mental status on admission. On UA, patient was noted to have a UTI, though without signs of sepsis. She was treated with IV antibiotics, pending blood and urine cultures and sensitivities. Patient was also constipated, with abdominal discomfort, which was managed with a bowel regimen and probiotics. Patient was noted to be very weak, with gait unsteadiness, and she was seen by physical therapy, who recommended TCU for rehabilitation. Urine cultures grew greater than 100,000 CFU of lucas-sensitive E coli in the urine. Blood cultures remained negative. Patient feels slightly improved overall today, though still with significant weakness overall, and minimal abdominal discomfrot. Patient will be discharged to TCU for continued antibiotics and physical rehabilitation. - Date & Time of H&P Date of H&P: 10/17/17 Time of H&P: 10:53 Discharge Exam - Head Exam Head Exam: ATRAUMATIC, NORMOCEPHALIC - Eye Exam Eye Exam: EOMI, Normal appearance - ENT Exam ENT Exam: Mucous Membranes Moist, Normal Oropharynx - Neck Exam Neck exam: Normal Inspection - Respiratory Exam Respiratory Exam: Clear to PA & Lateral, NORMAL BREATHING PATTERN. absent: Accessory Muscle Use - Cardiovascular Exam Cardiovascular Exam: RRR, +S1, +S2 - GI/Abdominal Exam GI & Abdominal Exam: Normal Bowel Sounds. absent: Diminished Bowel Sounds - Extremities Exam Extremities exam: normal inspection - Neurological Exam Neurological exam: Alert, CN II-XII Intact, Oriented x3 - Psychiatric Exam Psychiatric exam: Normal Affect, Normal Mood - Skin Skin Exam: Dry, Intact, Normal Color, Warm Discharge Plan - Follow Up Plan Condition: GOOD Disposition: REHAB FACILITY/REHAB UNIT Instructions: High Blood Pressure in Adults, Mitral Valve Replacement, Urinary Tract Infection, Adult (DC), Vitamin K Diet, What to Do When Your INR Is Too High , Coronary Heart Disease (DC), E. coli Infection (DC), Anti-Clotting Medicines: Warfarin (Coumadin), Warfarin, Going Home on Blood Thinners , Altered Mental Status (GEN) Additional Instructions: 1) Patient to follow up with PMD, Dr. Reynoso within one week of hospital discharge. 2) Patient to take any medications as prescribed. 3) Patient to monitor INR on a daily basis while in TCU. 4) Patient to be given one final dose of Ceftriaxone on 10/18/17. Referrals: Olegario Hammond MD [Staff Provider] - <Olegario Hammond - Last Filed: 10/17/17 16:28> Provider - Provider Date of Admission: 10/14/17 15:44 Attending physician: Olegario Hammond MD Hospital Course - Lab Results Lab Results: Most Recent Lab Values WBC 8.8 10^3/ul (4.5-11.0) D 10/17/17 07:00 RBC 4.90 10^6/uL (3.5-6.1) 10/17/17 07:00 Hgb 13.6 g/dL (12.0-16.0) 10/17/17 07:00 Hct 40.5 % (36.0-48.0) 10/17/17 07:00 MCV 82.7 fl (80.0-105.0) 10/17/17 07:00 MCH 27.8 pg (25.0-35.0) 10/17/17 07:00 MCHC 33.6 g/dl (31.0-37.0) 10/17/17 07:00 RDW 14.3 % (11.5-14.5) 10/17/17 07:00 Plt Count 174 10^3/uL (120.0-450.0) 10/17/17 07:00 MPV 10.3 fl (7.0-11.0) 10/17/17 07:00 Gran % 78.4 % (50.0-68.0) H 10/17/17 07:00 Lymph % (Auto) 11.1 % (22.0-35.0) L 10/17/17 07:00 [place] % (Auto) 9.0 % (1.0-6.0) H 10/17/17 07:00 Eos % (Auto) 1.3 % (1.5-5.0) L 10/17/17 07:00 Baso % (Auto) 0.2 % (0.0-3.0) 10/17/17 07:00 Gran # 6.88 (1.4-6.5) H 10/17/17 07:00 Lymph # (Auto) 1.0 (1.2-3.4) L 10/17/17 07:00 [place] # (Auto) 0.8 (0.1-0.6) H 10/17/17 07:00 Eos # (Auto) 0.1 (0.0-0.7) 10/17/17 07:00 Baso # (Auto) 0.02 K/mm3 (0.0-2.0) 10/17/17 07:00 PT 22.4 SECONDS (9.4-12.5) H 10/17/17 07:00 INR 1.92 (0.93-1.08) H 10/17/17 07:00 APTT 34.9 Seconds (25.1-36.5) 10/13/17 12:26 Sodium 144 mmol/L (132-148) 10/17/17 07:00 Potassium 3.5 mmol/L (3.6-5.0) L 10/17/17 07:00 Chloride 105 mmol/L (98-107) 10/17/17 07:00 Carbon Dioxide 28 mmol/L (21-33) 10/17/17 07:00 Anion Gap 15 (10-20) 10/17/17 07:00 BUN 14 mg/dL (7-21) 10/17/17 07:00 Creatinine 0.8 mg/dl (0.7-1.2) 10/17/17 07:00 Est GFR ( Amer) > 60 10/17/17 07:00 Est GFR (Non-Af Amer) > 60 10/17/17 07:00 POC Glucose (mg/dL) 96 mg/dL (65-110) 10/13/17 11:50 Random Glucose 91 mg/dL (70-110) 10/17/17 07:00 Calcium 10.2 mg/dL (8.4-10.5) 10/17/17 07:00 Phosphorus 3.9 mg/dL (2.5-4.5) 10/14/17 06:45 Magnesium 2.1 mg/dL (1.7-2.2) 10/14/17 06:45 Total Bilirubin 0.4 mg/dL (0.2-1.3) 10/17/17 07:00 AST 28 U/L (14-36) 10/17/17 07:00 ALT 34 U/L (7-56) 10/17/17 07:00 Alkaline Phosphatase 50 U/L (38-126) 10/17/17 07:00 Ammonia < 9 umol/L (9-33) L 10/13/17 12:26 Lactate Dehydrogenase 658 U/L (333-699) 10/13/17 12:26 Total Creatine Kinase 70 U/L (35-230) 10/13/17 12:26 Troponin I < 0.01 ng/mL 10/13/17 12:26 Total Protein 6.4 g/dL (5.8-8.3) 10/17/17 07:00 Albumin 3.5 g/dL (3.0-4.8) 10/17/17 07:00 Globulin 2.9 gm/dL 10/17/17 07:00 Albumin/Globulin Ratio 1.2 (1.1-1.8) 10/17/17 07:00 Lipase 101 U/L (23-300) 10/13/17 12:26 Urine Color Yellow (YELLOW) 10/13/17 12:26 Urine Appearance Sl cloudy (CLEAR) 10/13/17 12:26 Urine pH 7.0 (4.7-8.0) 10/13/17 12:26 Ur Specific [place] 1.010 (1.005-1.035) 10/13/17 12:26 Urine Protein Negative mg/dL (<30 mg/dL) 10/13/17 12:26 Urine Glucose (UA) Negative mg/dL (NEGATIVE) 10/13/17 12:26 Urine Ketones Negative mg/dL (NEGATIVE) 10/13/17 12:26 Urine Blood Trace-lysed (NEGATIVE) H 10/13/17 12:26 Urine Nitrate Positive (NEGATIVE) H 10/13/17 12:26 Urine Bilirubin Negative (NEGATIVE) 10/13/17 12:26 Urine Urobilinogen 0.2 E.U./dL (<1 E.U./dL) 10/13/17 12:26 Ur Leukocyte Esterase Moderate Karin/uL (NEGATIVE) H 10/13/17 12:26 Urine RBC 2 - 5 /hpf (0-2) 10/13/17 12:26 Urine WBC 25 - 30 /hpf (0-6) 10/13/17 12:26 Ur Epithelial Cells 6 - 8 /hpf (0-5) 10/13/17 12:26 Urine Bacteria Many (NEG) 10/13/17 12:26 Alcohol, Quantitative < 10 mg/dL (0-10) 10/13/17 12:26 Attending/Attestation - Attestation I have personally seen and examined this patient.: Yes I have fully participated in the care of the patient.: Yes I have reviewed all pertinent clinical information, including history, physical exam and plan: Yes Notes (Text): 10/17/17 16:27 Medical record note made by the resident after discussion with my direction and input after the patient was personally seen and examined by me. I have reviewed the chart and agree that the record accurately reflects by personal performance of the history, physical exam, data review, and medical decision-making, in the course for the patient. I have also personally directed the plan of care. . 71 yrs old female with PMH of rheumatic heart disease, s/p prosthetic mitral valve replacement in 1993 on anticoagulation with warfarin, nonobstructive CAD, HTN, .Orthostatic hypotension and Hyperlipidemia was admitted with weakness due to UTI. Patient is afebrile.Urine cultures are growing E.coli.Blood cultures are negative for any growth.Mental status is at base line. Patient has been evaluated by physical therapy, TCU has been recommended.Patient will be discharged to TCU for rehabilitation. Management plan was discussed in detail with patient. Education was provided.
== END 2017-10-17 14:39 | DRG 690 ==
LOC: ED 11:10 → ERH 13:21 → 5RSO 15:04 → OBSVTOIN 10-14 15:44 → 5RNO 10-15 20:18
PROVIDERS: ADMIT Internal Medicine; ATTEND Internal Medicine
DX: N39.0 Urinary tract infection, site not specified (principal); B96.20 Unspecified Escherichia coli [E. coli] as the cause of diseases classified elsewhere; E78.5 Hyperlipidemia, unspecified; F41.9 Anxiety disorder, unspecified; F32.89 Other specified depressive episodes; G25.0 Essential tremor; I10 Essential (primary) hypertension; I25.10 Atherosclerotic heart disease of native coronary artery without angina pectoris; I95.1 Orthostatic hypotension; K21.9 Gastro-esophageal reflux disease without esophagitis; K59.00 Constipation, unspecified; Z79.01 Long term (current) use of anticoagulants; Z87.440 Personal history of urinary (tract) infections; Z90.49 Acquired absence of other specified parts of digestive tract; Z90.710 Acquired absence of both cervix and uterus; Z95.2 Presence of prosthetic heart valve; Z96.653 Presence of artificial knee joint, bilateral; Z86.79 Personal history of other diseases of the circulatory system; R41.82 Altered mental status, unspecified

== ENCOUNTER 2017-10-17 14:37 | Inpatient (IN) | payer OTHER, BC ==
[2017-10-17] MEDS ORDERED: POLYETHYLENE GLYCOL 3350 17 GM/Dose PACKET PO PRN (15:09)
[2017-10-17 17:21] VITALS: BMI 37.4
[2017-10-17] MEDS ORDERED: Pneumococcal 23-Valent Vaccine IM ONE (17:22)
[2017-10-17] MEDS: Lactobacillus Acidophilus 500 MU Cap PO SCH (17:26)
[2017-10-17] MEDS: Potassium Chloride 20 mEq ER Tab PO SCH (17:27)
[2017-10-17] MEDS: Cholecalciferol 1,000 INTLU TAB PO SCH (17:28)
[2017-10-18] MEDS: Pantoprazole 40 mg EC Tab PO SCH (05:22)
[2017-10-18] MEDS ORDERED: cefTRIAXone 1 gm 1 GM/100 ML BAG IVPB SCH ×2 (06:00→10:00)
--- NOTE | 2017-10-18 07:41 | CP.PCM.HP ---
<Tom Villalpando - Last Filed: 10/18/17 16:35> History of Present Illness - History of Present Illness History of Present Illness: Ms. 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 She was treated with IV antibiotics and maintained on her home medications. Physical therapy evaluated the patient and recommended rehabilitation services for deconditioning and gait instability. She is now in the TCU for physical therapy. Currently, the patient denies chest pain, palpitations, or fever. Patient admits to 4 soft BM today. Otherwise, 12 point review of systems is negative. 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 Lopez Present on Admission - Present on Admission Any Indicators Present on Admission: No Review of Systems - Review of Systems All systems: reviewed and no additional remarkable complaints except (as per HPI ) Past Patient History - Infectious Disease Hx of Infectious Diseases: None - Tetanus Immunizations Tetanus Immunization: Unknown - Past Medical History & Family History Past Medical History?: Yes - Past Social History Smoking Status: Never Smoked - CARDIAC Hx Cardiac Disorders: Yes (cad) Hx Hypercholesterolemia: Yes Hx Hypertension: Yes - PULMONARY Hx Respiratory Disorders: Yes Hx Pneumonia: Yes - NEUROLOGICAL Hx Neurological Disorder: No - HEENT Hx HEENT Problems: No - RENAL Hx Chronic Kidney Disease: No - ENDOCRINE/METABOLIC Hx Endocrine Disorders: No - HEMATOLOGICAL/ONCOLOGICAL Hx Anemia: Yes (blood transfusion) - INTEGUMENTARY Hx Dermatological Problems: Yes Other/Comment: b/l healed surgical scars to both knees, tip of left great toe red - MUSCULOSKELETAL/RHEUMATOLOGICAL Hx Falls: No - GASTROINTESTINAL Hx Gastrointestinal Disorders: Yes (reflux/abd pain) - GENITOURINARY/GYNECOLOGICAL Hx Reproductive Disorders: Yes (hyst 1970) - PSYCHIATRIC Hx Anxiety: Yes Hx Depression: Yes Hx Substance Use: No - SURGICAL HISTORY Hx Cholecystectomy: Yes (1984) Hx Hysterectomy: Yes (1969) Hx Orthopedic Surgery: Yes (L KNEE, R KNEE) Hx Valve Replacement: Yes (MVR 2/2 MVP 2/2 RHD) Other/Comment: left oopherectomy - ANESTHESIA Hx Anesthesia: Yes Hx Anesthesia Reactions: No Meds Allergies/Adverse Reactions: Allergies Allergy/AdvReac Type Severity Reaction Status Date / Time furosemide Allergy Mild ITCHING Verified 07/07/17 14:43 morphine Allergy DIARRHEA Verified 07/07/17 14:43 ciprofloxacin [From Cipro] AdvReac Mild ITCHING Verified 07/07/17 14:43 ciprofloxacin HCl AdvReac Mild ITCHING Verified 07/07/17 14:43 [From Cipro] Physical Exam - Constitutional Appears: Well, Non-toxic - Head Exam Head Exam: ATRAUMATIC, NORMOCEPHALIC - Eye Exam Eye Exam: EOMI, Normal appearance - ENT Exam ENT Exam: Mucous Membranes Moist - Neck Exam Neck exam: Positive for: Normal Inspection - Respiratory Exam Respiratory Exam: Clear to Auscultation Bilateral, NORMAL BREATHING PATTERN. absent: Accessory Muscle Use - Cardiovascular Exam Cardiovascular Exam: RRR, +S1, +S2 - GI/Abdominal Exam GI & Abdominal Exam: Normal Bowel Sounds, Soft. absent: Guarding - Extremities Exam Extremities exam: Positive for: normal inspection. Negative for: calf tenderness - Back Exam Back exam: NORMAL INSPECTION. absent: CVA tenderness (L), CVA tenderness (R) - Neurological Exam Neurological exam: Alert, Oriented x3 - Psychiatric Exam Psychiatric exam: Normal Affect, Normal Mood - Skin Skin Exam: Dry, Intact, Normal Color, Warm Results - Vital Signs Recent Vital Signs: Last Vital Signs Temp 98.7 F 10/18/17 06:00 Pulse 61 10/18/17 06:00 Resp 18 10/18/17 06:00 BP 119/65 10/18/17 06:00 Pulse Ox 94 L 10/18/17 06:00 Assessment & Plan - Assessment and Plan (Free Text) Assessment: Ms. 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 UTI noted on UA, culture shows E coli. She has completed her course of IV antibiotics and is mentating normally. She is in the TCU for further evaluation and treatment of gait dysfunction and weakness. Fatigue and lightheadedness, resolved - Afebrile, no leukocytosis - Considering prior history of recurrent UTI, will continue IV antibiotics - Continue ceftriaxone 1gm daily - Low risk fall precautions - PT eval/treat; recommended TCU; TCU eval ordered Prosthetic mitral valve with therapeutic INR - INR 2.5 - Will give Coumadin 2.5mg today and recheck in AM - Recheck INR in AM h/o Nonobstructive CAD - Continue BB HTN - BP labile, intermittently elevated, and sometimes borderline hypotensive; will continue to monitor - Cont BB h/o Orthostatic hypotension - Continue Florinef 0.1mg daily HLD - Cont. Lipitor Depression/Anxiety - Cont. Xanax and Lexapro Loose bowel movement - PPI - Continue probiotic - One dose of Imodium given GI/DVT ppx - Cont. PTX/Coumadin Patient discussed and reviewed with attending, Dr. Hammond - Date & Time Date: 10/18/17 Time: 09:45 Decision To Admit - . Bed Request Type: [facility] Admitting Physician: Olegario Hammond <Olegario Hammond - Last Filed: 10/26/17 09:41> Results - Vital Signs Recent Vital Signs: Last Vital Signs Temp 98.0 F 10/25/17 11:36 Pulse 60 10/25/17 11:36 Resp 18 10/25/17 11:36 BP 176/79 H 10/25/17 11:36 Pulse Ox 96 10/25/17 11:36 - Labs Result Diagrams: 10/21/17 06:30 10/22/17 08:15 Attending/Attestation - Attestation I have personally seen and examined this patient.: Yes I have fully participated in the care of the patient.: Yes I have reviewed all pertinent clinical information: Yes Notes (Text): 10/26/17 09:40 Medical record note made by the resident after discussion with my direction and input after the patient was personally seen and examined by me. I have reviewed the chart and agree that the record accurately reflects by personal performance of the history, physical exam, data review, and medical decision-making, in the course for the patient. I have also personally directed the plan of care. . 71 yrs old female with PMH of rheumatic heart disease, s/p prosthetic mitral valve replacement in 1993 on anticoagulation with warfarin, non obstructive CAD , HTN, .Orthostatic hypotension and Hyperlipidemia was admitted to medical floor with weakness due to UTI, treated with IV rocephin,now admitted in TCU for physical rehabilitation. Patient is afebrile.Urine cultures grew E.coli.Blood cultures are negative for any growth.Mental status is at base line.Antibiotic can be discontinued , Management plan was discussed in detail with patient. Education was provided.
[2017-10-18 07:48] LABS: INR 2.48 (0.93-1.08)
[2017-10-18] MEDS: Potassium Chloride 20 mEq ER Tab PO SCH (08:25)
[2017-10-18] MEDS ORDERED: Pantoprazole 40 mg EC Tab PO SCH (10:00)
[2017-10-18] MEDS ORDERED: Loperamide Hydrochloride 1 mg/5 ml Cup PO ONE (10:54)
[2017-10-18] MEDS: Lactobacillus Acidophilus 500 MU Cap PO SCH ×2 (10:54→18:06)
[2017-10-18] MEDS: Magnesium Oxide 400 mg Tab UD PO SCH (11:06)
[2017-10-18] MEDS: Cholecalciferol 1,000 INTLU TAB PO SCH ×2 (11:07→18:08)
[2017-10-18] MEDS: Multivitamin Vitamin B Complex (Nephro-Vite) Tab PO SCH (11:07)
[2017-10-19] MEDS: Pantoprazole 40 mg EC Tab PO SCH (05:13)
[2017-10-19 07:29] LABS: INR 2.89 (0.93-1.08)
[2017-10-19] MEDS: Potassium Chloride 20 mEq ER Tab PO SCH (08:10)
[2017-10-19 08:21] LABS: BLOOD UREA NITROGEN 14 mg/dL (7-21); GFR AFRICAN-AMERICAN > 60; GFR NON-AFRICAN AMERICAN > 60
[2017-10-19] MEDS: Lactobacillus Acidophilus 500 MU Cap PO SCH ×2 (10:04→17:30)
[2017-10-19] MEDS: Cholecalciferol 1,000 INTLU TAB PO SCH ×2 (10:05→17:31)
[2017-10-19] MEDS: Magnesium Oxide 400 mg Tab UD PO SCH (10:05)
[2017-10-19] MEDS: Multivitamin Vitamin B Complex (Nephro-Vite) Tab PO SCH (10:05)
[2017-10-19] MEDS ORDERED: Loperamide Hydrochloride 1 mg/5 ml Cup PO ONE (15:54)
[2017-10-20] MEDS: Pantoprazole 40 mg EC Tab PO SCH (05:53)
[2017-10-20 06:54] LABS: INR 2.73 (0.93-1.08); PROTHROMBIN TIME 32.1 SECONDS (9.4-12.5)
[2017-10-20] MEDS: Lactobacillus Acidophilus 500 MU Cap PO SCH ×2 (11:18→18:09)
[2017-10-20] MEDS: Magnesium Oxide 400 mg Tab UD PO SCH (11:21)
[2017-10-20] MEDS: Multivitamin Vitamin B Complex (Nephro-Vite) Tab PO SCH (11:22)
[2017-10-20] MEDS: Cholecalciferol 1,000 INTLU TAB PO SCH ×2 (11:22→18:11)
--- NOTE | 2017-10-20 11:43 | CP.PCM.PN ---
<Sabrina Rosado - Last Filed: 10/20/17 11:49> Subjective - Date & Time of Evaluation Date of Evaluation: 10/20/17 Time of Evaluation: 11:40 - Subjective Subjective: Internal Medicine Progress Note: Patient seen and examined at bedside. Per nursing no acute events overnight. Patient stated was having loose stools for past two days that has resolved. Reports that she feels occasional weakness however she is participating in physical therapy. She is out of bed to chair and tolerating diet. No other complaints at this time. Denies headaches, dizziness, cp, palpitations, sob, abdominal pain, urinary symptoms. Objective - Vital Signs/Intake and Output Vital Signs (last 24 hours): Temp Pulse Resp BP Pulse Ox 97.4 F L 62 16 150/74 97 10/20/17 10:52 10/20/17 11:19 10/20/17 10:52 10/20/17 11:19 10/20/17 10:52 - Medications Medications: Current Medications Acetaminophen (Tylenol 325mg Tab) 650 mg PO Q6H PRN PRN Reason: Pain, Mild (1-3) Last Admin: 10/19/17 17:32 Dose: 650 mg Alprazolam (Xanax) 1 mg PO BID [facility] PRN Reason: Protocol Stop: 10/24/17 18:01 Last Admin: 10/20/17 11:25 Dose: 1 mg Atorvastatin Calcium (Lipitor) 40 mg PO HS [facility] Last Admin: 10/19/17 21:31 Dose: 40 mg Cholecalciferol (Vitamin D) 1,000 intlu PO BID [facility] Last Admin: 10/20/17 11:22 Dose: 1,000 intlu Escitalopram Oxalate (Lexapro) 10 mg PO DAILY [facility] Last Admin: 10/20/17 11:21 Dose: 10 mg Fludrocortisone Acetate (Florinef) 0.1 mg PO DAILY [facility] Last Admin: 10/20/17 11:19 Dose: 0.1 mg Home Med (Home Med) 150 unit PO Q30D [facility] Lactobacillus Acidophilus (Bacid Acidophilus) 1 cap PO BID [facility] Last Admin: 10/20/17 11:18 Dose: 1 cap Magnesium Oxide (Mag-Ox) 400 mg PO DAILY [facility] Last Admin: 10/20/17 11:21 Dose: 400 mg Ondansetron HCl (Zofran Inj) 4 mg IVP Q4H PRN PRN Reason: Nausea/Vomiting Last Admin: 10/17/17 17:33 Dose: 4 mg Pantoprazole Sodium (Protonix Ec Tab) 40 mg PO 0600 [facility] Last Admin: 10/20/17 05:53 Dose: 40 mg Polyethylene Glycol (Miralax) 17 gm PO BID PRN PRN Reason: Constipation Propranolol HCl (Inderal) 60 mg PO Q12 [facility] Last Admin: 10/20/17 11:19 Dose: 60 mg Vitamin B Complex/Vit C/Folic Acid (Nephro-Naif) 1 tab PO DAILY [facility] Last Admin: 10/20/17 11:22 Dose: 1 tab Warfarin Sodium (Coumadin) 2 mg PO 1800 [facility] PRN Reason: Protocol Last Admin: 10/19/17 17:31 Dose: 2 mg - Labs Labs: 10/19/17 06:30 PT 32.1 SECONDS (9.4-12.5) H 10/20/17 05:45 INR 2.73 (0.93-1.08) H 10/20/17 05:45 - Constitutional Appears: Well, No Acute Distress, Chronically Ill - Head Exam Head Exam: ATRAUMATIC, NORMAL INSPECTION, NORMOCEPHALIC - Eye Exam Eye Exam: EOMI, Normal appearance - ENT Exam ENT Exam: Mucous Membranes Moist - Respiratory Exam Respiratory Exam: Clear to Ausculation Bilateral, NORMAL BREATHING PATTERN. absent: Rales, Rhonchi, Wheezes - Cardiovascular Exam Cardiovascular Exam: REGULAR RHYTHM, +S1, +S2 - GI/Abdominal Exam GI & Abdominal Exam: Soft, Normal Bowel Sounds. absent: Distended, Guarding, Rigid, Tenderness - Extremities Exam Extremities Exam: Pedal Edema. 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 Patient was treated and is not admitted to the TCU for deconditioning. Fatigue and lightheadedness, resolved - Continue physical therapy Diarrhea - Received Imodium yesterday - Improved - If continues to have watery stools will send C diff Prosthetic mitral valve with therapeutic INR - INR 2.73 - Continue Coumadin 2mg PO daily - F/U INR Q2D History Nonobstructive CAD - Continue propranolol 60mg PO Q12H History HTN - Continue propranolol 60mg PO Q12H History Orthostatic hypotension - Continue Florinef 0.1mg daily HLD - Continue Lipitor Depression/Anxiety - Cont. Xanax and Lexapro GI/DVT ppx - Cont. protonix/Coumadin Plan discussed with Dr Davis <Ten Davis - Last Filed: 10/20/17 14:07> Objective - Vital Signs/Intake and Output Vital Signs (last 24 hours): Temp Pulse Resp BP Pulse Ox 97.4 F L 62 16 150/74 97 10/20/17 10:52 10/20/17 11:19 10/20/17 10:52 10/20/17 11:19 10/20/17 10:52 - Medications Medications: Current Medications Acetaminophen (Tylenol 325mg Tab) 650 mg PO Q6H PRN PRN Reason: Pain, Mild (1-3) Last Admin: 10/19/17 17:32 Dose: 650 mg Alprazolam (Xanax) 1 mg PO BID [facility] PRN Reason: Protocol Stop: 10/24/17 18:01 Last Admin: 10/20/17 11:25 Dose: 1 mg Atorvastatin Calcium (Lipitor) 40 mg PO HS [facility] Last Admin: 10/19/17 21:31 Dose: 40 mg Cholecalciferol (Vitamin D) 1,000 intlu PO BID [facility] Last Admin: 10/20/17 11:22 Dose: 1,000 intlu Escitalopram Oxalate (Lexapro) 10 mg PO DAILY [facility] Last Admin: 10/20/17 11:21 Dose: 10 mg Fludrocortisone Acetate (Florinef) 0.1 mg PO DAILY [facility] Last Admin: 10/20/17 11:19 Dose: 0.1 mg Home Med (Home Med) 150 unit PO Q30D [facility] Lactobacillus Acidophilus (Bacid Acidophilus) 1 cap PO BID [facility] Last Admin: 10/20/17 11:18 Dose: 1 cap Magnesium Oxide (Mag-Ox) 400 mg PO DAILY [facility] Last Admin: 10/20/17 11:21 Dose: 400 mg Ondansetron HCl (Zofran Inj) 4 mg IVP Q4H PRN PRN Reason: Nausea/Vomiting Last Admin: 10/17/17 17:33 Dose: 4 mg Pantoprazole Sodium (Protonix Ec Tab) 40 mg PO 0600 [facility] Last Admin: 10/20/17 05:53 Dose: 40 mg Polyethylene Glycol (Miralax) 17 gm PO BID PRN PRN Reason: Constipation Propranolol HCl (Inderal) 60 mg PO Q12 [facility] Last Admin: 10/20/17 11:19 Dose: 60 mg Vitamin B Complex/Vit C/Folic Acid (Nephro-Naif) 1 tab PO DAILY [facility] Last Admin: 10/20/17 11:22 Dose: 1 tab Warfarin Sodium (Coumadin) 2 mg PO 1800 [facility] PRN Reason: Protocol Last Admin: 10/19/17 17:31 Dose: 2 mg - Labs Labs: 10/19/17 06:30 PT 32.1 SECONDS (9.4-12.5) H 10/20/17 05:45 INR 2.73 (0.93-1.08) H 10/20/17 05:45 Attending/Attestation - Attestation I have personally seen and examined this patient.: Yes I have fully participated in the care of the patient.: Yes I have reviewed all pertinent clinical information, including history, physical exam and plan: Yes Notes (Text): 10/20/17 14:04 71 year old female with past medical history of prosthetic mitral valve replacement on coumadin, CAD, and hypertension who presented with altered mental status secondary to UTI. She is s/p antibiotics treatment. She was transferred to TCU for physical therapy for deconditioned state. Continue with PT while in TCU. Continue with coumadin as per INR. She was complaining of diarrhea for the past two days but now says it is better. Ten Davis MD Hospitalist.
[2017-10-20] MEDS ORDERED: Sodium Chloride 0.9% 1,000 ML IV SCH (15:00)
[2017-10-20 16:53] LABS: ALB/GLOB RATIO 1.2 (1.1-1.8); ALBUMIN 3.5 g/dL (3.0-4.8); ALT/SGPT 126 U/L (7-56); AST/SGOT 99 U/L (14-36); BLOOD UREA NITROGEN 17 mg/dL (7-21); CALCIUM 10.2 mg/dL (8.4-10.5); GFR AFRICAN-AMERICAN > 60; GFR NON-AFRICAN AMERICAN > 60
--- NOTE | 2017-10-20 20:59 | US ---
EXAM: US Abdomen Complete CLINICAL HISTORY: 71 years old, female; Pain; Abdominal pain; Additional info: Abd pain TECHNIQUE: Real-time ultrasound of the abdomen (complete) with image documentation. COMPARISON: US - HEPATIC SPLEEN 2016-06-13 14:11 FINDINGS: Liver: Liver measures 15.4 CM longitudinally. Increased echogenicity consistent with hepatic steatosis. No intrahepatic bile duct dilation. Portal vein is patent with normal direction of flow. Gallbladder: Gallbladder is surgically absent. Common bile duct: Common bile duct measures 3.4 mm in diameter. No stones. No dilation. Pancreas: Unremarkable as visualized. Kidneys: Right kidney measures 9.8 CM longitudinally. Left kidney measures 9.8 CM longitudinally. No stones. No hydronephrosis. Spleen: Spleen is mildly enlarged measuring 12.9 CM longitudinally. Aorta: Unremarkable. No aneurysm. Inferior vena cava: Unremarkable. IMPRESSION: 1. Hepatic steatosis. 2. Cholecystectomy. 3. Remainder of findings as above.
[2017-10-20 23:26] LABS: URINE BILIRUBIN NEGATIVE (NEGATIVE); URINE BLOOD NEGATIVE (NEGATIVE); URINE GLUCOSE (UA) NEGATIVE (NEGATIVE); URINE LEUKOCYTE ESTERASE TRACE Leu/uL (NEGATIVE); URINE PROTEIN TRACE mg/dL (<30 mg/dL); URINE UROBILINOGEN 0.2 E.U./dL (<1 E.U./dL)
[2017-10-20 23:27] LABS: URINE APPEARANCE SLIGHT-CLOUDY (CLEAR); URINE COLOR DARK YELLOW (YELLOW)
[2017-10-20 23:31] LABS: URINE EPITHELIAL CELLS 0 - 2 /hpf (0-5); URINE RBC NEGATIVE /hpf (0-2)
[2017-10-21] MEDS: Pantoprazole 40 mg EC Tab PO SCH (05:35)
[2017-10-21 07:07] LABS: BASO # 0.01 K/mm3 (0.0-2.0); BASO % 0.1 % (0.0-3.0); EOS # 0.1 (0.0-0.7); EOS % 1.6 % (1.5-5.0); GRAN # 5.42 (1.4-6.5); GRAN % 74.4 % (50.0-68.0); HEMOGLOBIN 12.3 g/dL (12.0-16.0); LYMPH # 1.1 (1.2-3.4); LYMPH % 14.8 % (22.0-35.0); MEAN CELL VOLUME 83.3 fl (80.0-105.0); MEAN CORPUSCULAR HEMOGLOBIN 27.1 pg (25.0-35.0); MEAN CORPUSCULAR HGB CONC 32.5 g/dl (31.0-37.0); MEAN PLATELET VOLUME 10.2 fl (7.0-11.0); MONO # 0.7 (0.1-0.6); MONO % 9.1 % (1.0-6.0); RBC 4.54 10^6/uL (3.5-6.1); RED CELL DISTRIBUTION WIDTH 14.5 % (11.5-14.5); WHITE BLOOD COUNT 7.3 10^3/ul (4.5-11.0)
[2017-10-21 07:36] LABS: ALB/GLOB RATIO 1.1 (1.1-1.8); ALBUMIN 3.1 g/dL (3.0-4.8); ALT/SGPT 97 U/L (7-56); AST/SGOT 58 U/L (14-36); BLOOD UREA NITROGEN 13 mg/dL (7-21); CALCIUM 9.6 mg/dL (8.4-10.5); GFR AFRICAN-AMERICAN > 60; GFR NON-AFRICAN AMERICAN > 60
[2017-10-21] MEDS: Lactobacillus Acidophilus 500 MU Cap PO SCH ×2 (10:15→17:51)
[2017-10-21] MEDS: Multivitamin Vitamin B Complex (Nephro-Vite) Tab PO SCH (10:16)
[2017-10-21] MEDS: Magnesium Oxide 400 mg Tab UD PO SCH (10:16)
[2017-10-21] MEDS: Cholecalciferol 1,000 INTLU TAB PO SCH ×2 (10:16→17:52)
--- NOTE | 2017-10-21 21:42 | CON ---
DATE: HISTORY OF PRESENT ILLNESS: In short, the patient is a 71-year-old female with multiple medical issues including repeated urinary tract infection, coronary artery disease, hypertension, dyslipidemia. Patient was admitted to the medical side for evaluation of change in mental status and urinary tract infection. Patient was treated with IV antibiotics. Right now, patient is in Transitional Care Unit for further stabilization and physical therapy. Patient has history of mental illness, depression. Patient was seen psychiatrist in the community. Psych consult was called for evaluation of depression and medication management. Patient was seen and examined today. The patient presented to be alert and oriented, pleasant, cooperative. There is some psychomotor retardation observed. Patient reported that she was feeling depressed because of recurring urinary tract infection. Since June, patient has at least 4 urinary tract infections. Patient said that she was feeling down and depressed, but adamantly denied thoughts of harming herself. Patient reported that she has history of anxiety for what she is taking Xanax and for depression, she is taking Lexapro 10 mg daily. Patient reported that she has psychiatrist in the community, , but the patient does not have therapist in the community. Patient said that her is very supportive and she lives with him. Patient said that she is excited about her new granddaughter who is 2 months old. Patient reported that she sees psychiatrist every 3 months and she is due to follow up with . Patient reported that she tolerates medications well. Denied any side effects. None was observed. Patient denied history of being admitted to the psychiatric inpatient unit and denied history of suicidal attempts. Vital signs seems to be stable. Temperature 98.1, pulse of 66, blood pressure 125/60, respirations 18, oxygen saturation is 97. Medications reviewed. The patient is on Xanax 1 mg twice a day, this is what she was prescribed; Lipitor; vitamin D; Lexapro 10 mg daily, dose is correct. Patient is on Florinef. Patient also is on Lactobacillus, magnesium oxide, Zofran, Protonix, MiraLax, Inderal, vitamin C and Coumadin. Labs reviewed. Most recent was from 10/21/2017. Granulocytes 5.42, WBC 7.3. Chemistry reviewed. AST and ALT 58 and 97 respectively, but is trending down. Urinalysis showed leukocyte esterase, trace hive and it was from the . Microbiology reviewed. E-coli was positive on 10/13/2017. MENTAL STATUS EXAMINATION: The patient appears to be alert and oriented, pleasant and cooperative. There is some psychomotor retardation. Speech was under productive. Yes and no answers. Monotonic. Mood described, I feel depressed, but I have reasons to be depressed. Affect was constricted, but reactive . Mood congruent. Thought process seems to be coherent and goal directed. Thought content, the patient denied visual, auditory or tactile hallucinations. Denied paranoid ideations. Patient denied thoughts of harming herself or others. As per nursing staff, patient is compliant with the medication and treatment plan as well as participate in physical therapy. Insight and judgment seems to be fair. Impulses are well controlled. IMPRESSION: Rule out mood disorder due to general medical condition. Patient has history of anxiety and depression. Patient has multiple medical issues. Please see medical team notes for more detailed information. Most likely, patient also had delirium and confusion, which is resolved. PLAN: Continue current management. Continue current medication. Patient is on Lexapro 10 mg daily and Xanax 1 mg twice a day. Patient has followup appointment with in the community. The patient pose no imminent danger to self or others. No acute issues. The patient denied thoughts of harming herself or others. Should you have any questions, give me a call back. This auto service writer will sign off. Thank you very much for letting me participate in the care of your patient. Maya Obregon MD
[2017-10-22] MEDS: Pantoprazole 40 mg EC Tab PO SCH (05:45)
[2017-10-22 07:29] LABS: PROTHROMBIN TIME 27.3 SECONDS (9.4-12.5)
[2017-10-22 07:30] LABS: INR 2.33 (0.93-1.08)
[2017-10-22 08:34] LABS: ALT/SGPT 71 U/L (7-56); AST/SGOT 35 U/L (14-36); BLOOD UREA NITROGEN 13 mg/dL (7-21); CALCIUM 9.8 mg/dL (8.4-10.5); GFR AFRICAN-AMERICAN > 60; GFR NON-AFRICAN AMERICAN > 60
[2017-10-22] MEDS: Lactobacillus Acidophilus 500 MU Cap PO SCH ×2 (10:02→17:20)
[2017-10-22] MEDS: Multivitamin Vitamin B Complex (Nephro-Vite) Tab PO SCH (10:04)
[2017-10-22] MEDS: Cholecalciferol 1,000 INTLU TAB PO SCH ×2 (10:04→17:21)
[2017-10-22] MEDS: Magnesium Oxide 400 mg Tab UD PO SCH (10:04)
--- NOTE | 2017-10-22 10:47 | CP.PCM.PN ---
<Sabrina Rosado - Last Filed: 10/22/17 17:38> Subjective - Date & Time of Evaluation Date of Evaluation: 10/22/17 Time of Evaluation: 10:45 - Subjective Subjective: Internal Medicine Progress Note: Patient seen and examined at bedside. Per nursing no acute events overnight. Patient complaining about loose bowel movements this morning. States that she went 3 times in the last hour. Discussed with nursing who states bowel movements are soft, not diarrhea. INR 2.3 today. Offers no other complaints at this time. Objective - Vital Signs/Intake and Output Vital Signs (last 24 hours): Temp Pulse Resp BP Pulse Ox 99.1 F 69 20 99/53 L 92 L 10/22/17 06:00 10/22/17 10:03 10/22/17 06:00 10/22/17 10:03 10/22/17 06:00 - Medications Medications: Current Medications Acetaminophen (Tylenol 325mg Tab) 650 mg PO Q6H PRN PRN Reason: Pain, Mild (1-3) Last Admin: 10/19/17 17:32 Dose: 650 mg Alprazolam (Xanax) 1 mg PO BID [facility] PRN Reason: Protocol Stop: 10/24/17 18:01 Last Admin: 10/22/17 10:07 Dose: 1 mg Atorvastatin Calcium (Lipitor) 40 mg PO HS [facility] Last Admin: 10/21/17 22:26 Dose: 40 mg Cholecalciferol (Vitamin D) 1,000 intlu PO BID [facility] Last Admin: 10/22/17 10:04 Dose: 1,000 intlu Escitalopram Oxalate (Lexapro) 10 mg PO DAILY [facility] Last Admin: 10/22/17 10:03 Dose: 10 mg Fludrocortisone Acetate (Florinef) 0.1 mg PO 0800 [facility] PRN Reason: Protocol Last Admin: 10/22/17 08:18 Dose: 0.1 mg Home Med (Home Med) 150 unit PO Q30D [facility] Lactobacillus Acidophilus (Bacid Acidophilus) 1 cap PO BID [facility] Last Admin: 10/22/17 10:02 Dose: 1 cap Magnesium Oxide (Mag-Ox) 400 mg PO DAILY [facility] Last Admin: 10/22/17 10:04 Dose: 400 mg Ondansetron HCl (Zofran Inj) 4 mg IVP Q4H PRN PRN Reason: Nausea/Vomiting Last Admin: 04/07/18 17:33 Dose: 4 mg Pantoprazole Sodium (Protonix Ec Tab) 40 mg PO 0600 [facility] Last Admin: 10/22/17 05:45 Dose: 40 mg Polyethylene Glycol (Miralax) 17 gm PO BID PRN PRN Reason: Constipation Propranolol HCl (Inderal) 60 mg PO Q12 [facility] Last Admin: 10/22/17 10:03 Dose: Not Given Simethicone (Mylicon Chew Tab) 80 mg PO [facility] PRN PRN Reason: GI distress Vitamin B Complex/Vit C/Folic Acid (Nephro-Naif) 1 tab PO DAILY [facility] Last Admin: 10/22/17 10:04 Dose: 1 tab Warfarin Sodium (Coumadin) 2 mg PO 1800 [facility] PRN Reason: Protocol Last Admin: 10/21/17 17:51 Dose: 2 mg - Labs Labs: 10/21/17 06:30 10/22/17 08:15 PT 27.3 SECONDS (9.4-12.5) H 10/22/17 06:30 INR 2.33 (0.93-1.08) H 10/22/17 06:30 - Additional Findings Additional findings: - Constitutional Appears: Well, No Acute Distress, Chronically Ill - Head Exam Head Exam: ATRAUMATIC, NORMAL INSPECTION, NORMOCEPHALIC - Eye Exam Eye Exam: EOMI, Normal appearance - ENT Exam ENT Exam: Mucous Membranes Moist - Respiratory Exam Respiratory Exam: Clear to Ausculation Bilateral, NORMAL BREATHING PATTERN. absent: Rales, Rhonchi, Wheezes - Cardiovascular Exam Cardiovascular Exam: REGULAR RHYTHM, +S1, +S2 - GI/Abdominal Exam GI & Abdominal Exam: Soft, Normal Bowel Sounds. absent: Distended, Guarding, Rigid, Tenderness - Extremities Exam Extremities Exam: Pedal Edema. 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 [place] in mental status and was found to have a UTI. Patient was treated and is not admitted to the TCU for deconditioning. Fatigue and lightheadedness, resolved - Improved after IV fluids - Continue physical therapy - Repeat UA showed trace leuk esterase, protein and ketones, Urine Cx contamined Diarrhea -Patient states that she is still having loose stools -Since there is discordance between nursing and patient account will send C diff -Simethicone 80mg prn GI Distress Elevated LFTs - Improving - Abdominal US: Hepatic steatosis - Continue to monitor Prosthetic mitral valve with therapeutic INR - INR 2.3 today - Continue Coumadin 2mg PO daily - F/U INR Q2D History Nonobstructive CAD - Continue Propranolol 60mg PO Q12H History HTN - Continue Propranolol 60mg PO Q12H History Orthostatic hypotension - Continue Florinef 0.1mg daily HLD - Continue Lipitor Depression/Anxiety - Cont. Xanax and Lexapro - Psych consulted, recommending to continue present management GI/DVT ppx - Cont. Protonix/Coumadin Plan discussed with Dr Davis <Ten Davis - Last Filed: 10/22/17 18:54> Objective - Vital Signs/Intake and Output Vital Signs (last 24 hours): Temp Pulse Resp BP Pulse Ox 98.2 F 75 18 114/70 100 10/22/17 16:00 10/22/17 16:00 10/22/17 16:00 10/22/17 16:00 10/22/17 16:00 Intake and Output: 10/22/17 10/22/17 06:59 18:59 Intake Total 420 Balance 420 - Medications Medications: Current Medications Acetaminophen (Tylenol 325mg Tab) 650 mg PO Q6H PRN PRN Reason: Pain, Mild (1-3) Last Admin: 10/19/17 17:32 Dose: 650 mg Alprazolam (Xanax) 1 mg PO BID [facility] PRN Reason: Protocol Stop: 10/24/17 18:01 Last Admin: 10/22/17 17:24 Dose: 1 mg Atorvastatin Calcium (Lipitor) 40 mg PO HS [facility] Last Admin: 10/21/17 22:26 Dose: 40 mg Cholecalciferol (Vitamin D) 1,000 intlu PO BID [facility] Last Admin: 10/22/17 17:21 Dose: 1,000 intlu Escitalopram Oxalate (Lexapro) 10 mg PO DAILY [facility] Last Admin: 10/22/17 10:03 Dose: 10 mg Fludrocortisone Acetate (Florinef) 0.1 mg PO 0800 [facility] PRN Reason: Protocol Last Admin: 10/22/17 08:18 Dose: 0.1 mg Home Med (Home Med) 150 unit PO Q30D [facility] Lactobacillus Acidophilus (Bacid Acidophilus) 1 cap PO BID [facility] Last Admin: 10/22/17 17:20 Dose: 1 cap Magnesium Oxide (Mag-Ox) 400 mg PO DAILY [facility] Last Admin: 10/22/17 10:04 Dose: 400 mg Ondansetron HCl (Zofran Inj) 4 mg IVP Q4H PRN PRN Reason: Nausea/Vomiting Last Admin: 10/17/17 17:33 Dose: 4 mg Pantoprazole Sodium (Protonix Ec Tab) 40 mg PO 0600 [facility] Last Admin: 10/22/17 05:45 Dose: 40 mg Propranolol HCl (Inderal) 60 mg PO Q12 [facility] Last Admin: 10/22/17 10:03 Dose: Not Given Simethicone (Mylicon Chew Tab) 80 mg PO [facility] PRN PRN Reason: GI distress Last Admin: 10/22/17 13:15 Dose: 80 mg Vitamin B Complex/Vit C/Folic Acid (Nephro-Naif) 1 tab PO DAILY [facility] Last Admin: 10/22/17 10:04 Dose: 1 tab Warfarin Sodium (Coumadin) 2 mg PO 1800 [facility] PRN Reason: Protocol Last Admin: 10/22/17 17:21 Dose: 2 mg - Labs Labs: 10/21/17 06:30 10/22/17 08:15 PT 27.3 SECONDS (9.4-12.5) H 10/22/17 06:30 INR 2.33 (0.93-1.08) H 10/22/17 06:30 Attending/Attestation - Attestation I have personally seen and examined this patient.: Yes I have fully participated in the care of the patient.: Yes I have reviewed all pertinent clinical information, including history, physical exam and plan: Yes Notes (Text): 10/22/17 18:53 71 year old female with past medical history of prosthetic mitral valve replacement on coumadin, CAD, and hypertension who presented with altered mental status secondary to UTI. She is s/p antibiotics treatment. She was transferred to TCU for physical therapy for deconditioned state. Continue with PT while in TCU. Continue with coumadin as per INR. She complains of having BMs, small but not loose. CDiff study was ordered. Abdominal pain has improved and LFTs are improving as well. Ten Davis MD Hospitalist.
[2017-10-22] MEDS: Simethicone 80 mg Chewtab PO PRN (13:15)
[2017-10-23] MEDS: Pantoprazole 40 mg EC Tab PO SCH (05:36)
[2017-10-23] MEDS: Lactobacillus Acidophilus 500 MU Cap PO SCH ×2 (10:31→18:24)
[2017-10-23] MEDS: Multivitamin Vitamin B Complex (Nephro-Vite) Tab PO SCH (10:32)
[2017-10-23] MEDS: Magnesium Oxide 400 mg Tab UD PO SCH (10:33)
[2017-10-23] MEDS: Cholecalciferol 1,000 INTLU TAB PO SCH ×2 (10:33→18:24)
[2017-10-23] MEDS: Simethicone 80 mg Chewtab PO PRN ×2 (10:41→18:26)
[2017-10-24] MEDS: Pantoprazole 40 mg EC Tab PO SCH (05:59)
[2017-10-24 07:25] LABS: INR 2.12 (0.93-1.08); PROTHROMBIN TIME 24.7 SECONDS (9.4-12.5)
[2017-10-24] MEDS: Magnesium Oxide 400 mg Tab UD PO SCH (10:45)
[2017-10-24] MEDS: Lactobacillus Acidophilus 500 MU Cap PO SCH ×2 (10:45→17:26)
[2017-10-24] MEDS: Multivitamin Vitamin B Complex (Nephro-Vite) Tab PO SCH (10:45)
[2017-10-24] MEDS: Cholecalciferol 1,000 INTLU TAB PO SCH ×2 (10:46→17:27)
--- NOTE | 2017-10-24 15:28 | CP.PCM.PN ---
<Jorje Kaur - Last Filed: 10/24/17 15:25> Subjective - Date & Time of Evaluation Date of Evaluation: 10/24/17 Time of Evaluation: 09:00 - Subjective Subjective: Patient seen and examined this AM as she rested in chair. Patient reports mild abominal discomfort and gas primarily when she eats. Reports bowel movements that are soft and loose. Denies diarrhea, chest pain, shortness of breath, vomiting, fever, chills. Objective - Vital Signs/Intake and Output Vital Signs (last 24 hours): Temp Pulse Resp BP Pulse Ox 98.1 F 52 L 18 115/54 L 97 10/24/17 11:08 10/24/17 11:08 10/24/17 11:08 10/24/17 11:08 10/24/17 11:08 Intake and Output: 10/24/17 10/24/17 06:59 18:59 Intake Total 400 400 Output Total 300 Balance 100 400 - Medications Medications: Current Medications Acetaminophen (Tylenol 325mg Tab) 650 mg PO Q6H PRN PRN Reason: Pain, Mild (1-3) Last Admin: 10/19/17 17:32 Dose: 650 mg Alprazolam (Xanax) 1 mg PO BID [facility] PRN Reason: Protocol Stop: 10/24/17 18:01 Last Admin: 10/24/17 10:46 Dose: 1 mg Atorvastatin Calcium (Lipitor) 40 mg PO HS [facility] Last Admin: 10/23/17 22:43 Dose: 40 mg Cholecalciferol (Vitamin D) 1,000 intlu PO BID [facility] Last Admin: 10/24/17 10:46 Dose: 1,000 intlu Escitalopram Oxalate (Lexapro) 10 mg PO DAILY [facility] Last Admin: 10/24/17 10:45 Dose: 10 mg Fludrocortisone Acetate (Florinef) 0.1 mg PO 0800 [facility] PRN Reason: Protocol Last Admin: 10/24/17 08:34 Dose: 0.1 mg Home Med (Home Med) 150 unit PO Q30D [facility] Lactobacillus Acidophilus (Bacid Acidophilus) 1 cap PO BID [facility] Last Admin: 10/24/17 10:45 Dose: 1 cap Magnesium Oxide (Mag-Ox) 400 mg PO DAILY [facility] Last Admin: 10/24/17 10:45 Dose: 400 mg Ondansetron HCl (Zofran Inj) 4 mg IVP Q4H PRN PRN Reason: Nausea/Vomiting Last Admin: 10/17/17 17:33 Dose: 4 mg Pantoprazole Sodium (Protonix Ec Tab) 40 mg PO 0600 [facility] Last Admin: 10/24/17 05:59 Dose: 40 mg Propranolol HCl (Inderal) 60 mg PO Q12 [facility] Last Admin: 10/24/17 10:44 Dose: Not Given Simethicone (Mylicon Chew Tab) 80 mg PO [facility] PRN PRN Reason: GI distress Last Admin: 10/23/17 18:26 Dose: 80 mg Vitamin B Complex/Vit C/Folic Acid (Nephro-Naif) 1 tab PO DAILY [facility] Last Admin: 10/24/17 10:45 Dose: 1 tab Warfarin Sodium (Coumadin) 2 mg PO 1800 [facility] PRN Reason: Protocol Last Admin: 10/23/17 18:23 Dose: 2 mg Warfarin Sodium (Coumadin) 1 mg PO 1800 [facility] PRN Reason: Protocol Stop: 10/24/17 18:01 - Labs Labs: 10/21/17 06:30 10/22/17 08:15 PT 24.7 SECONDS (9.4-12.5) H 10/24/17 06:00 INR 2.12 (0.93-1.08) H 10/24/17 06:00 - Head Exam Head Exam: ATRAUMATIC, NORMAL INSPECTION, NORMOCEPHALIC - Eye Exam Eye Exam: EOMI, Normal appearance - ENT Exam ENT Exam: Mucous Membranes Moist - Respiratory Exam Respiratory Exam: Clear to Ausculation Bilateral, NORMAL BREATHING PATTERN. absent: Rhonchi, Wheezes - Cardiovascular Exam Cardiovascular Exam: REGULAR RHYTHM, +S1, +S2 - GI/Abdominal Exam GI & Abdominal Exam: Soft, Normal Bowel Sounds. absent: Guarding, Rigid, Tenderness - Extremities Exam Extremities Exam: Pedal Edema. 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 Patient was admitted to the TCU for deconditioning. Plan: Fatigue and lightheadedness - Resolved - Continue physical therapy - Repeat UA showed trace leuk esterase, protein and ketones, Urine Cx contamined Diarrhea -Patient states that she is still having loose stools -Discordance noted between patient and nurse records/report, nursing indicating patient with 1 soft stool this AM - C.diff has been ordered, pending results per lab -Simethicone 80mg prn GI Distress Elevated LFTs - Improving - Abdominal US: Hepatic steatosis - Continue to monitor Prosthetic mitral valve with therapeutic INR - INR 2.12 tidat - Continue Coumadin 2mg PO daily, will increase coumadin dose by 1 mg tonight - F/U INR in the morning History Nonobstructive CAD - Continue Propranolol 60mg PO Q12H History HTN - Continue Propranolol 60mg PO Q12H History Orthostatic hypotension - Continue Florinef 0.1mg daily HLD - Continue Lipitor Depression/Anxiety - Cont. Xanax and Lexapro - Psych consulted, recommending to continue present management GI/DVT ppx - Cont. Protonix/Coumadin Case and plan discussed with attending Zenaida Kaur PGY-1 <Ten Davis - Last Filed: 10/24/17 15:39> Objective - Vital Signs/Intake and Output Vital Signs (last 24 hours): Temp Pulse Resp BP Pulse Ox 98.1 F 52 L 18 115/54 L 97 10/24/17 11:08 10/24/17 11:08 10/24/17 11:08 10/24/17 11:08 10/24/17 11:08 Intake and Output: 10/24/17 10/24/17 06:59 18:59 Intake Total 400 400 Output Total 300 Balance 100 400 - Medications Medications: Current Medications Acetaminophen (Tylenol 325mg Tab) 650 mg PO Q6H PRN PRN Reason: Pain, Mild (1-3) Last Admin: 10/19/17 17:32 Dose: 650 mg Alprazolam (Xanax) 1 mg PO BID [facility] PRN Reason: Protocol Stop: 10/24/17 18:01 Last Admin: 10/24/17 10:46 Dose: 1 mg Atorvastatin Calcium (Lipitor) 40 mg PO HS [facility] Last Admin: 10/23/17 22:43 Dose: 40 mg Cholecalciferol (Vitamin D) 1,000 intlu PO BID [facility] Last Admin: 10/24/17 10:46 Dose: 1,000 intlu Escitalopram Oxalate (Lexapro) 10 mg PO DAILY [facility] Last Admin: 10/24/17 10:45 Dose: 10 mg Fludrocortisone Acetate (Florinef) 0.1 mg PO 0800 [facility] PRN Reason: Protocol Last Admin: 10/24/17 08:34 Dose: 0.1 mg Home Med (Home Med) 150 unit PO Q30D [facility] Lactobacillus Acidophilus (Bacid Acidophilus) 1 cap PO BID [facility] Last Admin: 10/24/17 10:45 Dose: 1 cap Magnesium Oxide (Mag-Ox) 400 mg PO DAILY [facility] Last Admin: 10/24/17 10:45 Dose: 400 mg Ondansetron HCl (Zofran Inj) 4 mg IVP Q4H PRN PRN Reason: Nausea/Vomiting Last Admin: 10/17/17 17:33 Dose: 4 mg Pantoprazole Sodium (Protonix Ec Tab) 40 mg PO 0600 [facility] Last Admin: 10/24/17 05:59 Dose: 40 mg Propranolol HCl (Inderal) 60 mg PO Q12 [facility] Last Admin: 10/24/17 10:44 Dose: Not Given Simethicone (Mylicon Chew Tab) 80 mg PO [facility] PRN PRN Reason: GI distress Last Admin: 10/23/17 18:26 Dose: 80 mg Vitamin B Complex/Vit C/Folic Acid (Nephro-Naif) 1 tab PO DAILY [facility] Last Admin: 10/24/17 10:45 Dose: 1 tab Warfarin Sodium (Coumadin) 2 mg PO 1800 [facility] PRN Reason: Protocol Last Admin: 10/23/17 18:23 Dose: 2 mg Warfarin Sodium (Coumadin) 1 mg PO 1800 [facility] PRN Reason: Protocol Stop: 10/24/17 18:01 - Labs Labs: 10/21/17 06:30 10/22/17 08:15 PT 24.7 SECONDS (9.4-12.5) H 10/24/17 06:00 INR 2.12 (0.93-1.08) H 10/24/17 06:00 Attending/Attestation - Attestation I have personally seen and examined this patient.: Yes I have fully participated in the care of the patient.: Yes I have reviewed all pertinent clinical information, including history, physical exam and plan: Yes Notes (Text): 10/24/17 15:38 71 year old female with past medical history of prosthetic mitral valve replacement on coumadin, CAD, and hypertension who presented with altered mental status secondary to UTI. She is s/p antibiotics treatment. She was transferred to TCU for physical therapy for deconditioned state. Continue with PT while in TCU. Continue with coumadin as per INR. Will increase coumadin dose for tonight. She complained earlier of having BMs, small but not loose. CDiff study was ordered. Possible d/c planning 1-2 days. Ten Davis MD Hospitalist.
[2017-10-24] MEDS: Simethicone 80 mg Chewtab PO PRN (18:12)
[2017-10-25] MEDS: Pantoprazole 40 mg EC Tab PO SCH (05:20)
[2017-10-25 06:29] VITALS: RESP 18
[2017-10-25 07:08] LABS: INR 2.39 (0.93-1.08)
[2017-10-25] MEDS: Lactobacillus Acidophilus 500 MU Cap PO SCH (10:10)
[2017-10-25] MEDS: Magnesium Oxide 400 mg Tab UD PO SCH (10:11)
[2017-10-25] MEDS: Multivitamin Vitamin B Complex (Nephro-Vite) Tab PO SCH (10:11)
[2017-10-25] MEDS: Cholecalciferol 1,000 INTLU TAB PO SCH (10:12)
[2017-10-25 10:17] VITALS: BP 176/79
[2017-10-25 11:37] VITALS: PULSE 60; TEMP 98; O2SAT 96
--- NOTE | 2017-10-25 13:38 | CP.PCM.DIS ---
<Jorje Kaur - Last Filed: 10/25/17 14:04> Provider - Provider Date of Admission: 10/17/17 14:37 Attending physician: Ten Davis MD Primary care physician: Dr. Lopez Consults: Psych: Dr. Obregon Time Spent in preparation of Discharge (in minutes): 45 Hospital Course - Lab Results Lab Results: Micro Results 10/20/17 23:16 Urine,Clean Catch Urine Culture - Final 50-100,000 CFU/ML. MULTIPLE SPECIES. SUGGEST REPEAT SPECIMEN. Most Recent Lab Values WBC 7.3 10^3/ul (4.5-11.0) 10/21/17 06:30 RBC 4.54 10^6/uL (3.5-6.1) 10/21/17 06:30 Hgb 12.3 g/dL (12.0-16.0) 10/21/17 06:30 Hct 37.8 % (36.0-48.0) 10/21/17 06:30 MCV 83.3 fl (80.0-105.0) 10/21/17 06:30 MCH 27.1 pg (25.0-35.0) 10/21/17 06:30 MCHC 32.5 g/dl (31.0-37.0) 10/21/17 06:30 RDW 14.5 % (11.5-14.5) 10/21/17 06:30 Plt Count 144 10^3/uL (120.0-450.0) 10/21/17 06:30 MPV 10.2 fl (7.0-11.0) 10/21/17 06:30 Gran % 74.4 % (50.0-68.0) H 10/21/17 06:30 Lymph % (Auto) 14.8 % (22.0-35.0) L 10/21/17 06:30 [place] % (Auto) 9.1 % (1.0-6.0) H 10/21/17 06:30 Eos % (Auto) 1.6 % (1.5-5.0) 10/21/17 06:30 Baso % (Auto) 0.1 % (0.0-3.0) 10/21/17 06:30 Gran # 5.42 (1.4-6.5) 10/21/17 06:30 Lymph # (Auto) 1.1 (1.2-3.4) L 10/21/17 06:30 [place] # (Auto) 0.7 (0.1-0.6) H 10/21/17 06:30 Eos # (Auto) 0.1 (0.0-0.7) 10/21/17 06:30 Baso # (Auto) 0.01 K/mm3 (0.0-2.0) 10/21/17 06:30 PT 28.0 SECONDS (9.4-12.5) H 10/25/17 06:00 INR 2.39 (0.93-1.08) H 10/25/17 06:00 Sodium 139 mmol/L (132-148) 10/22/17 08:15 Potassium 3.6 mmol/L (3.6-5.0) 10/22/17 08:15 Chloride 103 mmol/L (98-107) 10/22/17 08:15 Carbon Dioxide 29 mmol/L (21-33) 10/22/17 08:15 Anion Gap 10 (10-20) 10/22/17 08:15 BUN 13 mg/dL (7-21) 10/22/17 08:15 Creatinine 0.7 mg/dl (0.7-1.2) 10/22/17 08:15 Est GFR ( Amer) > 60 10/22/17 08:15 Est GFR (Non-Af Amer) > 60 10/22/17 08:15 Random Glucose 93 mg/dL (70-110) 10/22/17 08:15 Calcium 9.8 mg/dL (8.4-10.5) 10/22/17 08:15 Phosphorus 3.8 mg/dL (2.5-4.5) 10/21/17 06:30 Magnesium 1.7 mg/dL (1.7-2.2) 10/21/17 06:30 Total Bilirubin 0.5 mg/dL (0.2-1.3) 10/22/17 08:15 AST 35 U/L (14-36) 10/22/17 08:15 ALT 71 U/L (7-56) H 10/22/17 08:15 Alkaline Phosphatase 76 U/L (38-126) 10/22/17 08:15 Total Protein 6.0 g/dL (5.8-8.3) 10/22/17 08:15 Albumin 3.0 g/dL (3.0-4.8) 10/22/17 08:15 Globulin 2.9 gm/dL 10/22/17 08:15 Albumin/Globulin Ratio 1.0 (1.1-1.8) L 10/22/17 08:15 Urine Color Dark yellow (YELLOW) 10/20/17 23:16 Urine Appearance Slight-cloudy (CLEAR) 10/20/17 23:16 Urine pH 6.0 (4.7-8.0) 10/20/17 23:16 Ur Specific [place] 1.020 (1.005-1.035) 10/20/17 23:16 Urine Protein Trace mg/dL (<30 mg/dL) H 10/20/17 23:16 Urine Glucose (UA) Negative mg/dL (NEGATIVE) 10/20/17 23:16 Urine Ketones Trace mg/dL (NEGATIVE) H 10/20/17 23:16 Urine Blood Negative (NEGATIVE) 10/20/17 23:16 Urine Nitrate Negative (NEGATIVE) 10/20/17 23:16 Urine Bilirubin Negative (NEGATIVE) 10/20/17 23:16 Urine Urobilinogen 0.2 E.U./dL (<1 E.U./dL) 10/20/17 23:16 Ur Leukocyte Esterase Trace Karin/uL (NEGATIVE) H 10/20/17 23:16 Urine RBC Negative /hpf (0-2) 10/20/17 23:16 Urine WBC 2 - 5 /hpf (0-6) 10/20/17 23:16 Ur Epithelial Cells 0 - 2 /hpf (0-5) 10/20/17 23:16 Urine Other Utrans 10/20/17 23:16 - Hospital Course Hospital Course: Patient is a 71 year old female with past medical history of 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 Patient was given Iv antibiotics with downtrending of her leukocytosis. Patient AMS resolved and patient was evaluated by PT to be deconditioned and transferred to TCU for physical therapy and strengthening. While in TCU patient reported she had multiple loose bowel movements. Per nursing patient was noted to have one soft stool daily. Nursing notes indicate no evidence of multiple loose stools. Patient noted to be on IV antibiotics while in hospital, stool cultures were sent to lab for investigation of possible c. diff. Stool samples were sent back to TCU. Upon discharge patient denied diarrhea, chest pain, shortness of breath , fever, chills. Discharge planning, including follow up visits with members of care team, medication reconciliation and instructions for return were given. Patient was in understanding and agreeable. Patient was medically stable and discharged home. - Date & Time of H&P Date of H&P: 10/18/17 Time of H&P: 07:41 Discharge Exam - Head Exam Head Exam: ATRAUMATIC, NORMAL INSPECTION, NORMOCEPHALIC - Eye Exam Eye Exam: EOMI, PERRL - Respiratory Exam Respiratory Exam: Clear to PA & Lateral, NORMAL BREATHING PATTERN. absent: Rales, Rhonchi - Cardiovascular Exam Cardiovascular Exam: REGULAR RHYTHM, +S1, +S2 - GI/Abdominal Exam GI & Abdominal Exam: Normal Bowel Sounds, Soft. absent: Firm, Guarding, Rigid, Tenderness - Extremities Exam Extremities exam: normal inspection - Neurological Exam Neurological exam: Alert, Oriented x3 - Psychiatric Exam Psychiatric exam: Normal Affect, Normal Mood - Skin Skin Exam: Dry, Warm Discharge Plan - Follow Up Plan Condition: GOOD Disposition: HOME/ ROUTINE Instructions: High Blood Pressure (DC), Urinary Tract Infection, Adult (DC), Anxiety, Adult (DC), Altered Mental Status (DC), Coronary Heart Disease (DC), High Cholesterol (DC) Additional Instructions: Follow up with primary care physician with in one to two weeks upon discharge Continue taking medications as prescribed - Take 3mg Coumadin for next week with follow up checks of your INR upon discharge If you experience return of your AMS return to the emergency department <Ten Davis - Last Filed: 10/25/17 14:37> Provider - Provider Date of Admission: 10/17/17 14:37 Attending physician: Ten Davis MD Hospital Course - Lab Results Lab Results: Micro Results 10/20/17 23:16 Urine,Clean Catch Urine Culture - Final 50-100,000 CFU/ML. MULTIPLE SPECIES. SUGGEST REPEAT SPECIMEN. Most Recent Lab Values WBC 7.3 10^3/ul (4.5-11.0) 10/21/17 06:30 RBC 4.54 10^6/uL (3.5-6.1) 10/21/17 06:30 Hgb 12.3 g/dL (12.0-16.0) 10/21/17 06:30 Hct 37.8 % (36.0-48.0) 10/21/17 06:30 MCV 83.3 fl (80.0-105.0) 10/21/17 06:30 MCH 27.1 pg (25.0-35.0) 10/21/17 06:30 MCHC 32.5 g/dl (31.0-37.0) 10/21/17 06:30 RDW 14.5 % (11.5-14.5) 10/21/17 06:30 Plt Count 144 10^3/uL (120.0-450.0) 10/21/17 06:30 MPV 10.2 fl (7.0-11.0) 10/21/17 06:30 Gran % 74.4 % (50.0-68.0) H 10/21/17 06:30 Lymph % (Auto) 14.8 % (22.0-35.0) L 10/21/17 06:30 [place] % (Auto) 9.1 % (1.0-6.0) H 10/21/17 06:30 Eos % (Auto) 1.6 % (1.5-5.0) 10/21/17 06:30 Baso % (Auto) 0.1 % (0.0-3.0) 10/21/17 06:30 Gran # 5.42 (1.4-6.5) 10/21/17 06:30 Lymph # (Auto) 1.1 (1.2-3.4) L 10/21/17 06:30 [place] # (Auto) 0.7 (0.1-0.6) H 10/21/17 06:30 Eos # (Auto) 0.1 (0.0-0.7) 10/21/17 06:30 Baso # (Auto) 0.01 K/mm3 (0.0-2.0) 10/21/17 06:30 PT 28.0 SECONDS (9.4-12.5) H 10/25/17 06:00 INR 2.39 (0.93-1.08) H 10/25/17 06:00 Sodium 139 mmol/L (132-148) 10/22/17 08:15 Potassium 3.6 mmol/L (3.6-5.0) 10/22/17 08:15 Chloride 103 mmol/L (98-107) 10/22/17 08:15 Carbon Dioxide 29 mmol/L (21-33) 10/22/17 08:15 Anion Gap 10 (10-20) 10/22/17 08:15 BUN 13 mg/dL (7-21) 10/22/17 08:15 Creatinine 0.7 mg/dl (0.7-1.2) 10/22/17 08:15 Est GFR ( Amer) > 60 10/22/17 08:15 Est GFR (Non-Af Amer) > 60 10/22/17 08:15 Random Glucose 93 mg/dL (70-110) 10/22/17 08:15 Calcium 9.8 mg/dL (8.4-10.5) 10/22/17 08:15 Phosphorus 3.8 mg/dL (2.5-4.5) 10/21/17 06:30 Magnesium 1.7 mg/dL (1.7-2.2) 10/21/17 06:30 Total Bilirubin 0.5 mg/dL (0.2-1.3) 10/22/17 08:15 AST 35 U/L (14-36) 10/22/17 08:15 ALT 71 U/L (7-56) H 10/22/17 08:15 Alkaline Phosphatase 76 U/L (38-126) 10/22/17 08:15 Total Protein 6.0 g/dL (5.8-8.3) 10/22/17 08:15 Albumin 3.0 g/dL (3.0-4.8) 10/22/17 08:15 Globulin 2.9 gm/dL 10/22/17 08:15 Albumin/Globulin Ratio 1.0 (1.1-1.8) L 10/22/17 08:15 Urine Color Dark yellow (YELLOW) 10/20/17 23:16 Urine Appearance Slight-cloudy (CLEAR) 10/20/17 23:16 Urine pH 6.0 (4.7-8.0) 10/20/17 23:16 Ur Specific [place] 1.020 (1.005-1.035) 10/20/17 23:16 Urine Protein Trace mg/dL (<30 mg/dL) H 10/20/17 23:16 Urine Glucose (UA) Negative mg/dL (NEGATIVE) 10/20/17 23:16 Urine Ketones Trace mg/dL (NEGATIVE) H 10/20/17 23:16 Urine Blood Negative (NEGATIVE) 10/20/17 23:16 Urine Nitrate Negative (NEGATIVE) 10/20/17 23:16 Urine Bilirubin Negative (NEGATIVE) 10/20/17 23:16 Urine Urobilinogen 0.2 E.U./dL (<1 E.U./dL) 10/20/17 23:16 Ur Leukocyte Esterase Trace Karin/uL (NEGATIVE) H 10/20/17 23:16 Urine RBC Negative /hpf (0-2) 10/20/17 23:16 Urine WBC 2 - 5 /hpf (0-6) 10/20/17 23:16 Ur Epithelial Cells 0 - 2 /hpf (0-5) 10/20/17 23:16 Urine Other Utrans 10/20/17 23:16 Attending/Attestation - Attestation I have personally seen and examined this patient.: Yes I have fully participated in the care of the patient.: Yes I have reviewed all pertinent clinical information, including history, physical exam and plan: Yes Notes (Text): 10/25/17 14:36 71 year old female with past medical history of prosthetic mitral valve replacement on coumadin, CAD, and hypertension who presented with altered mental status secondary to UTI. She is s/p antibiotics treatment. She was transferred to TCU for physical therapy for deconditioned state. She was on coumadin with dose adjustments as per INR. Patient is discharged home today to follow up with pmd this week. Monitor INR and adjust coumadin accordingly; reports she takes 2-3 mg based on INR. Ten Davis MD Hospitalist.
[2017-11-16] MEDS ORDERED: IBANDRONATE 150 MG PO SCH (10:00)
== END 2017-10-25 14:04 | disposition home or self-care (01) | DRG 690 ==
LOC: TRCU 14:37
PROVIDERS: ADMIT Internal Medicine; ATTEND Internal Medicine
PROC: F07Z9FZ Gait Training/Functional Ambulation Treatment using Assistive, Adaptive, Supportive or Protective Equipment (ICD-10-PCS; principal; 2017-10-18)
PROC: F07M6ZZ Therapeutic Exercise Treatment of Musculoskeletal System - Whole Body (ICD-10-PCS; 2017-10-18)
PROC: F08Z2ZZ Grooming/Personal Hygiene Treatment (ICD-10-PCS; 2017-10-19)
PROC: F08Z1ZZ Dressing Techniques Treatment (ICD-10-PCS; 2017-10-19)
PROC: F08Z2ZZ Grooming/Personal Hygiene Treatment (ICD-10-PCS; 2017-10-19)
PROC: F08Z0ZZ Bathing/Showering Techniques Treatment (ICD-10-PCS; 2017-10-19)
PROC: F08Z3ZZ Feeding/Eating Treatment (ICD-10-PCS; 2017-10-19)
DX: N39.0 Urinary tract infection, site not specified (principal); B96.20 Unspecified Escherichia coli [E. coli] as the cause of diseases classified elsewhere; E78.00 Pure hypercholesterolemia, unspecified; E78.5 Hyperlipidemia, unspecified; F41.9 Anxiety disorder, unspecified; I10 Essential (primary) hypertension; I25.10 Atherosclerotic heart disease of native coronary artery without angina pectoris; K21.9 Gastro-esophageal reflux disease without esophagitis; K76.0 Fatty (change of) liver, not elsewhere classified; Z79.01 Long term (current) use of anticoagulants; Z79.899 Other long term (current) drug therapy; Z87.01 Personal history of pneumonia (recurrent); Z87.440 Personal history of urinary (tract) infections; Z90.49 Acquired absence of other specified parts of digestive tract; Z90.710 Acquired absence of both cervix and uterus; Z95.2 Presence of prosthetic heart valve; Z96.653 Presence of artificial knee joint, bilateral; F06.30 Mood disorder due to known physiological condition, unspecified; R19.7 Diarrhea, unspecified

== ENCOUNTER 2018-03-02 12:35 | Observation (INO) | payer MEDICARE, BC ==
--- NOTE | 2018-03-02 13:25 | ED PDOC ---
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 Patient reports having experienced intermittent lightheadedness and tremors(according to patient she has been seen for tremors in the past). States she is afraid to turn her head too fast because she worries about experiencing dizziness if she does this. Patient notes also experiencing gaseous abdominal pain and pressure-like chest pain, but denies any shortness of breath, nausea, vomiting, diarrhea, constipation, or any other complaints at this time. Also, patient denies any history of EtOH abuse. She notes also going to physical therapy since 05/2017 due to difficulty ambulating. Mentions experiencing on and off bilateral leg swelling for some time now. PMD: Dr. Lopez (however is seen by Dr. Alexander on house calls). Passenger Screener: Dr. Bocanegra Neurologist: Dr. Hall Urologist: Dr. Lowe Time/Duration: < week (past 2 days and today.) Past Medical History - Provider Review Nursing Documentation Reviewed: Yes - Infectious Disease Hx of Infectious Diseases: None - Tetanus Immunization Tetanus Immunization: Unknown - Reproductive Menopause: No - Cardiac Hx Cardiac Disorders: Yes (cad) Other/Comment: orthostatic hypotension - Pulmonary Hx Respiratory Disorders: Yes Hx Pneumonia: Yes - Neurological Hx Neurological Disorder: No Other/Comment: tremors - HEENT Hx HEENT Disorder: No - Renal Hx Renal Disorder: No - Endocrine/Metabolic Hx Endocrine Disorders: No - Hematological/Oncological Hx Anemia: Yes (blood transfusion) - Integumentary Hx Dermatological Disorder: Yes Other/Comment: b/l healed surgical scars to both knees, tip of left great toe red - Musculoskeletal/Rheumatological Hx Falls: Yes (past) - Gastrointestinal Hx Gastrointestinal Disorders: Yes - Genitourinary/Gynecological Hx Reproductive Disorders: No - Psychiatric Hx Anxiety: Yes Hx Depression: Yes Hx Substance Use: No - Surgical History Hx Cholecystectomy: Yes (1984) Hx Hysterectomy: Yes (1969) Hx Orthopedic Surgery: Yes (L KNEE, R KNEE) 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 mitral valve surgery - Anesthesia Hx Anesthesia: Yes Hx Anesthesia Reactions: No Hx Malignant Hyperthermia: No - Suicidal Assessment Feels Threatened In Home Enviroment: No Family/Social History - Physician Review Nursing Documentation Reviewed: Yes Family/Social History: No Known Family HX Smoking Status: Never Smoked Hx Alcohol Use: Yes Frequency of alcohol use: Socially Hx Substance Use: No Hx Substance Use Treatment: No Allergies/Home Meds Allergies/Adverse Reactions: Allergies furosemide Allergy (Mild, Verified 07/07/17 14:43) ITCHING morphine Allergy (Verified 07/07/17 14:43) DIARRHEA ciprofloxacin [From Cipro] Adverse Reaction (Mild, Verified 07/07/17 14:43) ITCHING ciprofloxacin HCl [From Cipro] Adverse Reaction (Mild, Verified 07/07/17 14:43) ITCHING Home Medications: Home Meds Medication Instructions Recorded Confirmed Alprazolam [Xanax] 1 mg PO BID 10/29/12 10/17/17 Escitalopram [Lexapro] 10 mg PO DAILY 06/13/16 10/17/17 Vitamin B Complex 1 tab PO DAILY 06/13/16 10/17/17 Pantoprazole [Protonix EC Tab] 40 mg PO DAILY 06/04/17 10/17/17 Ibandronate Sodium [Boniva] 150 mg PO Q30D 06/29/17 10/17/17 Cholecalciferol [Vitamin D 1000 IU] 1 tab PO BID 07/03/17 10/17/17 Propranolol [Inderal] 60 mg PO BID 10/13/17 10/17/17 Review of Systems - Review of Systems Constitutional: Normal Eyes: Normal ENT: Normal Respiratory: absent: SOB Cardiovascular: Chest Pain (pressure-like) Gastrointestinal: Abdominal Pain (gaseous). absent: Constipation, Diarrhea, Nausea, Vomiting Genitourinary Female: Normal Musculoskeletal: Other (bilateral leg swelling (has had for some time now, according to patient).) Skin: Normal Neurological: Dizziness (lightheadedness) Endocrine: Normal Hemo/Lymphatic: Normal Psychiatric: Normal Physical Exam Vital Signs Reviewed: Yes Vital Signs Temp Pulse Resp BP Pulse Ox 03/02/18 12:36 98.1 F 59 L 16 151/84 H 96 Temperature: Afebrile Blood Pressure: Normal Pulse: Regular Respiratory Rate: Normal Appearance: Positive for: Well-Appearing Pain Distress: None Mental Status: Positive for: Alert and Oriented X 3 - Systems Exam Head: Present: Atraumatic, Normocephalic Pupils: Present: PERRL Extroacular Muscles: Present: EOMI Conjunctiva: Present: Normal Respiratory/Chest: Present: Clear to Auscultation, Good Air Exchange. No: Respiratory Distress, Accessory Muscle Use Cardiovascular: Present: Regular Rate and Rhythm, Normal S1, S2. No: Murmurs Abdomen: No: Tenderness, Distention, Peritoneal Signs Upper Extremity: Present: Normal Inspection. No: Cyanosis, Edema Lower Extremity: Present: Edema (non-pitting bilaterally), Other (bilateral knee scars from past knee replacement surgery.) Neurological: Present: GCS=15, CN II-XII Intact, Speech Normal Skin: Present: Warm, Dry, Normal Color. No: Rashes Psychiatric: Present: Alert, Oriented x 3, Normal Insight, Normal Concentration Medical Decision Making ED Course and Treatment: 03/02/18 13:31 Impression: 72 year old female with tremors, dizziness, lightheadedness, gaseous abdominal pain, and pressure-like chest pain. Physical exam shows non- pitting bilateral edema, bilateral knee scars from past knee replacement surgery ; no abdominal tenderness; normal neurological exam; no other acute findings on examination. Plan: -- Head CT -- Chest X-ray -- venous Blood Gas -- Labs -- Urinalysis -- Reassess and disposition Prior Visits: Notes and results from previous visits were reviewed. Patient was last seen in the emergency department on 10/13/2017 for dizziness and lightheadedness. Patient was admitted. Progress Notes: 03/02/2018 14:[address] IMPRESSION: No acute intracranial abnormality. Mild chronic microangiopathic changes and mild age-related global parenchymal volume loss. Dictator: Candi Larose MD 03/02/2018 14:39 Chest X-ray IMPRESSION: No active pulmonary disease. Dictator: Candi Larose MD 03/02/18 15:49 labs, imaging, unremarkable except mildly elevated BNP. Pending Urine. Appreciate consult w/ Dr. Alexander: we are to obs pt and put in consults for Dr. Hall (neuro) and Dr. Bocanegra (cards) consults placed. - Lab Interpretations Lab Results: 03/02/18 13:40 03/02/18 13:40 Lab Results 03/02/18 13:40: pO2 49, VBG pH 7.36, VBG pCO2 55.0, VBG HCO3 31.1 H, VBG Total CO2 32.8 H, VBG O2 Sat (Calc) 86.7 H, VBG Base Excess 4.2 H, VBG Potassium 3.5 L , Sodium 141.0, Chloride 104.0, Glucose 103, Lactate 0.9, FiO2 21.0, Venous Blood Potassium 3.5 L 03/02/18 13:40: PT 36.4 H, INR 3.12, APTT 50.4 H 03/02/18 13:40: TSH 3rd Generation 1.95 03/02/18 13:40: Blood Type O POSITIVE, Antibody Screen Negative, BBK History Checked Patient has bt 03/02/18 13:40: Sodium 142, Chloride 103, Potassium 3.7, Carbon Dioxide 31, Anion Gap 11, BUN 12, Creatinine 0.8, Est GFR ( Amer) > 60, Est GFR (Non- Af Amer) > 60, Random Glucose 102, Calcium 9.9, Magnesium 2.0, Total Bilirubin 0.7, AST 32, ALT 32, Alkaline Phosphatase 56, Troponin I < 0.01, NT-Pro-B Natriuret Pep 645 H, Total Protein 6.9, Albumin 3.9, Globulin 3.1, Albumin/ Globulin Ratio 1.3 03/02/18 13:40: WBC 7.5, RBC 4.96, Hgb 13.6, Hct 40.4, MCV 81.5, MCH 27.4, MCHC 33.7, RDW 13.8, Plt Count 187, MPV 10.0, Gran % 80.6 H, Lymph % (Auto) 14.1 L, [place] % (Auto) 4.8, Eos % (Auto) 0.4 L, Baso % (Auto) 0.1, Gran # 6.08, Lymph # ( Auto) 1.1 L, [place] # (Auto) 0.4, Eos # (Auto) 0.0, Baso # (Auto) 0.01 I have reviewed the lab results: Yes - RAD Interpretation Radiology Orders: 03/02/18 13:17 CHEST TWO VIEWS (PA/LAT) [RAD] Stat 03/02/18 13:19 HEAD W/O CONTRAST [CT] Stat - Scribe Statement The provider has reviewed the documentation as recorded by the Justiceibe Gavin Plata Provider Scribe Attestation: All medical record entries made by the Scribe were at my direction and personally dictated by me. I have reviewed the chart and agree that the record accurately reflects my personal performance of the history, physical exam, medical decision making, and the department course for this patient. I have also personally directed, reviewed, and agree with the discharge instructions and disposition. Disposition/Present on Arrival - Present on Arrival Any Indicators Present on Arrival: No History of DVT/PE: No History of Uncontrolled Diabetes: No Urinary Catheter: Yes (external catheter) History of Decub. Ulcer: No History Surgical Site Infection Following: None - Disposition Have Diagnosis and Disposition been Completed?: Yes Diagnosis: Chest pain Disposition: HOSPITALIZED Disposition Time: 15:00 Condition: GOOD Discharge Instructions (ExitCare): Chest Pain (ED) Referrals: José Miguel Alexander DO [Primary Care Provider] - Follow up with primary Forms: [employer] (Armenian)
[2018-03-02 13:58] LABS: VENOUS BLOOD GAS BASE EXCESS 4.2 mmol/L (0.0-2.0); VENOUS BLOOD GAS PO2 49 mm/Hg (30-55); VENOUS BLOOD PH 7.36 (7.32-7.43)
[2018-03-02 14:00] LABS: BASO # 0.01 K/mm3 (0.0-2.0); BASO % 0.1 % (0.0-3.0); EOS % 0.4 % (1.5-5.0); GRAN # 6.08 (1.4-6.5); GRAN % 80.6 % (50.0-68.0); HEMOGLOBIN 13.6 g/dL (12.0-16.0); LYMPH # 1.1 (1.2-3.4); LYMPH % 14.1 % (22.0-35.0); MEAN CELL VOLUME 81.5 fl (80.0-105.0); MEAN CORPUSCULAR HEMOGLOBIN 27.4 pg (25.0-35.0); MEAN CORPUSCULAR HGB CONC 33.7 g/dl (31.0-37.0); MONO # 0.4 (0.1-0.6); MONO % 4.8 % (1.0-6.0); RBC 4.96 10^6/uL (3.5-6.1); RED CELL DISTRIBUTION WIDTH 13.8 % (11.5-14.5); WHITE BLOOD COUNT 7.5 10^3/ul (4.5-11.0)
[2018-03-02 14:09] LABS: ALB/GLOB RATIO 1.3 (1.1-1.8); ALBUMIN 3.9 g/dL (3.0-4.8); ALT/SGPT 32 U/L (7-56); AST/SGOT 32 U/L (14-36); BLOOD UREA NITROGEN 12 mg/dL (7-21); CALCIUM 9.9 mg/dL (8.4-10.5); GFR AFRICAN-AMERICAN > 60; GFR NON-AFRICAN AMERICAN > 60
[2018-03-02 14:13] LABS: INR 3.12; PARTIAL THROMBOPLASTIN TIME 50.4 Seconds (25.1-36.5); PROTHROMBIN TIME 36.4 SECONDS (9.4-12.5)
[2018-03-02 14:20] LABS: B-TYPE NATRIURETIC PEPTIDE 645 pg/mL (0-450); TROPONIN I < 0.01 ng/mL
--- NOTE | 2018-03-02 14:40 | CT ---
Date of service: 03/02/2018 PROCEDURE: CT HEAD WITHOUT CONTRAST. HISTORY: lightheaded COMPARISON: 10/13/2017. TECHNIQUE: Axial computed tomography images were obtained through the head/brain without intravenous contrast. Radiation dose: Total exam DLP = 819.24 mGy-cm. This CT exam was performed using one or more of the following dose reduction techniques: Automated exposure control, adjustment of the mA and/or kV according to patient size, and/or use of iterative reconstruction technique. FINDINGS: HEMORRHAGE: No intracranial hemorrhage. BRAIN: There are mild chronic microangiopathic changes. There is no mass, mass effect or abnormal extra-axial fluid collection. There is no territorial infarction. The midline sagittal structures are normal. VENTRICLES: There is mild age-related global parenchymal volume loss and proportionate enlargement of the ventricles and cortical sulci. CALVARIUM: There is mild hyperostosis frontalis interna. PARANASAL SINUSES: Predominantly clear. MASTOID AIR CELLS: Predominantly clear. OTHER FINDINGS: None. IMPRESSION: No acute intracranial abnormality. Mild chronic microangiopathic changes and mild age-related global parenchymal volume loss.
--- NOTE | 2018-03-02 14:42 | RAD ---
HISTORY: COMPARISON: 10/13/2017. TECHNIQUE: Chest PA and lateral FINDINGS: LINES AND TUBES: None. LUNG AND PLEURA: The lungs are well inflated and clear. No pleural effusion or pneumothorax. HEART AND MEDIASTINUM: Mild cardiomegaly. Status post CABG. The hilar and mediastinal contours are within normal limits. SKELETAL STRUCTURES: The bony structures are within normal limits for the patient's age. VISUALIZED UPPER ABDOMEN: Normal. OTHER FINDINGS: None. IMPRESSION: No active pulmonary disease.
[2018-03-02 15:53] LABS: PH,URINE 6.5 (4.7-8.0); URINE BILIRUBIN NEGATIVE (NEGATIVE); URINE BLOOD NEGATIVE (NEGATIVE); URINE GLUCOSE (UA) NEGATIVE (NEGATIVE); URINE LEUKOCYTE ESTERASE NEGATIVE Leu/uL (NEGATIVE); URINE PROTEIN NEGATIVE mg/dL (<30 mg/dL); URINE UROBILINOGEN 0.2 E.U./dL (<1 E.U./dL)
[2018-03-02 15:54] LABS: URINE APPEARANCE CLEAR (CLEAR); URINE COLOR YELLOW (YELLOW)
[2018-03-02 20:42] VITALS: BMI 33.3
--- NOTE | 2018-03-02 20:55 | CARD ---
APPROVED REPORT Date of service: 03/02/2018 EKG Measurement Heart [id number] CT [id number] <Conclusion> Poor data quality, interpretation may be adversely affected Sinus rhythm with premature supraventricular complexes Anterior infarct, age undetermined ST & T wave abnormality, consider lateral ischemia Abnormal ECG
[2018-03-02] MEDS: Propranolol 60 mg ER Cap PO SCH (21:07)
--- NOTE | 2018-03-02 21:46 | HP ---
Copied To: José Miguel Alexander DO Attending MD: José Miguel Alexander DO HISTORY OF PRESENT ILLNESS: I have known her for house calls for a while now. She is now on a hospital bed. She is a 72-year-old white female who presents complaining of dizziness, chest pain, lightheadedness. She is afraid to turn her head too fast. Also abdominal pain, light pressure in the chest. No shortness of breath. No nausea, vomiting or diarrhea. She is comfortable at this time in bed. PAST MEDICAL HISTORY: Includes orthostatic hypotension, UTI, diagnosed 4 times with UTI. She has finished her medications on 02/20/2018. She had heart valve replacement, a metal and pig according to the patient. She is on Coumadin, bilateral knee replacement, cholecystectomy. Dr. Bocanegra and Dr. Hall, her wagon person and neurologist will call in. She also knows Dr. Lowe. She has coronary artery disease, orthostatic hypotension, pneumonia history, tremors. She had blood transfusions for anemia in the past. She has bilateral knee replacement with the toe was little bit red, her great toe. She has had multiple falls She was anxious, depressed, cholecystectomy, hysterectomy, left knee, right knee replacements, mitral valve replacement and right heart diastolic valve, left oophorectomy, mitral valve surgeries. FAMILY HISTORY: No known family history, but I think there is hypertension. SOCIAL HISTORY: Never smoked. She does drink alcohol socially. No substance abuse. ALLERGIES: LASIX, MORPHINE, CIPRO. MEDICATIONS: She is on Xanax, Lexapro, vitamin B complex, Protonix, Boniva, Inderal. REVIEW OF SYSTEMS: No acute vision or hearing changes. No sore throat. No shortness of breath or cough. There is chest pain, pressure-like of course to the left side. She has abdominal pain, gaseous. No constipation, diarrhea, nausea or vomiting. No problems urinating at this time. She has finished antibiotics on 02/20 for UTI, bilateral leg swelling on and off. She cannot take water pill, which she is allergic. Skin for the most part she tells me is okay. No rashes or ulcers or cuts though. She is dizzy and lightheaded. No anxiety or depression. No swollen glands that she knows of. She is calm. PHYSICAL EXAMINATION: VITAL SIGNS: She has a 98.1 temperature, 59 pulse, 16 respiratory rate, 151/84 blood pressure, 96% O2 sat on room air. GENERAL: She is well appearing, comfortable in bed, feeling a little better. Alert and oriented x3. HEENT: Head: Atraumatic, normocephalic. Extraocular muscles are intact. Pupils are equal and reactive to light and accommodation. Throat is moist. NECK: Supple. HEART: Regular rate. Normal S1, S2. LUNGS: Decreased breath sounds, but clear to auscultation bilaterally. No wheezes. No rhonchi. No rales. ABDOMEN: Soft, nontender. Positive bowel sounds. No guarding, no rebound, no CVA tenderness. EXTREMITIES: Have trace, if any edema bilateral, nonpitting. She has bilateral knee scars from bilateral knee replacements. NEUROLOGIC: GCS is 15. Cranial nerves II through XII grossly intact. Speech is normal. SKIN: Warm and dry. No apparent rashes or ulcers appreciated. LYMPHATICS: Thyroid midline. No palpable appreciable lymphadenopathy. PSYCHIATRIC: Alert and oriented x3. Normal insight. Normal concentration. I think she is not depressed. LABORATORY DATA AND IMAGING: She had a chest x-ray, which is good. CAT scan of the head with no acute disease. She had multiple blood tests. She has a 143 sodium, potassium 3.7, BUN 12, creatinine 0.8, GFR is greater than 60, sugar is 102, calcium 9.9, total magnesium is 2. Total bili is 0.7, AST is 32, ALT is 32, alkaline phosphatase 56. Troponin I is less than 0.01. BNP is high at 645, total protein 6.9, albumin is 3.9, globulin 2.1. TSH is 1.95. Urine was completely clean. No infections at all. Lactate was 0.9. INR is 3.12. I will hold the Coumadin. White count 7.5, hemoglobin 13.6, hematocrit 40.4, platelets are 187. She is here in observation. She will have two more troponins. She will have a consult with Cardiology and Neurology for her presentation. She has tremors in the hands, which is chronic and chest pain, which is new. I would call the Urology, but the urine was completely clean. I will put her back on her medications. Order physical therapy for her. I want to know what wagon person has to say tomorrow morning and await for the results of Dr. Hall, Neurology about the tremors. Continue with aggressive treatment and care. She is here for chest pain and tremors. She is on observation. José Miguel Alexander, DO : 03/02/2018 19:18:06 BOWEN
[2018-03-03 01:20] VITALS: RESP 19; O2SAT 95
[2018-03-03 03:31] LABS: HEMOGLOBIN 12.8 g/dL (12.0-16.0); MEAN CELL VOLUME 81.6 fl (80.0-105.0); MEAN CORPUSCULAR HGB CONC 33.1 g/dl (31.0-37.0); MEAN PLATELET VOLUME 9.8 fl (7.0-11.0); RBC 4.74 10^6/uL (3.5-6.1); WHITE BLOOD COUNT 6.3 10^3/ul (4.5-11.0)
[2018-03-03 03:36] LABS: INR 2.89; PROTHROMBIN TIME 33.7 SECONDS (9.4-12.5)
[2018-03-03 03:46] LABS: ALB/GLOB RATIO 1.2 (1.1-1.8); ALBUMIN 3.4 g/dL (3.0-4.8); ALT/SGPT 32 U/L (7-56); AST/SGOT 24 U/L (14-36); BLOOD UREA NITROGEN 14 mg/dL (7-21); CALCIUM 9.6 mg/dL (8.4-10.5); GFR AFRICAN-AMERICAN > 60; GFR NON-AFRICAN AMERICAN > 60
[2018-03-03 03:53] LABS: TROPONIN I < 0.01 ng/mL
--- NOTE | 2018-03-03 08:08 | CON ---
Copied To: Cl Hall MD Attending MD: Cl Hall MD DATE: 03/02/2018 HISTORY OF PRESENT ILLNESS: This is a 72-year-old white female with past medical history of hypertension, UTI, and heart valve replacement and on Coumadin, bilateral knee replacement status post cholecystectomy and came here to the emergency room with dizziness and also intermittent lightheadedness and tremors of both the hands and called to evaluate the patient. PAST MEDICAL HISTORY: Hypertension, orthostatic hypotension, UTI and valve replacement. SOCIAL HISTORY: Does not smoke, does not drink. PAST SURGICAL HISTORY: Hysterectomy, orthopedic surgery for both the knees, valve replacement and also left oophorectomy. ALLERGIES: ALLERGY TO FUROSEMIDE, MORPHINE, CIPROFLOXACIN. MEDICATIONS: The patient is for the tremor getting Inderal 60 mg p.o. daily. REVIEW OF SYSTEMS: A 10-point review of systems was negative. PHYSICAL EXAMINATION VITAL SIGNS: Blood pressure 151/84. HEENT: Normocephalic, atraumatic. NECK: Supple. NEUROLOGIC: Alert, awake, oriented x3. No aphasia. Cranial nerves II through XII were tested. Pupils reactive. EOM intact. Visual field full. No facial asymmetry. Tongue midline. Motor examination: Moves all the extremities equally. Tone normal. Deep tendon reflexes 1+. Both plantars are downgoing. Sensory appears intact. Cerebellar gait deferred. IMPRESSION: Possibly essential tremor superimposed with lightheaded and dizziness and also some abdominal pain and pressure like chest pain and workup in progress. CAT scan of the head was done, which was reported negative. PLAN: We will continue same medications. We will follow up. Cl Hall MD
--- NOTE | 2018-03-03 08:46 | DS ---
Copied To: José Miguel Alexander DO Attending MD: José Miguel Alexander DO HISTORY OF PRESENT ILLNESS: She slept very well last night. She is feeling well in bed. She has no complaints of chest pain or shortness of breath. No abdominal pain. Even the tremors a little bit. She is on Florinef, Inderal, potassium replacement, Lexapro, Lipitor, magnesium, Nephro-Naif, Protonix, vitamin D, Xanax and I put her back on the Coumadin this morning as the INR is back to between 2 and 3. She is eating well and she is in good spirits. PHYSICAL EXAMINATION: VITAL SIGNS: She has a 97.6 temp, 57 pulse, 126/62 blood pressure, 19 respiratory rate, 95% O2 sat on room air. HEENT: Head is atraumatic, normocephalic. HEART: Regular rate. LUNGS: Decreased breath sounds, but clear. ABDOMEN: Soft, nontender. Positive bowel sounds. EXTREMITIES: Puffy, but no edema. LABORATORY DATA: She had a blood test. She has a white count of 6.3, hemoglobin 12.8, hematocrit 30.7, platelets of 167. INR is down to 2.89, I will put her back on her Coumadin 3 mg a day. She has a 143 sodium; potassium 3.5, I gave her K-Dur 10 one tablet; BUN 14; creatinine 0.7; GFR is greater than 60; sugar is 93; calcium is 9.6; total bili is 0.6; AST is 24; ALT is 32; alk phos 47. All three troponins are less than 0.01. The total protein 6.2. Urine was completely clear. ASSESSMENT AND PLAN: I am waiting for Dr. Bocanegra to see her this morning. Cardiology for the chest pain. She was also seen by Neurology. No change from Neurology and I put discharge after Dr. Bocanegra, the curing pickling packer sees her this morning. She should be able to be discharged today on the same medications she came in on. José Miguel Alexander DO BOWEN
[2018-03-03] MEDS ORDERED: Magnesium Oxide 400 mg Tab UD PO SCH (10:00)
[2018-03-03] MEDS ORDERED: Cholecalciferol 1,000 INTLU TAB PO SCH (10:00)
[2018-03-03] MEDS ORDERED: Propranolol 60 mg ER Cap PO SCH (10:00)
[2018-03-03] MEDS ORDERED: Potassium Chloride 10 mEq ER Tab PO SCH (10:00)
[2018-03-03] MEDS ORDERED: Multivitamin Vitamin B Complex (Nephro-Vite) Tab PO SCH (10:00)
[2018-03-03] MEDS ORDERED: Pantoprazole 40 mg EC Tab PO SCH (10:00)
[2018-03-03] MEDS: Propranolol 60 mg ER Cap PO SCH (10:42)
[2018-03-03 11:57] VITALS: BP 182/89; PULSE 61; TEMP 97.1
--- NOTE | 2018-03-04 08:27 | CON ---
Copied To: Blayne Bocanegra MD Attending MD: Blayne Bocanegra MD DATE: 03/03/2018 CARDIOLOGY CONSULTATION HISTORY: The patient is a 72-year-old woman who presents with an episode of pleuritic like chest pain associated with tremors. The patient has had previous tremors in the past, documented by consultation done last year. The patient's past cardiac history includes a history of rheumatic mitral valve disease which was treated with mitral valve replacement. She is currently on Coumadin for her mitral valve prosthesis. The patient has had previous stress test in the past, which are unremarkable. She denies shortness of breath. SOCIAL HISTORY: The patient does not smoke. REVIEW OF SYSTEMS: A 14 point review of systems was reviewed in detail. No angina, no dyspnea. No edema in the lower extremities. The patient has had difficulty ambulating and walks with a walker at home. PHYSICAL EXAMINATION: GENERAL: The patient is in bed, in no acute distress. VITAL SIGNS: Blood pressure 126/62, the heart rate in the 60s. NECK: Negative JVD. LUNGS: Without rales. HEART: S1, S2. EXTREMITIES: Without edema. LABORATORY DATA: Includes an EKG which reveals sinus rhythm with frequent APCs and diffuse ST-T changes which are unchanged from her previous. Laboratories include troponin's that are negative x3. BUN and creatinine are unremarkable. The hemoglobin is 12.8. The PT/INR is 2.89. IMPRESSION: 1. Atypical chest pain. 2. No evidence for acute coronary syndrome. 3. History of mitral valve replacement. 4. History of rheumatic mitral valve disease. 5. Baseline tremors. PLAN: The patient can be discharged from a cardiac perspective. We will discontinue telemetry today. We will arrange for an outpatient stress test. Blayne Bocanegra MD
== END 2018-03-03 19:29 | disposition home or self-care (01) ==
LOC: ED 12:35 → ERH 15:50 → 2RSO 17:47
PROVIDERS: ADMIT Family Medicine; ATTEND Family Medicine
DX: R07.89 Other chest pain (principal); R25.1 Tremor, unspecified; I05.9 Rheumatic mitral valve disease, unspecified; I10 Essential (primary) hypertension; I25.10 Atherosclerotic heart disease of native coronary artery without angina pectoris; Z79.01 Long term (current) use of anticoagulants; Z96.653 Presence of artificial knee joint, bilateral; Z90.49 Acquired absence of other specified parts of digestive tract; Z90.710 Acquired absence of both cervix and uterus; Z90.721 Acquired absence of ovaries, unilateral; Z95.2 Presence of prosthetic heart valve; Z87.01 Personal history of pneumonia (recurrent)
CPT/HCPCS: 36415; 70450; 71046; 80053; 81003; 82803; 83735; 83880; 84443; 84484; 85025; 85027; 85610; 85730; 86850; 86900; 93005; 97116; 97161; 97530; 99285; G0378; G8978; G8979

== ENCOUNTER 2018-04-25 16:24 | Emergency (ER) | payer MEDICARE, BC ==
[2018-04-25 16:24] VITALS: BMI 33.3
--- NOTE | 2018-04-25 16:56 | ED PDOC ---
Arrival/HPI - General Chief Complaint: Weakness/Neurological Deficit Time Seen by Provider: 04/25/18 16:44 Historian: Patient - History of Present Illness Narrative History of Present Illness (Text): 04/25/18 16:53 72 year old female, whose past medical history includes hypertension, who presents to the emergency department complaining of bilateral leg swelling. Patient notes associated trouble walking, back/hip pain, SOB, and dizziness. Patient denies any fever, chills, chest pain, nausea, vomiting, diarrhea, urinary symptoms, neck pain, headache, or any other complaints. Symptom Onset: Gradual Symptom Course: Unchanged Activities at Onset: Light Context: Home Past Medical History - Provider Review Nursing Documentation Reviewed: Yes - Infectious Disease Hx of Infectious Diseases: None - Tetanus Immunization Tetanus Immunization: Unknown - Cardiac Hx Cardiac Disorders: Yes Hx Hypertension: Yes - Pulmonary Hx Respiratory Disorders: Yes Hx Pneumonia: Yes - Neurological Hx Neurological Disorder: Yes Other/Comment: chronic tremors - HEENT Hx HEENT Disorder: No - Renal Hx Renal Disorder: No - Endocrine/Metabolic Hx Endocrine Disorders: No - Hematological/Oncological Hx Anemia: Yes (blood transfusion) - Integumentary Hx Dermatological Disorder: Yes Other/Comment: b/l healed surgical scars to both knees, tip of left great toe red - Musculoskeletal/Rheumatological Hx Arthritis: Yes Hx Falls: Yes Hx Osteoarthritis: Yes Hx Unsteady Gait: Yes (uses walker at home) - Gastrointestinal Hx Gastrointestinal Disorders: Yes Hx Gastroesophageal Reflux: Yes - Genitourinary/Gynecological Hx Genitourinary Disorders: Yes (frequency) Hx Incontinence: Yes Hx Urinary Tract Infection: Yes - Psychiatric Hx Anxiety: Yes Hx Depression: Yes Hx Substance Use: No - Surgical History Hx Cholecystectomy: Yes (1984) Hx Hysterectomy: Yes (1969) Hx Orthopedic Surgery: Yes (L KNEE, R KNEE) 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 mitral valve surgery - Anesthesia Hx Anesthesia: Yes Hx Anesthesia Reactions: No Hx Malignant Hyperthermia: No - Suicidal Assessment Feels Threatened In Home Enviroment: No Family/Social History - Physician Review Nursing Documentation Reviewed: Yes Family/Social History: Unknown Family HX Smoking Status: Never Smoked Hx Alcohol Use: No Hx Substance Use: No Hx Substance Use Treatment: No Allergies/Home Meds Allergies/Adverse Reactions: Allergies furosemide Allergy (Mild, Verified 04/25/18 16:36) ITCHING morphine Allergy (Verified 04/25/18 16:36) DIARRHEA ciprofloxacin [From Cipro] Adverse Reaction (Mild, Verified 04/25/18 16:36) ITCHING Home Medications: Home Meds Medication Instructions Recorded Confirmed Alprazolam [Xanax] 1 mg PO BID 10/29/12 04/25/18 Escitalopram [Lexapro] 10 mg PO DAILY 06/13/16 04/25/18 Pantoprazole [Protonix EC Tab] 40 mg PO DAILY 06/04/17 04/25/18 Cholecalciferol [Vitamin D 1000 IU] 1 tab PO BID 07/03/17 04/25/18 Propranolol [Inderal LA] 60 mg PO BID 03/02/18 04/25/18 Review of Systems - Patients Enrolled in [employer]ified [employer] Initiative [X]: A conversation was conducted with the primary medical doctor. - Physician Review All systems were reviewed & negative as marked: Yes - Review of Systems Constitutional: Normal Eyes: Normal ENT: Normal Respiratory: SOB. absent: Cough Cardiovascular: Normal. absent: Chest Pain Gastrointestinal: Normal. absent: Abdominal Pain, Diarrhea, Nausea, Vomiting Genitourinary Female: Normal. absent: Dysuria, Frequency, Hematuria Musculoskeletal: Back Pain, Other (hip pain) Skin: Normal. absent: Rash Neurological: Dizziness. absent: Headache Endocrine: Normal Hemo/Lymphatic: Normal Psychiatric: Normal Physical Exam Vital Signs Reviewed: Yes Vital Signs Temp Pulse Resp BP Pulse Ox 04/25/18 16:29 97.5 F L 66 18 182/83 H 97 Temperature: Afebrile Blood Pressure: Hypertensive Pulse: Regular Respiratory Rate: Normal Appearance: Positive for: Well-Appearing, Non-Toxic, Comfortable Pain Distress: None Mental Status: Positive for: Alert and Oriented X 3 - Systems Exam Head: Present: Atraumatic, Normocephalic Pupils: Present: PERRL Extroacular Muscles: Present: EOMI Conjunctiva: Present: Normal Mouth: Present: Moist Mucous Membranes Neck: Present: Normal Range of Motion Respiratory/Chest: Present: Clear to Auscultation, Good Air Exchange. No: Respiratory Distress, Accessory Muscle Use Cardiovascular: Present: Regular Rate and Rhythm, Murmurs (Mechanical diastolic f) Abdomen: Present: Normal Bowel Sounds. No: Tenderness, Distention, Peritoneal Signs Upper Extremity: Present: Normal Inspection, Neurovascularly Intact, Capillary Refill < 2s. No: Cyanosis, Edema Lower Extremity: Present: Edema (+3 pitting edema to the LEs b/l ), NORMAL PULSES, Normal ROM, Capillary Refill < 2 s. No: CALF TENDERNESS, Darrell's Sign, Tenderness Skin: Present: Warm, Dry, Normal Color Psychiatric: Present: Alert, Oriented x 3, Normal Insight, Normal Concentration Medical Decision Making ED Course and Treatment: 04/25/18 16:59 Impression: 72 year old female presents to the emergency department complaining of leg swelling. Plan: -- Labs -- Troponin -- D Dimer -- Chest X-ray -- UA -- US Doppler Lower Extremities -- Reassess and disposition Progress Notes: 04/25/18 17:30 Labs reviewed with therapeutic INR and negative for D-dimer. Spoke to Dr. Alexander(PCP) of patient's clinical status and he will come in to evaluate patient. Patient currently tolerating PO intake. She reports having an appointment with her orthopedic surgeon the following day. 04/25/18 18:00 Dr. Alexander currently at the bedside. Doppler results pending. Signout given to Dr. Shore who will resume the patient's care. - RAD Interpretation Narrative RAD Interpretations (Text): 04/25/18 18:16 Chest X-ray reviewed, shows: IMPRESSION: No active disease. - Scribe Statement The provider has reviewed the documentation as recorded by the Scribe Regina Khan All medical record entries made by the Scribe were at my direction and personally dictated by me. I have reviewed the chart and agree that the record accurately reflects my personal performance of the history, physical exam, medical decision making, and the department course for this patient. I have also personally directed, reviewed, and agree with the discharge instructions and disposition. Disposition/Present on Arrival - Present on Arrival Any Indicators Present on Arrival: No History of DVT/PE: No History of Uncontrolled Diabetes: No Urinary Catheter: No History of Decub. Ulcer: No History Surgical Site Infection Following: None - Disposition Have Diagnosis and Disposition been Completed?: Yes Diagnosis: Edema of both legs Disposition: HOME/ ROUTINE Disposition Time: 20:00 Condition: GOOD Discharge Instructions (ExitCare): Dependent Edema (DC) Referrals: José Miguel Alexander DO [Staff Provider] - Follow up with primary Forms: [employer] (Lao)
[2018-04-25 17:38] LABS: BASO # 0.01 K/mm3 (0.0-2.0); BASO % 0.1 % (0.0-3.0); EOS % 0.4 % (1.5-5.0); GRAN # 8.01 (1.4-6.5); GRAN % 82.5 % (50.0-68.0); HEMOGLOBIN 13.2 g/dL (12.0-16.0); LYMPH # 1.1 (1.2-3.4); LYMPH % 11.7 % (22.0-35.0); MEAN CELL VOLUME 84.1 fl (80.0-105.0); MEAN CORPUSCULAR HEMOGLOBIN 27.3 pg (25.0-35.0); MEAN CORPUSCULAR HGB CONC 32.4 g/dl (31.0-37.0); MEAN PLATELET VOLUME 9.7 fl (7.0-11.0); MONO # 0.5 (0.1-0.6); MONO % 5.3 % (1.0-6.0); RBC 4.84 10^6/uL (3.5-6.1); RED CELL DISTRIBUTION WIDTH 14.6 % (11.5-14.5); WHITE BLOOD COUNT 9.7 10^3/ul (4.5-11.0)
[2018-04-25 17:48] LABS: PROTHROMBIN TIME 38.3 SECONDS (9.4-12.5)
[2018-04-25 17:49] LABS: INR 3.28; PARTIAL THROMBOPLASTIN TIME 38.8 Seconds (25.1-36.5)
[2018-04-25 17:51] LABS: ALB/GLOB RATIO 1.3 (1.1-1.8); ALBUMIN 3.8 g/dL (3.0-4.8); ALT/SGPT 30 U/L (7-56); AST/SGOT 37 U/L (14-36); BLOOD UREA NITROGEN 17 mg/dL (7-21); CALCIUM 9.9 mg/dL (8.4-10.5); GFR NON-AFRICAN AMERICAN 55
[2018-04-25 17:55] LABS: D DIMER < 200 ng/mlDDU (0-243)
[2018-04-25 18:03] LABS: B-TYPE NATRIURETIC PEPTIDE 511 pg/mL (0-450); TROPONIN I < 0.01 ng/mL
--- NOTE | 2018-04-25 18:09 | RAD ---
Date of service: 04/25/2018 HISTORY: sob COMPARISON: 03/02/2018 FINDINGS: LUNGS: No active pulmonary disease. PLEURA: No significant pleural effusion identified, no pneumothorax apparent. CARDIOVASCULAR: CABG. Mild cardiomegaly. No congestive change. OSSEOUS STRUCTURES: No significant abnormalities. VISUALIZED UPPER ABDOMEN: Normal. OTHER FINDINGS: None. IMPRESSION: No active disease.
--- NOTE | 2018-04-25 20:22 | ED PDOC ---
Physical Exam Vital Signs Temp Pulse Resp BP Pulse Ox 04/25/18 17:23 63 19 147/73 96 04/25/18 16:29 97.5 F L 66 18 182/83 H 97 Medical Decision Making ED Course and Treatment: 04/25/18 19:00 Case endorsed to me by Dr. Schwartz, pending US Duplex Lower Extremities, reas sessment, and disposition. 04/25/18 20:15 US Duplex Lower Extremities negative for DVT. Discussed case with Dr. Alexander, who agrees with plan. Patient stable for discharge home with outpatient f/u. - Lab Interpretations Lab Results: 04/25/18 17:20 04/25/18 17:20 Lab Results 04/25/18 17:20: Sodium 142, Potassium 4.4, Chloride 108 H, Carbon Dioxide 27, Anion Gap 11, BUN 17, Creatinine 1.0, Est GFR ( Amer) > 60, Est GFR (Non- Af Amer) 55, Random Glucose 113 H, Calcium 9.9, Magnesium 2.0, Total Bilirubin 0.8, AST 37 H D, ALT 30, Alkaline Phosphatase 61, Troponin I < 0.01, NT-Pro-B Natriuret Pep 511 H, Total Protein 6.7, Albumin 3.8, Globulin 2.9, Albumin/Sandy bulin Ratio 1.3 04/25/18 17:20: PT 38.3 H, INR 3.28, APTT 38.8 H, D-Dimer, Quantitative < 200 04/25/18 17:20: WBC 9.7 D, RBC 4.84, Hgb 13.2, Hct 40.7, MCV 84.1, MCH 27.3, MCHC 32.4, RDW 14.6 H, Plt Count 170, MPV 9.7, Gran % 82.5 H, Lymph % (Auto) 11.7 L, [place] % (Auto) 5.3, Eos % (Auto) 0.4 L, Baso % (Auto) 0.1, Gran # 8.01 H, Lymph # (Auto) 1.1 L, [place] # (Auto) 0.5, Eos # (Auto) 0.0, Baso # (Auto) 0.01 - RAD Interpretation Radiology Orders: 04/25/18 16:54 DUPLEX LOWER EXTRM VEIN BILAT [US] Stat 04/25/18 16:58 CHEST PORTABLE [RAD] Stat - Medication Orders Current Medication Orders: Discontinued Medications Acetaminophen (Tylenol 325mg Tab) 650 mg PO STAT STA Stop: 04/25/18 19:38 Last Admin: 04/25/18 19:37 Dose: 650 mg MAR Pain/Vitals Document 04/25/18 19:37 AD (Rec: 04/25/18 20:05 AD [id number]) Presence of Pain Presence of Pain Yes Location Pain Location Body Well Driller Pain Behavior Facial Grimacing Disposition/Present on Arrival - Present on Arrival Any Indicators Present on Arrival: No History of DVT/PE: No History of Uncontrolled Diabetes: No Urinary Catheter: No History of Decub. Ulcer: No History Surgical Site Infection Following: None - Disposition Have Diagnosis and Disposition been Completed?: Yes Diagnosis: Edema of both legs Disposition: HOME/ ROUTINE Disposition Time: 20:22 Condition: GOOD Discharge Instructions (ExitCare): Dependent Edema (DC) Forms: [facility] (Lao)
[2018-04-25 20:44] VITALS: BP 129/53; PULSE 85; RESP 20; TEMP 98; O2SAT 100
--- NOTE | 2018-04-25 21:01 | US ---
HISTORY: Leg pain and swelling. Evaluate for DVT PHYSICIAN(S): Blayne Macario MD. TECHNIQUE: Duplex sonography and color-flow Doppler with graded compression were used to evaluate the deep venous systems of both lower extremities. FINDINGS: The visualized deep venous systems of both lower extremities are sonographically normal and compressible. Normal wave forms and augmentation are seen. There is no sonographic evidence for deep venous thrombosis in the visualized segments of both lower extremities. IMPRESSION: No sonographic evidence for deep venous thrombosis in the visualized segments of both lower extremities.
--- NOTE | 2018-04-26 11:16 | CARD ---
APPROVED REPORT Date of service: 04/25/2018 EKG Measurement Heart [id number] <Conclusion> Normal sinus rhythm ST-T Changes.
== END 2018-04-25 20:43 | disposition home or self-care (01) ==
LOC: ED 16:24
DX: R60.0 Localized edema (principal); I10 Essential (primary) hypertension

== ENCOUNTER 2018-05-03 17:44 | Inpatient (IN) | payer MEDICARE, BC ==
--- NOTE | 2018-05-03 18:30 | ED PDOC ---
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 Patient states difficulty walking secondary to leg swelling and states "something feels heavy on my feet". Patient denies any other associated somatic complaints. Patient denies any fevers, chills, headache, chest pain, shortness of breath, dyspnea on exertion, cough, abdominal pain, nausea, vomiting, diarrhea, back pain, neck pain, urinary incontinence, changes in bowel movement, saddle anesthesia, or any other complaints. PMD: Dr. Alexander Time/Duration: < week Symptom Onset: Gradual Symptom Course: Unchanged Activities at Onset: Light Context: Home Past Medical History - Provider Review Nursing Documentation Reviewed: Yes - Infectious Disease Hx of Infectious Diseases: None - Tetanus Immunization Tetanus Immunization: Unknown - Cardiac Hx Cardiac Disorders: Yes Hx Hypertension: Yes - Pulmonary Hx Respiratory Disorders: Yes Hx Pneumonia: Yes - Neurological Hx Neurological Disorder: Yes Other/Comment: chronic tremors - HEENT Hx HEENT Disorder: No - Renal Hx Renal Disorder: No - Endocrine/Metabolic Hx Endocrine Disorders: No - Hematological/Oncological Hx Anemia: Yes (blood transfusion) - Integumentary Hx Dermatological Disorder: Yes Other/Comment: b/l healed surgical scars to both knees, tip of left great toe red - Musculoskeletal/Rheumatological Hx Arthritis: Yes Hx Falls: Yes Hx Osteoarthritis: Yes Hx Unsteady Gait: Yes (uses walker at home) - Gastrointestinal Hx Gastrointestinal Disorders: Yes Hx Gastroesophageal Reflux: Yes - Genitourinary/Gynecological Hx Genitourinary Disorders: Yes (frequency) Hx Incontinence: Yes Hx Urinary Tract Infection: Yes - Psychiatric Hx Anxiety: Yes Hx Depression: Yes Hx Substance Use: No - Surgical History Hx Cholecystectomy: Yes (1984) Hx Hysterectomy: Yes (1969) Hx Orthopedic Surgery: Yes (L KNEE, R KNEE) 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 mitral valve surgery - Anesthesia Hx Anesthesia: Yes Hx Anesthesia Reactions: No Hx Malignant Hyperthermia: No - Suicidal Assessment Feels Threatened In Home Enviroment: No Family/Social History - Physician Review Nursing Documentation Reviewed: Yes Family/Social History: Unknown Family HX Smoking Status: Never Smoked Hx Alcohol Use: No Hx Substance Use: No Hx Substance Use Treatment: No Allergies/Home Meds Allergies/Adverse Reactions: Allergies furosemide Allergy (Mild, Verified 04/25/18 16:36) ITCHING morphine Allergy (Verified 04/25/18 16:36) DIARRHEA ciprofloxacin [From Cipro] Adverse Reaction (Mild, Verified 04/25/18 16:36) ITCHING Home Medications: Home Meds Medication Instructions Recorded Confirmed RX: Alprazolam [Xanax] 1 mg PO BID 10/29/12 05/03/18 RX: Escitalopram [Lexapro] 10 mg PO DAILY 06/13/16 05/03/18 RX: Pantoprazole [Protonix EC Tab] 40 mg PO DAILY 06/04/17 05/03/18 RX: Cholecalciferol [Vitamin D 1 tab PO BID 07/03/17 05/03/18 1000 IU] RX: Propranolol [Inderal LA] 60 mg PO BID 03/02/18 05/03/18 Review of Systems - Physician Review All systems were reviewed & negative as marked: Yes - Review of Systems Constitutional: absent: Fevers Respiratory: absent: SOB, Cough Cardiovascular: Edema (bilateral leg swelling). absent: Chest Pain Gastrointestinal: absent: Abdominal Pain, Diarrhea, Nausea, Vomiting Musculoskeletal: absent: Back Pain, Neck Pain Neurological: Dizziness. absent: Headache Physical Exam Respiratory Rate: Normal Appearance: Positive for: Well-Appearing, Non-Toxic, Comfortable Pain Distress: None Mental Status: Positive for: Alert and Oriented X 3 - Systems Exam Head: Present: Atraumatic, Normocephalic Pupils: Present: PERRL Extroacular Muscles: Present: EOMI Conjunctiva: Present: Normal Mouth: Present: Moist Mucous Membranes Neck: Present: Normal Range of Motion Respiratory/Chest: Present: Clear to Auscultation, Good Air Exchange. No: Respiratory Distress, Accessory Muscle Use Cardiovascular: Present: Regular Rate and Rhythm, Normal S1, S2. No: Murmurs Abdomen: No: Tenderness, Distention, Peritoneal Signs Back: Present: Normal Inspection. No: CVA Tenderness, Midline Tenderness Upper Extremity: Present: Normal Inspection. No: Cyanosis, Edema Lower Extremity: Present: Edema (bilateral LE nonpitting edema ), NORMAL PULSES, Neurovascularly Intact Neurological: Present: GCS=15, CN II-XII Intact, Speech Normal Skin: Present: Warm, Dry, Normal Color. No: Rashes Psychiatric: Present: Alert, Oriented x 3, Normal Insight, Normal Concentration Medical Decision Making ED Course and Treatment: 05/03/18 18:13 Impression: 72 year old female presents to the Emergency department complaining of bilateral lower extremity swelling, generalized weakness and lightheadedness. Plan: -- EKG -- Labs -- Chest X-ray -- Urinalysis -- Reassess and disposition Prior Visits: Notes and results from previous visits were reviewed. Progress Notes: 05/03/18 18:13 Dr. Alexander evaluated patient at bedside. Requests Dr. Hammonds and Dr. Hall on consult. Accepts admission under his service. 05/03/18 18:13 EKG: Ordered, reviewed, and independently interpreted the EKG. Rate : 65 BPM Rhythm : NSR Interpretation : No STEMI. Flipped t waves in V2 and V3. 05/03/18: 2100: UTI on UA: likely source of weakness. Will Rx. No CVAT. Well appearing in NAD. - RAD Interpretation Narrative RAD Interpretations (Text): 05/03/18 19:48 Chest X-ray reviewed by radiologist, shows no active disease. Radiology Orders: 05/03/18 18:23 CHEST PORTABLE [RAD] Stat Senior Accountant: Radiologist - EKG Interpretation Interpreted by ED Physician: Yes Type: 12 lead EKG - Scribe Statement The provider has reviewed the documentation as recorded by the Scribe Jay Pierre. All medical record entries made by the Scribe were at my direction and personally dictated by me. I have reviewed the chart and agree that the record accurately reflects my personal performance of the history, physical exam, medical decision making, and the department course for this patient. I have also personally directed, reviewed, and agree with the discharge instructions and disposition. Disposition/Present on Arrival - Present on Arrival Any Indicators Present on Arrival: No History of DVT/PE: No History of Uncontrolled Diabetes: No Urinary Catheter: No History of Decub. Ulcer: No History Surgical Site Infection Following: None - Disposition Have Diagnosis and Disposition been Completed?: Yes Diagnosis: UTI (urinary tract infection) Disposition: HOSPITALIZED Disposition Time: 18:13 Condition: GOOD
[2018-05-03 18:50] LABS: BASO # 0.02 K/mm3 (0.0-2.0); BASO % 0.3 % (0.0-3.0); EOS % 0.5 % (1.5-5.0); GRAN # 6.18 (1.4-6.5); HEMOGLOBIN 13.5 g/dL (12.0-16.0); LYMPH # 1.1 (1.2-3.4); LYMPH % 13.8 % (22.0-35.0); MEAN CELL VOLUME 84.6 fl (80.0-105.0); MEAN CORPUSCULAR HEMOGLOBIN 27.7 pg (25.0-35.0); MEAN CORPUSCULAR HGB CONC 32.7 g/dl (31.0-37.0); MEAN PLATELET VOLUME 9.5 fl (7.0-11.0); MONO # 0.6 (0.1-0.6); MONO % 7.4 % (1.0-6.0); RBC 4.88 10^6/uL (3.5-6.1); RED CELL DISTRIBUTION WIDTH 14.2 % (11.5-14.5); WHITE BLOOD COUNT 7.9 10^3/ul (4.5-11.0)
--- NOTE | 2018-05-03 18:57 | RAD ---
Date of service: 05/03/2018 HISTORY: weak COMPARISON: 04/25/2018 FINDINGS: LUNGS: No active pulmonary disease. PLEURA: No significant pleural effusion identified, no pneumothorax apparent. CARDIOVASCULAR: Minimal calcified atheromatous plaque at the aortic arch. Normal heart size. Sternotomy wires noted. No congestive change. OSSEOUS STRUCTURES: No significant abnormalities. VISUALIZED UPPER ABDOMEN: Normal. OTHER FINDINGS: None. IMPRESSION: No active disease.
[2018-05-03 19:02] LABS: ALB/GLOB RATIO 1.3 (1.1-1.8); ALBUMIN 3.9 g/dL (3.0-4.8); ALT/SGPT 29 U/L (7-56); AST/SGOT 48 U/L (14-36); BLOOD UREA NITROGEN 19 mg/dL (7-21); GFR NON-AFRICAN AMERICAN > 60
[2018-05-03 19:12] LABS: B-TYPE NATRIURETIC PEPTIDE 558 pg/mL (0-450); TROPONIN I < 0.01 ng/mL
[2018-05-03 20:24] LABS: URINE APPEARANCE CLEAR (CLEAR); URINE BILIRUBIN NEGATIVE (NEGATIVE); URINE BLOOD TRACE-INTACT (NEGATIVE); URINE COLOR YELLOW (YELLOW); URINE GLUCOSE (UA) NEGATIVE (NEGATIVE); URINE LEUKOCYTE ESTERASE LARGE Leu/uL (NEGATIVE); URINE PROTEIN NEGATIVE mg/dL (<30 mg/dL); URINE UROBILINOGEN 0.2 E.U./dL (<1 E.U./dL)
[2018-05-03 20:37] LABS: URINE AMORPHOUS SEDIMENT FEW; URINE BACTERIA LARGE (NEG); URINE WBC 25 - 30 /hpf (0-6)
[2018-05-03] MEDS ORDERED: Non Formulary Medication (Rosuvastatin Calcium [Crestor] 10 MG) PO SCH (22:00)
[2018-05-03] MEDS: cefTRIAXone 1 gm 1 GM/100 ML BAG IVPB SCH (22:39)
[2018-05-04 00:08] VITALS: BMI 32.3
--- NOTE | 2018-05-04 02:24 | HP ---
DATE OF EXAM: 05/03/2018 HISTORY OF PRESENT ILLNESS: I did a house call on her today where she was basically standing with a walker, fell in front of me, I did catch her and put to her chair. She is very stiff and very weak and at that time, she did not want to go to the hospital. I think she will need to have subacute rehab. She did finish physical therapy at home for a long extended time, but I think she needs more. I got a call later on in the day and her son said he has taken her to the ER and he cannot keep her home anymore, very high fall risk and that she is going to need to have. I agree with physical therapy and subacute rehab because she could not really stand by herself or walk by herself. She is also quite stiff. This is a 72-year-old female with past medical history with severe mitral valve prolapse secondary to rheumatic heart fever as a child, status post prosthetic mitral valve replacement in 1993, on Coumadin. She has CAD, hypertension, and high cholesterol. She has bilateral leg swelling associated with generalized weakness, lightheadedness for the past couple of days, difficulty walking secondary to leg swelling and heavy on her feet, lots of somatic complaints, she has fallen, she has hypertension, pneumonia, history of chronic tremors, she had blood transfusion for anemia in the past. She had bilateral healed surgical scars to both knees. The left great toe is red. She has falls, osteoarthritis, very big gait instability and with a walker. She has GERD, urinary frequency, incontinence, urinary tract infection, history of anxiety, depression, cholecystectomy, hysterectomy, orthopedic surgery, left and right knees, mitral valve prolapse replacement, oophorectomy on the left, and mitral valve surgery. FAMILY HISTORY: Unknown. SOCIAL HISTORY: Nonsmoker. Nondrinker. No drugs. ALLERGIES: SHE HAS ALLERGY TO LASIX, MORPHINE AND CIPROFLOXACIN. MEDICATIONS: Xanax, Lexapro, Protonix, vitamin B and Inderal. REVIEW OF SYSTEMS: She is very weak. No acute vision or hearing changes. No sore throat. No chest pain or palpitations. No shortness of breath or cough. There is swelling of both of her legs. No abdominal pain, nausea, vomiting, constipation or diarrhea. No back pain. She is very weak in the lower extremities. She has some dizziness. PHYSICAL EXAMINATION VITAL SIGNS: 98.2 temp, 65 pulse, 149/71 blood pressure, 18 respiratory rate, and 98% O2 sat on room air. HEENT: Head is atraumatic, normocephalic. Extraocular muscles are intact. Pupils are equal and reactive to light. Throat is moist. NECK: Supple. HEART: Regular rate. Normal S1 and S2 with some murmur from the mitral valve replacement. LUNGS: Decreased breath sounds, but clear to auscultation. ABDOMEN: Soft, nontender. Positive bowel sounds.. EXTREMITIES: Trace edema bilateral lower extremities. She is very weak in both lower extremities. NEUROLOGIC: GCS is 15. Cranial nerves II through XII grossly intact. Normal speech. SKIN: Warm and dry. No apparent ulcers or rashes. LYMPHATICS: Thyroid midline. No palpable appreciated lymphadenopathy. I agree I think she needs to go to [facility] and overnight. LABORATORY DATA: She has a 7.9 white count, 13.5 hemoglobin, 41.3 hematocrit, and 206 platelets. She has 143 sodium, potassium is 3.8, BUN 19, creatinine 0.9, GFR is greater than 60, sugars 134, calcium 10, magnesium 2, total bili is 0.7, AST 48, ALT 29, alkaline phosphatase 51, troponin I is pending. BNP is pending. Total protein is 6.8, albumin 3.9, globulin is 3. Chest x-ray shows no active disease. IMPRESSION: She is here because she is weak. She has fallen. She needs to have Physical Therapy before she can go home. Her son brought her here with the warning to go to [facility] before she can go home again. She needs to go to therapy, so we will see how she does in physical therapy and look how to put her back on her medications, warfarin, Florinef, Inderal, Lexapro, Lipitor, magnesium, Protonix, Crestor, Tylenol and Xanax. We will check her labs tomorrow, get Physical Therapy in, and get out of bed to chair. She is going to need to go to subacute rehab. José Miguel Alexander DO [facility]
[2018-05-04 06:42] LABS: HEMOGLOBIN 12.8 g/dL (12.0-16.0); INR 2.36; MEAN CELL VOLUME 84.7 fl (80.0-105.0); MEAN CORPUSCULAR HEMOGLOBIN 27.6 pg (25.0-35.0); MEAN CORPUSCULAR HGB CONC 32.6 g/dl (31.0-37.0); MEAN PLATELET VOLUME 9.7 fl (7.0-11.0); PROTHROMBIN TIME 27.6 SECONDS (9.4-12.5); RBC 4.64 10^6/uL (3.5-6.1); RED CELL DISTRIBUTION WIDTH 14.5 % (11.5-14.5); WHITE BLOOD COUNT 6.3 10^3/ul (4.5-11.0)
[2018-05-04 07:19] LABS: ALB/GLOB RATIO 1.2 (1.1-1.8); ALBUMIN 3.4 g/dL (3.0-4.8); ALT/SGPT 31 U/L (7-56); AST/SGOT 23 U/L (14-36); BLOOD UREA NITROGEN 17 mg/dL (7-21); CALCIUM 9.7 mg/dL (8.4-10.5); GFR NON-AFRICAN AMERICAN > 60
--- NOTE | 2018-05-04 10:11 | CARD ---
APPROVED REPORT Date of service: 05/03/2018 EKG Measurement Heart [id number] <Conclusion> Normal sinus rhythm LVH ST & T wave abnormality, consider anterolateral ischemia Q in 3 Atrifact present
[2018-05-04] MEDS: cefTRIAXone 1 gm 1 GM/100 ML BAG IVPB SCH (10:19)
[2018-05-04] MEDS: Pantoprazole 40 mg EC Tab PO SCH (10:20)
[2018-05-04] MEDS: Magnesium Oxide 400 mg Tab UD PO SCH (10:20)
--- NOTE | 2018-05-04 12:36 | PN ---
DATE: 05/04/2018 SUBJECTIVE: She is here because she has very difficulty walking. She walked with a lot of strain. She had fallen. She is now having foot pain. I will get Podiatry in to evaluate her. She needs to go to [facility] for physical therapy. She will be here for 3 overnights. Physical Therapy has not seen her yet. I cannot imagine and say anything else because she is very unsteady on her feet and she is willing to go to [facility]. I am also waiting for Neurology to come in because it is very possible we could be dealing with Parkinson's too on top of everything else. So we are going to give her physical therapy and make sure she is eating. Get Podiatry in for the feet pain. See if we can get her to [place] or [facility]. PHYSICAL EXAMINATION: VITAL SIGNS: She has a 97.4 temp, pulse 58, blood pressure 126/70,respiratory rate 16, 96% O2 sat on room air. HEENT: Head is atraumatic, normocephalic. HEART: Regular rate. LUNGS: Decreased breath sounds, but clear. ABDOMEN: Soft, obese, nontender. EXTREMITIES: Trace edema. Difficult to move her legs and arms. She is very stiff. LABORATORY DATA: She has a 6.2 white count, hemoglobin 12.8, hematocrit 39.3, platelets 164. She has a 142 sodium, potassium 3.6, BUN 17, creatinine 8.8, GFR is greater than 60, sugar is 88, calcium 9.7, total bili is 0.6, AST is 23, ALT is 31, alkaline phosphatase 45, total protein 6.2. Her INR is 2.36. PLAN: We will check her labs tomorrow and hopefully, the day after we will get her to [facility] for more physical therapy so she can go back home and be independent. José Miguel Alexander DO
[2018-05-04 23:03] VITALS: RESP 18
--- NOTE | 2018-05-05 04:53 | CON ---
DATE: 05/04/2018 HISTORY OF PRESENT ILLNESS: A 72-year-old female seen at bedside with family members for consultation, evaluation and management of bilateral foot pain as well as being unable to clear the ground when she walks which has resulted in numerous falls during the past several weeks. The patient was admitted as she can no longer stand and ambulate without falling. PAST MEDICAL HISTORY: The patient's medical history is significant for hyperlipidemia, CAD, essential hypertension, chronic tremors, anemia, osteoarthritis, GERD, urinary incontinence, anxiety. PAST SURGICAL HISTORY: Includes bilateral knee replacements, cholecystectomy, mitral valve replacement, and hysterectomy. FAMILY HISTORY: Unremarkable. SOCIAL HISTORY: The patient denies use of tobacco products. Does not drink alcohol or use illicit drugs. She lives alone. ALLERGIES: INCLUDE CIPROFLOXACIN, LASIX AND MORPHINE. MEDICATIONS: All medications are noted in MAR. PHYSICAL EXAMINATION: VITAL SIGNS: Revealed a temperature of 97.4, pulse rate of 58, blood pressure of 126/70, respiratory rate of 16. LABORATORY DATA: Laboratory findings reveal white count of 6.3, hemoglobin of 12.8, hematocrit of 39.3, platelet count of 164. There are no x-ray reports of her feet at this time. OBJECTIVE: Nonpalpable pedal pulses noted bilaterally, +2 nonpitting lower extremity edema noted bilaterally. Capillary filling time is within normal limits x10. The patient is unable to detect 5.07 g monofilament wire testing bilaterally. Upon muscle strength testing, the patient has strong dorsiflexion, has adequate plantar flexion, however, is very weak with dorsiflexion. However, the patient exhibits weakness with dorsiflexion as well as inversion and eversion of the bilateral feet. The patient reports feeling of numbness and heaviness in both feet and feels as if there is something on top of both of her feet when she knows that there is. There are noted to be no open lesions. There are no interdigital macerations. There are no clinical signs of acute bacterial infection. ASSESSMENT: Bilateral lower extremity muscle weakness, possible foot drop bilaterally. PLAN: The patient was examined. We will order x-rays to rule out any osseous abnormalities in both feet. The patient reports a long history of back pain and spinal issues which may be the underlying etiology of her drop foot and lower extremity muscle weakness. MRI cannot be ordered as the patient has an implantable cardiac device. We will recommend physical therapy to get her up and moving and possibly she will require an ankle-foot orthosis in the future, so she can clear the ground if she is indeed able to ambulate going forward. We will order formal type Podus boots to prevent heel breakdown. The patient will be seen and followed. Clive Sagluero DPM
[2018-05-05 07:30] LABS: HEMOGLOBIN 12.7 g/dL (12.0-16.0); MEAN CELL VOLUME 84.7 fl (80.0-105.0); MEAN CORPUSCULAR HEMOGLOBIN 27.4 pg (25.0-35.0); MEAN CORPUSCULAR HGB CONC 32.3 g/dl (31.0-37.0); MEAN PLATELET VOLUME 9.8 fl (7.0-11.0); RBC 4.64 10^6/uL (3.5-6.1); RED CELL DISTRIBUTION WIDTH 14.5 % (11.5-14.5); WHITE BLOOD COUNT 6.8 10^3/ul (4.5-11.0)
[2018-05-05 07:36] LABS: INR 2.17; PROTHROMBIN TIME 25.4 SECONDS (9.4-12.5)
[2018-05-05 07:47] LABS: ALB/GLOB RATIO 1.2 (1.1-1.8); ALBUMIN 3.5 g/dL (3.0-4.8); ALT/SGPT 21 U/L (7-56); AST/SGOT 28 U/L (14-36); BLOOD UREA NITROGEN 15 mg/dL (7-21); GFR NON-AFRICAN AMERICAN > 60
--- NOTE | 2018-05-05 09:11 | CON ---
DATE: 05/04/2018 NEUROLOGY CONSULT CHIEF COMPLAINT: Evaluate for Parkinson's. 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 She has mild tremors of her hands which is subtle. She is on propranolol 60 mg p.o. b.i.d for underlying tremors and also magnesium 400 mg p.o. daily. She does have a flat affect and has micrographia upon testing and slight increased rigidity of the wrist. She is mildly bradykinetic. PAST MEDICAL HISTORY: As above. ALLERGIES: FUROSEMIDE, MORPHINE, CIPROFLOXACIN. MEDICATIONS: Reviewed by nurses' reconciliation sheet. FAMILY HISTORY: Noncontributory. REVIEW OF SYSTEMS: Fourteen-point review of systems is negative except as per the HPI. SOCIAL HISTORY: No illicit drug use, smoking, or EtOH abuse. LABORATORY DATA: Sodium is 142, potassium 3.6, chloride 109, carbon dioxide 29, BUN of 17, creatinine 0.8, random glucose 88. PHYSICAL EXAMINATION: VITAL SIGNS: Temperature 97.4, pulse rate 61, blood pressure 126/70, respiratory rate 18, oxygen saturation 97% on room air. GENERAL: The patient is sitting up in bed, in no acute distress, flat affect. HEENT: Atraumatic, normocephalic. PERRLA. Extraocular muscles intact. NECK: Supple. No JVD. No adenopathy noted. LUNGS: Clear to auscultation. No adventitious sounds. HEART: S1 and S2. Normal rate and rhythm. No murmurs, rubs or gallops. ABDOMEN: Soft, nontender, and nondistended. Bowel sounds are present. EXTREMITIES: Has bilateral leg swelling. Mild 1+ pedal edema. Peripheral pulses 2+ felt bilaterally. NEUROLOGIC: The patient is alert and oriented to person, place, and year. Recall after 5 minutes is . Poor attention span. Slow thought process. . Cranial nerves II through XII are intact. Speech is hypophonic, but no aphasia noted. Motor: Slightly increased tone throughout and mild cognitive rigidity at the wrist bilaterally. Mild bradykinesia of the extremities. Mild tremors upon action. Sensory: Light touch, pinprick, proprioception, and vibration intact. DTRs are 2+ throughout and 1 at both knees and absent at the ankles. Coordination: [id number]-[id number]-mhzk intact. No dysmetria noted. Has mild essential tremors bilaterally in both hands. 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 She has also had history of orthostatic hypotension, is on Florinef. She is on propanolol for her underlying essential tremors with 60 mg p.o. b.i.d. At this time, she has features of parkinsonism, not full Parkinson's disease. I will recommend: 1. Sinemet 25/100 p.o. b.i.d. for now. 2. Physical therapy, acute rehab or subacute rehab for physical reconditioning, balance and gait exercises and muscle strengthening. 3. Continue with treatment for underlying urinary tract infection. She is clinically stable. Case was discussed with family at bedside. Sotero Hall MD
[2018-05-05] MEDS: Pantoprazole 40 mg EC Tab PO SCH (09:46)
[2018-05-05] MEDS: Magnesium Oxide 400 mg Tab UD PO SCH (09:47)
[2018-05-05] MEDS: Cefpodoxime (Vantin) 200 mg Tab PO SCH ×2 (09:47→21:17)
--- NOTE | 2018-05-05 11:20 | CP.PCM.PN ---
Subjective - Date & Time of Evaluation Date of Evaluation: 05/05/18 Time of Evaluation: 11:19 - Subjective Subjective: Podiatry progress note for Dr. Yeager/Dr Salguero, 72 yo female seen at [facility] for bilateral foot pain. Patient is unable to clear the ground when walks resulting in numerous falls. Patient denies any other pedal complains today. Denies f/n/v/sob/calf pain/chest pain. Objective - Vital Signs/Intake and Output Vital Signs (last 24 hours): Temp Pulse Resp BP Pulse Ox 97.4 F L 65 18 156/77 H 97 05/04/18 23:02 05/04/18 23:02 05/04/18 23:02 05/04/18 23:02 05/04/18 23:02 - Medications Medications: Current Medications Alprazolam (Xanax) 1 mg PO Q12 [facility]; Protocol Last Admin: 05/05/18 09:46 Dose: 1 mg Atorvastatin Calcium (Lipitor) 40 mg PO HS [facility] Last Admin: 05/04/18 22:10 Dose: 40 mg Carbidopa/Levodopa (Sinemet) 1 tab PO BID [facility] Last Admin: 05/05/18 09:46 Dose: 1 tab Cefpodoxime Proxetil (Vantin) 200 mg PO Q12 [facility] Stop: 05/08/18 22:16 Last Admin: 05/05/18 09:47 Dose: 200 mg Escitalopram Oxalate (Lexapro) 10 mg PO DAILY [facility] Last Admin: 05/05/18 09:47 Dose: 10 mg Fludrocortisone Acetate (Florinef) 0.1 mg PO DAILY [facility] Last Admin: 05/05/18 09:46 Dose: 0.1 mg Magnesium Oxide (Mag-Ox) 400 mg PO DAILY [facility] Last Admin: 05/05/18 09:47 Dose: 400 mg Pantoprazole Sodium (Protonix Ec Tab) 40 mg PO DAILY [facility] Last Admin: 05/05/18 09:46 Dose: 40 mg Propranolol HCl (Inderal) 60 mg PO BID [facility] Last Admin: 05/05/18 09:46 Dose: 60 mg Warfarin Sodium (Coumadin) 3 mg PO 1800 [facility]; Protocol Last Admin: 05/04/18 17:15 Dose: 3 mg - Labs Labs: 05/05/18 07:00 05/05/18 07:00 PT 25.4 SECONDS (9.4-12.5) H 05/05/18 07:00 INR 2.17 05/05/18 07:00 - Constitutional Appears: Well, Non-toxic, No Acute Distress - Head Exam Head Exam: ATRAUMATIC, NORMOCEPHALIC - Extremities Exam Additional comments: Bilateral lower extremity exam: Vascular: Nonpalpable pedal pulses bilaterally, +2 nonpitting lower extremity edema b/l, CFT <3 secs x10 Neuro: protective sensation diminished via ipswich b/l MSK: weak dorsiflexion, strong plantarflexion. Derm: no IDM, no open lesions, no clinical signs of infection - Neurological Exam Neurological Exam: Alert, Awake, Oriented x3 - Psychiatric Exam Psychiatric exam: Normal Affect - Skin Skin Exam: Normal Color Assessment and Plan - Assessment and Plan (Free Text) Assessment: Bilateral lower extremity muscle weakness, possible foot drop bilaterally Plan: Patient seen and evaluated X-rays reviewed; pending official read Physical therapy ordered; AFO to be dispensed, please gait train patient- recs appreciated Multipodus boots to be worn at all times Podiatry will continue to follow the patient while in house Thank you for allowing us to partake in care of this patient
--- NOTE | 2018-05-05 14:34 | PN ---
DATE: 05/05/2018 SUBJECTIVE: I saw her resting comfortably in bed. She slept fairly well. She is eating some. She is still very weak and wants to go to physical therapy and physical therapy recommended [facility], tomorrow overnight start tomorrow hopefully [place] where he wants to go. She is also dealing with the UTI and she wants to see her urologist . PHYSICAL EXAMINATION VITAL SIGNS: She has a 97.4 temp, 65 pulse, 126/77 blood pressure, 18 respirations, 97% O2 sat on room air. HEENT: Head is atraumatic, normocephalic. CARDIOPULMONARY: Regular rate. LUNGS: Clear to auscultation. ABDOMEN: Soft,obese, nontender. EXTREMITIES: Trace edema. LABORATORY DATA: She has a positive UTI, 6.8 white count, 12.7 hemoglobin, 39.3 hematocrit, 169 platelets. INR is 2.17. She has a 141 sodium, potassium 3.9, BUN 15, creatinine 0.7, GFR is greater than 6, sugar is 88, calcium 10, total bili is 0.7, AST is 20, ALT is 21, alkaline phosphatase 46, total protein 6.5. MEDICATIONS: She is on Coumadin, Florinef, Inderal, Lexapro, Lipitor, magnesium, Protonix, Sinemet, Vantin and Xanax. ASSESSMENT AND PLAN: She is very weak, getting physical therapy, she needs to go to [facility]. She had fallen at home and weak. José Miguel Alexander DO MTDD
--- NOTE | 2018-05-05 16:38 | RAD ---
Date of service: 05/04/2018 PROCEDURE: Left Foot Radiographs. HISTORY: Unspecified foot pain. No history of trauma provided COMPARISON: None. FINDINGS: BONES: Normal. No fracture. JOINTS: Normal. SOFT TISSUES: Normal. OTHER FINDINGS: None. IMPRESSION: No significant or acute findings to account for/ related to the clinical presentation.
--- NOTE | 2018-05-05 16:38 | RAD ---
Date of service: 05/04/2018 PROCEDURE: Right Foot Radiographs. HISTORY: foot pain COMPARISON: None. FINDINGS: BONES: Small plantar calcaneal spur. No fracture identified JOINTS: Normal. SOFT TISSUES: Normal. OTHER FINDINGS: None. IMPRESSION: No significant or acute findings to account for/ related to the clinical presentation.
[2018-05-05] MEDS: POLYETHYLENE GLYCOL 3350 17 GM/Dose PACKET PO SCH (18:17)
[2018-05-06 07:34] LABS: HEMOGLOBIN 12.9 g/dL (12.0-16.0); MEAN CELL VOLUME 84.1 fl (80.0-105.0); MEAN CORPUSCULAR HEMOGLOBIN 27.4 pg (25.0-35.0); MEAN CORPUSCULAR HGB CONC 32.6 g/dl (31.0-37.0); MEAN PLATELET VOLUME 9.8 fl (7.0-11.0); RBC 4.71 10^6/uL (3.5-6.1); RED CELL DISTRIBUTION WIDTH 14.1 % (11.5-14.5); WHITE BLOOD COUNT 6.3 10^3/ul (4.5-11.0)
[2018-05-06 07:39] LABS: INR 2.31
[2018-05-06 07:49] LABS: ALB/GLOB RATIO 1.2 (1.1-1.8); ALBUMIN 3.5 g/dL (3.0-4.8); ALT/SGPT 20 U/L (7-56); AST/SGOT 27 U/L (14-36); BLOOD UREA NITROGEN 15 mg/dL (7-21); CALCIUM 9.9 mg/dL (8.4-10.5); GFR NON-AFRICAN AMERICAN > 60
[2018-05-06] MEDS: Magnesium Oxide 400 mg Tab UD PO SCH (09:48)
[2018-05-06] MEDS: Pantoprazole 40 mg EC Tab PO SCH (09:48)
[2018-05-06] MEDS: Cefpodoxime (Vantin) 200 mg Tab PO SCH (09:48)
[2018-05-06] MEDS: POLYETHYLENE GLYCOL 3350 17 GM/Dose PACKET PO SCH (09:48)
--- NOTE | 2018-05-06 12:28 | CP.PCM.PN ---
Subjective - Date & Time of Evaluation Date of Evaluation: 05/06/18 Time of Evaluation: 12:27 - Subjective Subjective: Podiatry progress note for Dr. Yeager/Dr Salguero, 72 yo female seen at [facility] for bilateral foot pain. Patient is unable to clear the ground when walks resulting in numerous falls. Patient denies any other pedal complains today. Denies f/n/v/sob/calf pain/chest pain. Objective - Vital Signs/Intake and Output Vital Signs (last 24 hours): Temp Pulse Resp BP Pulse Ox 97.5 F L 58 L 18 161/68 H 95 05/06/18 06:00 05/06/18 06:00 05/06/18 06:00 05/06/18 06:00 05/06/18 06:00 Intake and Output: 05/06/18 05/06/18 06:59 18:59 Intake Total 780 Output Total 1000 Balance -220 - Medications Medications: Current Medications Alprazolam (Xanax) 1 mg PO Q12 [facility]; Protocol Last Admin: 05/06/18 09:49 Dose: 1 mg Atorvastatin Calcium (Lipitor) 40 mg PO HS [facility] Last Admin: 05/05/18 21:17 Dose: 40 mg Carbidopa/Levodopa (Sinemet) 1 tab PO BID [facility] Last Admin: 05/06/18 09:48 Dose: 1 tab Cefpodoxime Proxetil (Vantin) 200 mg PO Q12 [facility] Stop: 05/08/18 22:16 Last Admin: 05/06/18 09:48 Dose: 200 mg Escitalopram Oxalate (Lexapro) 10 mg PO DAILY [facility] Last Admin: 05/06/18 09:48 Dose: 10 mg Fludrocortisone Acetate (Florinef) 0.1 mg PO DAILY [facility] Last Admin: 05/06/18 09:48 Dose: 0.1 mg Magnesium Oxide (Mag-Ox) 400 mg PO DAILY [facility] Last Admin: 05/06/18 09:48 Dose: 400 mg Pantoprazole Sodium (Protonix Ec Tab) 40 mg PO DAILY [facility] Last Admin: 05/06/18 09:48 Dose: 40 mg Polyethylene Glycol (Miralax) 17 gm PO DAILY [facility] Last Admin: 05/06/18 09:48 Dose: 17 gm Propranolol HCl (Inderal) 60 mg PO BID [facility] Last Admin: 05/06/18 09:48 Dose: 60 mg Warfarin Sodium (Coumadin) 3 mg PO 1800 [facility]; Protocol Last Admin: 05/05/18 18:06 Dose: 3 mg - Labs Labs: 05/06/18 07:00 05/06/18 07:00 PT 27.0 SECONDS (9.4-12.5) H 05/06/18 07:00 INR 2.31 05/06/18 07:00 - Constitutional Appears: Well, Non-toxic, No Acute Distress - Head Exam Head Exam: ATRAUMATIC - Extremities Exam Additional comments: Bilateral lower extremity exam: Vascular: Nonpalpable pedal pulses bilaterally, +2 nonpitting lower extremity edema b/l, CFT <3 secs x10 Neuro: protective sensation diminished via ipswich b/l MSK: weak dorsiflexion, strong plantarflexion. Derm: no IDM, no open lesions, no clinical signs of infection - Neurological Exam Neurological Exam: Alert, Normal Gait Assessment and Plan - Assessment and Plan (Free Text) Assessment: Bilateral lower extremity muscle weakness, possible foot drop bilaterally Plan: Patient seen and evaluated X-rays reviewed; no acute osseous changes Physical therapy ordered; AFO to be dispensed, please gait train patient- recs appreciated Multipodus boots to be worn at all times Podiatry will sign off at this time. Thank you for allowing us to partake in care of this patient
[2018-05-06 15:38] VITALS: BP 99/55; PULSE 62; TEMP 98.3; O2SAT 94
--- NOTE | 2018-05-06 18:23 | CON ---
DATE OF CONSULTATION: 05/06/2018 CHIEF COMPLAINT: Weakness. HISTORY OF PRESENT ILLNESS: This is a 72-year-old female with multiple medical issues, who was seen by Dr. Alexander during a house call. The patient was noted to be very stiff and weak and she fell in front of him. The patient was then taken to the hospital as she is in need of evaluation and likely some rehabilitation. The patient has a history of recurrent urinary tract infections as well as chronic urinary incontinence. The patient reports she has had this for many years. She has no current dysuria, but has chronic frequency and urgency. She denies any history of stones, but does have chronic weakness and low back pain. She reports not knowing that the urine is coming out, but she has been wearing diapers for years and has no control over her urination. consultation was requested regarding the above. PAST MEDICAL HISTORY: Significant for severe mitral valve prolapse, rheumatic fever as a child, mitral valve replacement, coronary artery disease, hypertension, elevated cholesterol, leg edema, weakness, multiple falls, depression, anxiety. FAMILY HISTORY: Noncontributory. SOCIAL HISTORY Denies smoking. Denies EtOH use. MEDICATIONS: Xanax, Lexapro, Protonix, Inderal, vitamins, Sinemet, and Vantin. ALLERGIES: LASIX, MORPHINE AND CIPRO. REVIEW OF SYSTEMS: The patient has multiple somatic complaints. For constitutional, describes weakness and lethargy. For musculoskeletal, has chronic back pain and lower extremity weakness, unable to ambulate. For neurologic, has numbness and tingling, loss of balance. For , see history of present illness. For GI, does report episodes of diarrhea and constipation as well as nausea and recurrent abdominal pain. For neurologic, recurrent headaches. For psychiatric, positive anxiety and depression. For head, eyes, ears, nose and throat, does report decreasing vision and decreasing hearing. Other systems are negative. PHYSICAL EXAMINATION: The patient is awake and alert and answering questions. She is in no acute distress. She is seen in her bed at [facility]. She is afebrile, temp of 97.5, pulse of 60, BP 161/68, respirations are 18. Her neck is supple. There is no mass or adenopathy. Exam of the chest reveals normal inspiratory effort. Cardiac exam showed a positive S1, S2. There is 2+ pitting edema of her lower extremities noted. Abdomen is obese, soft, nontender, nondistended. There is no hepatosplenomegaly. There is no costovertebral angle tenderness, there is no rebound, there is no guarding. Extremities: There is 2+ edema. There is no cyanosis. LABORATORY EXAMINATION: WBC count is normal at 6.3. GFR greater than 60. Creatinine 0.7. Urinalysis showed 25-30 wbc's, 6 to 8 epithelial cells, 5-10 rbc's, positive for nitrites. Urine culture from 05/03/2018 showed positive for E. coli, this is a pansensitive E-coli. RADIOLOGIC EXAMINATION: No recent pertinent urologic imaging was done. In 10/2017, six months ago, the patient had an ultrasound, which showed normal kidneys with no stones or hydronephrosis. IMPRESSION AND PLAN: This is a 72-year-old female with questionable recurrent urinary tract infections. Most likely, these are not actual infections and the urinary findings are contamination from vaginal or perineal bacteria. These are not clean catch specimens given the epithelial cells. The patient does have chronic urinary incontinence, which appears to be from her morbid obesity and possibly a neurogenic component, which would explain why the patient has loss of balance and unable to ambulate. I discussed with the patient previously and again today that continuing to treat her with antibiotics unless this is a catheterized specimen is likely going to cause her to be colonized with more virulent bacteria. The patient had an ultrasound about 6 months ago. There was no stone or other renal pathology noted. I discussed with the patient that she needs to have improved diet with weight loss and she is in need of rehabilitation. If the patient can lose weight and improve her BMI, this will help with her urinary symptoms. The patient can follow up in my office after rehabilitation when she is ambulating well and we can consider a urodynamic evaluation to be able to discern the cause of her urinary incontinence. If the patient is medically a candidate, we can consider a trial of either mirabegron or an anticholinergic to help with her urinary symptoms or possibly consider intravesical Botox depending on the results of her urodynamics and how she is doing with the management of her other comorbidities. Thank you for allowing me to participate in the care of this patient. I will continue to follow her with you while she is an inpatient and she can follow up in my office after rehab to readdress these problems. Cruz Lowe MD
--- NOTE | 2018-05-07 06:53 | DS ---
HISTORY OF PRESENT ILLNESS: I saw her resting comfortably in bed. She is actually excited about going to subacute rehab. She really wants to do physical therapy home again. She was seen by Neurology, Podiatry, and Urology. They were consulted. She is comfortable. PHYSICAL EXAMINATION: VITAL SIGNS: She has 98.3 temp, 61 pulse, 145/66 blood pressure, 18 respiratory rate, and 95% O2 sat on room air. HEENT: Head is atraumatic and normocephalic. HEART: Regular rate. LUNGS: Decreased breath sounds, but clear. ABDOMEN: Soft, obese, and nontender. EXTREMITIES: Trace edema, if any. MEDICATIONS: She is going to go on Coumadin, Florinef, Inderal, Lexapro, Lipitor, magnesium, MiraLax, Protonix, Sinemet, Vantin, and Xanax. LABORATORY DATA: She has a 6.3 white count, 12.9 hemoglobin, 39.6 hematocrit, with a 166 platelets. A 2.13 INR, which is good. Sodium 139, potassium 4, BUN 15, creatinine 0.7, GFR is greater than 60, sugar is 90, calcium is 9.9, total bili is 0.8, AST is 27, ALT is 29, alk phos 46, BNP is high at 558 and total protein is 6.4. Urine showed large bacteria. ASSESSMENT AND PLAN: She now has Sinemet added to her list of medications, but consult showed features of Parkinsonism and not full Parkinson's disease, and they recommended Sinemet 25/100 mg b.i.d., so I think it is a good idea. I will be following at the [facility]. I will see how much better she improves. Both the x-rays were okay. There was a consult for Urology, they did not see her yet, but she will go to [facility] today and will followup over there. José Miguel Alexander DO [facility]
== END 2018-05-06 17:14 | DRG 57 ==
LOC: ED 17:44 → ERH 20:43 → 5RSO 22:53 → 5RNO 05-04 02:28
PROVIDERS: ADMIT Family Medicine; ATTEND Family Medicine
DX: G20 Parkinson's disease (principal); N39.0 Urinary tract infection, site not specified; R26.2 Difficulty in walking, not elsewhere classified; E78.00 Pure hypercholesterolemia, unspecified; E78.5 Hyperlipidemia, unspecified; I10 Essential (primary) hypertension; I25.10 Atherosclerotic heart disease of native coronary artery without angina pectoris; Z95.2 Presence of prosthetic heart valve; M79.89 Other specified soft tissue disorders; Z79.899 Other long term (current) drug therapy; R53.1 Weakness; R42 Dizziness and giddiness; W18.30XA Fall on same level, unspecified, initial encounter; Z91.81 History of falling; G25.0 Essential tremor; W19.XXXA Unspecified fall, initial encounter; Y92.009 Unspecified place in unspecified non-institutional (private) residence as the place of occurrence of the external cause; R32 Unspecified urinary incontinence; E66.01 Morbid (severe) obesity due to excess calories; Z68.30 Body mass index [BMI] 30.0-30.9, adult; I34.1 Nonrheumatic mitral (valve) prolapse; K21.9 Gastro-esophageal reflux disease without esophagitis; M19.90 Unspecified osteoarthritis, unspecified site; R29.6 Repeated falls; Z87.01 Personal history of pneumonia (recurrent); Z87.440 Personal history of urinary (tract) infections; Z90.49 Acquired absence of other specified parts of digestive tract; Z90.710 Acquired absence of both cervix and uterus; Z96.653 Presence of artificial knee joint, bilateral; B96.20 Unspecified Escherichia coli [E. coli] as the cause of diseases classified elsewhere; Z88.1 Allergy status to other antibiotic agents; Z88.5 Allergy status to narcotic agent; Z88.8 Allergy status to other drugs, medicaments and biological substances; R40.2412 Glasgow coma scale score 13-15, at arrival to emergency department

== ENCOUNTER 2018-09-12 10:38 | Emergency (ER) | payer MEDICARE, BC ==
[2018-09-12 10:39] VITALS: BMI 32.3
--- NOTE | 2018-09-12 11:11 | ED PDOC ---
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 Patient reports for the past 6 days, she fell and since then has been experiencing weakness, dizziness, lightheadedness. States she was directed by her PMD to be evaluated in the ER today. Patient denies any chest pain, shortness of breath, nausea, vomiting, any urinary symptoms, or any other complaints at this time. Denies history of smoking or alcohol consumption. PMD: Dr. Alexander Associated Symptoms (Text): 09/12/18 12:15 Generalized weakness and fatigue for approximately 1 week. There have been frequent falls. Denies any injury. No chest pain palpitations or dyspnea. No abdominal pain nausea or vomiting. No fever or chills. No genitourinary symptoms. Past Medical History - Provider Review Nursing Documentation Reviewed: Yes - Infectious Disease Hx of Infectious Diseases: None - Tetanus Immunization Tetanus Immunization: Unknown - Cardiac Hx Cardiac Disorders: Yes Hx Hypertension: Yes - Pulmonary Hx Respiratory Disorders: Yes Hx Pneumonia: Yes - Neurological Hx Neurological Disorder: Yes Hx Parkinson's Disease: Yes Other/Comment: chronic tremors - HEENT Hx HEENT Disorder: No - Renal Hx Renal Disorder: No - Endocrine/Metabolic Hx Endocrine Disorders: No - Hematological/Oncological Hx Anemia: Yes (blood transfusion) - Integumentary Hx Dermatological Disorder: Yes Other/Comment: b/l healed surgical scars to both knees, tip of left great toe red - Musculoskeletal/Rheumatological Hx Arthritis: Yes Hx Falls: Yes Hx Osteoarthritis: Yes Hx Unsteady Gait: Yes (uses walker at home) - Gastrointestinal Hx Gastrointestinal Disorders: Yes Hx Gastroesophageal Reflux: Yes - Genitourinary/Gynecological Hx Genitourinary Disorders: Yes (frequency) Hx Incontinence: Yes Hx Urinary Tract Infection: Yes - Psychiatric Hx Anxiety: Yes Hx Depression: Yes Hx Substance Use: No - Surgical History Hx Cholecystectomy: Yes (1984) Hx Hysterectomy: Yes (1969) Hx Orthopedic Surgery: Yes (L KNEE, R KNEE) 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 mitral valve surgery - Anesthesia Hx Anesthesia: Yes Hx Anesthesia Reactions: No Hx Malignant Hyperthermia: No - Suicidal Assessment Feels Threatened In Home Enviroment: No Family/Social History - Physician Review Nursing Documentation Reviewed: Yes Family/Social History: No Known Family HX Smoking Status: Never Smoked Hx Alcohol Use: No Hx Substance Use: No Hx Substance Use Treatment: No Allergies/Home Meds Allergies/Adverse Reactions: Allergies furosemide Allergy (Mild, Verified 09/12/18 10:53) ITCHING morphine Allergy (Verified 09/12/18 10:53) DIARRHEA ciprofloxacin [From Cipro] Adverse Reaction (Mild, Verified 09/12/18 10:53) ITCHING Home Medications: Home Meds Medication Instructions Recorded Confirmed Alprazolam [Xanax] 1 mg PO BID 10/29/12 09/12/18 Escitalopram [Lexapro] 10 mg PO DAILY 06/13/16 09/12/18 Pantoprazole [Protonix EC Tab] 40 mg PO DAILY 06/04/17 09/12/18 Cholecalciferol [Vitamin D 1000 IU] 1 tab PO BID 07/03/17 09/12/18 Propranolol [Inderal LA] 60 mg PO BID 03/02/18 09/12/18 Warfarin [Coumadin] 2 mg PO 1800 09/12/18 09/12/18 Review of Systems - Physician Review All systems were reviewed & negative as marked: Yes - Review of Systems Constitutional: Fatigue, Other (weakness). absent: Fevers Respiratory: absent: SOB, Cough, Wheezing Cardiovascular: absent: Chest Pain, Palpitations, Syncope Gastrointestinal: absent: Abdominal Pain, Diarrhea, Nausea, Vomiting Neurological: Dizziness (and lightheadedness). absent: Headache, Focal Weakness Physical Exam Vital Signs Reviewed: Yes Vital Signs Temp Pulse Resp BP Pulse Ox 09/12/18 10:55 97.5 F L 70 18 116/50 L 96 Temperature: Afebrile Blood Pressure: Normal Pulse: Regular Respiratory Rate: Normal Appearance: Positive for: Well-Appearing, Non-Toxic, Comfortable Pain Distress: None Mental Status: Positive for: Alert and Oriented X 3 - Systems Exam Head: Present: Atraumatic, Normocephalic Pupils: Present: PERRL Extroacular Muscles: Present: EOMI Conjunctiva: Present: Normal Ears: Present: NORMAL TM, Normal Canal. No: Erythema, TM Bulging Mouth: Present: Moist Mucous Membranes Pharnyx: No: ERYTHEMA, EXUDATE, TONSILS ENLARGED Neck: Present: Normal Range of Motion Respiratory/Chest: Present: Clear to Auscultation, Good Air Exchange, Other (surgical scar to chest wall from valve replacment, has mitral valve click.). No: Respiratory Distress, Accessory Muscle Use Cardiovascular: Present: Regular Rate and Rhythm, Normal S1, S2. No: Murmurs Abdomen: No: Tenderness, Distention, Peritoneal Signs Back: Present: Normal Inspection Upper Extremity: Present: Normal Inspection. No: Cyanosis, Edema Lower Extremity: Present: Other (bilateraly ecchymosis with various stages of healing; surgical scars to knees bilaterally from past bilateral knee replacement.). No: Edema Neurological: Present: GCS=15, CN II-XII Intact, Speech Normal, Motor Func Grossly Intact Skin: Present: Warm, Dry, Pale. No: Rashes Psychiatric: Present: Alert, Oriented x 3, Normal Insight, Normal Concentration Medical Decision Making ED Course and Treatment: 09/12/18 11:12 Impression: 72 year old female with weakness, dizziness, and lightheadedness. Plan: -- EKG -- Head CT -- Chest X-ray -- Labs -- Urinalysis -- Reassess and disposition Progress Notes: 09/12/18 11:19 Dr. Alexander currently at patient's bedside for evaluation. 09/12/18 12:17 EKG shows normal sinus rhythm rate approximately [address] and T waves similar to EKG of May 03, 2018. 09/12/18 12:20 CT scan of the head as read by the radiologist shows atrophy with no acute findings. 09/12/18 13:04 Discussed in detail with Dr. Alexander the patient and the patient's . Workup is unremarkable, including CT scan x-ray EKG blood and urine testing.. Patient already has physical therapy set up at home. She wants to go home and try her physical therapy at home. Dr. Alexander was okay with this. Discharged home accompanied by . Follow-up with PMD. Follow-up in ER as needed. - RAD Interpretation Radiology Orders: Chest one view shows hardware with no infiltrate effusion or cardiomegaly. Manager Pest: ED Physician - Scribe Statement The provider has reviewed the documentation as recorded by the Shea Plata Provider Scribe Attestation: All medical record entries made by the Justiceibe were at my direction and personally dictated by me. I have reviewed the chart and agree that the record accurately reflects my personal performance of the history, physical exam, medical decision making, and the department course for this patient. I have also personally directed, reviewed, and agree with the discharge instructions and disposition. Disposition/Present on Arrival - Present on Arrival Any Indicators Present on Arrival: No History of DVT/PE: No History of Uncontrolled Diabetes: No Urinary Catheter: No History of Decub. Ulcer: No History Surgical Site Infection Following: None - Disposition Have Diagnosis and Disposition been Completed?: Yes Diagnosis: Elevated INR, Weakness, Dizziness Disposition: HOME/ ROUTINE Disposition Time: 13:05 Patient Plan: Discharge Condition: FAIR Discharge Instructions (ExitCare): Weakness (ED), Fatigue (DC), What to Do When Your INR Is Too High , Dizziness, Nonvertigo, (DC), Generalized Weakness Additional Instructions: Hold Coumadin for tonight. Follow-up with PMD. Follow-up in ER as needed. Referrals: José Miguel Alexander DO [Primary Care Provider] - Follow up with primary Forms: [employer] ([place])
[2018-09-12 11:36] LABS: BASO # 0.01 {null, K/mm3} (0.0-2.0); BASO % 0.1 % (0.0-3.0); EOS # 0.1 (0.0-0.7); HEMOGLOBIN 12.3 g/dL (12.0-16.0); LYMPH # 1.1 (1.2-3.4); MEAN CELL VOLUME 86.9 fl (80.0-105.0); MEAN CORPUSCULAR HEMOGLOBIN 27.8 pg (25.0-35.0); MEAN CORPUSCULAR HGB CONC 31.9 g/dl (31.0-37.0); MEAN PLATELET VOLUME 9.2 fl (7.0-11.0); MONO # 0.7 (0.1-0.6); MONO % 7.9 % (1.0-6.0); RBC 4.43 {null, 10^6/uL} (3.5-6.1); RED CELL DISTRIBUTION WIDTH 13.8 % (11.5-14.5); WHITE BLOOD COUNT 8.4 {null, 10^3/uL} (4.5-11.0)
[2018-09-12 11:46] LABS: ALB/GLOB RATIO 1.3 (1.1-1.8); ALBUMIN 3.7 g/dL (3.0-4.8); AST/SGOT 27 U/L (14-36); BLOOD UREA NITROGEN 18 mg/dL (7-21); CALCIUM 9.8 mg/dL (8.4-10.5); GFR NON-AFRICAN AMERICAN > 60
[2018-09-12 11:49] LABS: ALT/SGPT < 6 U/L (7-56)
[2018-09-12 11:57] LABS: TROPONIN I < 0.01 ng/mL
[2018-09-12 11:58] LABS: PARTIAL THROMBOPLASTIN TIME 55.2 Seconds (26.9-38.3)
[2018-09-12 12:08] LABS: URINE BILIRUBIN NEGATIVE (NEGATIVE); URINE BLOOD NEGATIVE (NEGATIVE); URINE GLUCOSE (UA) NEGATIVE (NEGATIVE); URINE LEUKOCYTE ESTERASE MODERATE Leu/uL (NEGATIVE); URINE PROTEIN 30 mg/dL (<30 mg/dL); URINE UROBILINOGEN 0.2 E.U./dL (<1 E.U./dL)
--- NOTE | 2018-09-12 12:09 | CT ---
Date of service: 09/12/2018 PROCEDURE: CT HEAD WITHOUT CONTRAST. HISTORY: weak COMPARISON: Noncontrast head CT performed 03/02/18 TECHNIQUE: Axial computed tomography images were obtained through the head/brain without intravenous contrast. Radiation dose: Total exam DLP = 777.36 mGy-cm. This CT exam was performed using one or more of the following dose reduction techniques: Automated exposure control, adjustment of the mA and/or kV according to patient size, and/or use of iterative reconstruction technique. FINDINGS: HEMORRHAGE: No intracranial hemorrhage. BRAIN: Diffuse atrophy with prominence of the ventricles and sulci noted. No mass effect or edema. Mild scattered white matter hypodensities, which are nonspecific, but often seen with chronic microvascular ischemic disease. Please note that MRI with diffusion imaging is more sensitive in the detection of acute ischemic event. VENTRICLES: No hydrocephalus. CALVARIUM: Unremarkable. PARANASAL SINUSES: Unremarkable as visualized. No significant inflammatory changes. MASTOID AIR CELLS: Unremarkable as visualized. No inflammatory changes. OTHER FINDINGS: None. IMPRESSION: No acute intracranial pathology identified.
[2018-09-12 12:12] LABS: PROTHROMBIN TIME 48.9 SECONDS (9.4-12.5)
[2018-09-12 12:13] LABS: INR 4.33
[2018-09-12 12:14] LABS: URINE APPEARANCE CLEAR (CLEAR); URINE COLOR YELLOW (YELLOW)
[2018-09-12 12:43] LABS: URINE AMORPHOUS SEDIMENT FEW /hpf; URINE BACTERIA MOD /hpf; URINE RBC 0 - 2 /hpf (0-2)
--- NOTE | 2018-09-12 12:46 | RAD ---
HISTORY: weak COMPARISON: Chest x-ray performed 05/03/18 TECHNIQUE: Chest, one view. FINDINGS: Examination limited by habitus. LUNGS: No focal consolidation. Please note that chest x-ray has limited sensitivity for the detection of pulmonary masses. PLEURA: No significant pleural effusion identified. No definite pneumothorax . CARDIOVASCULAR: Median sternotomy wires. Cardiomegaly. Atherosclerotic calcifications of the aorta. OSSEOUS STRUCTURES: Degenerative changes. VISUALIZED UPPER ABDOMEN: Unremarkable. OTHER FINDINGS: None. IMPRESSION: Cardiomegaly. No focal consolidation.
[2018-09-12 13:51] VITALS: BP 127/53; PULSE 75; RESP 20; TEMP 98; O2SAT 98
--- NOTE | 2018-09-12 14:35 | CARD ---
APPROVED REPORT Date of service: 09/12/2018 EKG Measurement Heart [id number] <Conclusion> Normal sinus rhythm Inferior infarct, age undetermined ST & T wave abnormality, consider lateral ischemia Abnormal ECG
== END 2018-09-12 13:51 | disposition home or self-care (01) ==
LOC: ED 10:38
DX: R42 Dizziness and giddiness (principal); R53.1 Weakness; R79.1 Abnormal coagulation profile; I25.10 Atherosclerotic heart disease of native coronary artery without angina pectoris; I10 Essential (primary) hypertension; E78.5 Hyperlipidemia, unspecified; G20 Parkinson's disease; Z95.2 Presence of prosthetic heart valve; Z79.01 Long term (current) use of anticoagulants; R29.6 Repeated falls

== ENCOUNTER 2018-09-22 09:08 | Inpatient (IN) | payer MEDICARE, BC ==
[2018-09-22 10:24] LABS: BASO # 0.02 K/mm3 (0.0-2.0); BASO % 0.2 % (0.0-3.0); EOS % 0.3 % (1.5-5.0); HEMOGLOBIN 13.5 g/dL (12.0-16.0); LYMPH # 1.3 (1.2-3.4); LYMPH % 14.4 % (22.0-35.0); MEAN CELL VOLUME 86.1 fl (80.0-105.0); MEAN CORPUSCULAR HGB CONC 32.5 g/dl (31.0-37.0); MEAN PLATELET VOLUME 9.7 fl (7.0-11.0); MONO # 0.4 (0.1-0.6); MONO % 4.3 % (1.0-6.0); PH,URINE 6.5 (4.7-8.0); RBC 4.83 10^6/uL (3.5-6.1); RED CELL DISTRIBUTION WIDTH 13.8 % (11.5-14.5); URINE BILIRUBIN NEGATIVE (NEGATIVE); URINE BLOOD NEGATIVE (NEGATIVE); URINE GLUCOSE (UA) NEGATIVE (NEGATIVE); URINE LEUKOCYTE ESTERASE NEGATIVE Leu/uL (NEGATIVE); URINE PROTEIN TRACE mg/dL (<30 mg/dL); URINE UROBILINOGEN 0.2 E.U./dL (<1 E.U./dL); WHITE BLOOD COUNT 9.3 10^3/uL (4.5-11.0)
[2018-09-22 10:30] LABS: URINE APPEARANCE CLEAR (CLEAR); URINE COLOR YELLOW (YELLOW)
[2018-09-22 10:34] LABS: URINE BACTERIA MANY /hpf; URINE RBC 0 - 2 /hpf (0-2)
[2018-09-22 10:35] LABS: URINE AMORPHOUS SEDIMENT FEW /hpf
[2018-09-22 10:38] LABS: INR 2.93; PARTIAL THROMBOPLASTIN TIME 42.8 Seconds (26.9-38.3); PROTHROMBIN TIME 33.1 SECONDS (9.4-12.5)
--- NOTE | 2018-09-22 10:46 | CT ---
Date of service: 09/22/2018 PROCEDURE: CT HEAD WITHOUT CONTRAST. HISTORY: Status post fall-patient on Coumadin COMPARISON: Comparison made with CT scan brain dated 09/12/2018. TECHNIQUE: Axial computed tomography images were obtained through the head/brain without intravenous contrast. Radiation dose: Total exam DLP = 861.47 mGy-cm. This CT exam was performed using one or more of the following dose reduction techniques: Automated exposure control, adjustment of the mA and/or kV according to patient size, and/or use of iterative reconstruction technique. FINDINGS: HEMORRHAGE: No acute parenchymal, subarachnoid nor extra-axial hemorrhage. BRAIN: Mild chronic periventricular white matter ischemic changes extend peripherally into the deep white matter both cerebral hemispheres. Note the possibility of a small hyperacute infarct not excluded on this study. Correlation recommended. Mild central volume loss evidenced by slight disproportionate enlargement of the ventricles compared sulci. VENTRICLES: No obstructive hydrocephalus. CALVARIUM: Calvarium intact. Redemonstrated are mild hyperostosis frontalis interna changes.. Note again made of a small calcification in the right frontal region which appears to abut the inner table of the frontal calvarium. Findings could be postinflammatory PARANASAL SINUSES: Minor mucosal thickening seen within a few ethmoid air cells. MASTOID AIR CELLS: Unremarkable as visualized. No inflammatory changes. OTHER FINDINGS: None. IMPRESSION: Mild chronic periventricular white matter ischemic changes extend peripherally into the deep white matter both cerebral hemispheres. Note the possibility of a small hyperacute infarct not excluded on this study. Correlation recommended. Mild central volume loss evidenced by slight disproportionate enlargement of the ventricles compared sulci
[2018-09-22 10:48] LABS: ALB/GLOB RATIO 1.3 (1.1-1.8); ALBUMIN 4.1 g/dL (3.0-4.8); CALCIUM 10.4 mg/dL (8.4-10.5)
[2018-09-22 10:55] LABS: TROPONIN I 0.01 ng/mL
--- NOTE | 2018-09-22 11:30 | RAD ---
Date of service: 09/22/2018 PROCEDURE: Radiographs of the Right Shoulder HISTORY: Posttraumatic right shoulder pain. COMPARISON: No prior. FINDINGS: BONES: Normal. No fracture. JOINTS: Acromioclavicular changes are moderate. Mild high riding humeral head relative to the glenoid indicative of rotator cuff disease. SOFT TISSUES: Normal. OTHER FINDINGS: None. IMPRESSION: Degenerative changes described in greater detail above. No acute findings. No visible fracture.
--- NOTE | 2018-09-22 11:33 | RAD ---
Date of service: 09/22/2018 PROCEDURE: Radiographs of the Lumbar Spine. HISTORY: s/p fall COMPARISON: No prior. FINDINGS: BONES: Profound osteopenia. No fracture identified. Normal alignment DISC SPACES: Degenerative changes primarily lower thoracic and upper lumbar spine. OTHER FINDINGS: Calcified nonaneurysmal abdominal aorta. IMPRESSION: No acute findings related to/ accounting for the clinical presentation.
--- NOTE | 2018-09-22 11:34 | RAD ---
Date of service: 09/22/2018 HISTORY: r/o infiltrate COMPARISON: 09/12/2018. FINDINGS: LUNGS: No active pulmonary disease. PLEURA: No significant pleural effusion identified, no pneumothorax apparent. CARDIOVASCULAR: No radiographic findings to suggest acute or significant cardiovascular disease. Incidental Finding(s): Postoperative changes related to sternotomy. Atherosclerotic calcifications identified primarily aortic arch. . OSSEOUS STRUCTURES: No significant abnormalities. VISUALIZED UPPER ABDOMEN: Normal. OTHER FINDINGS: None. IMPRESSION: No active disease. No significant interval change compared to the prior examination(s).
--- NOTE | 2018-09-22 11:54 | ED PDOC ---
Arrival/HPI - General Chief Complaint: Trauma - History of Present Illness Narrative History of Present Illness (Text): 09/22/18 15:00 Arin Carlisle is a 72 year old female, with a past medical history of severe MVP 2/2 rheumatic heart disease (as a child) s/p prosthetic mitral valve replacement in 1993 (on Coumadin), CAD, HTN, and HLD, presents to the emergency department complaining of mild pain to the back of the head and generalized weakness s/p fall this morning. Patient was standing at her refrigerator when she felt weak, falling and hitting the back of her head. Patient notes no symptoms prior to fall. Patient has physical therapy at her home 2 times a week. Patient denies loss of consciousness, hematuria, dysuria, urinary of bowel changes, nausea, vomiting, back pain, neck pain, or any other complaints. Time/Duration: 4-6 hours (earlier this morning ) Symptom Onset: Sudden Symptom Course: Unchanged Activities at Onset: Light Context: Home Past Medical History - Provider Review Nursing Documentation Reviewed: Yes - Infectious Disease Hx of Infectious Diseases: None - Tetanus Immunization Tetanus Immunization: Unknown - Cardiac Hx Cardiac Disorders: Yes Hx Hypertension: Yes Hx Mitral Valve Prolapse: Yes - Pulmonary Hx Respiratory Disorders: Yes Hx Pneumonia: Yes - Neurological Hx Neurological Disorder: Yes Hx Parkinson's Disease: Yes - HEENT Hx HEENT Disorder: No - Renal Hx Renal Disorder: No - Endocrine/Metabolic Hx Endocrine Disorders: No - Hematological/Oncological Hx Anemia: Yes Hx Blood Transfusions: Yes - Integumentary Hx Dermatological Disorder: Yes - Musculoskeletal/Rheumatological Hx Arthritis: Yes Hx Falls: Yes Hx Osteoarthritis: Yes Hx Unsteady Gait: Yes - Gastrointestinal Hx Gastrointestinal Disorders: Yes Hx Gastroesophageal Reflux: Yes - Genitourinary/Gynecological Hx Genitourinary Disorders: Yes Hx Incontinence: Yes Hx Urinary Tract Infection: Yes - Psychiatric Hx Psychophysiologic Disorder: Yes Hx Anxiety: Yes Hx Depression: Yes Hx Substance Use: No - Surgical History Hx Cholecystectomy: Yes Hx Hysterectomy: Yes Hx Orthopedic Surgery: Yes (L KNEE, R KNEE) Hx Valve Replacement: Yes Other/Comment: left oopherectomy. mitral valve surgery - Anesthesia Hx Anesthesia: Yes Hx Anesthesia Reactions: No Hx Malignant Hyperthermia: No - Suicidal Assessment Feels Threatened In Home Enviroment: No Family/Social History - Physician Review Nursing Documentation Reviewed: Yes Family/Social History: No Known Family HX Smoking Status: Never Smoked Hx Alcohol Use: No Hx Substance Use: No Hx Substance Use Treatment: No Allergies/Home Meds Allergies/Adverse Reactions: Allergies furosemide Allergy (Mild, Verified 09/22/18 09:17) ITCHING morphine Allergy (Verified 09/22/18 09:17) DIARRHEA ciprofloxacin [From Cipro] Adverse Reaction (Mild, Verified 09/22/18 09:17) ITCHING Home Medications: Home Meds Medication Instructions Recorded Confirmed Alprazolam [Xanax] 1 mg PO TID 10/29/12 09/22/18 Escitalopram [Lexapro] 10 mg PO DAILY 06/13/16 09/22/18 Pantoprazole [Protonix EC Tab] 40 mg PO DAILY 06/04/17 09/22/18 Cholecalciferol [Vitamin D 1000 IU] 2 tab PO BID 07/03/17 09/22/18 Propranolol [Inderal LA] 60 mg PO BID 03/02/18 09/22/18 Warfarin [Coumadin] 2 mg PO 1800 09/12/18 09/22/18 Carbidopa/Levodopa [Sinemet Cr 1 tab PO TID 09/22/18 09/22/18 25-100 Tablet] LORazepam [Ativan] 1 mg PO TID 09/22/18 09/22/18 Lisinopril [Zestril] 5 mg PO DAILY 09/22/18 09/22/18 amLODIPine [Norvasc] 2.5 mg PO DAILY 09/22/18 09/22/18 Review of Systems - Physician Review All systems were reviewed & negative as marked: Yes - Review of Systems Constitutional: Other (Generalized weakness) Gastrointestinal: absent: Nausea, Vomiting Genitourinary Female: absent: Dysuria, Frequency, Hematuria, Urine Output Changes Musculoskeletal: Arthralgias (mild pain to the back of the head). absent: Back Pain, Neck Pain Neurological: absent: Other (Loss of consciousness) Physical Exam Vital Signs Reviewed: Yes Vital Signs Temp Pulse Resp BP Pulse Ox 09/22/18 09:08 97.6 F 84 20 140/98 H 100 Temperature: Afebrile Blood Pressure: Normal Pulse: Regular Respiratory Rate: Normal Appearance: Positive for: Well-Appearing, Non-Toxic, Comfortable Pain Distress: None Mental Status: Positive for: Alert and Oriented X 3 Finger Stick Blood Glucose: 102 - Systems Exam Head: Present: Atraumatic, Normocephalic Pupils: Present: PERRL Extroacular Muscles: Present: EOMI Conjunctiva: Present: Normal Mouth: Present: Moist Mucous Membranes Neck: Present: Normal Range of Motion Respiratory/Chest: Present: Clear to Auscultation, Good Air Exchange. No: Respiratory Distress, Accessory Muscle Use, Wheezes, Rales, Rhonchi Cardiovascular: Present: Regular Rate and Rhythm, Normal S1, S2. No: Murmurs, Rub, Gallop Abdomen: No: Tenderness, Distention, Peritoneal Signs Back: Present: Normal Inspection Neurological: Present: GCS=15, CN II-XII Intact, Speech Normal, Other (Parkinsonian tremor) Skin: Present: Warm, Dry, Normal Color. No: Rashes Psychiatric: Present: Alert, Oriented x 3, Normal Insight, Normal Concentration Medical Decision Making ED Course and Treatment: 09/22/18 15:00 Impression: Patients a 72 year old female who presents to the emergency department complaining of generalized weakness and mild pain to the back of the head s/p fall earlier this morning. Pt denies loss of consciousness. Differential Diagnosis included but are not limited to: Plan: -- CT Head w/o Contrast -- Chest X-Ray -- EKG -- Labs -- Coumadin -- Lexapro -- Lipitor -- Mag-ox -- Miralax -- Procardia XL -- Protonix EC TAB -- Rocephin -- Sinemet -- Toradol -- Vit. D -- Urine Culture -- IV Insertion -- X-Ray Lumbar Spine -- X-Ray Right shoulder -- Urinalyis -- Reassess and disposition Prior Visits: Notes and results from previous visits were reviewed. Progress Notes: 09/22/18 15:[address] Alexander. Pt admitted to his service on general management floor. - Lab Interpretations Lab Results: PT 33.1 SECONDS (9.4-12.5) H 09/22/18 10:10 INR 2.93 09/22/18 10:10 APTT 42.8 Seconds (26.9-38.3) H 09/22/18 10:10 Troponin I 0.01 ng/mL 09/22/18 10:10 Total Bilirubin 0.7 mg/dL (0.2-1.3) 09/22/18 10:10 AST 40 U/L (14-36) H D 09/22/18 10:10 ALT 29 U/L (7-56) 09/22/18 10:10 Alkaline Phosphatase 74 U/L (38-126) 09/22/18 10:10 Total Protein 7.4 g/dL (5.8-8.3) 09/22/18 10:10 Albumin 4.1 g/dL (3.0-4.8) 09/22/18 10:10 Globulin 3.3 gm/dL 09/22/18 10:10 Albumin/Globulin Ratio 1.3 (1.1-1.8) 09/22/18 10:10 Urine Color Yellow (YELLOW) 09/22/18 10:10 Urine Appearance Clear (CLEAR) 09/22/18 10:10 Urine pH 6.5 (4.7-8.0) 09/22/18 10:10 Ur Specific Fords 1.025 (1.005-1.035) 09/22/18 10:10 Urine Protein Trace mg/dL (<30 mg/dL) H 09/22/18 10:10 Urine Glucose (UA) Negative mg/dL (NEGATIVE) 09/22/18 10:10 Urine Ketones Negative mg/dL (NEGATIVE) 09/22/18 10:10 Urine Blood Negative (NEGATIVE) 09/22/18 10:10 Urine Nitrate Negative (NEGATIVE) 09/22/18 10:10 Urine Bilirubin Negative (NEGATIVE) 09/22/18 10:10 Urine Urobilinogen 0.2 E.U./dL (<1 E.U./dL) 09/22/18 10:10 Ur Leukocyte Esterase Negative Karin/uL (NEGATIVE) 09/22/18 10:10 Urine RBC 0 - 2 /hpf (0-2) 09/22/18 10:10 Urine WBC 2 - 5 /hpf (0-6) 09/22/18 10:10 Ur Epithelial Cells 6 - 8 /hpf (0-5) H 09/22/18 10:10 Amorphous Sediment Few /hpf (NONE) 09/22/18 10:10 Urine Bacteria Many /hpf (NONE) 09/22/18 10:10 Urine Other Fiber /hpf 09/22/18 10:10 - RAD Interpretation Narrative RAD Interpretations (Text): 09/22/18 10:[address], shows: FINDINGS: HEMORRHAGE: No acute parenchymal, subarachnoid nor extra-axial hemorrhage. BRAIN: Mild chronic periventricular white matter ischemic changes extend peripherally into the deep white matter both cerebral hemispheres. Note the possibility of a small hyperacute infarct not excluded on this study. Correlation recommended. Mild central volume loss evidenced by slight disproportionate enlargement of the ventricles compared sulci. VENTRICLES: No obstructive hydrocephalus. CALVARIUM: Calvarium intact. Redemonstrated are mild hyperostosis frontalis interna changes.. Note again made of a small calcification in the right frontal region which appears to abut the inner table of the frontal calvarium. Findings could be postinflammatory PARANASAL SINUSES: Minor mucosal thickening seen within a few ethmoid air cells. MASTOID AIR CELLS: Unremarkable as visualized. No inflammatory changes. OTHER FINDINGS: None. IMPRESSION: Mild chronic periventricular white matter ischemic changes extend peripherally into the deep white matter both cerebral hemispheres. Note the possibility of a small hyperacute infarct not excluded on this study. Correlation recommended. Mild central volume loss evidenced by slight disproportionate enlargement of the ventricles compared sulci 09/22/18 11:27 Shoulder X-Ray shows: FINDINGS: BONES: Normal. No fracture. JOINTS: Acromioclavicular changes are moderate. Mild high riding humeral head relative to the glenoid indicative of rotator cuff disease. SOFT TISSUES: Normal. OTHER FINDINGS: None. IMPRESSION: Degenerative changes described in greater detail above. No acute findings. No visible fracture. 09/22/18 11:30 Chest X-Ray, shows: FINDINGS: LUNGS: No active pulmonary disease. PLEURA: No significant pleural effusion identified, no pneumothorax apparent. CARDIOVASCULAR: No radiographic findings to suggest acute or significant cardiovascular disease. Incidental Finding(s): Postoperative changes related to sternotomy. Atherosclerotic calcifications identified primarily aortic arch. OSSEOUS STRUCTURES: No significant abnormalities. VISUALIZED UPPER ABDOMEN: Normal. OTHER FINDINGS: None. IMPRESSION: No active disease. No significant interval change compared to the prior examination(s). 09/22/18 11:59 Lumbar X-Ray shows: FINDINGS: BONES: Profound osteopenia. No fracture identified. Normal alignment DISC SPACES: Degenerative changes primarily lower thoracic and upper lumbar spine. OTHER FINDINGS: Calcified nonaneurysmal abdominal aorta. IMPRESSION: No acute findings related to/ accounting for the clinical presentation. Radiology Orders: 09/22/18 09:49 HEAD W/O CONTRAST [CT] Stat CHEST PORTABLE [RAD] Stat 09/22/18 10:17 LS SPINE WITH OBL > 18 YRS OLD [RAD] Stat SHOULDER RIGHT [RAD] Stat Finished Yarn Examiner: Radiologist - EKG Interpretation EKG Interpretation (Text): 09/22/18 15:10 EKG: Ordered, reviewed, and independently interpreted the EKG. Rate : 82 BPM Rhythm : NSR Interpretation : Normal axis and intervals Interpreted by ED Physician: Yes Type: 12 lead EKG - Scribe Statement The provider has reviewed the documentation as recorded by the Scribburak Parks All medical record entries made by the Jsuticeibe were at my direction and personally dictated by me. I have reviewed the chart and agree that the record accurately reflects my personal performance of the history, physical exam, medical decision making, and the department course for this patient. I have also personally directed, reviewed, and agree with the discharge instructions and disposition. Disposition/Present on Arrival - Present on Arrival Any Indicators Present on Arrival: No History of DVT/PE: No History of Uncontrolled Diabetes: No Urinary Catheter: No History of Decub. Ulcer: No History Surgical Site Infection Following: None - Disposition Have Diagnosis and Disposition been Completed?: Yes Diagnosis: UTI (urinary tract infection), Weakness Disposition: HOSPITALIZED Disposition Time: 11:15 Condition: STABLE
[2018-09-22] MEDS ORDERED: cefTRIAXone 1 gm 1 GM/100 ML BAG IVPB STA (11:58)
--- NOTE | 2018-09-22 16:46 | CARD ---
APPROVED REPORT Date of service: 09/22/2018 EKG Measurement Heart [id number] <Conclusion> Normal sinus rhythm ST & T wave abnormality, consider anterior ischemia Prolonged QT Abnormal ECG
[2018-09-22] MEDS: Cholecalciferol 1,000 INTLU TAB PO SCH (17:16)
[2018-09-22] MEDS: NIFEdipine 60 mg ER Tab PO SCH (17:16)
[2018-09-22 17:50] VITALS: BMI 33.3
[2018-09-22] MEDS ORDERED: Pneumococcal 23-Valent Vaccine IM ONE (17:51)
[2018-09-22] MEDS ORDERED: Influenza Vaccine 60 mcg/0.5 mL SYR (4YR UP) IM ONE (17:51)
--- NOTE | 2018-09-22 18:57 | CON ---
DATE: 09/22/2018 NEUROLOGY CONSULT CHIEF COMPLAINT: Evaluation of possible infract. HISTORY OF PRESENT ILLNESS: This is a 72-year-old woman who is known to me from the past for mitral valve prolapse secondary to rheumatic heart disease as a child; status post post-prosthetic mitral valve replacement in 1993, on Coumadin; coronary artery disease; hypertension; hyperlipidemia; history of orthostatic hypotension, on Florinef in the past; history of depression, on Lexapro; history of essential tremors, on Inderal/propanolol 60 mg p.o. b.i.d.; history of parkinsonism on carbidopa and levodopa 25/100 mg one tab p.o. b.i.d.; came in to ER for as per ER generalized weakness and mild pain to the back of the head, status post a fall in the morning. The patient felt weak and fallen back, was then hit the head and had some headaches at this time. She gets physical therapy at her home two times per week. She denied any loss of consciousness. No focal weakness seen on extremities. She is definitely deconditioned, has evidence of parkinsonism and essential tremors on neuro exam. ALLERGIES: FUROSEMIDE, CIPROFLOXACIN, AND MORPHINE. REVIEW OF SYSTEMS: A 14-point review of systems is as per the HPI. FAMILY HISTORY: Noncontributory. MEDICATIONS: Reviewed by nurses' reconciliation sheet. SOCIAL HISTORY: No illicit drug use, smoking, or EtOH abuse. LABORATORY DATA: Sodium is 139, potassium is 4.2, chloride of 105, carbon dioxide 29, BUN of 27, creatinine of 1.1, and random glucose is 103. PHYSICAL EXAMINATION GENERAL: The patient is sitting up in bed, in no acute distress. VITAL SIGNS: Temperature of 97.8, pulse rate of 51, blood pressure 124/68, respiratory rate 18, and oxygen saturation 100% on room air. HEENT: Head is atraumatic, normocephalic. PERRLA. Extraocular muscles intact. NECK: Supple. No JVD. No adenopathy noted. LUNGS: Clear to auscultation. No adventitious sounds. HEART: S1 and S2. Normal rate and rhythm. No murmurs, rubs or gallops. ABDOMEN: Soft, nontender, and nondistended. Bowel sounds are present. EXTREMITIES: No clubbing. No cyanosis. Has 1+ pedal edema. Peripheral pulses are 2+ felt bilaterally. NEUROLOGIC: The patient is alert and oriented to person, place, and year. Recall after 5 minutes is 0/3. Poor attention span. Slow thought process. Cranial nerves II through XII are intact. Speech is hypophonic, but no aphasia noted. Motor: Slightly increased tone throughout and mild cognitive rigidity at the wrist bilaterally. Mild bradykinesia of the extremities. Mild tremors upon action. Sensory: Light touch, pinprick, proprioception, and vibration are intact. DTRs are 2+ throughout and 1 at both knees and absent at the ankles. Coordination: [id number] intact. No dysmetria noted. Gait is deferred for now. The patient has mild essential tremors in both hands bilaterally. ASSESSMENT AND PLAN: This 72-year-old woman with history of severe mitral valve prolapse secondary to rheumatic heart disease as a child, status post post-prosthetic mitral valve replacement in 1993, on Coumadin; coronary artery disease; hypertension; hyperlipidemia; history of Escherichia coli and urinary tract infection, on antibiotics; history of orthostatic hypotension, on Florinef; and past history of parkinsonism, on Sinemet 25/100 mg p.o. b.i.d.; history of essential tremors bilaterally in both hands, on Inderal 60 mg p.o. b.i.d. and stable on that. At home, had a mechanical fall and fell backwards when she had generalized weakness and the legs gave out and hit the back of her head with diffuse pressure type headache at this point, had a CAT scan of the head which showed no acute intracranial abnormalities. No evidence of any hyperacute infract based on my evaluation. No focal weakness decondition has the features of mild parkinsonism. At this time, I would recommend: 1. Continue with Lipitor 40 mg and Coumadin 2 mg for stroke prevention. 2. Continue with magnesium oxide 400 mg daily, which will help with her headache. 3. Continue Sinemet 25/100 mg p.o. b.i.d. for parkinsonism since she has not have full-blown Parkinson's disease. 4. Continue Inderal 60 mg p.o. b.i.d. for essential tremors. 5. Continue with physical therapy and subacute rehab for physical reconditioning, balance and gait exercise and muscle strengthening and continue to monitor her electrolytes. Thank you for this consult. Sotero Hall MD
--- NOTE | 2018-09-22 22:22 | HP ---
DATE OF EXAM: 09/22/2018 HISTORY OF PRESENT ILLNESS: I saw her in the emergency room today. She had fallen, this is the second time she has fallen in a week. She hit her head this time. She is a 72-year-old female with multiple falls, getting weaker. I believe she is getting physical therapy at home. I would do think she needs subacute rehab at this time. PAST MEDICAL HISTORY: Hypertension, mitral valve prolapse, pneumonia, Parkinson disease, and anemia. She has had blood transfusions in the past. She has arthritis, falls, osteoarthritis, unsteady gait, GERD, incontinence of urine, anxiety, and depression. PAST SURGICAL HISTORY: She has had a cholecystectomy, hysterectomy, left knee and right knee orthopedic surgeries, valve replacements, left oophorectomy, and mitral valve surgery. SOCIAL HISTORY: Never smoked. No alcohol. No drugs. FAMILY HISTORY: Hypertension in the family. ALLERGIES: SHE IS ALLERGIC TO LASIX, MORPHINE AND CIPRO. MEDICATIONS: She is on Xanax, Lexapro, Protonix, vitamin D, Inderal, and Coumadin for AFib. REVIEW OF SYSTEMS: She did hit her head: No headache. No blurred vision. No change in vision or change in hearing. No sore throat. The neck hurt a little bit, but it is better now. No chest pain or shortness of breath. No coughing. No palpitations. No abdominal pain. No nausea, vomiting, constipation, or diarrhea. She is very weak in both the lower extremities. The legs just give out when she tries to walk. PHYSICAL EXAMINATION: VITAL SIGNS: Temperature 97.6, pulse 84, respiratory rate 20, blood pressure is quite high at 140/98 and O2 sat 100% on oxygen. HEENT: The head had a trauma, but there is no trauma to be seen, no blood or cuts. Normocephalic. Extraocular muscles are intact. Throat is moist. NECK: Supple. HEART: Irregular rate. LUNGS: Decreased breath sounds but clear. ABDOMEN: Soft, obese, And nontender. EXTREMITIES: Trace edema. She can move them. She is very weak. She tells that the legs would buckle if she would stand on them. SKIN: For What I could tell is intact. LYMPHS: Thyroid midline. No palpable appreciable lymphadenopathy. DIAGNOSTIC DATA: She had a CAT scan of the head that showed mild chronic periventricular white matter ischemic changes, mild central volume loss. Chest x-ray shows no active disease. Lumbar x-ray shows no acute findings. She had blood tests done. White count 9.3, hemoglobin 13.5, hematocrit 41.6, and platelets 173. INR is 2.93. Sodium 139, potassium 4.2, BUN 27, creatinine 1.1, GFR is 49, sugar is 103, calcium 10.4, magnesium 2, total bili is 0.7, AST is 40, ALT is 29, alk phos 74, lactate dehydrogenase is 717. Total creatine kinase is 24. Troponin I is 0.01, total protein 7.4. Urine was positive with many bacteria. IMPRESSION AND PLAN: She will have her regular medications. She will be on Rocephin IV. She has physical therapy. I believe she is going to need to have [facility] physical therapy recommends and she is here for multiple falls in about a week's time. She did hit her head. She has urinary tract infection on Rocephin. She most probably will need to go to [facility]. José Miguel Alexander DO MTDBeverly
[2018-09-23 06:31] LABS: HEMOGLOBIN 12.4 g/dL (12.0-16.0); MEAN CORPUSCULAR HGB CONC 33.3 g/dl (31.0-37.0); MEAN PLATELET VOLUME 9.3 fl (7.0-11.0); RBC 4.43 10^6/uL (3.5-6.1); RED CELL DISTRIBUTION WIDTH 13.5 % (11.5-14.5); WHITE BLOOD COUNT 6.9 10^3/uL (4.5-11.0)
[2018-09-23 06:47] LABS: INR 2.35; PROTHROMBIN TIME 26.6 SECONDS (9.4-12.5)
[2018-09-23 06:50] LABS: ALB/GLOB RATIO 1.2 (1.1-1.8); ALBUMIN 3.7 g/dL (3.0-4.8); ALT/SGPT 19 U/L (7-56); AST/SGOT 33 U/L (14-36); BLOOD UREA NITROGEN 26 mg/dL (7-21); CALCIUM 9.9 mg/dL (8.4-10.5); GFR NON-AFRICAN AMERICAN > 60
[2018-09-23] MEDS: NIFEdipine 60 mg ER Tab PO SCH ×2 (09:13→17:17)
[2018-09-23] MEDS: POLYETHYLENE GLYCOL 3350 17 GM/Dose PACKET PO SCH (09:13)
[2018-09-23] MEDS: Pantoprazole 40 mg EC Tab PO SCH (09:14)
[2018-09-23] MEDS: Magnesium Oxide 400 mg Tab UD PO SCH (09:14)
[2018-09-23] MEDS: Cholecalciferol 1,000 INTLU TAB PO SCH ×2 (09:14→17:18)
[2018-09-23] MEDS ORDERED: cefTRIAXone 1 gm 1 GM/100 ML BAG IVPB SCH (10:00)
--- NOTE | 2018-09-23 10:09 | PN ---
DATE: 09/23/2018 SUBJECTIVE: She is tired, weak, difficulty with strength. She had falls. She also has UTI. PHYSICAL EXAMINATION VITAL SIGNS: She has a 98.4 temperature, 84 pulse, 130/83 blood pressure, 20 respiratory rate, and 99% O2 sat on room air. HEENT: Head; atraumatic, normocephalic. CARDIOPULMONARY: Heart regular rate. LUNGS: With decreased breath sounds but clear. ABDOMEN: Soft, obese, nontender. EXTREMITIES: No edema. She is very weak and lethargic. The legs are tired, difficult for her to walk. She will need subacute rehabilitation. I believe she will want to go to [facility]. She has a headache. She has got dizzy. She is not sleeping well. LABORATORY DATA: She has 6.9 white count, 12.4 hemoglobin, 37.2 hematocrit, with 170 platelets. INR is 2.35 on Coumadin. She has 136 sodium, potassium 4, BUN 26, creatinine 0.9, GFR is greater than 60, sugar is 87, calcium is 9.9. Total bili is 0.7, AST is 33, ALT is 19, alk phos 61, total protein 6.8. Troponin I was 0.01. Urine was positive with many bacteria. MEDICATIONS: She is on Coumadin, Lexapro, Lipitor, magnesium, MiraLax, nifedipine, Protonix, Rocephin, Sinemet, and Toradol. ASSESSMENT AND PLAN: There are consults for Neurology. She is here for falls, urinary tract infection. I think she needs to go to subacute rehabilitation, she agrees. She wants to go to [facility]. Awaiting for physical therapy to take a look at her. She had two falls in a week and went to the emergency room twice. This last time she hit her head, thankfully it was okay. José Miguel Alexnader DO
--- NOTE | 2018-09-23 17:12 | CP.PCM.PCO ---
Physician Communication Note - Physician Communication Note Physician Communication Note: seen in bed resting, c/o headache, no focal deficits,PT rec FRACISCO,uti+EColi
[2018-09-24 06:54] LABS: HEMOGLOBIN 12.3 g/dL (12.0-16.0); MEAN CELL VOLUME 85.3 fl (80.0-105.0); MEAN CORPUSCULAR HEMOGLOBIN 27.8 pg (25.0-35.0); MEAN CORPUSCULAR HGB CONC 32.5 g/dl (31.0-37.0); MEAN PLATELET VOLUME 9.4 fl (7.0-11.0); RBC 4.43 10^6/uL (3.5-6.1); RED CELL DISTRIBUTION WIDTH 13.7 % (11.5-14.5); WHITE BLOOD COUNT 7.5 10^3/uL (4.5-11.0)
[2018-09-24 07:00] LABS: INR 2.11; PROTHROMBIN TIME 23.8 SECONDS (9.4-12.5)
[2018-09-24 07:18] LABS: ALB/GLOB RATIO 1.2 (1.1-1.8); ALBUMIN 3.6 g/dL (3.0-4.8); ALT/SGPT 13 U/L (7-56); AST/SGOT 30 U/L (14-36); BLOOD UREA NITROGEN 21 mg/dL (7-21); CALCIUM 9.7 mg/dL (8.4-10.5); GFR NON-AFRICAN AMERICAN > 60
[2018-09-24 07:57] VITALS: RESP 20
--- NOTE | 2018-09-24 09:39 | PN ---
DATE: 09/24/2018 SUBJECTIVE: She is resting comfortably in bed. Her legs are little bit swollen today, I am going to add some hydrochlorothiazide to her Coumadin, Lexapro, Lipitor, magnesium oxide, MiraLax, Procardia, Protonix. I am going to stop the Rocephin, Sinemet, Toradol, vitamins and Xanax. She is eating well. She wants to go to [facility] for physical therapy. Hope that is the plan. She can do that tomorrow. PHYSICAL EXAMINATION VITAL SIGNS: A 97.7 temperature, 72 pulse, 109/67 blood pressure, 20 respiratory rate and 96% O2 sat on room air. HEENT: Head is atraumatic and normocephalic. HEART: Regular rate. LUNGS: Decreased breath sounds. ABDOMEN: Soft, obese and nontender. EXTREMITIES: +1 to +2/4 pitting edema. LABORATORY DATA: She has a 7.5 white count, 12.3 hemoglobin, 37.8 hematocrit with 181 platelets. INR is 2.11. Sodium is 139, potassium 4.3, BUN 21, creatinine 0.8, GFR is greater than 60, sugar is 85, calcium is 9.7, total bili is 0.5, AST is 30, ALT is 13, alk phos 59 and total protein 6.5. Overall I am happy with her. She is being seen by Neurology. I am going to discontinue the Rocephin. Check her labs tomorrow. Tomorrow will be the third overnight, so she will be able to be discharged to [facility] tomorrow, hopefully case management and social work get that arranged. She had multiple falls, borderline UTI and she has CHF. José Miguel Alexander DO
[2018-09-24] MEDS: POLYETHYLENE GLYCOL 3350 17 GM/Dose PACKET PO SCH (10:20)
[2018-09-24] MEDS: NIFEdipine 60 mg ER Tab PO SCH ×2 (10:20→17:45)
[2018-09-24] MEDS: Magnesium Oxide 400 mg Tab UD PO SCH (10:20)
[2018-09-24] MEDS: Pantoprazole 40 mg EC Tab PO SCH (10:21)
[2018-09-24] MEDS: Cholecalciferol 1,000 INTLU TAB PO SCH ×2 (10:21→18:04)
--- NOTE | 2018-09-24 10:37 | CP.PCM.PCO ---
Physician Communication Note - Physician Communication Note Physician Communication Note: pt.seen resting comfortabely,feels much better,cleared for DC per neuro,pmd
[2018-09-24] MEDS ORDERED: Sodium Chloride 0.9% 1,000 ML IV SCH ×2 (16:00→16:45)
[2018-09-25 07:04] LABS: HEMOGLOBIN 11.6 g/dL (12.0-16.0); INR 2.04; MEAN CELL VOLUME 86.2 fl (80.0-105.0); MEAN CORPUSCULAR HEMOGLOBIN 27.7 pg (25.0-35.0); MEAN CORPUSCULAR HGB CONC 32.1 g/dl (31.0-37.0); MEAN PLATELET VOLUME 9.6 fl (7.0-11.0); RBC 4.19 10^6/uL (3.5-6.1); RED CELL DISTRIBUTION WIDTH 13.7 % (11.5-14.5); WHITE BLOOD COUNT 6.3 10^3/uL (4.5-11.0)
[2018-09-25 07:23] LABS: ALB/GLOB RATIO 1.2 (1.1-1.8); ALBUMIN 3.4 g/dL (3.0-4.8); ALT/SGPT 16 U/L (7-56); AST/SGOT 33 U/L (14-36); BLOOD UREA NITROGEN 25 mg/dL (7-21); CALCIUM 9.5 mg/dL (8.4-10.5); GFR NON-AFRICAN AMERICAN > 60
[2018-09-25] MEDS ORDERED: NIFEdipine 60 mg ER Tab PO SCH (08:29)
[2018-09-25] MEDS: Cholecalciferol 1,000 INTLU TAB PO SCH (09:06)
[2018-09-25] MEDS: Pantoprazole 40 mg EC Tab PO SCH (09:06)
[2018-09-25] MEDS: Magnesium Oxide 400 mg Tab UD PO SCH (09:07)
[2018-09-25] MEDS: POLYETHYLENE GLYCOL 3350 17 GM/Dose PACKET PO SCH (09:07)
[2018-09-25 12:21] VITALS: BP 114/74; PULSE 71; TEMP 97.8; O2SAT 97
--- NOTE | 2018-09-25 18:00 | CON ---
DATE OF CONSULTATION: 09/25/2018 REASON FOR CONSULTATION: Weakness and history of mitral valve replacement in [address] [facility] valve. 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 She presented because of weakness and a recent fall. The patient has been experiencing multiple falls according to Dr. Alexander's evaluation. The patient denies any retrosternal chest pain and is unaware of any coronary intervention in the past and denies any bypass surgery performed at the time of her mitral valve replacement. The patient has recurrent urinary tract infections, the most recent one was a few weeks ago. The patient also has a history of cholecystectomy, hysterectomy and knee surgery. SOCIAL HISTORY: The patient is a nonsmoker, nondrinker. She lives with her who stated that he is out all day working. MEDICATIONS: Coumadin 2 mg daily, Lexapro 10 mg once a day, Lipitor 40 mg once a day, magnesium oxide 400 mg daily, Procardia XL 60 mg twice a day, Protonix 40 mg once a day, Sinemet 1 tablet twice a day, and Xanax 1 mg p.o. t.i.d. REVIEW OF SYSTEMS: No fever or chills. No nausea, vomiting, and no diarrhea. PHYSICAL EXAMINATION: GENERAL: The patient is an elderly female who does not appear to be in acute distress. VITAL SIGNS: Blood pressure 114/74, heart 71, temperature 97.8, respirations 20. HEENT: Head normocephalic. CHEST: Clear. HEART: S1 and S2 regular. ABDOMEN: Soft. EXTREMITIES: 1+ nonpitting edema. LABORATORY DATA: Hemoglobin and hematocrit today 11.6 and 36.1, white count and platelet count are within normal limit. Today's SMA-7 is within normal limits except for BUN of 25. Calcium and magnesium are within normal limits. EKG revealed sinus rhythm with ST-T wave changes, consider anterior ischemia, prolonged QT interval. Head CT scan without contrast, mild chronic periventricular white matter ischemic changes extending peripherally into the deep white matter both cerebral hemispheres. Right shoulder x-ray, degenerative changes, no acute findings. Lumbar spine x-ray, no acute findings. Today's INR is 2.04. The most recent echo in June 2017 revealed a mild concentric LVH. Mitral bioprosthesis cannot exclude vegetation. Ejection fraction was measured at 50%. Chest x-ray revealed borderline cardiomegaly with prominent bronchovascular markings and a mechanical prosthetic mitral valve was noted. ASSESSMENT 1. Generalized weakness and recurrent falls. 2. Status post mechanical mitral valve replacement in 1993. 3. Rule out underlying sepsis. Blood culture is negative after 3 days and urine culture had no growth. 6. Parkinsonism. RECOMMENDATIONS: I will increase Coumadin to 3 mg orally daily. Continue Lipitor 40 g once a day, Procardia XL 60 mg twice a day, 71 tablets twice a day. Obtain a carotid Doppler. Maynor Basilio MD
--- NOTE | 2018-09-26 00:51 | DS ---
HOSPITAL COURSE: She is feeling better this morning. She is comfortable. MEDICATIONS: She is on Coumadin, Lexapro, Lipitor, magnesium, MiraLax, nifedipine, which I dropped to 40 from 60, Protonix, Sinemet, Toradol, vitamin, and Xanax. PHYSICAL EXAMINATION: VITAL SIGNS: Temperature 97.7, pulse 84, blood pressure 118/70, respiratory rate 20, O2 sat 96% on room air. GENERAL: I think the Procardia is too strong, I am going to decrease the Procardia. HEENT: Head is atraumatic and normocephalic. HEART: Regular rate. LUNGS: Decreased breath sounds, but clear. ABDOMEN: Soft and obese. EXTREMITIES: Pitting edema +1/4. I am also going to stop the hydrochlorothiazide, so the blood pressure comes up a little bit. LABORATORY DATA: White count 6.3, hemoglobin 11.6, hematocrit 36.1, and platelets 168. INR 2.04. Sodium 139, potassium 4.1, BUN 25, creatinine 0.9, GFR greater than 60, sugar is 83, calcium 9.5, total bili is 0.4, AST is 33, ALT is 16, alk phos 55, and total protein 6.3. DISCHARGE PLAN: I am going to stop the IV fluids and she will be discharged to [facility]. I will see her there tomorrow. Hopefully, she will continue to do well. She needs physical therapy. José Miguel Alexander DO MTDD
--- NOTE | 2018-09-27 17:37 | PQF ---
PROVIDER RESPONSE TEXT: Chronic systolic chf REVIEWER QUERY TEXT: CHF Acuity and Type Congestive Heart Failure is documented in the Medical Record. Please document the type and acuity (in cludes probable or suspected) Such as: Type: -- Systolic -- Diastolic -- Combined -- Other, please specify Acuity: -- Acute -- Chronic -- Acute on chronic -- Other, please specify Also please document the underlying cause of the CHF (includes probable or suspected) The patient's Clinical Indicators include: Please see query. Thank you. Query created by: Nayana Connor on 09/27/2018 2:59 PM Electronically signed by: José Miguel Alexander DO 09/27/2018 5:34 PM
== END 2018-09-25 15:12 | DRG 690 ==
LOC: ED 09:08 → ERH 11:58 → 3RNO 13:38
PROVIDERS: ADMIT Family Medicine; ATTEND Family Medicine
DX: N39.0 Urinary tract infection, site not specified (principal); I50.22 Chronic systolic (congestive) heart failure; G20 Parkinson's disease; R53.1 Weakness; Z79.899 Other long term (current) drug therapy; R29.6 Repeated falls; G25.0 Essential tremor; E78.5 Hyperlipidemia, unspecified; I10 Essential (primary) hypertension; I25.10 Atherosclerotic heart disease of native coronary artery without angina pectoris; I34.1 Nonrheumatic mitral (valve) prolapse; K21.9 Gastro-esophageal reflux disease without esophagitis; W18.30XA Fall on same level, unspecified, initial encounter; Z79.01 Long term (current) use of anticoagulants; Z87.01 Personal history of pneumonia (recurrent); Z87.440 Personal history of urinary (tract) infections; Z86.79 Personal history of other diseases of the circulatory system; Z90.49 Acquired absence of other specified parts of digestive tract; Z90.710 Acquired absence of both cervix and uterus; Z90.721 Acquired absence of ovaries, unilateral; Z95.2 Presence of prosthetic heart valve; Z82.49 Family history of ischemic heart disease and other diseases of the circulatory system; F32.89 Other specified depressive episodes; Z88.1 Allergy status to other antibiotic agents; Z88.5 Allergy status to narcotic agent; Z88.8 Allergy status to other drugs, medicaments and biological substances